=== PATIENT | male | born 1955 | race Caucasian/White ===

== ENCOUNTER 2024-11-07 17:54 | Inpatient (IN) | payer MEDICARE, SELFPAY ==
[2024-11-07] VITALS (45 sets, daily range): BP systolic 62–94; BP diastolic 37–55; PULSE 97–189; RESP 11–35; TEMP 35.9–37.1; O2SAT 28–100; BMI 25.2; BMI 24.0
--- NOTE | 2024-11-07 16:15 | RAD_ITS ---
PROCEDURE: CHEST 1 VIEW (PORTABLE) 11/07/2024 REASON FOR EXAM: ETT AND OG PLACEMENT TECHNIQUE: Frontal view of the chest. COMPARISON: Earlier today FINDINGS: Hardware: Interval placement of endotracheal tube with the tip approximately 5 cm above the manoj. Nasogastric tube which is unchanged. Heart: Cardiac and mediastinal contours are stable. Lungs: The lungs are clear. Bones: The bones are unremarkable. Other: RAD/Chest 1 View (Portable) IMPRESSION: Interval placement of endotracheal tube with the tip above the manoj. Nasogastric tube which is unchanged. No active pulmonary disease. Reading Location: [id number]
[2024-11-07] MEDS: 0.9% Normal Saline (1000mL) 1,000 ML 999 ML IV ×2 (18:04→23:30)
[2024-11-07] MEDS: Rocuronium Bromide 50 MG/5 ML Vial 100 MG IV (18:04)
[2024-11-07] MEDS: Etomidate 20 MG/10 ML Vial IV (18:04)
--- NOTE | 2024-11-07 18:11 | EKG12_ITS ---
Test Reason : UNRESP Blood Pressure : */* mmHG Vent. Rate : 100 BPM Atrial Rate : 100 BPM P-R Int : 186 ms QRS Dur : 114 ms QT Int : 374 ms P-R-T Axes : 45 78 52 degrees QTcB Int : 482 ms Normal sinus rhythm Cannot rule out Brugada pattern, type 1 , possible metabolic changes Prolonged QT Abnormal ECG No old ECG availabe Confirmed by Mo Aviles ([id number]), editor managing newspaper MARITZA BAIRES ([id number]) on 11/08/2024 11:23:39 AM Referred By: Confirmed By: Mo Aviles
--- NOTE | 2024-11-07 18:11 | RAD_ITS ---
PROCEDURE: CHEST 1 VIEW (PORTABLE) 11/07/2024 REASON FOR EXAM: DYSPNEA TECHNIQUE: Frontal view of the chest. FINDINGS: Hardware: Nasogastric tube with the tip below the diaphragm with the side port in the distal esophagus. Heart: Cardiac and mediastinal contours are stable. Lungs: The lungs are clear. Bones: The bones are unremarkable. Other: RAD/Chest 1 View (Portable) IMPRESSION: Nasogastric tube with the tip below the diaphragm with the side port overlying the distal esophagus. No active pulmonary disease. Reading Location: [id number]
[2024-11-07 18:35] LABS: Bedside Glucose > 500 mg/dL (74-106)
[2024-11-07] MEDS: 0.9% Normal Saline (1000mL) 1,000 ML 1000 ML IV (18:44)
[2024-11-07 18:45] LABS: Bacteria 0 SEEN /hpf (None Seen); Mucous, Urine 0 SEEN /hpf (<or=2+); Red Blood Cells-Urine 0 SEEN /hpf (0-5); Squamous Epithelial Cells - UA 0 SEEN /hpf (0-5)
--- NOTE | 2024-11-07 18:45 | CPS ---
Per MD Archibald pushed tube into 26 at the teeth at this time.
[2024-11-07 18:47] LABS: Absolute Lymphocyte Count 1.99 X10^3/uL (0.83-4.51); Absolute Neutrophil Count 20.6 X10^3/uL (2.0-7.7); Basophil# 0.11 X10^3/uL; Basophil% 0.4 % (0-1); Color, Urine Straw (Yellow); Eosinophil# 0.01 X10^3/uL; Glucose, Dipstick 1000 mg/dl (Normal); Hematocrit 37.7 % (40-54); Hemoglobin 10.6 g/dL (13.0-16.5); Leukocyte Esterase-Dipstick Negative /ul (Negative); Lymphocyte # 1.99 X10^3/ul (0.83-4.51); Lymphocyte % 8.1 % (19-41); Mean Corp Hgb Conc 28.1 g/dL (32-36); Mean Corpuscular Hgb 31.1 pg (27.0-32.0); Mean Corpuscular Volume 110.6 fL (80-94); Mean Platelet Vol. 12.8 fl (6.2-12.0); Monocyte# 1.09 X10^3/uL; Monocyte% 4.4 % (0-10); NRBC Flagged by Analyzer 0 % (0-5); Neutrophil # 20.59 X10^3/uL (2.7-7.7); Neutrophil % 83.4 % (47-70); Nitrite-Dipstick Negative (Negative); Occult Blood-Urine Negative /ul (Negative); POSITIVE DIFFERENTIAL YES; Platelet Count 269 K/mm3 (150-450); Protein-Dipstick 15 mg/dl (Negative); RBC Distribution Width CV 13.2 % (11.6-14.6); RBC Distribution Width SD 53.3 fl (35.1-43.9); Red Blood Count 3.41 M/mm3 (4.6-6.2); Specific Gravity, Urine 1.015 (1.002-1.030); Urine Bilirubin Dipstick Negative (Negative); Urine Clarity Clear (Clear); Urine Urobilinogen Normal (Normal); White Blood Count 24.7 K/mm3 (4.4-11.0)
[2024-11-07 18:50] LABS: Base Excess -24 mmol/L (-2 to +2); Bicarbonate 7.6 mmol/L (22-26); Blood Gas Specimen Type ART; Mode Not entered; O2 Delivery Device Bagging; PO2 379 mmHG (75-100); SITE L Radial; SO2 100 % (95-99); Time Given 18:47:46; Total Carbon Dioxide 9 mmol/L; pCO2 33.9 mmHg (35-45); pH 6.96 (7.35-7.45)
[2024-11-07 18:54] LABS: International Normalized Ratio 1.5; Prothrombin Time (Protime)PT. 18.8 SECONDS (11.7-14.9)
[2024-11-07 18:55] LABS: Partial Thromboplast Time 32.9 Seconds (24.1-36.2)
[2024-11-07 19:00] LABS: Differential Indicated SCAN CRITERIA MET
[2024-11-07] MEDS: Insulin Lispro 100 UNIT in 0.9% Normal Saline (100mL Bag) 99 ML 8.4 UNIT CONT INF (19:11)
[2024-11-07] MEDS: Norepinephrine 8 MG in 0.9% Normal Saline (250mL Bag) 242 ML 9.4 MG CONT INF (19:23)
--- NOTE | 2024-11-07 19:50 | RAD_ITS ---
EXAM: Portable chest CLINICAL HISTORY: Central line placement COMPARISON: Earlier today TECHNIQUE: Portable chest FINDINGS: Interval placement of right internal jugular central line with tip of the catheter overlying the distal superior vena cava no pneumothorax. Endotracheal tube and nasogastric tube both of which are unchanged. No bony abnormality. The heart mediastinum are normal. No opacity within the lungs to suggest active pulmonary disease. RAD/CXR for Line Placement IMPRESSION: Interval placement of right internal jugular central line with tip of the autumn ter overlying the superior vena cava no pneumothorax. Endotracheal tube and nasogastric tube both of which are unchanged. No active pulmonary disease. Reading Location: [id number]
[2024-11-07 19:55] LABS: Anion Gap 53 (5-15); BUN 44 mg/dL (4-19); BUN/Creat Ratio 13.4 RATIO (10-20); Calcium,Total 7.4 mg/dL (7.6-11.0); Chloride 76 mmol/L (98-108); Creatinine, Serum 3.25 mg/dL (0.70-1.20); EST Glomerular Filtration Rate 20 (>60); Potassium 5.8 mmol/L (3.3-5.1); Sodium Level 135 mmol/L (133-145)
--- NOTE | 2024-11-07 19:57 | ED.RN ---
PT. ARRIVAL VIA EMS W/ NO FAMILY, FRIENDS, OR FORM OF IDENTIFICATION ON PERSON. UNABLE TO VALIDATE NAME, BIRTHDAY, ALLERGIES
[2024-11-07 20:05] LABS: Troponin T High Sensitivity 38 ng/L (<=22)
--- NOTE | 2024-11-07 20:24 | EDS_ITS ---
HPI History of Present Illness Chief Complaint: Unresponsive Informant: EMS Onset/Context/Timing Onset: Today Context: Gradual Onset Timing: Continuous Quality: Unresponsive Location: Generalized Narrative Narrative: Patient presents after being found with an altered mental status. EMS checked the patient's blood sugar and noted to be high. EMS reports the patient became more unresponsive on the way to the hospital. EMS was able to place intraosseous lines. EMS states patient had no reaction to pain with this. EMS reports the patient has not been taking his insulin. Patient is nonverbal. PFSH PFSH Medical History Diabetes Medical History unable to obtain Allergy/AdvReac Type Severity Reaction Status Date / Time Unable to Assess Allergy Verified 11/07/24 17:57 Family History unable to obtain Surgical History unable to obtain unable to obtain Social History Smoking Status: Unknown if ever smoked ROS ROS ED Review of Systems ROS Unobtainable: due to mental condition and due to mental status EXAM Physical Exam Const Vital Signs: 11/07/24 17:57 11/07/24 18:06 11/07/24 18:08 Temperature 98 F Temperature Source Axillary Pulse Rate 189 H 98 Respiratory Rate 23 H 35 H Respiratory Pattern Apnea Blood Pressure 62/37 L 62/38 L Blood Pressure Mean 45 46 Blood Pressure Source Pulse Ox 100 80 97 Oxygen Delivery Method Ambu-Bag Ambu-Bag Ambu-Bag Fraction of Inspired Oxygen (FIO2) 11/07/24 18:09 11/07/24 18:10 11/07/24 18:17 Temperature Temperature Source Pulse Rate 100 Respiratory Rate 11 L Respiratory Pattern Apnea Blood Pressure 69/40 L 70/42 L Blood Pressure Mean 49 51 Blood Pressure Source Pulse Ox 98 Oxygen Delivery Method Ambu-Bag Fraction of Inspired Oxygen (FIO2) 11/07/24 18:20 11/07/24 18:37 11/07/24 18:42 Temperature Temperature Source Pulse Rate 100 99 Respiratory Rate 18 18 Respiratory Pattern Normal Blood Pressure 72/41 L 70/40 L Blood Pressure Mean 51 50 Blood Pressure Source Pulse Ox 99 97 Oxygen Delivery Method Mechanical Ventilator Mechanical Ventilator Fraction of Inspired Oxygen (FIO2) 100 70 11/07/24 18:45 11/07/24 18:48 04/14/25 18:51 Temperature Temperature Source Pulse Rate 99 99 Respiratory Rate 18 18 Respiratory Pattern Blood Pressure 68/41 L 68/40 L 69/40 L Blood Pressure Mean 50 50 50 Blood Pressure Source Pulse Ox Oxygen Delivery Method Fraction of Inspired Oxygen (FIO2) 11/07/24 18:54 11/07/24 18:57 11/07/24 19:00 Temperature Temperature Source Pulse Rate 98 98 Respiratory Rate 18 19 H Respiratory Pattern Blood Pressure 66/40 L 67/39 L 66/40 L Blood Pressure Mean 50 49 49 Blood Pressure Source Pulse Ox Oxygen Delivery Method Fraction of Inspired Oxygen (FIO2) 11/07/24 19:00 11/07/24 19:03 11/07/24 19:06 Temperature 96.6 F L Temperature Source Core Pulse Rate 97 98 98 Respiratory Rate 25 H 23 H 22 H Respiratory Pattern Blood Pressure 66/40 L 67/39 L 66/39 L Blood Pressure Mean 48 49 49 Blood Pressure Source Pulse Ox 100 Oxygen Delivery Method Mechanical Ventilator Fraction of Inspired Oxygen (FIO2) 40 11/07/24 19:09 11/07/24 19:12 11/07/24 19:15 Temperature Temperature Source Pulse Rate 97 Respiratory Rate 22 H Respiratory Pattern Blood Pressure 65/40 L 66/38 L 65/39 L Blood Pressure Mean 49 48 48 Blood Pressure Source Pulse Ox Oxygen Delivery Method Fraction of Inspired Oxygen (FIO2) 11/07/24 19:18 11/07/24 19:21 11/07/24 19:23 Temperature Temperature Source Pulse Rate 97 97 97 Respiratory Rate 22 H 22 H 21 H Respiratory Pattern Blood Pressure 65/39 L 65/39 L 65/39 L Blood Pressure Mean 47 48 47 Blood Pressure Source Monitor Pulse Ox Oxygen Delivery Method Fraction of Inspired Oxygen (FIO2) 11/07/24 19:24 11/07/24 19:27 11/07/24 19:30 Temperature Temperature Source Pulse Rate 97 97 98 Respiratory Rate 21 H 23 H 21 H Respiratory Pattern Blood Pressure 64/39 L 65/38 L 65/39 L Blood Pressure Mean 47 47 48 Blood Pressure Source Pulse Ox Oxygen Delivery Method Fraction of Inspired Oxygen (FIO2) 11/07/24 19:32 11/07/24 19:33 11/07/24 19:36 Temperature 96.6 F L Temperature Source Core Pulse Rate 98 98 100 Respiratory Rate 22 H 22 H 22 H Respiratory Pattern Blood Pressure 65/39 L 66/38 L 71/41 L Blood Pressure Mean 47 48 51 Blood Pressure Source Monitor Pulse Ox 100 Oxygen Delivery Method Mechanical Ventilator Fraction of Inspired Oxygen (FIO2) 11/07/24 19:57 11/07/24 20:00 11/07/24 20:15 Temperature 96.7 F L 96.9 F L Temperature Source Core Core Pulse Rate 103 H 107 H 107 H Respiratory Rate 23 H 23 H 22 H Respiratory Pattern Blood Pressure 74/41 L 78/43 L 77/45 L Blood Pressure Mean 52 54 55 Blood Pressure Source Monitor Monitor Pulse Ox 98 Oxygen Delivery Method Mechanical Ventilator Mechanical Ventilator Fraction of Inspired Oxygen (FIO2) 40 40 11/07/24 20:30 11/07/24 20:52 11/07/24 21:00 Temperature 97.4 F L 97.6 F L Temperature Source Core Core Pulse Rate 108 H 115 H Respiratory Rate 25 H 23 H Respiratory Pattern Blood Pressure 80/46 L 76/45 L 80/45 L Blood Pressure Mean 57 55 56 Blood Pressure Source Monitor Pulse Ox 98 97 Oxygen Delivery Method Mechanical Ventilator Mechanical Ventilator Fraction of Inspired Oxygen (FIO2) 40 40 11/07/24 21:21 11/07/24 21:23 11/07/24 21:30 Temperature 97.9 F 98.1 F Temperature Source Core Pulse Rate 114 H 114 H 115 H Respiratory Rate 23 H 23 H 23 H Respiratory Pattern Blood Pressure 80/47 L 80/47 L 82/46 L Blood Pressure Mean 58 58 58 Blood Pressure Source Monitor Pulse Ox 97 98 Oxygen Delivery Method Mechanical Ventilator Fraction of Inspired Oxygen (FIO2) 40 Constitutional Narrative: Patient is unresponsive and nonverbal. Patient has dry mucous membranes. HEENT Reports dry mucous membranes Mouth ED: Yes dry mucous membranes Mouth: dry mucous membranes Neck supple Resp clear to auscultation bilaterally Resp Narrative: Patient for respiratory effort. Patient had equal breath sounds after intubation. Cardio regular rate Rate: tachycardic GI non-distended Palpation: soft Neuro Sensorium / Orientation: stuporous Motor Exam: general weakness Psych Psych Narrative: Patient is unresponsive and nonverbal. MDM MDM MDM Narrative Medical decision making narrative: Differential diagnosis includes diabetic ketoacidosis, electrolyte abnormality, dehydration, gastrointestinal bleeding, cardiac dysrhythmia, cardiac ischemia, and metabolic acidosis. EKG will be obtained to assess for cardiac dysrhythmia and cardiac ischemia. Chest x-ray will be obtained to assess for pneumonia and bronchitis. CBC will be obtained to assess for leukocytosis and anemia. Basic metabolic profile will be obtained to assess for electrolyte abnormality and renal function. High-sensitivity troponin will be obtained to assess for cardiac ischemia. PT with INR and PTT will be obtained to assess for coagulopathy. Beta hydroxybutyrate will be obtained to assess for diabetic ketoacidosis. Urinalysis will be obtained to assess for urinary tract infection and hematuria. History & Record Review Additional record(s) reviewed:: No prior records Lab Data Attestation: I reviewed the patient's lab results. Lab results narrative: CBC was reviewed. There is a leukocytosis of 24.7. Hemoglobin was 10.6 and hematocrit was 37.7. PT with INR PTT were reviewed. Pro time was 18.8 and INR is 1.5. PTT was 32.9. Basic metabolic profile was reviewed. Potassium was slightly elevated at 5.8. There was some hemolysis noted. Chloride was 76. CO2 was low at 6.3. Anion gap was elevated at 53. BUN was elevated at 44 and creatinine was elevated at 3.25. Glucose was elevated at 1336. High- sensitivity troponin was reviewed and was elevated at 38. Beta hydroxybutyrate was reviewed and was elevated at greater than 16. There are no prior labs available for comparison. Labs: Laboratory Results - last 24 hr 11/07/24 11/07/24 11/07/24 18:09 18:19 18:30 WBC 24.7 H RBC 3.41 L Hgb 10.6 L Hct 37.7 L MCV 110.6 H MCH 31.1 MCHC 28.1 L RDW Std Deviation 53.3 H RDW Coeff of Eliseo 13.2 Plt Count 269 MPV 12.8 H Immature Gran % (Auto) 3.700 H Neut % (Auto) 83.4 H Lymph % (Auto) 8.1 L Christian % (Auto) 4.4 Eos % (Auto) 0.0 Baso % (Auto) 0.4 Absolute Neuts (auto) 20.6 H Absolute Lymphs (auto) 1.99 Nucleated RBC % 0 Differential Comment SCANNED PT 18.8 H INR 1.5 APTT 32.9 Sodium 135 Potassium 5.8 H Chloride 76 L Carbon Dioxide 6.3 L* Anion Gap 53 H BUN 44 H Creatinine 3.25 H Estim Creat Clear Calc 25.20 L Est GFR (MDRD) Non-Af 20 L BUN/Creatinine Ratio 13.4 Glucose 1336 H* Calcium 7.4 L Troponin T High Sens 38 H Troponin T Hi Sens 2 Hr b-Hydroxybutyric mmol/L > 16.0 Urine Color Straw Urine Clarity Clear Urine pH 6.0 Ur Specific [place] 1.015 Urine Protein 15 H Urine Glucose (UA) 1000 H Urine Ketones 150 A* Urine Occult Blood Negative Urine Nitrite Negative Urine Bilirubin Negative Urine Urobilinogen Normal Ur Leukocyte Esterase Negative Urine RBC 0 SEEN Urine WBC 0-5 SEEN Ur Squamous Epith Cells 0 SEEN Ur Renal Epithelial Cell 0-5 SEEN Urine Bacteria 0 SEEN Urine Mucus 0 SEEN POC Glucose > 500 H* Blood Type O NEGATIVE Antibody Screen NEGATIVE 11/07/24 20:59 WBC RBC Hgb Hct MCV MCH MCHC RDW Std Deviation RDW Coeff of Eliseo Plt Count MPV Immature Gran % (Auto) Neut % (Auto) Lymph % (Auto) Christian % (Auto) Eos % (Auto) Baso % (Auto) Absolute Neuts (auto) Absolute Lymphs (auto) Nucleated RBC % Differential Comment PT INR APTT Sodium Potassium Chloride Carbon Dioxide Anion Gap BUN Creatinine Estim Creat Clear Calc Est GFR (MDRD) Non-Af BUN/Creatinine Ratio Glucose 1130 H* Calcium Troponin T High Sens Troponin T Hi Sens 2 Hr 42 H b-Hydroxybutyric mmol/L Urine Color Urine Clarity Urine pH Ur Specific [place] Urine Protein Urine Glucose (UA) Urine Ketones Urine Occult Blood Urine Nitrite Urine Bilirubin Urine Urobilinogen Ur Leukocyte Esterase Urine RBC Urine WBC Ur Squamous Epith Cells Ur Renal Epithelial Cell Urine Bacteria Urine Mucus POC Glucose Blood Type Antibody Screen ABG Data Attestation: I personally reviewed and interpreted this ABG as follows: Interpretation: Arterial blood gas was reviewed. There is a metabolic acidosis with a pH of 6.96. pCO2 was 33.9. pO2 was 379. Bicarbonate was 7.6. Base excess was -24. Oxygen saturation was 100%. ABG results: ABG 11/07/24 18:45 Specimen Type ART Sample Site L Radial pH 6.96 L* Bicarbonate Actual 7.6 L Total CO2 9 Base Excess -24 L O2 Saturation 100 H O2 % 100.0 ABG pCO2 33.9 L ABG pO2 379 H* Srini Test N/A O2 Delivery Device Bagging Vent Mode Not entered Crit Call To/Read Back Yes Blood Gas Notified Whom Dr Archibald Blood Gas Notified Time 18:47:46 Radiography Chest X-Ray - ED: 1 View, Read by ED Physician, Read by Radiologist and No Acute Disease Diagnostic Testing: Clinical Impression(s) from Imaging Studies Chest X-Ray 11/07/24 16:15 IMPRESSION: Interval placement of endotracheal tube with the tip above the manoj. Nasogastric tube which is unchanged. No active pulmonary disease. Reading Location: [facility] Chest X-Ray 11/07/24 18:11 IMPRESSION: Nasogastric tube with the tip below the diaphragm with the side port overlying the distal esophagus. No active pulmonary disease. Reading Location: [facility] Chest X-Ray 11/07/24 19:50 IMPRESSION: Interval placement of right internal jugular central line with tip of the catheter overlying the superior vena cava no pneumothorax. Endotracheal tube and nasogastric tube both of which are unchanged. No active pulmonary disease. Reading Location: [facility] Initial chest x-ray was obtained. There is 1 view. On my independent interpretation, there is nasogastric tube noted to go below the diaphragm. The endotracheal tube was not visualized. There is no acute cardiopulmonary process. Radiologist also interpreted the x-rays and agrees. Repeat chest x-ray was obtained. There is 1 view. On my independent i nterpretation, the endotracheal tube was noted to be above the manoj. The nasogastric tube was unchanged. There is no acute cardiopulmonary process. Radiologist also interpreted the x-ray and agrees. Repeat chest x-ray performed after placement of right internal jugular central line was obtained. There is 1 view. On my independent interpretation, there is good placement of the right internal jugular central line. There is no pneumothorax. Radiologist also interpreted the x-ray and agrees. EKG Initial EKG: Attestation: I personally reviewed and interpreted this EKG as follows: Interpretation: Sinus Rhythm (100) Comments: EKG was obtained. On my independent interpretation, it showed normal sinus rhythm with a rate of 100. WA interval was normal at 186 ms. QRS interval was normal at 114 ms. QTc interval was 482 ms. [place] was normal. There are nonspecific ST-T wave changes noted. There are no prior EKGs available for comparison. Prior EKG tracings: not available for review Prior: No Prior Management Discussion w/another healthcare provider: Hospitalist Treatment and Re-Evaluation :: Patient was unable to protect his airway. Therefore patient was intubated. Patient was given etomidate and rocuronium. Patient was intubated with a 8.0 ET tube to 20 cm at the lip. After chest x-ray was obtained, this was advanced to 26 cm at the lip. There is good color change noted on capnography. There is condensation in the tube. There are equal breath sounds bilaterally. After intubation, there was coffee-ground emesis coming from the esophagus. Orogastric tube was placed. There is a large amount of coffee-ground emesis suctioned. Patient was started on insulin drip. Patient's blood pressure remained low. Therefore a right internal jugular central venous line will need to be placed. The right internal jugular vein area was cleaned and prepped in a sterile manner. Sterile drapes were placed. Using ultrasound guidance, the right internal jugular vein was cannulated. There is good blood return. It was dark and nonpulsatile. Guidewire was passed through the needle and the needle was withdrawn. The #11 blade scalpel was used to make a small skin incision. Dilator was passed over the guidewire and was removed. The triple-lumen catheter was then advanced over the guidewire. This was sutured in place. There was good blood return in all 3 ports. The lines were all flushed with saline. Patient tolerated procedure well. Repeat chest x-ray was obtained. There is no pneumothorax. Patient was started on Levophed. After review results of the electrolytes and CO2, patient was given 1 amp of sodium bicarbonate. Patient was also started on Protonix. Case was discussed with the hospitalist. He will admit the patient to ICU. He recommended obtaining CTA of the chest, abdomen, and pelvis to look for aspiration pneumonia and source of gastrointestinal bleeding. This was ordered. Patient will be admitted to ICU after this is done. Procedures Intubations Intubation Method: orotracheal Intubation Verification: Positive color change and Bilateral breath sounds confirmed Intubation Complications: no complications Other Procedures Procedure(s): The right internal jugular area was cleaned and prepped and draped in a sterile manner. Using ultrasound guidance, the right internal jugular was cannulated with a needle. There is dark blood return. It was nonpulsatile. The guidewire was passed through the needle. The needle was removed. A small skin incision was made using 11 blade scalpel. The dilator was passed over the guidewire and then was removed. The triple-lumen catheter was then inserted over the guidewire. The guidewire was removed intact. All 3 ports flushed easily. The triple-lumen catheter was sutured in place. Dressing was applied. Patient tolerated procedure well. Postprocedure x-ray was obtained. There is 1 view. On my independent interpretation, the triple-lumen catheter is in place. There is no pneumothorax. Radiologist also interpreted the x-ray and agrees. Critical Care Time Critical Care Time: Yes Critical care time (excluding procedures): 30-74 minutes (47), Including time spent:, Discussing w/Consultants, Arranging Admission or Transfer and Performing Direct Patient Care at Bedside Discharge Plan Dx/Rx/DC Orders Clinical Impression: Diabetic ketoacidosis, Respiratory failure, Hypotension, Gastrointestinal bleeding, upper, Leukocytosis Disposition Disposition: Acute Care Hospital [facility] Discharge Date/Time: 11/07/24 22:30
[2024-11-07 20:29] LABS: BETA-HYDROXYBUTYRATE > 16.0 mmol/L (0.0-0.3)
[2024-11-07 20:30] LABS: Carbon Dioxide 6.3 mmol/L (21.0-32.0); Glucose 1336 mg/dL (70-99)
[2024-11-07 20:52] LABS: Ketone-Dipstick 150 mg/dl (Negative)
[2024-11-07] MEDS: Pantoprazole Sodium 80 MG in 0.9% Normal Saline (100mL Bag) 80 ML 10 MG CONT INF (20:52)
[2024-11-07] MEDS: Sodium Bicarbonate 8.4% 50 ML Syringe 50 MEQ IV (20:52)
[2024-11-07 21:02] LABS: White Blood Cells 0-5 SEEN /hpf (0-5)
[2024-11-07 21:03] LABS: Renal Epithelial Cells 0-5 SEEN /hpf (0-5)
--- NOTE | 2024-11-07 21:10 | PCM.HP.STD ---
HPI - General General Date of Admission: 11/07/24 Date of Service: 11/07/24 Chief Complaint: Elevated Blood Glucose, AMS and Coffee-Ground Emesis. HPI Narrative MASHA PEREZ, is a 66 M with a past medical history of poorly controlled diabetes; of uncertain type who presented to [facility] ER via EMS after he was noted to have elevated blood glucose and altered mental status. Mr. Perez is not a reliable historian at this time as he is intubated and sedated on pressors deformation was taken from chart, medical staff and computer. According to the records the patient noted he was having a high blood glucose with record showing patient becoming unresponsive on way to the hospital. EMS tried to place an IO with patient having no reaction to pain after this procedure. EMS was able to ascertain the patient was not taking his insulin but no other information is available at this time. While he was being intubated in the ER he was noted to have severe coffee-ground emesis consistent with suspected UGIB due to PUD requiring initiation of pantoprazole drip. In the ER he was also noted to have a critically elevated blood glucose of 1,336 mg/dL with a beta-hydroxybutyrate of greater than 16 mmol/L consistent with DKA with a corresponding ABG that revealed pH 6.96/PCO2 33.9 mmHg/pO2 379 mmHg/HCO3 7.6 mmol/L while being bagged with 100% FiO2 complicated by laboratory evidence of GLYNN; with elevated serum creatinine of 3.25 mg/dL, elevated BUN of 44 mg/dL and Hyperkalemia of 5.8 mmol/L present on admission clinical evidence of severe Acute Metabolic Encephalopathy compounded by Leukocytosis of 24.7K with 3.7% Left shift present on admission and severe hypotension of 62/37 mmHg present on admission requiring initiation of norepinephrine drip consistent with suspected Sepsis and Septic Shock; with CXR negative for acute pathologic changes on admission but with CT of the chest abdomen and pelvis requested by myself of the ER physician pending at this time. He was then admitted to the ICU for ongoing care for his status expected to extend beyond 2 midnights. [facility], LAT[facility] Medical History Diabetes Medical History unable to obtain Allergy/AdvReac Type Severity Reaction Status Date / Time Unable to Assess Allergy Verified 11/07/24 17:57 Family History unable to obtain Surgical History unable to obtain Social History Smoking Status: Unknown if ever smoked ROS ROS Narrative For review of systems. Possible due to patient's severe acute illness as he is intubated and sedated with severe DKA. Vital Signs Vital Signs Vital Signs: 11/07/24 17:57 11/07/24 18:06 11/07/24 18:08 Temperature 98 F Temperature Source Axillary Pulse Rate 189 H 98 Respiratory Rate 23 H 35 H Respiratory Pattern Apnea Blood Pressure 62/37 L 62/38 L Blood Pressure Mean 45 46 Blood Pressure Source Pulse Ox 100 80 97 Oxygen Delivery Method Ambu-Bag Ambu-Bag Ambu-Bag Fraction of Inspired Oxygen (FIO2) 11/07/24 18:09 11/07/24 18:10 11/07/24 18:17 Temperature Temperature Source Pulse Rate 100 Respiratory Rate 11 L Respiratory Pattern Apnea Blood Pressure 69/40 L 70/42 L Blood Pressure Mean 49 51 Blood Pressure Source Pulse Ox 98 Oxygen Delivery Method Ambu-Bag Fraction of Inspired Oxygen (FIO2) 11/07/24 18:20 11/07/24 18:37 11/07/24 18:42 Temperature Temperature Source Pulse Rate 100 99 Respiratory Rate 18 18 Respiratory Pattern Normal Blood Pressure 72/41 L 70/40 L Blood Pressure Mean 51 50 Blood Pressure Source Pulse Ox 99 97 Oxygen Delivery Method Mechanical Ventilator Mechanical Ventilator Fraction of Inspired Oxygen (FIO2) 100 70 11/07/24 18:45 11/07/24 18:48 11/07/24 18:51 Temperature Temperature Source Pulse Rate 99 99 Respiratory Rate 18 18 Respiratory Pattern Blood Pressure 68/41 L 68/40 L 69/40 L Blood Pressure Mean 50 50 50 Blood Pressure Source Pulse Ox Oxygen Delivery Method Fraction of Inspired Oxygen (FIO2) 11/07/24 18:54 11/07/24 18:57 11/07/24 19:00 Temperature Temperature Source Pulse Rate 98 98 Respiratory Rate 18 19 H Respiratory Pattern Blood Pressure 66/40 L 67/39 L 66/40 L Blood Pressure Mean 50 49 49 Blood Pressure Source Pulse Ox Oxygen Delivery Method Fraction of Inspired Oxygen (FIO2) 11/07/24 19:00 11/07/24 19:03 11/07/24 19:06 Temperature 96.6 F L Temperature Source Core Pulse Rate 97 98 98 Respiratory Rate 25 H 23 H 22 H Respiratory Pattern Blood Pressure 66/40 L 67/39 L 66/39 L Blood Pressure Mean 48 49 49 Blood Pressure Source Pulse Ox 100 Oxygen Delivery Method Mechanical Ventilator Fraction of Inspired Oxygen (FIO2) 40 11/07/24 19:09 11/07/24 19:12 11/07/24 19:15 Temperature Temperature Source Pulse Rate 97 Respiratory Rate 22 H Respiratory Pattern Blood Pressure 65/40 L 66/38 L 65/39 L Blood Pressure Mean 49 48 48 Blood Pressure Source Pulse Ox Oxygen Delivery Method Fraction of Inspired Oxygen (FIO2) 11/07/24 19:18 11/07/24 19:21 11/07/24 19:23 Temperature Temperature Source Pulse Rate 97 97 97 Respiratory Rate 22 H 22 H 21 H Respiratory Pattern Blood Pressure 65/39 L 65/39 L 65/39 L Blood Pressure Mean 47 48 47 Blood Pressure Source Monitor Pulse Ox Oxygen Delivery Method Fraction of Inspired Oxygen (FIO2) 11/07/24 19:24 11/07/24 19:27 11/07/24 19:30 Temperature Temperature Source Pulse Rate 97 97 98 Respiratory Rate 21 H 23 H 21 H Respiratory Pattern Blood Pressure 64/39 L 65/38 L 65/39 L Blood Pressure Mean 47 47 48 Blood Pressure Source Pulse Ox Oxygen Delivery Method Fraction of Inspired Oxygen (FIO2) 11/07/24 19:32 11/07/24 19:33 11/07/24 19:36 Temperature 96.6 F L Temperature Source Core Pulse Rate 98 98 100 Respiratory Rate 22 H 22 H 22 H Respiratory Pattern Blood Pressure 65/39 L 66/38 L 71/41 L Blood Pressure Mean 47 48 51 Blood Pressure Source Monitor Pulse Ox 100 Oxygen Delivery Method Mechanical Ventilator Fraction of Inspired Oxygen (FIO2) 11/07/24 19:57 11/07/24 20:00 11/07/24 20:15 Temperature 96.7 F L 96.9 F L Temperature Source Core Core Pulse Rate 103 H 107 H 107 H Respiratory Rate 23 H 23 H 22 H Respiratory Pattern Blood Pressure 74/41 L 78/43 L 77/45 L Blood Pressure Mean 52 54 55 Blood Pressure Source Monitor Monitor Pulse Ox 98 Oxygen Delivery Method Mechanical Ventilator Mechanical Ventilator Fraction of Inspired Oxygen (FIO2) 40 40 11/07/24 20:30 11/07/24 20:52 11/07/24 21:00 Temperature 97.4 F L 97.6 F L Temperature Source Core Core Pulse Rate 108 H 115 H Respiratory Rate 25 H 23 H Respiratory Pattern Blood Pressure 80/46 L 76/45 L 80/45 L Blood Pressure Mean 57 55 56 Blood Pressure Source Monitor Pulse Ox 98 97 Oxygen Delivery Method Mechanical Ventilator Mechanical Ventilator Fraction of Inspired Oxygen (FIO2) 40 40 Weight Weight: 185 lb 10.067 oz Body Mass Index (BMI) 25.2 Physical Exam Const Constitutional Narrative: Patient is intubated and sedated on ventilator at this time. HEENT normocephalic and head/scalp atraumatic HEENT Narrative: Mucous membranes dry. Eyes PERRL and EOMs intact bilaterally Neck no lymphadenopathy and supple Resp normal respiratory effort, no retractions, no use of accessory muscles and clear to auscultation bilaterally Cardio regular rate and regular rhythm Cardio Narrative: Tachycardic at ~107 bpm. GI normal to inspection, nondistended, normoactive bowel sounds, soft to palpation, non-tender and non-distended Extremity normal to inspection, full ROM and no clubbing, cyanosis or edema Skin Skin Narrative: Patient has evidence of rash, abscess, wounds or jaundice. Neuro Neuro Narrative: Patient is intubated and sedated on ventilator. Psych Psych Narrative: Patient is intubated and sedated on ventilator. Results Medical Records Data Attestation: I reviewed the patient's medical records Lab / Micro Data Attestation: I reviewed the patient's lab results. 11/08/24 03:55 11/08/24 03:55 Labs: Laboratory Results - last 24 hr 11/07/24 18:09: POC Glucose > 500 H* 11/07/24 18:30: WBC 24.7 H, RBC 3.41 L, Hgb 10.6 L, Hct 37.7 L, MCV 110.6 H, MCH 31.1, MCHC 28.1 L, RDW Std Deviation 53.3 H, RDW Coeff of Eliseo 13.2, Plt Count 269, MPV 12.8 H, Immature Gran % (Auto) 3.700 H, Neut % (Auto) 83.4 H, Lymph % (Auto) 8.1 L, Cameron % (Auto) 4.4, Eos % (Auto) 0.0, Baso % (Auto) 0.4, Absolute Neuts (auto) 20.6 H, Absolute Lymphs (auto) 1.99, Nucleated RBC % 0, PT 18.8 H, INR 1.5, APTT 32.9, Sodium 135, Potassium 5.8 H, Chloride 76 L, Carbon Dioxide 6.3 L*, Anion Gap 53 H, BUN 44 H, Creatinine 3.25 H, Estim Creat Clear Calc 25.20 L, Est GFR (MDRD) Non-Af 20 L, BUN/Creatinine Ratio 13.4, Glucose 1336 H*, Calcium 7.4 L, Troponin T High Sens 38 H, b-Hydroxybutyric mmol/L > 16.0, Urine Color Straw, Urine Clarity Clear, Urine pH 6.0, Ur Specific Gans 1.015, Urine Protein 15 H, Urine Glucose (UA) 1000 H, Urine Ketones 150 A*, Urine Occult Blood Negative, Urine Nitrite Negative, Urine Bilirubin Negative, Urine Urobilinogen Normal, Ur Leukocyte Esterase Negative, Urine RBC 0 SEEN, Urine WBC 0-5 SEEN, Ur Squamous Epith Cells 0 SEEN, Ur Renal Epithelial Cell 0-5 SEEN, Urine Bacteria 0 SEEN, Urine Mucus 0 SEEN ABG Data ABG results: ABG 11/07/24 18:45 Specimen Type ART Sample Site L Radial pH 6.96 L* Bicarbonate Actual 7.6 L Total CO2 9 Base Excess -24 L O2 Saturation 100 H O2 % 100.0 ABG pCO2 33.9 L ABG pO2 379 H* Srini Test N/A O2 Delivery Device Bagging Vent Mode Not entered Crit Call To/Read Back Yes Blood Gas Notified Whom Dr Archibald Blood Gas Notified Time 18:47:46 Imaging Radiology Impression Chest X-Ray 11/07/24 16:15 IMPRESSION: Interval placement of endotracheal tube with the tip above the manoj. Nasogastric tube which is unchanged. No active pulmonary disease. Reading Location: [facility] Chest X-Ray 11/07/24 18:11 IMPRESSION: Nasogastric tube with the tip below the diaphragm with the side port overlying the distal esophagus. No active pulmonary disease. Reading Location: [facility] Chest X-Ray 11/07/24 19:50 IMPRESSION: Interval placement of right internal jugular central line with tip of the catheter overlying the superior vena cava no pneumothorax. Endotracheal tube and nasogastric tube both of which are unchanged. No active pulmonary disease. Reading Location: [id number] Assessment & Plan Assessment/Plan (1) Diabetic ketoacidosis: QUALIFIERS: Diabetes mellitus complication detail: with coma Diabetes mellitus type: type 2 Qualified Code(s): E11.11 - Type 2 diabetes mellitus with ketoacidosis with coma (2) Leukocytosis: QUALIFIERS: Leukocytosis type: unspecified Qualified Code(s): D72.829 - Elevated white blood cell count, unspecified (3) Hypotension: QUALIFIERS: Hypotension type: unspecified hypotension type Qualified Code(s): I95.9 - Hypotension, unspecified (4) Sepsis: QUALIFIERS: Sepsis acute organ dysfunction status: with acute organ dysfunction Sepsis type: sepsis due to unspecified organism Severe sepsis acute organ dysfunction type: encephalopathy Severe sepsis shock status: with septic shock Qualified Code(s): A41.9 - Sepsis, unspecified organism; R65.21 - Severe sepsis with septic shock; G93.41 - Metabolic encephalopathy (5) Gastrointestinal bleeding, upper: (6) GLYNN (acute kidney injury): (7) Hyperkalemia: (8) Acute metabolic encephalopathy: PLAN: Plan 1. Critically elevated blood glucose of 1,336 mg/dL with a beta hydroxybutyrate of greater than 16 mmol/L consistent with DKA; with diabetic coma with a corresponding ABG that revealed pH 6.96/PCO2 33.9 mmHg/pO2 379 mmHg/HCO3 7.6 mmol/L while being bagged with 100% FiO2 - Admit to ICU. Continue insulin drip per DKA protocol. Check BMP every 4 hours per DKA protocol. Check hemoglobin A1c to objectively evaluate quality of diabetic control. Finally, we will consult laboratory chemical assistant sees patient on rounds in a.m. further recommendations with appreciated advance. 2. Leukocytosis of 24.7K with 3.7% Left shift present on admission and severe hypotension of 62/37 mmHg present on admission requiring initiation of norepinephrine drip consistent with suspected Sepsis and Septic Shock complicating #1 - No source of infection was identified at time of admission. CT scans of the chest abdomen pelvis are pending at this time. Patient will be started on empiric IV piperacillin-tazobactam and IV linezolid with culture and sensitivity pending at this time. 3. Severe coffee-ground emesis consistent with suspected UGIB due to PUD requiring initiation of pantoprazole drip compounding #1 & #2 - Keep strict NPO. Continue pantoprazole infusion IV. Type & screen blood and transfuse for hemoglobin less than 7 g/dL. Finally, will consult gastroenterology sees patient on rounds in the a.m. further recommendations regarding EGD distention with help appreciated advance. 4. GLYNN; with elevated serum creatinine of 3.25 mg/dL, elevated BUN of 44 mg/dL and Hyperkalemia of 5.8 mmol/L present on admission adding to the medical complexity of #1 - #3 - Aggressively volume resuscitate and recheck renal indices daily to follow trend. We will avoid potentially nephrotoxic agents. Finally, patient may benefit from nephrology consultation if renal indices do not show improvement after volume resuscitation. 5. Acute Metabolic Encephalopathy due to #1 - #4 - Check TSH, B12, Folate, UDS and SUSAN to evaluate for reversible causes of confusion. Otherwise, continue care plan as outlined above and monitor for improvement. 6. DVT prophylaxis - SCD's only in light of active bleeding outlined in #3. Total time: Approximately (but not less than) 75 minutes. Sepsis Attestation Sepsis Alert: Yes Sepsis Attestation: Agree w/Sepsis Date exam was performed: 11/07/24 Time exam was performed: 21:45 Possible Source of Sepsis: Unknown Sepsis Organ Dysfunction Criteria Present: SBP < 90 mmHg or MAP < 65 mmHg, SBP decrease of more than 40 mmHg, Acute Respiratory Failure (New need for BiPAP/CPAP or MV), Creatinine > 2.0 mg/dL and New/Unexplained change in mental status Supportive Findings: In the ER he was also noted to have a critically elevated blood glucose of 1,300 mg/dL with a beta hydroxybutyrate of greater than 16 mmol/L consistent with DKA with a corresponding ABG that revealed pH 6.96/PCO2 33.9 mmHg/pO2 379 mmHg/HCO3 7.6 mmol/L while being bagged with 100% FiO2 complicated by laboratory evidence of GLYNN; with elevated serum creatinine of 3.25 mg/dL, elevated BUN of 44 mg/dL and Hyperkalemia of 5.8 mmol/L present on admission clinical evidence of severe Acute Metabolic Encephalopathy compounded by Leukocytosis of 24.7K with 3.7% Left shift present on admission and severe hypotension of 62/37 mmHg present on admission requiring initiation of norepinephrine drip consistent with suspected Sepsis and Septic Shock. Fluid Resuscitation Fluid resuscitation indicated?: Yes Fluid Resuscitation ordered: 30 ml/kg fluid bolus ordered Amount of fluid ordered: 2 Sepsis Note Date exam was performed: 11/08/24 Time exam was performed: 02:45 Sepsis Attestation: Sepsis re-evaluation was performed Response to fluids: Non Fluid responsive hypotension and Vasopressors started Charges/Coding Visit Charges Inpatient E&M: 32160 Init Hosp L3
--- NOTE | 2024-11-07 21:13 | CT_ITS ---
PROCEDURE: CTA CHST, ABD, PEL W AND/OR WO 11/07/2024 REASON FOR EXAM: GASTROINTESTINAL BLEEDING TECHNIQUE: Chest abdomen and pelvis CT with intravenous contrast. Coronal and Sagittal reconstruction series were provided. One or more dose reduction techniques were used (e.g., Automated exposure control, adjustment of the mA and/or kV according to patient size, use of iterative reconstruction technique. PATIENT PREPARATION: Per protocol ORAL CONTRAST TYPE: None. AMOUNT: mL CONTRAST: Not provided VOLUME: Not provided mL Not Provided Gauge IV RADIATION DOSE SUMMARY: CTDlvol: 71 mGy DLP: 1308 mGycm COMPARISON: None FINDINGS: CHEST: Lines and tubes: Endotracheal tube terminates above the manoj. Nasogastric tube courses through the esophagus and terminates within the stomach. Mediastinum: No lymphadenopathy is demonstrated. Marked circumferential wall thickening of the esophagus, concerning for esophagitis. Heart: Heart size is normal. No pericardial effusion. Thoracic Aorta: No thoracic aortic aneurysm or dissection. Lungs and Airways: Bibasilar dependent atelectasis. No focal consolidation. Pleura: Small bilateral pleural effusion with atelectasis. No pneumothorax. Bones: Degenerative changes of the thoracic spine. Other: No gross filling defect is demonstrated within the pulmonary trunk. ABDOMEN AND PELVIS: Liver: Diffuse fatty infiltration. Small focal areas of pneumobilia, particularly within the left hepatic lobe. Gallbladder: Mildly distended gallbladder with evidence of intraluminal air. Dilated common bile duct measuring up to 1 cm, no obstructing stone is visualized. Spleen: Atrophic spleen. Pancreas: Diffuse fatty atrophy. Adrenals: Unremarkable Kidneys: Normal renal sizes. No hydronephrosis. Bladder: Decompressed urinary bladder secondary to Shearer catheter. Reproductive Organs: Unremarkable Bowel: Subtle gastric wall thickening, suspicious for gastritis. Most of the bowel loops are decompressed limiting evaluation. Evaluation for GI bleed is limited due to lack of noncontrast study. Vasculature: Atherosclerotic calcification of the abdominal aorta and branches. Peritoneum / Retroperitoneum: No free air or free fluid. Bones: Postop changes of the left inferior pubic ramus. Degenerative changes of the lumbar spine. CT/CTA Chst, Abd, Pel W and/or WO IMPRESSION: Circumferential wall thickening of the esophagus, concerning for esophagitis. Upper endoscopy or esophagram may be helpful for further characterization. Evaluation for GI bleed is limited due to lack of noncontrast study. No gross GI bleed is demonstrated. If there is high clinical suspicion, nuclear bone scan may be obtained for further characterizat ion. Mildly distended gallbladder with evidence of intraluminal air and pneumobilia, please correlate clinically with recent instrumentation. Alternatively this may be secondary to infection. The common bile duct is distended measuring up to 1 cm. MRCP may be helpful for further characterization. Subtle gastric wall thickening, concerning for gastritis. Reading Location: [facility]
[2024-11-07 21:54] LABS: Troponin T High Sens 2 HR 42 ng/L (<=22)
[2024-11-07 22:08] LABS: Glucose 1130 mg/dL (70-99)
--- NOTE | 2024-11-07 22:10 | ED.RN ---
Serum glucose obtained at 2058, results called from lab to ED at 2208. Titrating insulin accordingly based on serum glucose obtained at 2058.
[2024-11-07] MEDS: DOPamine IV 800 MG/250 ML IV.SOLN. 7.9 MG CONT INF (22:13)
[2024-11-07 22:49] LABS: Differential Comment SCANNED
[2024-11-07 23:24] LABS: Troponin T High Sens 4 HR 56 ng/L (<=22)
[2024-11-07] MEDS: Linezolid 600 MG 600 MG/300 ML BAG 200 MG IV (23:32)
[2024-11-07 23:36] LABS: Bedside Glucose > 500 mg/dL (74-106)
[2024-11-07 23:42] LABS: Glucose 1039 mg/dL (70-99)
[2024-11-08] VITALS (57 sets, daily range): BP systolic 81–160; BP diastolic 50–85; PULSE 97–121; RESP 18–34; TEMP 36.7–39.3; O2SAT 93–98; BMI 24.5
[2024-11-08 00:07] LABS: Alcohol, Blood (Medical)-Serum < 10.1 mg/dL (<=10.0)
[2024-11-08 00:12] LABS: Lactic Acid 2.4 mmol/L (0.0-2.0)
[2024-11-08 00:13] LABS: Amphetamine Urine NEGATIVE (<1000 ng/mL); Barbiturate Urine NEGATIVE (< 200 ng/mL); Benzodiazepine Urine NEGATIVE (< 200 ng/mL); Buprenorphine Urine PRESUMPTIVE POSITIVE (< 200 ng/mL); Cocaine Urine NEGATIVE (< 300 ng/mL); Fentanyl, Urine NEGATIVE; Methadone Urine NEGATIVE (< 300 ng/mL); Opiates Urine NEGATIVE (< 300 ng/mL); Oxycodone, Urine NEGATIVE (< 100 ng/mL); PCP Urine NEGATIVE (< 25 ng/mL); THC Urine PRESUMPTIVE POSITIVE (< 50 ng/mL)
[2024-11-08 00:20] LABS: Base Excess -19 mmol/L (-2 to +2); Bicarbonate 9.4 mmol/L (22-26); Blood Gas Specimen Type ART; Mode AC; O2 Delivery Device Adult Vent; PEEP 5; PO2 121 mmHG (75-100); RR 18; SITE L Radial; SO2 98 % (95-99); Total Carbon Dioxide 10 mmol/L; pCO2 24.7 mmHg (35-45); pH 7.19 (7.35-7.45)
[2024-11-08] MEDS: fentaNYL drip 100 ML 5 MCG CONT INF (00:20)
[2024-11-08 00:21] LABS: CPK Total, Creatine Kinase 1589 U/L (24-195); Magnesium 2.8 mg/dL (1.5-2.2); Vitamin B12 1379 pg/mL (180-914)
[2024-11-08] MEDS: 0.9% Saline Lock 10 ML Syringe IV ×3 (00:22→23:44)
[2024-11-08] MEDS: Norepinephrine 8 MG in 0.9% Normal Saline (250mL Bag) 242 ML 56.3 MG CONT INF (00:32)
[2024-11-08] MEDS: 0.9% Normal Saline (1000mL) 1,000 ML 500 ML IV (00:32)
[2024-11-08 00:34] LABS: ALB/GLOB Ratio 1.4 RATIO (0.9-2.4); AST(SGOT) 69 U/L (<=37); Alanine Aminotransfer ALT/SGPT 24 U/L (<=46); Alkaline Phosphatase 129 U/L (40-129); Anion Gap 51 (5-15); BUN 46 mg/dL (4-19); BUN/Creat Ratio 12.8 RATIO (10-20); Calcium,Total 7.1 mg/dL (7.6-11.0); Carbon Dioxide 6.8 mmol/L (21.0-32.0); Chloride 78 mmol/L (98-108); Creatinine, Serum 3.59 mg/dL (0.70-1.20); EST Glomerular Filtration Rate 18 (>60); Estimated Creatinine Clearance 22.82 ml/min (50-250); Globulin 2.1 g/dL (2.2-4.2); Glucose 982 mg/dL (70-99); Protein, Total 5.1 g/dL (5.9-8.4); Sodium Level 136 mmol/L (133-145); Total Bilirubin 0.17 mg/dL (0.00-1.30)
--- NOTE | 2024-11-08 00:42 | NURSING ---
Upon arrival from ED, pt was pulled over onto ICU bed. During movement and care, pt started to become restless and reach towards the ET tube. Bilateral soft wrist restraints applied for pt safety.
[2024-11-08 01:17] LABS: Glucose 936 mg/dL (70-99)
[2024-11-08] MEDS: dexMEDEtomidine 400 MCG in 0.9% Normal Saline (100mL Bag) 96 ML 10 MCG CONT INF (01:51)
[2024-11-08] MEDS: Piperacil/Tazobactam 3.375 GM in 0.9% Normal Saline (50mL MB+) 50 ML IV ×4 (01:52→21:17)
[2024-11-08 02:54] LABS: Anion Gap 44 (5-15); BUN 49 mg/dL (4-19); BUN/Creat Ratio 13.4 RATIO (10-20); Calcium,Total 6.9 mg/dL (7.6-11.0); Carbon Dioxide 10.1 mmol/L (21.0-32.0); Chloride 82 mmol/L (98-108); Creatinine, Serum 3.63 mg/dL (0.70-1.20); EST Glomerular Filtration Rate 18 (>60); Estimated Creatinine Clearance 22.57 ml/min (50-250); Glucose 881 mg/dL (70-99); Potassium 3.7 mmol/L (3.3-5.1); Sodium Level 136 mmol/L (133-145)
[2024-11-08 03:14] LABS: Reflex Lactate? Y
[2024-11-08] MEDS: 0.9% Normal Saline (1000mL) 1,000 ML 150 ML IV ×3 (03:51→17:35)
[2024-11-08 04:55] LABS: Lactic Acid 2.9 mmol/L (0.0-2.0)
[2024-11-08 05:13] LABS: Hematocrit 36.2 % (40-54); Hemoglobin 12.2 g/dL (13.0-16.5); Mean Corp Hgb Conc 33.7 g/dL (32-36); Mean Corpuscular Hgb 30.9 pg (27.0-32.0); Mean Corpuscular Volume 91.6 fL (80-94); Mean Platelet Vol. 11.4 fl (6.2-12.0); POSITIVE DIFFERENTIAL YES; POSITIVE MORPHOLOGY YES; Platelet Count 261 K/mm3 (150-450); RBC Distribution Width CV 12.8 % (11.6-14.6); RBC Distribution Width SD 42.8 fl (35.1-43.9); Red Blood Count 3.95 M/mm3 (4.6-6.2); White Blood Count 17.9 K/mm3 (4.4-11.0)
[2024-11-08] MEDS: Pantoprazole Sodium 80 MG in 0.9% Normal Saline (100mL Bag) 80 ML 10 MG CONT INF ×2 (06:05→16:55)
[2024-11-08 06:08] LABS: Differential Indicated MANUAL DIFF
[2024-11-08 06:10] LABS: Lymphocyte 11 % (19-41); Monocyte 2 % (0-10); Neutrophil-Band 8 % (0-5); Neutrophil-Segmented 79 % (47-70); Total Cells Counted 100 (MANUAL DIFF)
[2024-11-08] MEDS: Norepinephrine 8 MG in 0.9% Normal Saline (250mL Bag) 242 ML 28.1 MG CONT INF (06:10)
[2024-11-08 06:11] LABS: Absolute Lymphocyte Count 1.97 X10^3/uL (0.83-4.51); Absolute Neutrophil Count 15.6 X10^3/uL (2.0-7.7)
[2024-11-08 06:13] LABS: Anion Gap 39 (5-15); BUN 49 mg/dL (4-19); BUN/Creat Ratio 13.4 RATIO (10-20); Carbon Dioxide 12.7 mmol/L (21.0-32.0); Chloride 86 mmol/L (98-108); Creatinine, Serum 3.62 mg/dL (0.70-1.20); EST Glomerular Filtration Rate 18 (>60); Estimated Creatinine Clearance 22.63 ml/min (50-250); Glucose 760 mg/dL (70-99); Platelet Estimate ADEQUATE (ADEQ); Potassium 3.7 mmol/L (3.3-5.1); Red Cell Morphology NORM C+C NORMAL (NORM C&C); Sodium Level 137 mmol/L (133-145)
[2024-11-08 06:21] LABS: Bedside Glucose > 500 mg/dL (74-106)
[2024-11-08 06:21] LABS: BETA-HYDROXYBUTYRATE 13.1 mmol/L (0.0-0.3)
[2024-11-08] MEDS: dexMEDEtomidine 400 MCG in 0.9% Normal Saline (100mL Bag) 96 ML 30.1 MCG CONT INF (06:35)
[2024-11-08] MEDS: TITRATION PARAMETER CHANGE 1 EACH IV (06:36)
[2024-11-08 07:14] LABS: Hemoglobin A1c 11.4 % (<=5.6)
[2024-11-08 07:26] LABS: Bedside Glucose > 500 mg/dL (74-106)
--- NOTE | 2024-11-08 07:29 | CON.PCM.CC_ITS ---
Assessment & Plan Assessment/Plan (1) Acute metabolic encephalopathy: (2) Sepsis: QUALIFIERS: Sepsis acute organ dysfunction status: with acute organ dysfunction Sepsis type: sepsis due to unspecified organism Severe sepsis acute organ dysfunction type: encephalopathy Severe sepsis shock status: with septic shock Qualified Code(s): A41.9 - Sepsis, unspecified organism; R65.21 - Severe sepsis with septic shock; G93.41 - Metabolic encephalopathy (3) Diabetic ketoacidosis: QUALIFIERS: Diabetes mellitus complication detail: with coma D iabetes mellitus type: type 2 Qualified Code(s): E11.11 - Type 2 diabetes mellitus with ketoacidosis with coma PLAN: Plan RECOMMENDATIONS: 1. Continue assist-control mode mechanical ventilation. Wean FiO2 and PEEP as tolerated. 2. Continue supplemental IV fluid hydration and continuous insulin infusion. 3. Continue Levophed to maintain a mean arterial pressure at or above 65 mmHg. 4. Continue Precedex and fentanyl for sedation. 5. Continue PPI therapy, pending evaluation by gastroenterology. IMPRESSIONS: 1. Acute hypoxemic respiratory failure The patient was ultimately intubated in the emergency department over concerns for airway protection. His acid-base status has improved with invasive mechanical ventilatory support and medical therapy for his DKA. The patient will be continued on assist-control mode of mechanical ventilation, with a goal to wean FiO2 and PEEP as tolerated to maintain saturations at or above 90%. If the patient continues to improve clinically, recommend initiating spontaneous awakening and breathing trial tomorrow morning. 2. Multifactorial shock Likely due to a combination of hypovolemia and septic etiologies. Clinical concern for underlying gram-negative pneumonia. In addition, the patient did have evidence of a mildly distended gallbladder with evidence of intraluminal air and pneumobilia, which could suggest infection. Accordingly, gastroenterology has been consulted to evaluate the patient. He will be maintained on's broad-spectrum antimicrobial coverage along with vasopressor support to maintain hemodynamic stability. 3. Toxic/metabolic encephalopathy Most likely secondary to presenting DKA with significant metabolic derangements and multifactorial shock. Continue supportive care as noted above. Obtain follow-up ABG. 4. Diabetic ketoacidosis Continue supplemental IV fluid hydration along with continuous insulin infusion per protocol. The patient will remain n.p.o. for now. 5. Acute versus chronic kidney disease Unclear baseline renal function. Continue supportive care for now. Continue to monitor urine output. No current indication for renal replacement therapy. 6. Anemia Unclear chronicity. The patient's OG output appears coffee-ground in appearance. However, hemoglobin appears relatively stable. Gastroenterology consultation is pending. Continue PPI therapy in the interim. TIME: 40 minutes of critical care time, independent of procedures, was spent addressing the patient's acute hypoxemic respiratory failure, multifactorial shock, toxic/metabolic encephalopathy, diabetic ketoacidosis, acute kidney injury, anemia, review of all data and collaboration with the care team. HPI Consult Data Date of Consult: 11/08/24 HPI Narrative Reason for Consultation: Suspected sepsis HPI Narrative: The patient is a 66-year-old male, with a history as outlined below, who presented to the emergency department on November 07 with hyperglycemia, altered mental status and coffee-ground emesis. According to documentation, the patient has a history of poorly controlled diabetes mellitus. The exact history pertinent to his hospitalization is a bit unclear, as the patient is currently intubated and there is no family available. On presentation to the emergency department, the patient was initially documented to be afebrile but was notably hypotensive and tachypneic. Laboratory evaluation was notable for a white blood cell count of 25,000. Arterial blood gas was notable for a pH of 6.96 with a pCO2 of 34 and pO2 of 379. The patient's glucose was elevated at 760 with a creatinine of 3.62, anion gap of 39 and beta hydroxybutyrate of 13.1. TSH was increased to 10.6. Urine analysis was noncontributory. Toxicology screen demonstrated presumptive positive for buprenorphine along with a presumptive positive for cannabinoids. On arrival to the emergency department, there was concern that the patient was unable to protect his airway. Accordingly, he was emergently intubated. CT imaging of the chest/abdomen/pelvis demonstrated circumferential wall thickening of the esophagus concerning for esophagitis along with a distended gallbladder with evidence of intraluminal air and pneumobilia along with a distended common bile duct. The patient received supplemental IV fluid hydration and was started on an insulin infusion along with empiric antibiotics. The patient was subsequently admitted to the medical intensive care unit for further management. [facility] Medical History Diabetes Medical History unable to obtain Allergy/AdvReac Type Severity Reaction Status Date / Time Unable to Assess Allergy Verified 11/07/24 17:57 Family History unable to obtain Surgical History unable to obtain Social History Smoking Status: Unknown if ever smoked ROS Review of Systems ROS Unobtainable: due to endotracheal tube and due to mental status Physical Exam Const Constitutional Narrative: Intubated, sedated and mechanically ventilated. HEENT normocephalic and head/scalp atraumatic Mouth: endotracheal tube in place and OG tube in place Eyes EOMs intact bilaterally and conjunctivae normal Neck supple General: trachea midline and CVC in place Resp normal respiratory effort Auscultation: diminished lung sounds; Negative for rales, rhonchi or wheezes Cardio regular rate and regular rhythm GI normal to inspection, nondistended, normoactive bowel sounds Extremity no clubbing, cyanosis or edema Skin no rashes or lesions noted Neuro Sensorium / Orientation: sedated on vent Lab / Micro Data 11/08/24 03:55 11/08/24 03:55 Labs: Laboratory Results - last 24 hr 11/07/24 18:09: POC Glucose > 500 H* 11/07/24 18:15: Urine Opiates Screen NEGATIVE, U Buprenorphine Qual PRESUMPTIVE POSITIVE, Ur Oxycodone Screen NEGATIVE, Urine Methadone Screen NEGATIVE, Urine Fentanyl Screen NEGATIVE, Ur Barbiturates Screen NEGATIVE, Ur Phencyclidine Scrn NEGATIVE, Ur Amphetamines Screen NEGATIVE, U Benzodiazepines Scrn NEGATIVE, Urine Cocaine Screen NEGATIVE, U Cannabinoids Screen PRESUMPTIVE POSITIVE 11/07/24 18:19: Blood Type O NEGATIVE, Antibody Screen NEGATIVE 11/07/24 18:30: WBC 24.7 H, RBC 3.41 L, Hgb 10.6 L, Hct 37.7 L, MCV 110.6 H, MCH 31.1, MCHC 28.1 L, RDW Std Deviation 53.3 H, RDW Coeff of [place]iseo 13.2, Plt Count 269, MPV 12.8 H, Immature Gran % (Auto) 3.700 H, Neut % (Auto) 83.4 H, Lymph % (Auto) 8.1 L, [place] % (Auto) 4.4, Eos % (Auto) 0.0, Baso % (Auto) 0.4, Absolute Neuts (auto) 20.6 H, Absolute Lymphs (auto) 1.99, Nucleated RBC % 0, Differential Comment SCANNED, PT 18.8 H, INR 1.5, APTT 32.9, Sodium 135, P otassium 5.8 H, Chloride 76 L, Carbon Dioxide 6.3 L*, Anion Gap 53 H, BUN 44 H, Creatinine 3.25 H, Estim Creat Clear Calc 25.20 L, Est GFR (MDRD) Non-Af 20 L, BUN/Creatinine Ratio 13.4, Glucose 1336 H*, Hemoglobin A1c 11.4 H, Calcium 7.4 L , Troponin T High Sens 38 H, b-Hydroxybutyric mmol/L > 16.0, Urine Color Straw, Urine Clarity Clear, Urine pH 6.0, Ur Specific [place] 1.015, Urine Protein 15 H , Urine Glucose (UA) 1000 H, Urine Ketones 150 A*, Urine Occult Blood Negative, Urine Nitrite Negative, Urine Bilirubin Negative, Urine Urobilinogen Normal, Ur Leukocyte Esterase Negative, Urine RBC 0 SEEN, Urine WBC 0-5 SEEN, Ur Squamous Epith Cells 0 SEEN, Ur Renal Epithelial Cell 0-5 SEEN, Urine Bacteria 0 SEEN, Urine Mucus 0 SEEN 11/07/24 20:59: Glucose 1130 H*, Troponin T Hi Sens 2 Hr 42 H 11/07/24 22:30: Glucose 1039 H*, Troponin T Hi Sens 4Hr 56 H* 11/07/24 23:00: Sodium 136, Potassium 4.0, Chloride 78 L, Carbon Dioxide 6.8 L*, Anion Gap 51 H, BUN 46 H, Creatinine 3.59 H, Estim Creat Clear Calc 22.82 L, Est GFR (MDRD) Non-Af 18 L, BUN/Creatinine Ratio 12.8, Glucose 982 H*, Lactic Acid 2.4 H*, Calcium 7.1 L, Magnesium 2.8 H, Total Bilirubin 0.17, AST 69 H, ALT 24, Alkaline Phosphatase 129, Total Creatine Kinase 1589 H, Total Protein 5.1 L, A lbumin 3.0 L, Globulin 2.1 L, Albumin/Globulin Ratio 1.4, Vitamin B12 1379 H, Serum Folate 15.20, TSH 10.600 H, Ethyl Alcohol < 10.1 11/07/24 23:18: POC Glucose > 500 H* 11/08/24 00:10: Glucose 936 H* 11/08/24 01:40: Sodium 136, Potassium 3.7, Chloride 82 L, Carbon Dioxide 10.1 L, Anion Gap 44 H, BUN 49 H, Creatinine 3.63 H, Estim Creat Clear Calc 22.57 L, Est GFR (MDRD) Non-Af 18 L, BUN/Creatinine Ratio 13.4, Glucose 881 H*, Calcium 6.9 L 11/08/24 03:55: WBC 17.9 H, RBC 3.95 L, Hgb 12.2 L, Hct 36.2 L, MCV 91.6 D, MCH 30.9, MCHC 33.7 D, RDW Std Deviation 42.8, RDW Coeff of Eliseo 12.8, Plt Count 261, MPV 11.4, Neut % (Auto) Not Reportable, Absolute Neuts (auto) 15.6 H, Absolute Lymphs (auto) 1.97, Total Counted 100, Neutrophils % (Manual) 79 H, B and Neutrophils % 8 H, Lymphocytes % (Manual) 11 L, Monocytes % (Manual) 2, Platelet Estimate ADEQUATE, RBC Morphology NORM C+C, Sodium 137, Potassium 3.7, Chloride 86 L, Carbon Dioxide 12.7 L, Anion Gap 39 H, BUN 49 H, Creatinine 3.62 H, Estim Creat Clear Calc 22.63 L, Est GFR (MDRD) Non-Af 18 L, BUN/Creatinine Ratio 13.4, Glucose 760 H*, Lactic Acid 2.9 H*, Calcium 7.0 L, b-Hydroxybutyric mmol/L 13.1 11/08/24 05:58: POC Glucose > 500 H* 11/08/24 07:08: POC Glucose > 500 H* ABG Data ABG results: ABG 11/07/24 11/08/24 18:45 00:08 Specimen Type ART ART Sample Site L Radial L Radial pH 6.96 L* 7.19 L* Bicarbonate Actual 7.6 L 9.4 L Total CO2 9 10 Base Excess -24 L -19 L O2 Saturation 100 H 98 O2 % 100.0 45.0 ABG pCO2 33.9 L 24.7 L ABG pO2 379 H* 121 H Srini Test N/A N/A Respiration Rate 18 O2 Delivery Device Bagging Adult Vent Vent Mode Not entered AC Tidal Volume 500.0 POC PEEP 5 Crit Call To/Read Back Yes Yes Blood Gas Notified Whom Dr Schwiger Dr de Dwight Blood Gas Notified Time 18:47:46 00:10:37 Imaging Radiology Impression Chest X-Ray 11/07/24 16:15 IMPRESSION: Interval placement of endotracheal tube with the tip above the manoj. Nasogastric tube which is unchanged. No active pulmonary disease. Reading Location: [facility] Chest X-Ray 11/07/24 18:11 IMPRESSION: Nasogastric tube with the tip below the diaphragm with the side port overlying the distal esophagus. No active pulmonary disease. Reading Location: [facility] Chest X-Ray 11/07/24 19:50 IMPRESSION: Interval placement of right internal jugular central line with tip of the catheter overlying the superior vena cava no pneumothorax. Endotracheal tube and nasogastric tube both of which are unchanged. No active pulmonary disease. Reading Location: [facility] Chest/Abdomen/Pelvis CTA 11/07/24 21:13 IMPRESSION: Circumferential wall thickening of the esophagus, concerning for esophagitis. Upper endoscopy or esophagram may be helpful for further characterization. Evaluation for GI bleed is limited due to lack of noncontrast study. No gross GI bleed is demonstrated. If there is high clinical suspicion, nuclear bone scan may be obtained for further characterization. Mildly distended gallbladder with evidence of intraluminal air and pneumobilia, please correlate clinically with recent instrumentation. Alternatively this may be secondary to infection. The common bile duct is distended measuring up to 1 cm. MRCP may be helpful for further characterization. Subtle gastric wall thickening, concerning for gastritis. [facility] Charges/Coding Procedures Hospitalists Procedures: [id number] Critical Care 1st Hr
[2024-11-08 08:09] LABS: Lactic Acid 3.4 mmol/L (0.0-2.0)
[2024-11-08 08:32] LABS: Bedside Glucose > 500 mg/dL (74-106)
[2024-11-08] MEDS: fentaNYL drip 100 ML 20 MCG CONT INF ×4 (08:35→23:44)
[2024-11-08 08:46] LABS: Allen Test Positive; Base Excess -3 mmol/L (-2 to +2); Bicarbonate 21.5 mmol/L (22-26); Blood Gas Specimen Type ART; Mode AC; O2 Delivery Device Adult Vent; PEEP 5; PO2 81 mmHG (75-100); RR 18; SITE R Radial; SO2 96 % (95-99); Total Carbon Dioxide 23 mmol/L; pCO2 32.4 mmHg (35-45); pH 7.43 (7.35-7.45)
--- NOTE | 2024-11-08 09:06 | PCM.PN.HOSP ---
Subjective Subjective Intubated and sedated, continuing with antibiotics and weaning pressors as able Objective Data Objective Data Vital Signs: Vital Signs Temp Pulse Resp BP Pulse Ox O2 Del Method O2 Flow Rate 101.3 F H 100 19 H 92/60 97 Mechanical Ventilator 45 11/08/24 08:00 11/08/24 08:53 11/08/24 08:53 11/08/24 08:30 11/08/24 08:53 11/08/24 08:00 11/08/24 00:00 FiO2 35 11/08/24 08:53 Oxygen Flow Rate (L/min) 45 Oxygen Delivery Method Mechanical Ventilator Weight: 180 lb 8.937 oz Body Mass Index (BMI) 24.5 Intake & Output: Intake and Output for Last 24 Hours 11/07/24 11/08/24 11/09/24 03:59 03:59 03:59 Intake Total 4859.95 / 4916.10 560.41 / 560.41 Output Total 1700 / 1700 650 / 650 Balance 3159.95 / 3216.10 -89.59 / -89.59 Lab / Micro Data 11/08/24 03:55 11/08/24 03:55 Labs: Laboratory Results - last 24 hr 11/07/24 18:09: POC Glucose > 500 H* 11/07/24 18:15: Urine Opiates Screen NEGATIVE, U Buprenorphine Qual PRESUMPTIVE POSITIVE, Ur Oxycodone Screen NEGATIVE, Urine Methadone Screen NEGATIVE, Urine Fentanyl Screen NEGATIVE, Ur Barbiturates Screen NEGATIVE, Ur Phencyclidine Scrn NEGATIVE, Ur Amphetamines Screen NEGATIVE, U Benzodiazepines Scrn NEGATIVE, Urine Cocaine Screen NEGATIVE, U Cannabinoids Screen PRESUMPTIVE POSITIVE 11/07/24 18:19: Blood Type O NEGATIVE, Antibody Screen NEGATIVE 11/07/24 18:30: WBC 24.7 H, RBC 3.41 L, Hgb 10.6 L, Hct 37.7 L, MCV 110.6 H, MCH 31.1, MCHC 28.1 L, RDW Std Deviation 53.3 H, RDW Coeff of Eliseo 13.2, Plt Count 269, MPV 12.8 H, Immature Gran % (Auto) 3.700 H, Neut % (Auto) 83.4 H, Lymph % (Auto) 8.1 L, [place] % (Auto) 4.4, Eos % (Auto) 0.0, Baso % (Auto) 0.4, Absolute Neuts (auto) 20.6 H, Absolute Lymphs (auto) 1.99, Nucleated RBC % 0, Differential Comment SCANNED, PT 18.8 H, INR 1.5, APTT 32.9, Sodium 135, Potassium 5.8 H, Chloride 76 L, Carbon Dioxide 6.3 L*, Anion Gap 53 H, BUN 44 H, Creatinine 3.25 H, Estim Creat Clear Calc 25.20 L, Est GFR (MDRD) Non-Af 20 L, BUN/Creatinine Ratio 13.4, Glucose 1336 H*, Hemoglobin A1c 11.4 H, Calcium 7.4 L, Troponin T High Sens 38 H, b-Hydroxybutyric mmol/L > 16.0, Urine Color Straw, Urine Clarity Clear, Urine pH 6.0, Ur Specific [place] 1.015, Urine Protein 15 H, Urine Glucose (UA) 1000 H, Urine Ketones 150 A*, Urine Occult Blood Negative, Urine Nitrite Negative, Urine Bilirubin Negative, Urine Urobilinogen Normal, Ur Leukocyte Esterase Negative, Urine RBC 0 SEEN, Urine WBC 0-5 SEEN, Ur Squamous Epith Cells 0 SEEN, Ur Renal Epithelial Cell 0-5 SEEN, Urine Bacteria 0 SEEN, Urine Mucus 0 SEEN 11/07/24 20:59: Glucose 1130 H*, Troponin T Hi Sens 2 Hr 42 H 11/07/24 22:30: Glucose 1039 H*, Troponin T Hi Sens 4Hr 56 H* 11/07/24 23:00: Sodium 136, Potassium 4.0, Chloride 78 L, Carbon Dioxide 6.8 L*, Anion Gap 51 H, BUN 46 H, Creatinine 3.59 H, Estim Creat Clear Calc 22.82 L, Est GFR (MDRD) Non-Af 18 L, BUN/Creatinine Ratio 12.8, Glucose 982 H*, Lactic Acid 2.4 H*, Calcium 7.1 L, Magnesium 2.8 H, Total Bilirubin 0.17, AST 69 H, ALT 24, Alkaline Phosphatase 129, Total Creatine Kinase 1589 H, Total Protein 5.1 L, Albumin 3.0 L, Globulin 2.1 L, Albumin/Globulin Ratio 1.4, Vitamin B12 1379 H, Serum Folate 15.20, TSH 10.600 H, Ethyl Alcohol < 10.1 11/07/24 23:18: POC Glucose > 500 H* 11/08/24 00:10: Glucose 936 H*, Free T4 0.50 L, Free T3 pg/dL 1.0 L 11/08/24 01:40: Sodium 136, Potassium 3.7, Chloride 82 L, Carbon Dioxide 10.1 L, Anion Gap 44 H, BUN 49 H, Creatinine 3.63 H, Estim Creat Clear Calc 22.57 L, Est GFR (MDRD) Non-Af 18 L, BUN/Creatinine Ratio 13.4, Glucose 881 H*, Calcium 6.9 L 11/08/24 03:55: WBC 17.9 H, RBC 3.95 L, Hgb 12.2 L, Hct 36.2 L, MCV 91.6 D, MCH 30.9, MCHC 33.7 D, RDW Std Deviation 42.8, RDW Coeff of Eliseo 12.8, Plt Count 261, MPV 11.4, Neut % (Auto) Not Reportable, Absolute Neuts (auto) 15.6 H, Absolute Lymphs (auto) 1.97, Total Counted 100, Neutrophils % (Manual) 79 H, Band Neutrophils % 8 H, Lymphocytes % (Manual) 11 L, Monocytes % (Manual) 2, Platelet Estimate ADEQUATE, RBC Morphology NORM C+C, Sodium 137, Potassium 3.7, Chloride 86 L, Carbon Dioxide 12.7 L, Anion Gap 39 H, BUN 49 H, Creatinine 3.62 H, Estim Creat Clear Calc 22.63 L, Est GFR (MDRD) Non-Af 18 L, BUN/Creatinine Ratio 13.4, Glucose 760 H*, Lactic Acid 2.9 H*, Calcium 7.0 L, b-Hydroxybutyric mmol/L 13.1 11/08/24 05:58: POC Glucose > 500 H* 11/08/24 06:40: Lactic Acid 3.4 H* 11/08/24 07:08: POC Glucose > 500 H* 11/08/24 08:01: POC Glucose > 500 H* ABG Data ABG results: ABG 11/07/24 11/08/24 11/08/24 18:45 00:08 08:42 Specimen Type ART ART ART Sample Site L Radial L Radial R Radial pH 6.96 L* 7.19 L* 7.43 Bicarbonate Actual 7.6 L 9.4 L 21.5 L Total CO2 9 10 23 Base Excess -24 L -19 L -3 L O2 Saturation 100 H 98 96 O2 % 100.0 45.0 35.0 ABG pCO2 33.9 L 24.7 L 32.4 L ABG pO2 379 H* 121 H 81 Srini Test N/A N/A Positive Respiration Rate 18 18 O2 Delivery Device Bagging Adult Vent Adult Vent Vent Mode Not entered [facility] Tidal Volume 500.0 500.0 POC PEEP 5 5 Crit Call To/Read Back Yes Yes Blood Gas Notified Whom Dr Cristela Farrar Blood Gas Notified Time 18:47:46 00:10:37 Radiography Diagnostic Testing: Radiology Impression Chest X-Ray 11/07/24 16:15 IMPRESSION: Interval placement of endotracheal tube with the tip above the manoj. Nasogastric tube which is unchanged. No active pulmonary disease. Reading Location: [facility] Chest X-Ray 11/07/24 18:11 IMPRESSION: Nasogastric tube with the tip below the diaphragm with the side port overlying the distal esophagus. No active pulmonary disease. Reading Location: [id number] Chest X-Ray 11/07/24 19:50 IMPRESSION: Interval placement of right internal jugular central line with tip of the catheter overlying the superior vena cava no pneumothorax. Endotracheal tube and nasogastric tube both of which are unchanged. No active pulmonary disease. Reading Location: [facility] Chest/Abdomen/Pelvis CTA 11/07/24 21:13 IMPRESSION: Circumferential wall thickening of the esophagus, concerning for esophagitis. Upper endoscopy or esophagram may be helpful for further characterization. Evaluation for GI bleed is limited due to lack of noncontrast study. No gross GI bleed is demonstrated. If there is high clinical suspicion, nuclear bone scan may be obtained for further characterization. Mildly distended gallbladder with evidence of intraluminal air and pneumobilia, please correlate clinically with recent instrumentation. Alternatively this may be secondary to infection. The common bile duct is distended measuring up to 1 cm. MRCP may be helpful for further characterization. Subtle gastric wall thickening, concerning for gastritis. [facility] Physical Exam Const General Appearance: intubated and patient mechanically ventilated HEENT normocephalic Eyes PERRL and conjunctivae normal Neck supple and no JVD Resp normal respiratory effort, no retractions and no use of accessory muscles Auscultation: Negative for crackles, rales, rhonchi or wheezes Cardio regular rate, regular rhythm, S1 normal heart sound, S2 normal heart sound and no murmurs GI soft to palpation and non-distended; Negative for hepatosplenomegaly Extremity no clubbing, cyanosis or edema Skin no rashes or lesions noted Neuro Sensorium / Orientation: sedated on vent Psych Appearance: intubated Assessment & Plan Assessment/Plan (1) Diabetic ketoacidosis: QUALIFIERS: Diabetes mellitus type: type 2 Diabetes mellitus complication detail: with coma Qualified Code(s): E11.11 - Type 2 diabetes mellitus with ketoacidosis with coma (2) Sepsis: QUALIFIERS: Sepsis type: sepsis due to unspecified organism Sepsis acute organ dysfunction status: with acute organ dysfunction Severe sepsis acute organ dysfunction type: encephalopathy Severe sepsis shock status: with septic shock Qualified Code(s): A41.9 - Sepsis, unspecified organism; R65.21 - Severe sepsis with septic shock; G93.41 - Metabolic encephalopathy (3) Gastrointestinal bleeding, upper: (4) GLYNN (acute kidney injury): (5) Acute metabolic encephalopathy: PLAN: Plan 1. Septic shock secondary to pneumobilia from an unclear source complicated by DKA and an upper GI bleed with acute hypoxic respiratory failure necessitating intubation/GLYNN/acute metabolic encephalopathy ? Appreciate GIs assistance ? Appreciate assistant merchandise manager assistance ? Continued with broad-spectrum antibiotics ? Continue with aggressive IV fluids ? Wean pressors as able ? Remain intubated and sedated today ? Continue with DKA protocol, no longer acidotic. Awaiting new BMP ? Continue with IV Protonix NG tube continues to have coffee-ground drainage ? Hemoglobin is actually up from admission to 12.2 DVT: SCDs Charges/Coding Visit Charges Inpatient E&M: 42322 Subs Hosp L2
[2024-11-08] MEDS: Acetaminophen 650 MG Suppository RC (09:15)
[2024-11-08] MEDS: Linezolid 600 MG 600 MG/300 ML BAG 200 MG IV ×2 (09:15→21:16)
[2024-11-08 09:31] LABS: Bedside Glucose 479 mg/dL (74-106)
--- NOTE | 2024-11-08 10:06 | CASEMGMT ---
There is no EMS run sheet in patient's chart. SW did see an EKG that the squad did in patient's chart and it is from [facility]. SW called [facility] and left a message requesting a return phone call. SW will continue to try and figure out the patient's identity and contacts. Britney Schwartz PLASTIC OUTFITTERSky XIE
[2024-11-08] MEDS: dexMEDEtomidine 400 MCG in 0.9% Normal Saline (100mL Bag) 96 ML 30.7 MCG CONT INF ×2 (10:13→13:33)
[2024-11-08 10:21] LABS: Bedside Glucose 475 mg/dL (74-106)
[2024-11-08 10:59] LABS: Reflex Lactate? Y
--- NOTE | 2024-11-08 11:05 | CASEMGMT ---
SAGRARIO spoke with [facility] federal aid coordinator Claude. SAGRARIO explained situation. He was not able to locate a run sheet. Claude is aware SAGRARIO called and left a message for [facility]. Claude also sent [facility] an email. Britney XIE
[2024-11-08 11:15] LABS: Bedside Glucose > 500 mg/dL (74-106)
[2024-11-08 12:12] LABS: Bedside Glucose 438 mg/dL (74-106)
[2024-11-08 12:21] LABS: Anion Gap 23 (5-15); BUN 52 mg/dL (4-19); BUN/Creat Ratio 13.5 RATIO (10-20); Calcium,Total 6.9 mg/dL (7.6-11.0); Chloride 94 mmol/L (98-108); Creatinine, Serum 3.87 mg/dL (0.70-1.20); EST Glomerular Filtration Rate 17 (>60); Estimated Creatinine Clearance 21.17 ml/min (50-250); Glucose 598 mg/dL (70-99); Potassium 4.2 mmol/L (3.3-5.1); Sodium Level 139 mmol/L (133-145)
[2024-11-08 13:27] LABS: Bedside Glucose 456 mg/dL (74-106)
--- NOTE | 2024-11-08 13:39 | CASEMGMT ---
Pt is currently sedated and on the mechanical ventilator and is unable to participate in the RN CM initial assessment. At this time, Care Management is trying to figure out the pt's identity and contacts. See SAGRARIO notes. CM to follow.
--- NOTE | 2024-11-08 13:48 | CASEMGMT ---
SAGRARIO received a copy of the EMS run sheet and the address where patient was picked up. [address], [place], [place]. SAGRARIO called [facility]'s Dept and was able to obtain the name and phone number of the caller. Brianna Davalos ([phone]). SAGRARIO called Brianna and left a voice mail. SAGRARIO did some more research and did see there was a female Loree that resides at that address. SAGRARIO again tried to call Brianna with no answer. However, a few seconds later Brianna called SAGRARIO back. Brianna said patient is her step dad and she is on her way to get her mom and then come to the hospital. Brianna confirmed her mom's name is Loree Perez. SAGRARIO notified patient's bedside RN, physician, and case resource manager. Contact information will be obtained and put in computer. Britney XIE
[2024-11-08 14:32] LABS: Bedside Glucose 466 mg/dL (74-106)
--- NOTE | 2024-11-08 15:12 | CASEMGMT ---
Patient's Loree arrived at [facility]. SW spoke with Loree. Introduced self and role at [facility]. SW obtained demographic information for patient and contacts. Per Loree patient has [facility] Medicare. She was not sure if he still had Medicaid or not. SAGRARIO asked that the next time she comes in to bring his insurance cards. Loree said she could do that. Britney Schwartz PHOTO OFFSET PRINTER ROJAS
--- NOTE | 2024-11-08 15:17 | CON.PCM.GI_ITS ---
HPI Consult Data Date of Consult: 11/08/24 HPI Narrative Reason for Consultation: Coffee-ground emesis HPI Narrative: MASHA ROE, is a 69M presented to [facility] ER via EMS after he was noted to have elevated blood glucose and altered mental status. He is intubated and sedated on pressors deformation was taken from chart, medical staff and computer. According to the records the patient noted he was having a high blood glucose with record showing patient becoming unresponsive on way to the hospital. EMS tried to place an IO with patient having no reaction to pain after this procedure. EMS was able to ascertain the patient was not taking his insulin but no other information is available at this time. While he was being intubated in the ER he was noted to have severe coffee- ground emesis consistent with suspected UGIB due to PUD requiring initiation of pantoprazole drip. In the ER he was also noted to have a critically elevated blood glucose of 1,336 mg/dL with a beta-hydroxybutyrate of greater than 16 mmol/L consistent with DKA. ABG that revealed pH 6.96/PCO2 33.9 mmHg/pO2 379 mmHg/HCO3 7.6 mmol/L while being bagged with 100% FiO2 complicated by laboratory evidence of GLYNN; with elevated serum creatinine of 3.25 mg/dL, elevated BUN of 44 mg/dL and Hyperkalemia of 5.8 mmol/L present on admission clinical evidence of severe Acute Metabolic Encephalopathy compounded by Leukocytosis of 24.7K with 3.7% Left shift present on admission and severe hypotension of 62/37 mmHg present on admission requiring initiation of norepinephrine drip consistent with suspected Sepsis and Septic Shock; with CXR negative for acute pathologic changes on admission but with CT of the chest abdomen and pelvis [facility] Medical History Diabetes Medical History unable to obtain Allergy/AdvReac Type Severity Reaction Status Date / Time Unable to Assess Allergy Verified 11/07/24 17:57 Family History unable to obtain Surgical History unable to obtain Social History Smoking Status: Unknown if ever smoked ROS Review of Systems ROS Unobtainable: due to endotracheal tube and due to mental status Physical Exam Const General Appearance: intubated and patient mechanically ventilated HEENT normocephalic Eyes PERRL and conjunctivae normal Neck supple and no JVD Resp normal respiratory effort, no retractions and no use of accessory muscles Auscultation: Negative for crackles, rales, rhonchi or wheezes Cardio regular rate, regular rhythm, S1 normal heart sound, S2 normal heart sound and no murmurs GI soft to palpation and non-distended; Negative for hepatosplenomegaly Extremity no clubbing, cyanosis or edema Skin no rashes or lesions noted Neuro Sensorium / Orientation: sedated on vent Psych Appearance: intubated Lab / Micro Data 11/08/24 03:55 11/08/24 10:55 Labs: Laboratory Results - last 24 hr 11/07/24 18:09: POC Glucose > 500 H* 11/07/24 18:15: Urine Opiates Screen NEGATIVE, U Buprenorphine Qual PRESUMPTIVE POSITIVE, Ur Oxycodone Screen NEGATIVE, Urine Methadone Screen NEGATIVE, Urine Fentanyl Screen NEGATIVE, Ur Barbiturates Screen NEGATIVE, Ur Phencyclidine Scrn NEGATIVE, Ur Amphetamines Screen NEGATIVE, U Benzodiazepines Scrn NEGATIVE, Urine Cocaine Screen NEGATIVE, U Cannabinoids Screen PRESUMPTIVE POSITIVE 11/07/24 18:19: Blood Type O NEGATIVE, Antibody Screen NEGATIVE 11/07/24 18:30: WBC 24.7 H, RBC 3.41 L, Hgb 10.6 L, Hct 37.7 L, MCV 110.6 H, MCH 31.1, MCHC 28.1 L, RDW Std Deviation 53.3 H, RDW Coeff of Eliseo 13.2, Plt Count 269, MPV 12.8 H, Immature Gran % (Auto) 3.700 H, Neut % (Auto) 83.4 H, Lymph % (Auto) 8.1 L, Mcmullen % (Auto) 4.4, Eos % (Auto) 0.0, Baso % (Auto) 0.4, Absolute Neuts (auto) 20.6 H, Absolute Lymphs (auto) 1.99, Nucleated RBC % 0, Differential Comment SCANNED, PT 18.8 H, INR 1.5, APTT 32.9, Sodium 135, P otassium 5.8 H, Chloride 76 L, Carbon Dioxide 6.3 L*, Anion Gap 53 H, BUN 44 H, Creatinine 3.25 H, Estim Creat Clear Calc 25.20 L, Est GFR (MDRD) Non-Af 20 L, BUN/Creatinine Ratio 13.4, Glucose 1336 H*, Hemoglobin A1c 11.4 H, Calcium 7.4 L , Troponin T High Sens 38 H, b-Hydroxybutyric mmol/L > 16.0, Urine Color Straw, Urine Clarity Clear, Urine pH 6.0, Ur Specific [place] 1.015, Urine Protein 15 H , Urine Glucose (UA) 1000 H, Urine Ketones 150 A*, Urine Occult Blood Negative, Urine Nitrite Negative, Urine Bilirubin Negative, Urine Urobilinogen Normal, Ur Leukocyte Esterase Negative, Urine RBC 0 SEEN, Urine WBC 0-5 SEEN, Ur Squamous Epith Cells 0 SEEN, Ur Renal Epithelial Cell 0-5 SEEN, Urine Bacteria 0 SEEN, Urine Mucus 0 SEEN 11/07/24 20:11: Sodium Cancelled, Potassium Cancelled, Chloride Cancelled, Carbon Dioxide Cancelled, Anion Gap Cancelled, BUN Cancelled, Creatinine Cancelled, Estim Creat Clear Calc Cancelled, Est GFR (MDRD) Non-Af Cancelled, BUN/Creatinine Ratio Cancelled, Glucose Cancelled, Calcium Cancelled 11/07/24 20:59: Glucose 1130 H*, Troponin T Hi Sens 2 Hr 42 H 11/07/24 22:30: Glucose 1039 H*, Troponin T Hi Sens 4Hr 56 H* 11/07/24 23:00: Sodium 136, Potassium 4.0, Chloride 78 L, Carbon Dioxide 6.8 L*, Anion Gap 51 H, BUN 46 H, Creatinine 3.59 H, Estim Creat Clear Calc 22.82 L, Est GFR (MDRD) Non-Af 18 L, BUN/Creatinine Ratio 12.8, Glucose 982 H*, Lactic Acid 2.4 H*, Calcium 7.1 L, Magnesium 2.8 H, Total Bilirubin 0.17, AST 69 H, ALT 24, Alkaline Phosphatase 129, Total Creatine Kinase 1589 H, Total Protein 5.1 L, A lbumin 3.0 L, Globulin 2.1 L, Albumin/Globulin Ratio 1.4, Vitamin B12 1379 H, Serum Folate 15.20, TSH 10.600 H, Ethyl Alcohol < 10.1 11/07/24 23:18: POC Glucose > 500 H* 11/08/24 00:10: Glucose 936 H*, Free T4 0.50 L, Free T3 pg/dL 1.0 L 11/08/24 01:40: Sodium 136, Potassium 3.7, Chloride 82 L, Carbon Dioxide 10.1 L, Anion Gap 44 H, BUN 49 H, Creatinine 3.63 H, Estim Creat Clear Calc 22.57 L, Est GFR (MDRD) Non-Af 18 L, BUN/Creatinine Ratio 13.4, Glucose 881 H*, Calcium 6.9 L 11/08/24 03:55: WBC 17.9 H, RBC 3.95 L, Hgb 12.2 L, Hct 36.2 L, MCV 91.6 D, MCH 30.9, MCHC 33.7 D, RDW Std Deviation 42.8, RDW Coeff of Eliseo 12.8, Plt Count 261, MPV 11.4, Neut % (Auto) Not Reportable, Absolute Neuts (auto) 15.6 H, Absolute Lymphs (auto) 1.97, Total Counted 100, Neutrophils % (Manual) 79 H, B and Neutrophils % 8 H, Lymphocytes % (Manual) 11 L, Monocytes % (Manual) 2, Platelet Estimate ADEQUATE, RBC Morphology NORM C+C, Sodium 137, Potassium 3.7, Chloride 86 L, Carbon Dioxide 12.7 L, Anion Gap 39 H, BUN 49 H, Creatinine 3.62 H, Estim Creat Clear Calc 22.63 L, Est GFR (MDRD) Non-Af 18 L, BUN/Creatinine Ratio 13.4, Glucose 760 H*, Lactic Acid 2.9 H*, Calcium 7.0 L, b-Hydroxybutyric mmol/L 13.1 11/08/24 05:58: POC Glucose > 500 H* 11/08/24 06:40: Lactic Acid 3.4 H* 11/08/24 07:08: POC Glucose > 500 H* 11/08/24 08:01: POC Glucose > 500 H* 11/08/24 09:08: POC Glucose 479 H* 11/08/24 10:01: POC Glucose 475 H* 11/08/24 10:54: POC Glucose > 500 H* 11/08/24 10:55: Sodium 139, Potassium 4.2, Chloride 94 L, Carbon Dioxide 22.0, A nion Gap 23 H, BUN 52 H, Creatinine 3.87 H, Estim Creat Clear Calc 21.17 L, Est GFR (MDRD) Non-Af 17 L, BUN/Creatinine Ratio 13.5, Glucose 598 H*, Calcium 6.9 L 11/08/24 11:53: POC Glucose 438 H 11/08/24 13:04: POC Glucose 456 H* 11/08/24 14:08: POC Glucose 466 H* Micro: Microbiology 11/07/24 20:08 Sputum, Tracheal Aspirate Gram Stain - Final 11/07/24 20:08 Sputum, Tracheal Aspirate Respiratory Culture - Preliminary GNR lactose three knife trimmer ABG Data ABG results: ABG 11/07/24 11/08/24 11/08/24 18:45 00:08 08:42 Specimen Type ART ART ART Sample Site L Radial L Radial R Radial pH 6.96 L* 7.19 L* 7.43 Bicarbonate Actual 7.6 L 9.4 L 21.5 L Total CO2 9 10 23 Base Excess -24 L -19 L -3 L O2 Saturation 100 H 98 96 O2 % 100.0 45.0 35.0 ABG pCO2 33.9 L 24.7 L 32.4 L ABG pO2 379 H* 121 H 81 Srini Test N/A N/A Positive Respiration Rate 18 18 O2 Delivery Device Bagging Adult Vent Adult Vent Vent Mode Not entered [facility] Tidal Volume 500.0 500.0 POC PEEP 5 5 Crit Call To/Read Back Yes Yes Blood Gas Notified Whom Dr Cristela Farrar Blood Gas Notified Time 18:47:46 00:10:37 Imaging Radiology Impression Chest X-Ray 11/07/24 16:15 IMPRESSION: Interval placement of endotracheal tube with the tip above the manoj. Nasogastric tube which is unchanged. No active pulmonary disease. Reading Location: [facility] Chest X-Ray 11/07/24 18:11 IMPRESSION: Nasogastric tube with the tip below the diaphragm with the side port overlying the distal esophagus. No active pulmonary disease. Reading Location: [facility] Chest X-Ray 11/07/24 19:50 IMPRESSION: Interval placement of right internal jugular central line with tip of the catheter overlying the superior vena cava no pneumothorax. Endotracheal tube and nasogastric tube both of which are unchanged. No active pulmonary disease. Reading Location: [id number] Chest/Abdomen/Pelvis CTA 11/07/24 21:13 IMPRESSION: Circumferential wall thickening of the esophagus, concerning for esophagitis. Upper endoscopy or esophagram may be helpful for further characterization. Evaluation for GI bleed is limited due to lack of noncontrast study. No gross GI bleed is demonstrated. If there is high clinical suspicion, nuclear bone scan may be obtained for further characterization. Mildly distended gallbladder with evidence of intraluminal air and pneumobilia, please correlate clinically with recent instrumentation. Alternatively this may be secondary to infection. The common bile duct is distended measuring up to 1 cm. MRCP may be helpful for further characterization. Subtle gastric wall thickening, concerning for gastritis. [facility] Assessment & Plan Assessment/Plan (1) Diabetic ketoacidosis: QUALIFIERS: Diabetes mellitus type: type 2 Diabetes mellitus complication detail: with coma Qualified Code(s): E11.11 - Type 2 diabetes mellitus with ketoacidosis with coma (2) Leukocytosis: QUALIFIERS: Leukocytosis type: unspecified Qualified Code(s): D 72.829 - Elevated white blood cell count, unspecified (3) Hypotension: QUALIFIERS: Hypotension type: unspecified hypotension type Q ualified Code(s): I95.9 - Hypotension, unspecified (4) Sepsis: QUALIFIERS: Sepsis type: sepsis due to unspecified organism S epsis acute organ dysfunction status: with acute organ dysfunction Severe sepsis acute organ dysfunction type: encephalopathy Severe sepsis shock status: with septic shock Qualified Code(s): A41.9 - Sepsis, unspecified organism; R65.21 - Severe sepsis with septic shock; G93.41 - Metabolic encephalopathy (5) Gastrointestinal bleeding, upper: (6) GLYNN (acute kidney injury): (7) Hyperkalemia: (8) Acute metabolic encephalopathy: PLAN: Plan 69-year-old with altered mental status and was discovered to have diabetic ketoacidosis currently on insulin drip. He also was discovered to have hypotension along with leukocytosis likely secondary to septic shock. He also developed severe coffee-ground emesis consistent with suspected UGIB due to PUD requiring initiation of pantoprazole drip. He will need to undergo emergent endoscopy to evaluate his upper GI tract. His family was explained alternatives, risk and benefits going understanding bleeding, infection, subsequent perforation, need for emergent urgent . He will have an ASA of 3. Charges/Coding Visit Charges Inpatient E&M: 96096 Init Hosp L3
[2024-11-08] MEDS: Midazolam 2 MG/2 ML Syringe IV (15:38)
[2024-11-08 15:45] LABS: Bedside Glucose 433 mg/dL (74-106)
[2024-11-08 16:29] LABS: Bedside Glucose 447 mg/dL (74-106)
[2024-11-08] MEDS: Dexmedetomidine 1,000 mcg in 0.9% NS 240 mL 30.7 MCG CONT INF (16:54)
[2024-11-08] MEDS: Norepinephrine 8 MG in 0.9% Normal Saline (250mL Bag) 242 ML 18.8 MG CONT INF (16:55)
[2024-11-08] MEDS: Insulin Lispro 100 UNIT in 0.9% Normal Saline (100mL Bag) 99 ML 345.2 UNIT CONT INF (17:10)
[2024-11-08 17:21] LABS: Anion Gap 19 (5-15); BUN 54 mg/dL (4-19); BUN/Creat Ratio 12.4 RATIO (10-20); Calcium,Total 6.9 mg/dL (7.6-11.0); Carbon Dioxide 23.9 mmol/L (21.0-32.0); Chloride 98 mmol/L (98-108); Creatinine, Serum 4.36 mg/dL (0.70-1.20); EST Glomerular Filtration Rate 14 (>60); Estimated Creatinine Clearance 18.05 ml/min (50-250); Sodium Level 140 mmol/L (133-145)
[2024-11-08 17:22] LABS: Glucose 491 mg/dL (70-99)
[2024-11-08 17:28] LABS: Bedside Glucose 401 mg/dL (74-106)
[2024-11-08 18:51] LABS: Anion Gap 17 (5-15); BUN 56 mg/dL (4-19); BUN/Creat Ratio 12.3 RATIO (10-20); Carbon Dioxide 24.6 mmol/L (21.0-32.0); Chloride 100 mmol/L (98-108); Creatinine, Serum 4.56 mg/dL (0.70-1.20); EST Glomerular Filtration Rate 13 (>60); Estimated Creatinine Clearance 17.25 ml/min (50-250); Glucose 421 mg/dL (70-99); Sodium Level 142 mmol/L (133-145)
[2024-11-08 18:53] LABS: Bedside Glucose 387 mg/dL (74-106)
[2024-11-08 19:13] LABS: Bedside Glucose 350 mg/dL (74-106)
[2024-11-08] MEDS: Insulin Lispro 100 UNIT in 0.9% Normal Saline (100mL Bag) 99 ML CONT INF (20:00)
[2024-11-08 20:47] LABS: Bedside Glucose 327 mg/dL (74-106)
[2024-11-08 21:38] LABS: Bedside Glucose 304 mg/dL (74-106)
[2024-11-08 22:19] LABS: Bedside Glucose 345 mg/dL (74-106)
[2024-11-08 22:24] LABS: Anion Gap 16 (5-15); BUN 55 mg/dL (4-19); BUN/Creat Ratio 11.6 RATIO (10-20); Carbon Dioxide 24.9 mmol/L (21.0-32.0); Chloride 102 mmol/L (98-108); Creatinine, Serum 4.78 mg/dL (0.70-1.20); EST Glomerular Filtration Rate 13 (>60); Estimated Creatinine Clearance 16.46 ml/min (50-250); Glucose 353 mg/dL (70-99); Potassium 3.7 mmol/L (3.3-5.1); Sodium Level 142 mmol/L (133-145)
[2024-11-08 23:25] LABS: Bedside Glucose 328 mg/dL (74-106)
[2024-11-09] VITALS (53 sets, daily range): BP systolic 84–159; BP diastolic 59–92; PULSE 66–90; RESP 18–26; TEMP 37.6–38.4; O2SAT 92–100; BMI 25.6
[2024-11-09] MEDS: 0.9% Normal Saline (1000mL) 1,000 ML 150 ML IV ×4 (00:20→20:18)
[2024-11-09 00:28] LABS: Bedside Glucose 274 mg/dL (74-106)
[2024-11-09] MEDS: Dexmedetomidine 1,000 mcg in 0.9% NS 240 mL 30.7 MCG CONT INF (01:13)
[2024-11-09 02:29] LABS: Bedside Glucose 231 mg/dL (74-106)
[2024-11-09 02:29] LABS: Bedside Glucose 218 mg/dL (74-106)
[2024-11-09 02:50] LABS: Anion Gap 15 (5-15); BUN 57 mg/dL (4-19); BUN/Creat Ratio 11.6 RATIO (10-20); Calcium,Total 6.9 mg/dL (7.6-11.0); Carbon Dioxide 24.6 mmol/L (21.0-32.0); Chloride 103 mmol/L (98-108); Creatinine, Serum 4.95 mg/dL (0.70-1.20); EST Glomerular Filtration Rate 12 (>60); Estimated Creatinine Clearance 15.89 ml/min (50-250); Glucose 235 mg/dL (70-99); Potassium 3.4 mmol/L (3.3-5.1); Sodium Level 142 mmol/L (133-145)
[2024-11-09] MEDS: Pantoprazole Sodium 80 MG in 0.9% Normal Saline (100mL Bag) 80 ML 10 MG CONT INF ×2 (03:03→12:54)
[2024-11-09 03:26] LABS: Bedside Glucose 225 mg/dL (74-106)
[2024-11-09] MEDS: Potassium Chloride 10mEq/100mL 10 MEQ/100 ML IV.SOLN. 100 MEQ IV BOLUS ×4 (03:43→07:52)
[2024-11-09 04:22] LABS: Bedside Glucose 246 mg/dL (74-106)
[2024-11-09] MEDS: fentaNYL drip 100 ML 17.5 MCG CONT INF (05:00)
[2024-11-09] MEDS: Piperacil/Tazobactam 3.375 GM in 0.9% Normal Saline (50mL MB+) 50 ML IV ×2 (05:21→21:18)
[2024-11-09 05:30] LABS: Bedside Glucose 221 mg/dL (74-106)
[2024-11-09] MEDS: 0.9% Saline Lock 10 ML Syringe IV ×4 (06:10→21:18)
[2024-11-09 06:33] LABS: Absolute Lymphocyte Count 0.96 X10^3/uL (0.83-4.51); Absolute Neutrophil Count 13.3 X10^3/uL (2.0-7.7); Basophil# 0.04 X10^3/uL; Basophil% 0.3 % (0-1); Hematocrit 28.7 % (40-54); Hemoglobin 10.3 g/dL (13.0-16.5); Lymphocyte # 0.96 X10^3/ul (0.83-4.51); Lymphocyte % 6.3 % (19-41); Mean Corp Hgb Conc 35.9 g/dL (32-36); Mean Corpuscular Hgb 31.1 pg (27.0-32.0); Mean Corpuscular Volume 86.7 fL (80-94); Mean Platelet Vol. 11.6 fl (6.2-12.0); Monocyte# 0.76 X10^3/uL; NRBC Flagged by Analyzer 0 % (0-5); Neutrophil # 13.33 X10^3/uL (2.7-7.7); Neutrophil % 86.9 % (47-70); Platelet Count 144 K/mm3 (150-450); RBC Distribution Width CV 13.3 % (11.6-14.6); Red Blood Count 3.31 M/mm3 (4.6-6.2); White Blood Count 15.3 K/mm3 (4.4-11.0)
[2024-11-09 06:35] LABS: Bedside Glucose 208 mg/dL (74-106)
[2024-11-09 06:44] LABS: Anion Gap 15 (5-15); BUN 57 mg/dL (4-19); BUN/Creat Ratio 10.9 RATIO (10-20); Calcium,Total 6.8 mg/dL (7.6-11.0); Carbon Dioxide 22.7 mmol/L (21.0-32.0); Chloride 105 mmol/L (98-108); Creatinine, Serum 5.19 mg/dL (0.70-1.20); EST Glomerular Filtration Rate 11 (>60); Estimated Creatinine Clearance 15.16 ml/min (50-250); Glucose 216 mg/dL (70-99); Potassium 3.5 mmol/L (3.3-5.1); Sodium Level 143 mmol/L (133-145)
[2024-11-09 07:19] LABS: Bedside Glucose 186 mg/dL (74-106)
--- NOTE | 2024-11-09 07:32 | PN.CC_ITS ---
Assessment & Plan Assessment/Plan (1) Acute metabolic encephalopathy: (2) Sepsis: QUALIFIERS: Sepsis type: sepsis due to unspecified organism S epsis acute organ dysfunction status: with acute organ dysfunction Severe sepsis acute organ dysfunction type: encephalopathy Severe sepsis shock status: with septic shock Qualified Code(s): A41.9 - Sepsis, unspecified organism; R65.21 - Severe sepsis with septic shock; G93.41 - Metabolic encephalopathy (3) Diabetic ketoacidosis: QUALIFIERS: Diabetes mellitus type: type 2 Diabetes mellitus complication detail: with coma Qualified Code(s): E11.11 - Type 2 diabetes mellitus with ketoacidosis with coma PLAN: Plan RECOMMENDATIONS: 1. Continue assist-control mode mechanical ventilation. Wean FiO2 and PEEP as tolerated. 2. Continue supplemental IV fluid hydration and continuous insulin infusion for now. 3. Recheck BMP and beta hydroxybutyrate. 4. If DKA is resolved, will initiate basal and sliding scale insulin coverage. 5. Continue Levophed to maintain a mean arterial pressure at or above 65 mmHg. 6. Continue Precedex and fentanyl for sedation. 7. Obtain renal ultrasound and nephrology consultation. IMPRESSIONS: 1. Acute hypoxemic respiratory failure The patient was ultimately intubated in the emergency department over concerns for airway protection. In addition, there is concern for underlying gram- negative pneumonia. His acid-base status has improved with invasive mechanical ventilatory support and medical therapy for his DKA. The patient will be continued on assist-control mode of mechanical ventilation, with a goal to wean FiO2 and PEEP as tolerated to maintain saturations at or above 90%. Antimicrobials will be continued. 2. Multifactorial shock Likely due to a combination of hypovolemia and septic etiologies. Clinical concern for underlying gram-negative pneumonia. In addition, the patient did have evidence of a mildly distended gallbladder with evidence of intraluminal air and pneumobilia, which could suggest infection. Accordingly, gastroenterology is following to assist with medical management. He will be maintained on's broad-spectrum antimicrobial coverage along with vasopressor support to maintain hemodynamic stability. 3. Toxic/metabolic encephalopathy Most likely secondary to presenting DKA with significant metabolic derangements and multifactorial shock. Continue supportive care as noted above. 4. Diabetic ketoacidosis Continue supplemental IV fluid hydration along with continuous insulin infusion per protocol. The patient will remain n.p.o. for now. Plan to obtain follow-up BMP this morning along with beta hydroxybutyrate level. If DKA is resolved, will initiate basal and sliding scale insulin coverage. 5. Acute versus chronic kidney disease Unclear baseline renal function. Continue supportive care for now. Continue to monitor urine output. Given worsening renal function, will obtain renal ultrasound and nephrology consultation. 6. Anemia Unclear chronicity. Blood counts remain stable. Continue PPI therapy. TIME: 34 minutes of critical care time, independent of procedures, was spent addressing the patient's acute hypoxemic respiratory failure, multifactorial shock, toxic/metabolic encephalopathy, diabetic ketoacidosis, acute kidney injury, anemia, review of all data and collaboration with the care team. Subjective Subjective The patient was seen and examined at the bedside this morning. Events from the last 24 hours have been reviewed. The patient currently has a low-grade fever and remains on low-dose Levophed to maintain hemodynamic stability. The patient is currently documented to be overall net +9 L for the hospitalization. White blood cell count is elevated at 15,000. Anion gap appears closed x 2. Unfortunately, the patient's creatinine has increased to 5.19. Objective Data Objective Data The patient's most recent lab work, culture data and imaging studies have all been personally reviewed. Preliminary sputum culture is demonstrating growth of a gram-negative trevor. Blood cultures are pending. Vital Signs: Vital Signs Temp Pulse Resp BP Pulse Ox O2 Del Method O2 Flow Rate 99.7 F H 77 18 108/68 100 Mechanical Ventilator 45 11/09/24 06:00 11/09/24 07:00 11/09/24 07:00 11/09/24 07:00 11/09/24 07:00 11/09/24 07:00 11/08/24 00:00 FiO2 25 11/09/24 07:00 Oxygen Flow Rate (L/min) 45 Oxygen Delivery Method Mechanical Ventilator Weight: 189 lb 2.506 oz Body Mass Index (BMI) 25.6 Intake & Output: Intake and Output for Last 24 Hours 11/07/24 11/08/24 11/09/24 23:59 23:59 23:59 Intake Total 2202.49 / 2262.74 7284.48 / 7328.96 2986.13 / 2986.13 Output Total 3000 / 3000 300 / 300 Balance 2202.49 / 1362.74 4284.48 / 4328.96 2686.13 / 2686.13 Lab / Micro Data Attestation: I reviewed the patient's lab results. 11/09/24 06:10 11/09/24 06:10 Labs: Laboratory Results - last 24 hr 11/07/24 20:11: Sodium Cancelled, Potassium Cancelled, Chloride Cancelled, Carbon Dioxide Cancelled, Anion Gap Cancelled, BUN Cancelled, Creatinine Cancelled, Estim Creat Clear Calc Cancelled, Est GFR (MDRD) Non-Af Cancelled, BUN/Creatinine Ratio Cancelled, Glucose Cancelled, Calcium Cancelled 11/08/24 00:10: Free T4 0.50 L, Free T3 pg/dL 1.0 L 11/08/24 06:40: Lactic Acid 3.4 H* 11/08/24 08:01: POC Glucose > 500 H* 11/08/24 09:08: POC Glucose 479 H* 11/08/24 10:01: POC Glucose 475 H* 11/08/24 10:54: POC Glucose > 500 H* 11/08/24 10:55: Sodium 139, Potassium 4.2, Chloride 94 L, Carbon Dioxide 22.0, A nion Gap 23 H, BUN 52 H, Creatinine 3.87 H, Estim Creat Clear Calc 21.17 L, Est GFR (MDRD) Non-Af 17 L, BUN/Creatinine Ratio 13.5, Glucose 598 H*, Calcium 6.9 L 11/08/24 11:53: POC Glucose 438 H 11/08/24 13:04: POC Glucose 456 H* 11/08/24 14:08: POC Glucose 466 H* 11/08/24 15:18: POC Glucose 433 H 11/08/24 15:55: Sodium 140, Potassium 4.0, Chloride 98, Carbon Dioxide 23.9, A nion Gap 19 H, BUN 54 H, Creatinine 4.36 H, Estim Creat Clear Calc 18.05 L, Est GFR (MDRD) Non-Af 14 L, BUN/Creatinine Ratio 12.4, Glucose 491 H*, Calcium 6.9 L 11/08/24 16:01: POC Glucose 447 H 11/08/24 17:03: POC Glucose 401 H 11/08/24 18:05: Sodium 142, Potassium 4.0, Chloride 100, Carbon Dioxide 24.6, A nion Gap 17 H, BUN 56 H, Creatinine 4.56 H, Estim Creat Clear Calc 17.25 L, Est GFR (MDRD) Non-Af 13 L, BUN/Creatinine Ratio 12.3, Glucose 421 H, Calcium 7.0 L 11/08/24 18:08: POC Glucose 387 H 11/08/24 18:55: POC Glucose 350 H 11/08/24 20:16: POC Glucose 327 H 11/08/24 21:15: POC Glucose 304 H 11/08/24 22:00: POC Glucose 345 H 11/08/24 22:01: Sodium 142, Potassium 3.7, Chloride 102, Carbon Dioxide 24.9, A nion Gap 16 H, BUN 55 H, Creatinine 4.78 H, Estim Creat Clear Calc 16.46 L, Est GFR (MDRD) Non-Af 13 L, BUN/Creatinine Ratio 11.6, Glucose 353 H, Calcium 7.0 L 11/08/24 23:08: POC Glucose 328 H 11/09/24 00:10: POC Glucose 274 H 11/09/24 01:08: POC Glucose 218 H 11/09/24 02:02: Sodium 142, Potassium 3.4, Chloride 103, Carbon Dioxide 24.6, Anion Gap 15, BUN 57 H, Creatinine 4.95 H, Estim Creat Clear Calc 15.89 L, Est GFR (MDRD) Non-Af 12 L, BUN/Creatinine Ratio 11.6, Glucose 235 H, Calcium 6.9 L, POC Glucose 231 H 11/09/24 03:02: POC Glucose 225 H 11/09/24 03:58: POC Glucose 246 H 11/09/24 05:07: POC Glucose 221 H 11/09/24 06:10: WBC 15.3 H, RBC 3.31 L, Hgb 10.3 L, Hct 28.7 L, MCV 86.7 D, MCH 31.1, MCHC 35.9 D, RDW Std Deviation 42.0, RDW Coeff of Eliseo 13.3, Plt Count 144 L, MPV 11.6, Immature Gran % (Auto) 1.500 H, Neut % (Auto) 86.9 H, Lymph % (Auto) 6.3 L, [place] % (Auto) 5.0, Eos % (Auto) 0.0, Baso % (Auto) 0.3, Absolute Neuts (auto) 13.3 H, Absolute Lymphs (auto) 0.96, Nucleated RBC % 0, Sodium 143, Potassium 3.5, Chloride 105, Carbon Dioxide 22.7, Anion Gap 15, BUN 57 H, C reatinine 5.19 H, Estim Creat Clear Calc 15.16 L, Est GFR (MDRD) Non-Af 11 L, BUN/Creatinine Ratio 10.9, Glucose 216 H, Calcium 6.8 L, POC Glucose 208 H 11/09/24 06:59: POC Glucose 186 H Micro: Microbiology 11/07/24 20:08 Sputum, Tracheal Aspirate Gram Stain - Final 11/07/24 20:08 Sputum, Tracheal Aspirate Respiratory Culture - Preliminary GNR lactose credit portfolio manager ABG Data ABG results: ABG 11/08/24 08:42 Specimen Type ART Sample Site R Radial pH 7.43 Bicarbonate Actual 21.5 L Total CO2 23 Base Excess -3 L O2 Saturation 96 O2 % 35.0 ABG pCO2 32.4 L ABG pO2 81 Srini Test Positive Respiration Rate 18 O2 Delivery Device Adult Vent Vent Mode AC Tidal Volume 500.0 POC PEEP 5 Physical Exam Const Constitutional Narrative: Intubated, sedated and mechanically ventilated. HEENT normocephalic and head/scalp atraumatic Mouth: endotracheal tube in place and OG tube in place Eyes EOMs intact bilaterally and conjunctivae normal Neck supple General: trachea midline and CVC in place Resp normal respiratory effort Auscultation: diminished lung sounds; Negative for rales, rhonchi or wheezes Cardio regular rate and regular rhythm GI normal to inspection, nondistended, normoactive bowel sounds Extremity no clubbing, cyanosis or edema Skin no rashes or lesions noted Neuro Sensorium / Orientation: sedated on vent Charges/Coding Procedures Hospitalists Procedures: 25248 Critical Care 1st Hr
--- NOTE | 2024-11-09 07:33 | US_ITS ---
PROCEDURE: KIDNEY AND BLADDER 11/09/2024 REASON FOR EXAM: GLYNN TECHNIQUE: Bilateral renal ultrasound. COMPARISON: Prior CT scan dated November 07, 2024. FINDINGS: Kidneys: Normal renal sizes, parenchymal thicknesses, and echotextures. [place]: No hydronephrosis. Cysts or Masses: No cysts or large solid renal masses. Other: RIGHT Kidney Size: 11.8 cm x 6.3 cm x 7.5 cm Volume: 289.82 mL Cortical Thickness (if discernible): 1.8 cm (>6mm is normal) LEFT Kidney Size: 11.7 cm x 6.2 cm x 7.5 cm Volume: 281.73 mL Cortical Thickness (if discernible): 2.1 cm (>6mm is normal) A Shearer catheter is seen within the empty urinary bladder. US/Kidney and Bladder IMPRESSION: NORMAL RENAL ULTRASOUND. Reading Location: [place] [id number]
[2024-11-09 08:21] LABS: Bedside Glucose 166 mg/dL (74-106)
--- NOTE | 2024-11-09 09:26 | PN.HOSP_ITS ---
Subjective Subjective Intubated and sedated, weaning off the Levophed Objective Data Objective Data Vital Signs: Vital Signs Temp Pulse Resp BP Pulse Ox O2 Del Method O2 Flow Rate 99.7 F H 75 18 108/68 93 Mechanical Ventilator 45 11/09/24 06:00 11/09/24 08:56 11/09/24 08:56 11/09/24 07:00 11/09/24 08:56 11/09/24 07:45 11/08/24 00:00 FiO2 25 11/09/24 08:56 Oxygen Flow Rate (L/min) 45 Oxygen Delivery Method Mechanical Ventilator Weight: 189 lb 2.506 oz Body Mass Index (BMI) 25.6 Intake & Output: Intake and Output for Last 24 Hours 11/08/24 11/09/24 11/10/24 03:59 03:59 03:59 Intake Total 4859.95 / 4916.10 6114.58 / 6265.76 1809.32 / 1809.32 Output Total 1700 / 1700 1300 / 1300 650 / 650 Balance 3159.95 / 3216.10 4814.58 / 4965.76 1159.32 / 1159.32 Lab / Micro Data 11/09/24 06:10 11/09/24 06:10 Labs: Laboratory Results - last 24 hr 11/07/24 20:11: Sodium Cancelled, Potassium Cancelled, Chloride Cancelled, Carbon Dioxide Cancelled, Anion Gap Cancelled, BUN Cancelled, Creatinine Cancelled, Estim Creat Clear Calc Cancelled, Est GFR (MDRD) Non-Af Cancelled, BUN/Creatinine Ratio Cancelled, Glucose Cancelled, Calcium Cancelled 11/08/24 09:08: POC Glucose 479 H* 11/08/24 10:01: POC Glucose 475 H* 11/08/24 10:54: POC Glucose > 500 H* 11/08/24 10:55: Sodium 139, Potassium 4.2, Chloride 94 L, Carbon Dioxide 22.0, A nion Gap 23 H, BUN 52 H, Creatinine 3.87 H, Estim Creat Clear Calc 21.17 L, Est GFR (MDRD) Non-Af 17 L, BUN/Creatinine Ratio 13.5, Glucose 598 H*, Calcium 6.9 L 11/08/24 11:53: POC Glucose 438 H 11/08/24 13:04: POC Glucose 456 H* 11/08/24 14:08: POC Glucose 466 H* 11/08/24 15:18: POC Glucose 433 H 11/08/24 15:55: Sodium 140, Potassium 4.0, Chloride 98, Carbon Dioxide 23.9, A nion Gap 19 H, BUN 54 H, Creatinine 4.36 H, Estim Creat Clear Calc 18.05 L, Est GFR (MDRD) Non-Af 14 L, BUN/Creatinine Ratio 12.4, Glucose 491 H*, Calcium 6.9 L 11/08/24 16:01: POC Glucose 447 H 11/08/24 17:03: POC Glucose 401 H 11/08/24 18:05: Sodium 142, Potassium 4.0, Chloride 100, Carbon Dioxide 24.6, A nion Gap 17 H, BUN 56 H, Creatinine 4.56 H, Estim Creat Clear Calc 17.25 L, Est GFR (MDRD) Non-Af 13 L, BUN/Creatinine Ratio 12.3, Glucose 421 H, Calcium 7.0 L 11/08/24 18:08: POC Glucose 387 H 11/08/24 18:55: POC Glucose 350 H 11/08/24 20:16: POC Glucose 327 H 11/08/24 21:15: POC Glucose 304 H 11/08/24 22:00: POC Glucose 345 H 11/08/24 22:01: Sodium 142, Potassium 3.7, Chloride 102, Carbon Dioxide 24.9, A nion Gap 16 H, BUN 55 H, Creatinine 4.78 H, Estim Creat Clear Calc 16.46 L, Est GFR (MDRD) Non-Af 13 L, BUN/Creatinine Ratio 11.6, Glucose 353 H, Calcium 7.0 L 11/08/24 23:08: POC Glucose 328 H 11/09/24 00:10: POC Glucose 274 H 11/09/24 01:08: POC Glucose 218 H 11/09/24 02:02: Sodium 142, Potassium 3.4, Chloride 103, Carbon Dioxide 24.6, Anion Gap 15, BUN 57 H, Creatinine 4.95 H, Estim Creat Clear Calc 15.89 L, Est GFR (MDRD) Non-Af 12 L, BUN/Creatinine Ratio 11.6, Glucose 235 H, Calcium 6.9 L, POC Glucose 231 H 11/09/24 03:02: POC Glucose 225 H 11/09/24 03:58: POC Glucose 246 H 11/09/24 05:07: POC Glucose 221 H 11/09/24 06:10: WBC 15.3 H, RBC 3.31 L, Hgb 10.3 L, Hct 28.7 L, MCV 86.7 D, MCH 31.1, MCHC 35.9 D, RDW Std Deviation 42.0, RDW Coeff of Eliseo 13.3, Plt Count 144 L, MPV 11.6, Immature Gran % (Auto) 1.500 H, Neut % (Auto) 86.9 H, Lymph % (Auto) 6.3 L, [place] % (Auto) 5.0, Eos % (Auto) 0.0, Baso % (Auto) 0.3, Absolute Neuts (auto) 13.3 H, Absolute Lymphs (auto) 0.96, Nucleated RBC % 0, Sodium 143, Potassium 3.5, Chloride 105, Carbon Dioxide 22.7, Anion Gap 15, BUN 57 H, C reatinine 5.19 H, Estim Creat Clear Calc 15.16 L, Est GFR (MDRD) Non-Af 11 L, BUN/Creatinine Ratio 10.9, Glucose 216 H, Calcium 6.8 L, POC Glucose 208 H 11/09/24 06:59: POC Glucose 186 H 11/09/24 08:03: POC Glucose 166 H Micro: Microbiology 11/07/24 20:08 Sputum, Tracheal Aspirate Gram Stain - Final 11/07/24 20:08 Sputum, Tracheal Aspirate Respiratory Culture - Preliminary Escherichia coli Streptococcus pneumoniae Streptococcus group B Physical Exam Const General Appearance: intubated and patient mechanically ventilated HEENT normocephalic Eyes PERRL and conjunctivae normal Neck supple and no JVD Resp normal respiratory effort, no retractions and no use of accessory muscles Auscultation: Negative for crackles, rales, rhonchi or wheezes Cardio regular rate, regular rhythm, S1 normal heart sound, S2 normal heart sound and no murmurs GI soft to palpation and non-distended; Negative for hepatosplenomegaly Extremity no clubbing, cyanosis or edema Skin no rashes or lesions noted Neuro Sensorium / Orientation: sedated on vent Psych Appearance: intubated Assessment & Plan Assessment/Plan (1) Diabetic ketoacidosis: QUALIFIERS: Diabetes mellitus type: type 2 Diabetes mellitus complication detail: with coma Qualified Code(s): E11.11 - Type 2 diabetes mellitus with ketoacidosis with coma (2) Sepsis: QUALIFIERS: Sepsis type: sepsis due to unspecified organism S epsis acute organ dysfunction status: with acute organ dysfunction Severe sepsis acute organ dysfunction type: encephalopathy Severe sepsis shock status: with septic shock Qualified Code(s): A41.9 - Sepsis, unspecified organism; R65.21 - Severe sepsis with septic shock; G93.41 - Metabolic encephalopathy (3) Gastrointestinal bleeding, upper: (4) GLYNN (acute kidney injury): (5) Acute metabolic encephalopathy: PLAN: Plan 1. Septic shock secondary to pneumobilia from an unclear source complicated by DKA and an upper GI bleed with acute hypoxic respiratory failure necessitating intubation/GLYNN/acute metabolic encephalopathy ? Appreciate GIs assistance, plan for EGD today ? Appreciate button breaker operator assistance ? Continued with broad-spectrum antibiotics ? Continue with aggressive IV fluids ? Wean pressors as able ? Continue with IV Protonix NG tube continues to have coffee-ground drainage ?Hemoglobin is stable, will continue to monitor ? Will consult nephrology given his continued and worsening renal failure 2. Euthyroid sick syndrome ? TSH is severely elevated and T3 and T4 are depressed ? Related to his critically ill status ? Will monitor DVT: SCDs Charges/Coding Visit Charges Inpatient E&M: 00955 Subs Hosp L2
[2024-11-09 10:26] LABS: Bedside Glucose 152 mg/dL (74-106)
[2024-11-09 10:46] LABS: Anion Gap 15 (5-15); BUN 58 mg/dL (4-19); BUN/Creat Ratio 10.9 RATIO (10-20); Calcium,Total 6.7 mg/dL (7.6-11.0); Carbon Dioxide 21.9 mmol/L (21.0-32.0); Chloride 107 mmol/L (98-108); Creatinine, Serum 5.28 mg/dL (0.70-1.20); EST Glomerular Filtration Rate 11 (>60); Glucose 155 mg/dL (70-99); Potassium 3.2 mmol/L (3.3-5.1); Sodium Level 144 mmol/L (133-145)
--- NOTE | 2024-11-09 10:51 | CON.PCM.RE_ITS ---
Assessment & Plan Assessment/Plan (1) GLYNN (acute kidney injury): PLAN: Normal baseline creatinine as of April 2024. Came in with a creatinine of about 3. He did receive a CT with contrast on admission. CT abdomen without any hydronephrosis Being treated for DKA, septic shock Most likely ATN in the setting of ongoing events Urine output about 125 cc since 7 AM which is okay. Initial acidosis was mostly DKA related, pH has improved Potassium levels are okay Hold off renal replacement therapy for now Explained to family about possibility of temporary dialysis if renal function does not improve. They are agreeable. HPI Consult Data Date of Consult: 11/09/24 HPI Narrative Reason for Consultation: Acute renal failure HPI Narrative: MASHA ROE, is a 69 M who presents to the hospital with altered mental status. Nephrology on consultation in view of acute renal failure. Ongoing events include Diabetic ketoacidosis, improved on insulin Sepsis, source ? Septic shock requiring pressors Acute renal failure Discussed with mother and daughter at bedside. Primary care physician is Dr. Morales. Reviewed records from their office. As of April 2024, baseline creatinine was 0.6. Diabetes appears to be poorly controlled, last HbA1c noted to be 10.4. CT abdomen without any hydronephrosis. Family does not think he takes any [id number] supplements. [facility] Medical History Diabetes Medical History unable to obtain Allergy/AdvReac Type Severity Reaction Status Date / Time Unable to Assess Allergy Verified 11/07/24 17:57 Family History unable to obtain Surgical History unable to obtain Social History Smoking Status: Unknown if ever smoked ROS Review of Systems ROS Unobtainable: due to endotracheal tube Physical Exam Narrative no obvious distress no pallor no icterus no JVD s1s2 no murmurs lungs clear abdomen soft no organomegaly no edema chester + Lab / Micro Data 11/09/24 06:10 11/09/24 10:05 Labs: Laboratory Results - last 24 hr 11/08/24 10:54: POC Glucose > 500 H* 11/08/24 10:55: Sodium 139, Potassium 4.2, Chloride 94 L, Carbon Dioxide 22.0, A nion Gap 23 H, BUN 52 H, Creatinine 3.87 H, Estim Creat Clear Calc 21.17 L, Est GFR (MDRD) Non-Af 17 L, BUN/Creatinine Ratio 13.5, Glucose 598 H*, Calcium 6.9 L 11/08/24 11:53: POC Glucose 438 H 11/08/24 13:04: POC Glucose 456 H* 11/08/24 14:08: POC Glucose 466 H* 11/08/24 15:18: POC Glucose 433 H 11/08/24 15:55: Sodium 140, Potassium 4.0, Chloride 98, Carbon Dioxide 23.9, A nion Gap 19 H, BUN 54 H, Creatinine 4.36 H, Estim Creat Clear Calc 18.05 L, Est GFR (MDRD) Non-Af 14 L, BUN/Creatinine Ratio 12.4, Glucose 491 H*, Calcium 6.9 L 11/08/24 16:01: POC Glucose 447 H 11/08/24 17:03: POC Glucose 401 H 11/08/24 18:05: Sodium 142, Potassium 4.0, Chloride 100, Carbon Dioxide 24.6, A nion Gap 17 H, BUN 56 H, Creatinine 4.56 H, Estim Creat Clear Calc 17.25 L, Est GFR (MDRD) Non-Af 13 L, BUN/Creatinine Ratio 12.3, Glucose 421 H, Calcium 7.0 L 11/08/24 18:08: POC Glucose 387 H 11/08/24 18:55: POC Glucose 350 H 11/08/24 20:16: POC Glucose 327 H 11/08/24 21:15: POC Glucose 304 H 11/08/24 22:00: POC Glucose 345 H 11/08/24 22:01: Sodium 142, Potassium 3.7, Chloride 102, Carbon Dioxide 24.9, A nion Gap 16 H, BUN 55 H, Creatinine 4.78 H, Estim Creat Clear Calc 16.46 L, Est GFR (MDRD) Non-Af 13 L, BUN/Creatinine Ratio 11.6, Glucose 353 H, Calcium 7.0 L 11/08/24 23:08: POC Glucose 328 H 11/09/24 00:10: POC Glucose 274 H 11/09/24 01:08: POC Glucose 218 H 11/09/24 02:02: Sodium 142, Potassium 3.4, Chloride 103, Carbon Dioxide 24.6, Anion Gap 15, BUN 57 H, Creatinine 4.95 H, Estim Creat Clear Calc 15.89 L, Est GFR (MDRD) Non-Af 12 L, BUN/Creatinine Ratio 11.6, Glucose 235 H, Calcium 6.9 L, POC Glucose 231 H 11/09/24 03:02: POC Glucose 225 H 11/09/24 03:58: POC Glucose 246 H 11/09/24 05:07: POC Glucose 221 H 11/09/24 06:10: WBC 15.3 H, RBC 3.31 L, Hgb 10.3 L, Hct 28.7 L, MCV 86.7 D, MCH 31.1, MCHC 35.9 D, RDW Std Deviation 42.0, RDW Coeff of Eliseo 13.3, Plt Count 144 L, MPV 11.6, Immature Gran % (Auto) 1.500 H, Neut % (Auto) 86.9 H, Lymph % (Auto) 6.3 L, [place] % (Auto) 5.0, Eos % (Auto) 0.0, Baso % (Auto) 0.3, Absolute Neuts (auto) 13.3 H, Absolute Lymphs (auto) 0.96, Nucleated RBC % 0, Sodium 143, Potassium 3.5, Chloride 105, Carbon Dioxide 22.7, Anion Gap 15, BUN 57 H, C reatinine 5.19 H, Estim Creat Clear Calc 15.16 L, Est GFR (MDRD) Non-Af 11 L, BUN/Creatinine Ratio 10.9, Glucose 216 H, Calcium 6.8 L, POC Glucose 208 H 11/09/24 06:59: POC Glucose 186 H 11/09/24 08:03: POC Glucose 166 H 11/09/24 10:05: Sodium 144, Potassium 3.2 L, Chloride 107, Carbon Dioxide 21.9, Anion Gap 15, BUN 58 H, Creatinine 5.28 H, Estim Creat Clear Calc 14.90 L, Est GFR (MDRD) Non-Af 11 L, BUN/Creatinine Ratio 10.9, Glucose 155 H, Calcium 6.7 L 11/09/24 10:07: POC Glucose 152 H Micro: Microbiology 11/07/24 20:08 Sputum, Tracheal Aspirate Gram Stain - Final 11/07/24 20:08 Sputum, Tracheal Aspirate Respiratory Culture - Preliminary Escherichia coli Streptococcus pneumoniae Streptococcus group B
[2024-11-09 11:01] LABS: BETA-HYDROXYBUTYRATE 0.2 mmol/L (0.0-0.3)
--- NOTE | 2024-11-09 11:05 | CASEMGMT ---
Addendum entered by Александр Oates 11/09/24 16:27: Pt , Loree, @ the bedside now and willing to help answer this RN CM questions. Loree states that the pt goes through [facility] in [place] for his preferred pharmacy. Loree states that the pt sees an [employer] out of [place] but is unsure of the name. Loree states that the pt has a continuous BGM but is currently out of sensors. Loree states that the pt has a backup BGM with sufficient supplies, however. Loree also brought in the pt's insurance cards in which Care Management scanned and sent to registration. Loree denies further questions at this time. CM to follow. Original Note: RN CM Assessment Pt RN states that there is now family in the room. Face to Face with patient for initial transition planning/care coordination assessment. Pt is currently sedated and intubated and is unable to answer this RN CM questions for initial assessment. Pt Mother (Kirsten) and Daughter (Radha) @ bedside. TC to the pt , Loree, at this time - no answer. Pt mother and daughter agreeable to help answer this RN CM questions for assessment. Care providers, pharmacy, and demographics verified. Admitting dx: DKA, Suspected Sepsis, UGIB and GLYNN LACE Strata: 1 PCP: Dr. oFrd Moraels ([facility]) Specialists: Pt mother and daughter decline. Preferred Pharmacy: Pt mother and daughter are unsure of this and report that the pt's would likely know Insurance: Per , pts will be bringing in the pts [facility] MCR card Prescription Benefit: Yes LNOK: Loree Perez (), Brianna Davalos (SDAU), Kirsten Perez (Mother), Radha Peck (Daughter) Living Arrangements: Pt lives with his in a 2 story home with 5 steps to enter ADLs/IADLs: Pt family reports that the pt is independent at baseline Transportation: Pt normally drives. Pt drives. Pt daughter also drives. DME: Pt daughter states that the pt has a CBGM as well as a regular BGM. Pt family is unsure if the pt has enough supplies. Pt family is unsure of any further DME uses. CM to follow for oxygen needs as well. HHC/SNF: Denies history Pt?s goal: TBD Plan: TBD. Pt is currently on the mechanical ventilator. Pt family denies further questions or concerns at this time. Care Management to follow for further needs. Jeffrey Oates RN CM
[2024-11-09] MEDS: Dexmedetomidine 1,000 mcg in 0.9% NS 240 mL 25.7 MCG CONT INF ×2 (11:30→21:11)
[2024-11-09 12:15] LABS: Bedside Glucose 115 mg/dL (74-106)
[2024-11-09] MEDS: Potassium Chloride 20mEq/100mL 20 MEQ/100 ML IV.SOLN. 100 MEQ IV BOLUS ×2 (12:50→13:55)
[2024-11-09] MEDS: Insulin Glargine-YFGN 100 UNIT/ML Pen 30 UNIT SC ×2 (12:52→21:12)
[2024-11-09] MEDS: 0.9% Normal Saline (100mL Bag) 100 ML 15 ML IV (13:08)
[2024-11-09] MEDS: fentaNYL drip 100 ML 12.5 MCG CONT INF ×2 (13:08→21:11)
--- NOTE | 2024-11-09 13:48 | OP.CCLET_ITS ---
11/09/2024 No Primary Care Physician Re : Upper GI endoscopy procedure for Bob Perez Dear Care Physician This procedure was performed on Saturday, November 09, 2024. My impressions and recommendations are as follows: Impressions : - LA Grade D erosive esophagitis with bleeding. Treated with a heater probe. - Non-bleeding gastric ulcers with no stigmata of bleeding. - Acute duodenitis. - No specimens collected. Recommendations : - Return patient to ICU for ongoing care. - Resume previous diet. - Continue present medications. My findings are described in the full procedure note, which is enclosed. If I can be of further assistance, please feel free to contact me at . Sincerely, Easton Lange, 11/09/2024 1:48:06 PM This report has been signed electronically.
--- NOTE | 2024-11-09 13:48 | OP.EGD_ITS ---
Patient Name: Bob Perez Procedure Date: 11/09/2024 1:45 PM Date of : 1955 Age: 69 Procedure: Upper GI endoscopy Indications: Iron deficiency anemia, Coffee-ground emesis Providers: Easton Lange DO Medicines: Propofol total dose 200 mg IV, Midazolam 2 mg IV Patient Profile: This is a 69 year old male. Refer to note in patient chart for documentation of history and physical. Patient has symptoms of acute vomiting. Complications: No immediate complications. Procedure: Pre-Anesthesia Assessment: - Prior to the procedure, a History and Physical was performed, and patient medications and allergies were reviewed. The patient is competent. The risks and benefits of the procedure and the sedation options and risks were discussed with the patient. All questions were answered and informed consent was obtained. Patient identification and proposed procedure were verified by the physician. Mental Status Examination: normal. Prophylactic Antibiotics: The patient does not require prophylactic antibiotics. Prior Anticoagulants: The patient has taken no anticoagulant or antiplatelet agents except for NSAID medication. ASA Grade Assessment: II - A patient with mild systemic disease. After reviewing the risks and benefits, the patient was deemed in satisfactory condition to undergo the procedure. The anesthesia plan was to use monitored anesthesia care (MAC). Immediately prior to administration of medications, the patient was re-assessed for adequacy to receive sedatives. The heart rate, respiratory rate, oxygen saturations, blood pressure, adequacy of pulmonary ventilation, and response to care were monitored throughout the procedure. The physical status of the patient was re-assessed after the procedure. After obtaining informed consent, the endoscope was passed under direct vision. Throughout the procedure, the patient's blood pressure, pulse, and oxygen saturations were monitored continuously. The gastroscope was introduced through the mouth, and advanced to the fourth part of the duodenum. Small bowel enteroscopy was deemed necessary. The upper GI endoscopy was accomplished without difficulty. The patient tolerated the procedure well. The gastroscope was introduced through the mouth, and advanced to the. Moderate Sedation: Moderate (conscious) sedation was personally administered by the endoscopist. The following parameters were monitored: oxygen saturation, heart rate, blood pressure, respiratory rate, EKG, adequacy of pulmonary ventilation, and response to care. Total physician intraservice time was 15 minutes. Findings: LA Grade D (one or more mucosal breaks involving at least 75% of esophageal circumference) esophagitis with bleeding was found 34 to 46 cm from the incisors. Coagulation for hemostasis using heater probe was successful. Estimated blood loss was minimal. Four non-bleeding cratered gastric ulcers with no stigmata of bleeding were found on the lesser curvature of the stomach. The largest lesion was 6 mm in largest dimension. Diffuse moderate inflammation characterized by congestion (edema) and erosions was found in the entire duodenum. Impression: - LA Grade D erosive esophagitis with bleeding. Treated with a heater probe. - Non-bleeding gastric ulcers with no stigmata of bleeding. - Acute duodenitis. - No specimens collected. Recommendation: - Return patient to ICU for ongoing care. - Resume previous diet. - Continue present medications. Procedure Code(s): --- Professional --- 22091, Small intestinal endoscopy, enteroscopy beyond second portion of duodenum, not including ileum; with control of bleeding (eg, injection, bipolar cautery, unipolar cautery, laser, heater probe, stapler, plasma geotechnical department manager) 14421, 59, Moderate sedation services provided by the same physician or other qualified health hearing healthcare practitioner performing the diagnostic or therapeutic service that the sedation supports, requiring the presence of an independent trained observer to assist in the monitoring of the patient's level of consciousness and physiological status; initial 15 minutes of intraservice time, patient age 5 years or older CPT copyright 2022 [employer]. All rights reserved. The codes documented in this report are preliminary and upon support staff review may be revised to meet current compliance requirements. Easton Lange DO 11/09/2024 1:48:06 PM This report has been signed electronically. Number of Addenda: 0 Note Initiated On: 11/09/2024 1:45 PM
--- NOTE | 2024-11-09 13:51 | OP.EGD_ITS ---
Patient Name: Bob Perez Procedure Date: 11/08/2024 3:18 PM Date of : 1955 Age: 69 Procedure: Upper GI endoscopy Indications: Coffee-ground emesis Providers: Easton Lange DO Medicines: Midazolam 2 mg IV, Propofol total dose 200 mg IV Patient Profile: This is a 69 year old male. Refer to note in patient chart for documentation of history and physical. Patient has symptoms of acute vomiting. Complications: No immediate complications. Procedure: Pre-Anesthesia Assessment: - Prior to the procedure, a History and Physical was performed, and patient medications and allergies were reviewed. The patient is competent. The risks and benefits of the procedure and the sedation options and risks were discussed with the patient. All questions were answered and informed consent was obtained. Patient identification and proposed procedure were verified by the physician. Mental Status Examination: sedated. Airway Examination: normal oropharyngeal airway and neck mobility and orotracheal intubation. Respiratory Examination: rhonchi. CV Examination: tachycardia noted. Prophylactic Antibiotics: The patient does not require prophylactic antibiotics. Prior Anticoagulants: The patient has taken no anticoagulant or antiplatelet agents. ASA Grade Assessment: IV - A patient with severe systemic disease that is a constant threat to life. After reviewing the risks and benefits, the patient was deemed in satisfactory condition to undergo the procedure. The anesthesia plan was to use moderate sedation / analgesia (conscious sedation). Immediately prior to administration of medications, the patient was re-assessed for adequacy to receive sedatives. The heart rate, respiratory rate, oxygen saturations, blood pressure, adequacy of pulmonary ventilation, and response to care were monitored throughout the procedure. The physical status of the patient was re-assessed after the procedure. After obtaining informed consent, the endoscope was passed under direct vision. Throughout the procedure, the patient's blood pressure, pulse, and oxygen saturations were monitored continuously. The Endoscope was introduced through the mouth, and advanced to the fourth part of the duodenum. Small bowel enteroscopy was deemed necessary. The upper GI endoscopy was accomplished without difficulty. The patient tolerated the procedure well. Moderate Sedation: Moderate (conscious) sedation was administered by the nurse and supervised by the endoscopist. The following parameters were monitored: oxygen saturation, heart rate, blood pressure, respiratory rate, EKG, adequacy of pulmonary ventilation, and response to care. Total physician intraservice time was 15 minutes. Scope In: 3:41:38 PM Scope Out: 3:55:00 PM Total Procedure Duration Time 0 hours 13 minutes 22 seconds Findings: Diffuse severe inflammation with hemorrhage characterized by friability, granularity and deep ulcerations was found in the entire esophagus. Coagulation for hemostasis using heater probe was successful. Estimated blood loss was minimal. Three non-bleeding cratered gastric ulcers with pigmented material were found on the lesser curvature of the stomach. The largest lesion was 6 mm in largest dimension. Coagulation for hemostasis using heater probe was successful. Diffuse severe inflammation characterized by erythema, friability and target ulcerations was found in the entire duodenum. Impression: - Esophageal mucosal changes were present, including friability, granularity and deep ulcerations with hemorrhage. Findings are suggestive of erosive inflammation. Treated with a heater probe. - Non-bleeding gastric ulcers with pigmented material. Treated with a heater probe. - Acute duodenitis. - No specimens collected. Recommendation: - Return patient to ICU for ongoing care. - Resume previous diet. - Continue present medications. Procedure Code(s): --- Professional --- 68872, Small intestinal endoscopy, enteroscopy beyond second portion of duodenum, not including ileum; with control of bleeding (eg, injection, bipolar cautery, unipolar cautery, laser, heater probe, stapler, plasma bone plant supervisor) 90810, 59, Moderate sedation services provided by the same physician or other qualified health animal care assistant performing the diagnostic or therapeutic service that the sedation supports, requiring the presence of an independent trained observer to assist in the monitoring of the patient's level of consciousness and physiological status; initial 15 minutes of intraservice time, patient age 5 years or older CPT copyright 2021 [employer]. All rights reserved. The codes documented in this report are preliminary and upon disabilities services officer review may be revised to meet current compliance requirements. Easton Lange DO 11/08/2024 6:05:54 PM This report has been signed electronically. Number of Addenda: 0 Note Initiated On: 11/08/2024 3:18 PM
[2024-11-09 15:22] LABS: Bedside Glucose 161 mg/dL (74-106)
[2024-11-09] MEDS: Insulin Lispro 100 UNIT/ML INSULN.PEN SC (17:31)
[2024-11-09 17:42] LABS: Bedside Glucose 256 mg/dL (74-106)
[2024-11-09 18:28] LABS: Anion Gap 17 (5-15); BUN 59 mg/dL (4-19); BUN/Creat Ratio 10.7 RATIO (10-20); Calcium,Total 6.8 mg/dL (7.6-11.0); Carbon Dioxide 17.3 mmol/L (21.0-32.0); Chloride 107 mmol/L (98-108); Creatinine, Serum 5.55 mg/dL (0.70-1.20); EST Glomerular Filtration Rate 11 (>60); Estimated Creatinine Clearance 14.18 ml/min (50-250); Glucose 270 mg/dL (70-99); Potassium 4.6 mmol/L (3.3-5.1); Sodium Level 142 mmol/L (133-145)
[2024-11-09] MEDS: Chlorhexidine 15 ML PO (21:12)
[2024-11-09] MEDS: Pantoprazole Sodium 40 MG in 0.9% Normal Saline (100mL MB+) 100 ML 330 MG IV (21:18)
--- NOTE | 2024-11-09 22:38 | PCM.PN.BLA ---
Progress Note Patient is still Intubated and sedated. Physical Exam Narrative no obvious distress no pallor no icterus no JVD s1s2 no murmurs lungs clear abdomen soft no organomegaly no edema chester + Assessment & Plan Assessment/Plan (1) Diabetic ketoacidosis: QUALIFIERS: Diabetes mellitus type: type 2 Diabetes mellitus complication detail: with coma Qualified Code(s): E11.11 - Type 2 diabetes mellitus with ketoacidosis with coma (2) Leukocytosis: QUALIFIERS: Leukocytosis type: unspecified Qualified Code(s): D72.829 - Elevated white blood cell count, unspecified (3) Hypotension: QUALIFIERS: Hypotension type: unspecified hypotension type Qualified Code(s): I95.9 - Hypotension, unspecified (4) Sepsis: QUALIFIERS: Sepsis type: sepsis due to unspecified organism Sepsis acute organ dysfunction status: with acute organ dysfunction Severe sepsis acute organ dysfunction type: encephalopathy Severe sepsis shock status: with septic shock Qualified Code(s): A41.9 - Sepsis, unspecified organism; R65.21 - Severe sepsis with septic shock; G93.41 - Metabolic encephalopathy (5) Gastrointestinal bleeding, upper: (6) GLYNN (acute kidney injury): (7) Hyperkalemia: (8) Acute metabolic encephalopathy: PLAN: Plan 69-year-old with altered mental status and was discovered to have diabetic ketoacidosis currently on insulin drip. He also was discovered to have hypotension along with leukocytosis likely secondary to septic shock. He also developed severe coffee-ground emesis consistent with suspected UGIB due to PUD requiring initiation of pantoprazole drip. He underwent an upper endoscopy. Findings: Diffuse severe inflammation with hemorrhage characterized by friability, granularity and deep ulcerations was found in the entire esophagus. Coagulation for hemostasis using heater probe was successful. Estimated blood loss was minimal. Three non-bleeding cratered gastric ulcers with pigmented material were found on the lesser curvature of the stomach. The largest lesion was 6 mm in largest dimension. Coagulation for hemostasis using heater probe was successful. Diffuse severe inflammation characterized by erythema, friability and target ulcerations was found in the entire duodenum. Impression: - Esophageal mucosal changes were present, including friability, granularity and deep ulcerations with hemorrhage. Findings are suggestive of erosive inflammation. Treated with a heater probe. - Non-bleeding gastric ulcers with pigmented material. Treated with a heater probe. - Acute duodenitis. - No specimens collected. He can be placed back on IVPPIBID Hemoglobin is down from 12.2 to 11.1. If his patient hemoglobin continues to turn down. He may need repeat up or endoscopy. Visit Charges Inpatient E&M: 32103 Subs Hosp L3
[2024-11-10] VITALS (33 sets, daily range): BP systolic 91–148; BP diastolic 67–91; PULSE 59–68; RESP 18–19; TEMP 37.4–38.2; O2SAT 89–100; BMI 27.3
[2024-11-10] MEDS: Insulin Lispro 100 UNIT/ML INSULN.PEN SC ×4 (00:36→17:39)
[2024-11-10 00:57] LABS: Bedside Glucose 343 mg/dL (74-106)
[2024-11-10] MEDS: 0.9% Normal Saline (1000mL) 1,000 ML 150 ML IV (03:05)
[2024-11-10] MEDS: fentaNYL drip 100 ML 12.5 MCG CONT INF ×3 (05:35→21:52)
[2024-11-10 05:43] LABS: Anion Gap 15 (5-15); BUN 71 mg/dL (4-19); BUN/Creat Ratio 11.4 RATIO (10-20); Carbon Dioxide 18.3 mmol/L (21.0-32.0); Chloride 109 mmol/L (98-108); Creatinine, Serum 6.21 mg/dL (0.70-1.20); EST Glomerular Filtration Rate 9 (>60); Estimated Creatinine Clearance 12.67 ml/min (50-250); Glucose 333 mg/dL (70-99); Magnesium 1.8 mg/dL (1.5-2.2); Potassium 4.7 mmol/L (3.3-5.1); Sodium Level 142 mmol/L (133-145)
[2024-11-10 05:55] LABS: Bedside Glucose 293 mg/dL (74-106)
[2024-11-10 06:12] LABS: Phosphorus 3.8 mg/dL (2.7-4.5)
[2024-11-10 06:22] LABS: Absolute Neutrophil Count 18.1 X10^3/uL (2.0-7.7); Basophil# 0.05 X10^3/uL; Basophil% 0.2 % (0-1); Hematocrit 29.7 % (40-54); Hemoglobin 10.1 g/dL (13.0-16.5); Lymphocyte % 6.8 % (19-41); Mean Corpuscular Hgb 30.7 pg (27.0-32.0); Mean Corpuscular Volume 90.3 fL (80-94); Mean Platelet Vol. 12.2 fl (6.2-12.0); Monocyte# 0.97 X10^3/uL; Monocyte% 4.7 % (0-10); NRBC Flagged by Analyzer 0 % (0-5); Neutrophil # 18.06 X10^3/uL (2.7-7.7); Neutrophil % 87.5 % (47-70); POSITIVE MORPHOLOGY YES; Platelet Count 124 K/mm3 (150-450); RBC Distribution Width CV 14.5 % (11.6-14.6); Red Blood Count 3.29 M/mm3 (4.6-6.2); White Blood Count 20.7 K/mm3 (4.4-11.0)
[2024-11-10 06:41] LABS: Differential Indicated SCAN CRITERIA MET
[2024-11-10 07:00] LABS: Allen Test Positive; Base Excess -7 mmol/L (-2 to +2); Bicarbonate 17.2 mmol/L (22-26); Blood Gas Specimen Type ART; Mode AC; O2 Delivery Device Adult Vent; PEEP 5; PO2 69 mmHG (75-100); RR 18; SITE R Radial; SO2 94 % (95-99); Total Carbon Dioxide 18 mmol/L; pCO2 26.3 mmHg (35-45); pH 7.42 (7.35-7.45)
[2024-11-10] MEDS: Dexmedetomidine 1,000 mcg in 0.9% NS 240 mL 25.7 MCG CONT INF ×2 (07:00→17:08)
--- NOTE | 2024-11-10 07:29 | PCM.PN.INT ---
Assessment & Plan Assessment/Plan (1) Acute metabolic encephalopathy: (2) Sepsis: QUALIFIERS: Sepsis acute organ dysfunction status: with acute organ dysfunction Sepsis type: sepsis due to unspecified organism Severe sepsis acute organ dysfunction type: encephalopathy Severe sepsis shock status: with septic shock Qualified Code(s): A41.9 - Sepsis, unspecified organism; R65.21 - Severe sepsis with septic shock; G93.41 - Metabolic encephalopathy (3) Diabetic ketoacidosis: QUALIFIERS: Diabetes mellitus complication detail: with coma Diabetes mellitus type: type 2 Qualified Code(s): E11.11 - Type 2 diabetes mellitus with ketoacidosis with coma PLAN: Plan RECOMMENDATIONS: 1. Continue assist-control mode mechanical ventilation. Wean FiO2 and PEEP as tolerated. 2. Increase basal and sliding scale insulin coverage. 3. Stop continuous IV fluids. 4. Continue Precedex and fentanyl for sedation. 5. Okay to initiate tube feeding for nutritional support. 6. Start bowel regimen as ordered. IMPRESSIONS: 1. Acute hypoxemic respiratory failure The patient was ultimately intubated in the emergency department over concerns for airway protection. In addition, there is concern for underlying gram-negative pneumonia. His acid-base status has improved with invasive mechanical ventilatory support and medical therapy for his DKA. The patient will be continued on assist-control mode of mechanical ventilation, with a goal to wean FiO2 and PEEP as tolerated to maintain saturations at or above 90%. Antimicrobials will be continued. 2. Multifactorial shock Likely due to a combination of hypovolemia and septic etiologies. Clinical concern for underlying gram-negative pneumonia. In addition, the patient did have evidence of a mildly distended gallbladder with evidence of intraluminal air and pneumobilia, which could suggest infection. Accordingly, gastroenterology is following to assist with medical management. He will be maintained on's broad-spectrum antimicrobial coverage along with vasopressor support to maintain hemodynamic stability. 3. Toxic/metabolic encephalopathy Most likely secondary to presenting DKA with significant metabolic derangements and multifactorial shock. Continue supportive care as noted above. 4. Diabetic ketoacidosis Resolved. Continue basal and sliding scale insulin coverage, with additional titration based upon blood sugars. 5. Acute versus chronic kidney disease Unclear baseline renal function. Clinical concern for evolution to ischemic ATN in the setting of #2. Continue supportive care for now. Continue to monitor urine output. Renal ultrasound was unremarkable. Nephrology is following to assist with medical management. 6. Anemia Unclear chronicity. Blood counts remain stable. Continue PPI therapy. TIME: 36 minutes of critical care time, independent of procedures, was spent addressing the patient's acute hypoxemic respiratory failure, multifactorial shock, toxic/metabolic encephalopathy, diabetic ketoacidosis, acute kidney injury, anemia, review of all data and collaboration with the care team. Subjective Subjective The patient was seen and examined at the bedside this morning. Events from the last 24 hours have been reviewed. The patient currently has a low-grade fever, but remains otherwise hemodynamically stable. The patient was weaned off of Levophed completely yesterday afternoon. He is currently documented to be overall net +13.4 L for the hospitalization. White blood cell count is elevated at 20,000 with a hemoglobin of 10.1 g/dL and platelet count of 124,000. Arterial blood gas this morning was notable for a pH of 7.42 with a pCO2 of 26 and pO2 of 69. Chemistry profile was notable for a BUN of 71 and creatinine of 6.2. Glucose is elevated at 333. Objective Data Objective Data The patient's most recent lab work, culture data and imaging studies have all been personally reviewed. Sputum culture is demonstrating growth of E. coli and Streptococcus pneumonia. Vital Signs: Vital Signs Temp Pulse Resp BP Pulse Ox O2 Del Method O2 Flow Rate 99.5 F H 63 18 116/83 H 95 Mechanical Ventilator 45 11/10/24 07:00 11/10/24 07:03 11/10/24 07:03 11/10/24 07:00 11/10/24 07:03 11/10/24 07:00 11/08/24 00:00 FiO2 25 11/10/24 07:03 Oxygen Flow Rate (L/min) 45 Oxygen Delivery Method Mechanical Ventilator Weight: 201 lb 4.513 oz Body Mass Index (BMI) 27.3 Intake & Output: Intake and Output for Last 24 Hours 11/08/24 11/09/24 11/10/24 23:59 23:59 23:59 Intake Total 7284.48 / 7328.96 6474.97 / 6513.17 1348.31 / 1348.31 Output Total 3000 / 3000 835 / 865 40 / 40 Balance 4284.48 / 4328.96 5639.97 / 5648.17 1308.31 / 1308.31 Lab / Micro Data Attestation: I reviewed the patient's lab results. 11/10/24 05:09 11/10/24 05:09 Labs: Laboratory Results - last 24 hr 11/09/24 08:03: POC Glucose 166 H 11/09/24 10:05: Sodium 144, Potassium 3.2 L, Chloride 107, Carbon Dioxide 21.9, Anion Gap 15, BUN 58 H, Creatinine 5.28 H, Estim Creat Clear Calc 14.90 L, Est GFR (MDRD) Non-Af 11 L, BUN/Creatinine Ratio 10.9, Glucose 155 H, Calcium 6.7 L, b-Hydroxybutyric mmol/L 0.2 11/09/24 10:07: POC Glucose 152 H 11/09/24 11:57: POC Glucose 115 H 11/09/24 15:05: POC Glucose 161 H 11/09/24 17:24: POC Glucose 256 H 11/09/24 17:25: Sodium 142, Potassium 4.6, Chloride 107, Carbon Dioxide 17.3 L, Anion Gap 17 H, BUN 59 H, Creatinine 5.55 H, Estim Creat Clear Calc 14.18 L, Est GFR (MDRD) Non-Af 11 L, BUN/Creatinine Ratio 10.7, Glucose 270 H, Calcium 6.8 L 11/10/24 00:36: POC Glucose 343 H 11/10/24 05:09: WBC 20.7 H, RBC 3.29 L, Hgb 10.1 L, Hct 29.7 L, MCV 90.3, MCH 30.7, MCHC 34.0 D, RDW Std Deviation 48.0 H, RDW Coeff of Eliseo 14.5, Plt Count 124 L, MPV 12.2 H, Immature Gran % (Auto) 0.800, Neut % (Auto) 87.5 H, Lymph % (Auto) 6.8 L, [place] % (Auto) 4.7, Eos % (Auto) 0.0, Baso % (Auto) 0.2, Absolute Neuts (auto) 18.1 H, Absolute Lymphs (auto) 1.40, Nucleated RBC % 0, Sodium 142, Potassium 4.7, Chloride 109 H, Carbon Dioxide 18.3 L, Anion Gap 15, BUN 71 H, Creatinine 6.21 H, Estim Creat Clear Calc 12.67 L, Est GFR (MDRD) Non-Af 9 L, BUN/Creatinine Ratio 11.4, Glucose 333 H, Calcium 7.0 L, Phosphorus 3.8, Magnesium 1.8 11/10/24 05:35: POC Glucose 293 H Micro: Microbiology 11/07/24 20:08 Sputum, Tracheal Aspirate Gram Stain - Final 11/07/24 20:08 Sputum, Tracheal Aspirate Respiratory Culture - Preliminary Escherichia coli Streptococcus pneumoniae Streptococcus group B ABG Data ABG results: ABG 11/10/24 06:56 Specimen Type ART Sample Site R Radial pH 7.42 Bicarbonate Actual 17.2 L Total CO2 18 Base Excess -7 L O2 Saturation 94 L O2 % 25.0 ABG pCO2 26.3 L ABG pO2 69 L Srini Test Positive Respiration Rate 18 O2 Delivery Device Adult Vent Vent Mode AC Tidal Volume 500.0 POC PEEP 5 Radiography Diagnostic Testing: Radiology Impression Renal Ultrasound 11/09/24 07:33 IMPRESSION: NORMAL RENAL ULTRASOUND. Reading Location: [place] [id number] Physical Exam Const Constitutional Narrative: Intubated, sedated and mechanically ventilated. HEENT normocephalic and head/scalp atraumatic Mouth: endotracheal tube in place and OG tube in place Eyes EOMs intact bilaterally and conjunctivae normal Neck supple General: trachea midline and CVC in place Resp normal respiratory effort Auscultation: diminished lung sounds; Negative for rales, rhonchi or wheezes Cardio regular rate and regular rhythm GI normal to inspection, nondistended, normoactive bowel sounds Extremity General Extremity: edema; Negative for clubbing Skin no rashes or lesions noted Neuro Sensorium / Orientation: sedated on vent Charges/Coding Procedures Hospitalists Procedures: [id number] Critical Care 1st Hr
--- NOTE | 2024-11-10 08:09 | PCM.PN.HOSP ---
Subjective Subjective Intubated and sedated Objective Data Objective Data Vital Signs: Vital Signs Temp Pulse Resp BP Pulse Ox O2 Del Method O2 Flow Rate 99.5 F H 63 18 116/83 H 95 Mechanical Ventilator 45 11/10/24 07:00 11/10/24 07:03 11/10/24 07:03 11/10/24 07:00 11/10/24 07:03 11/10/24 07:00 11/08/24 00:00 FiO2 25 11/10/24 07:03 Oxygen Flow Rate (L/min) 45 Oxygen Delivery Method Mechanical Ventilator Weight: 201 lb 4.513 oz Body Mass Index (BMI) 27.3 Intake & Output: Intake and Output for Last 24 Hours 11/09/24 11/10/24 11/11/24 03:59 03:59 03:59 Intake Total 6114.58 / 6265.76 6190.21 / 6228.41 145.51 / 145.51 Output Total 1300 / 1300 865 / 865 10 / 10 Balance 4814.58 / 4965.76 5325.21 / 5363.41 135.51 / 135.51 Lab / Micro Data 11/10/24 05:09 11/10/24 05:09 Labs: Laboratory Results - last 24 hr 11/09/24 08:03: POC Glucose 166 H 11/09/24 10:05: Sodium 144, Potassium 3.2 L, Chloride 107, Carbon Dioxide 21.9, Anion Gap 15, BUN 58 H, Creatinine 5.28 H, Estim Creat Clear Calc 14.90 L, Est GFR (MDRD) Non-Af 11 L, BUN/Creatinine Ratio 10.9, Glucose 155 H, Calcium 6.7 L, b-Hydroxybutyric mmol/L 0.2 11/09/24 10:07: POC Glucose 152 H 11/09/24 11:57: POC Glucose 115 H 11/09/24 15:05: POC Glucose 161 H 11/09/24 17:24: POC Glucose 256 H 11/09/24 17:25: Sodium 142, Potassium 4.6, Chloride 107, Carbon Dioxide 17.3 L, Anion Gap 17 H, BUN 59 H, Creatinine 5.55 H, Estim Creat Clear Calc 14.18 L, Est GFR (MDRD) Non-Af 11 L, BUN/Creatinine Ratio 10.7, Glucose 270 H, Calcium 6.8 L 11/10/24 00:36: POC Glucose 343 H 11/10/24 05:09: WBC 20.7 H, RBC 3.29 L, Hgb 10.1 L, Hct 29.7 L, MCV 90.3, MCH 30.7, MCHC 34.0 D, RDW Std Deviation 48.0 H, RDW Coeff of Eliseo 14.5, Plt Count 124 L, MPV 12.2 H, Immature Gran % (Auto) 0.800, Neut % (Auto) 87.5 H, Lymph % (Auto) 6.8 L, [place] % (Auto) 4.7, Eos % (Auto) 0.0, Baso % (Auto) 0.2, Absolute Neuts (auto) 18.1 H, Absolute Lymphs (auto) 1.40, Nucleated RBC % 0, Differential Comment , Sodium 142, Potassium 4.7, Chloride 109 H, Carbon Dioxide 18.3 L, Anion Gap 15, BUN 71 H, Creatinine 6.21 H, Estim Creat Clear Calc 12.67 L, Est GFR (MDRD) Non-Af 9 L, BUN/Creatinine Ratio 11.4, Glucose 333 H, Calcium 7.0 L, Phosphorus 3.8, Magnesium 1.8 11/10/24 05:35: POC Glucose 293 H Micro: Microbiology 11/07/24 20:08 Sputum, Tracheal Aspirate Gram Stain - Final 11/07/24 20:08 Sputum, Tracheal Aspirate Respiratory Culture - Preliminary Escherichia coli Streptococcus pneumoniae Streptococcus group B ABG Data ABG results: ABG 11/10/24 06:56 Specimen Type ART Sample Site R Radial pH 7.42 Bicarbonate Actual 17.2 L Total CO2 18 Base Excess -7 L O2 Saturation 94 L O2 % 25.0 ABG pCO2 26.3 L ABG pO2 69 L Srini Test Positive Respiration Rate 18 O2 Delivery Device Adult Vent Vent Mode AC Tidal Volume 500.0 POC PEEP 5 Radiography Diagnostic Testing: Radiology Impression Renal Ultrasound 11/09/24 07:33 IMPRESSION: NORMAL RENAL ULTRASOUND. Reading Location: [place] [address] Physical Exam Const General Appearance: intubated and patient mechanically ventilated HEENT normocephalic Eyes PERRL and conjunctivae normal Neck supple and no JVD Resp normal respiratory effort, no retractions and no use of accessory muscles Auscultation: Negative for crackles, rales, rhonchi or wheezes Cardio regular rate, regular rhythm, S1 normal heart sound, S2 normal heart sound and no murmurs GI soft to palpation and non-distended; Negative for hepatosplenomegaly Extremity no clubbing, cyanosis or edema Skin no rashes or lesions noted Neuro Sensorium / Orientation: sedated on vent Psych Appearance: intubated Assessment & Plan Assessment/Plan (1) Diabetic ketoacidosis: QUALIFIERS: Diabetes mellitus type: type 2 Diabetes mellitus complication detail: with coma Qualified Code(s): E11.11 - Type 2 diabetes mellitus with ketoacidosis with coma (2) Sepsis: QUALIFIERS: Sepsis type: sepsis due to unspecified organism Sepsis acute organ dysfunction status: with acute organ dysfunction Severe sepsis acute organ dysfunction type: encephalopathy Severe sepsis shock status: with septic shock Qualified Code(s): A41.9 - Sepsis, unspecified organism; R65.21 - Severe sepsis with septic shock; G93.41 - Metabolic encephalopathy (3) Gastrointestinal bleeding, upper: (4) GLYNN (acute kidney injury): (5) Acute metabolic encephalopathy: PLAN: Plan 1. Septic shock secondary to pneumobilia from an unclear source complicated by DKA and an upper GI bleed with acute hypoxic respiratory failure necessitating intubation/GLYNN/acute metabolic encephalopathy ? Appreciate GIs assistance, EGD demonstrated erosive esophagitis with nonbleeding gastric ulcers ? 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 Continued with broad-spectrum antibiotics ? Continue with aggressive IV fluids ? Wean pressors as able ? Continue with IV Protonix NG tube continues to have coffee-ground drainage ?Hemoglobin is stable, will continue to monitor ?Will likely need to be started on dialysis given continued worsening of his renal function as well as elevation in his BUN. 2. Euthyroid sick syndrome ? TSH is severely elevated and T3 and T4 are depressed ? Related to his critically ill status ? Will monitor DVT: SCDs Charges/Coding Visit Charges Inpatient E&M: 45027 Subs Hosp L2
[2024-11-10] MEDS: Chlorhexidine 15 ML PO ×2 (08:21→22:00)
[2024-11-10] MEDS: 0.9% Saline Lock 10 ML Syringe IV ×3 (08:21→13:42)
[2024-11-10] MEDS: CHLORHEXIDINE GLUC 2% CLOTH 1 EACH TOWELETTE TOPICAL (08:21)
[2024-11-10] MEDS: Insulin Glargine-YFGN 100 UNIT/ML Pen 40 UNIT SC ×2 (08:23→22:01)
[2024-11-10] MEDS: Furosemide 100 MG/10 ML Vial 80 MG IV (08:42)
[2024-11-10] MEDS: Pantoprazole Sodium 40 MG in 0.9% Normal Saline (100mL MB+) 100 ML 330 MG IV ×2 (08:46→21:55)
[2024-11-10] MEDS: Piperacil/Tazobactam 3.375 GM in 0.9% Normal Saline (50mL MB+) 50 ML IV (09:19)
--- NOTE | 2024-11-10 10:31 | PN.RENAL_ITS ---
Subjective Subjective Patient intubated. at bedside. No overnight events. Has been off Levophed since yesterday. Objective Data Objective Data Vital Signs: Vital Signs Temp Pulse Resp BP Pulse Ox O2 Del Method O2 Flow Rate 99.9 F H 63 18 128/85 H 100 Mechanical Ventilator 45 11/10/24 10:00 11/10/24 10:19 11/10/24 10:19 11/10/24 10:00 11/10/24 10:19 11/10/24 10:00 11/08/24 00:00 FiO2 25 11/10/24 10:19 Oxygen Flow Rate (L/min) 45 Oxygen Delivery Method Mechanical Ventilator Weight: 91.3 kg Body Mass Index (BMI) 27.3 Intake & Output: Intake and Output for Last 24 Hours 11/08/24 11/09/24 11/10/24 23:59 23:59 23:59 Intake Total 7284.48 / 7328.96 6474.97 / 6513.17 2376.71 / 2376.71 Output Total 3000 / 3000 835 / 865 80 / 80 Balance 4284.48 / 4328.96 5639.97 / 5648.17 2296.71 / 2296.71 Lab / Micro Data 11/10/24 05:09 11/10/24 05:09 Labs: Laboratory Results - last 24 hr 11/09/24 10:05: Sodium 144, Potassium 3.2 L, Chloride 107, Carbon Dioxide 21.9, Anion Gap 15, BUN 58 H, Creatinine 5.28 H, Estim Creat Clear Calc 14.90 L, Est GFR (MDRD) Non-Af 11 L, BUN/Creatinine Ratio 10.9, Glucose 155 H, Calcium 6.7 L, b-Hydroxybutyric mmol/L 0.2 11/09/24 11:57: POC Glucose 115 H 11/09/24 15:05: POC Glucose 161 H 11/09/24 17:24: POC Glucose 256 H 11/09/24 17:25: Sodium 142, Potassium 4.6, Chloride 107, Carbon Dioxide 17.3 L, Anion Gap 17 H, BUN 59 H, Creatinine 5.55 H, Estim Creat Clear Calc 14.18 L, Est GFR (MDRD) Non-Af 11 L, BUN/Creatinine Ratio 10.7, Glucose 270 H, Calcium 6.8 L 11/10/24 00:36: POC Glucose 343 H 11/10/24 05:09: WBC 20.7 H, RBC 3.29 L, Hgb 10.1 L, Hct 29.7 L, MCV 90.3, MCH 30.7, MCHC 34.0 D, RDW Std Deviation 48.0 H, RDW Coeff of Eliseo 14.5, Plt Count 124 L, MPV 12.2 H, Immature Gran % (Auto) 0.800, Neut % (Auto) 87.5 H, Lymph % (Auto) 6.8 L, [place] % (Auto) 4.7, Eos % (Auto) 0.0, Baso % (Auto) 0.2, Absolute Neuts (auto) 18.1 H, Absolute Lymphs (auto) 1.40, Nucleated RBC % 0, Differential Comment , Sodium 142, Potassium 4.7, Chloride 109 H, Carbon Dioxide 18.3 L, Anion Gap 15, BUN 71 H, Creatinine 6.21 H, Estim Creat Clear Calc 12.67 L, Est GFR (MDRD) Non-Af 9 L, BUN/Creatinine Ratio 11.4, Glucose 333 H, Calcium 7.0 L, Phosphorus 3.8, Magnesium 1.8 11/10/24 05:35: POC Glucose 293 H Micro: Microbiology 11/07/24 20:08 Sputum, Tracheal Aspirate Gram Stain - Final 11/07/24 20:08 Sputum, Tracheal Aspirate Respiratory Culture - Preliminary Escherichia coli Streptococcus pneumoniae Streptococcus group B ABG Data ABG results: ABG 11/10/24 06:56 Specimen Type ART Sample Site R Radial pH 7.42 Bicarbonate Actual 17.2 L Total CO2 18 Base Excess -7 L O2 Saturation 94 L O2 % 25.0 ABG pCO2 26.3 L ABG pO2 69 L Srini Test Positive Respiration Rate 18 O2 Delivery Device Adult Vent Vent Mode AC Tidal Volume 500.0 POC PEEP 5 Radiography Diagnostic Testing: Radiology Impression Renal Ultrasound 11/09/24 07:33 IMPRESSION: NORMAL RENAL ULTRASOUND. Reading Location: [facility] Physical Exam Narrative Intubated no obvious distress s1s2 no murmurs lungs clear anteriorly. No rales or rhonchi. abdomen soft no edema chester + with scant amount yellow urine in tubing Assessment & Plan Assessment/Plan (1) GLYNN (acute kidney injury): PLAN: - GLYNN with normal baseline creatinine as of April 2024. GLYNN likely secondary to ATN in setting of sepsis, pneumonia, DKA, hypotension. On admission creatinine 3.25 and has been steadily worsening. Today creatinine up to 6.21. UA no blood, 15 protein. He did receive a CT with contrast on admission. CT abdomen without any hydronephrosis. Patient treated for DKA, septic shock. Blood pressures improved, patient is off IV pressors as of yesterday. Per cumulative I&O patient is net +14 L. Potassium and bicarb acceptable, initial acidosis most likely DKA related. Urine output overnight around 40 mL. Patient received dose of Lasix 80 mg IV earlier this morning with not much urine output. Will give another dose of Lasix later today and monitor response. If not much response with lasix, Cr continues to worsen then patient is heading towards needing renal replacement therapy. This was explained to patient's at bedside this morning. Questions were answered. in agreement for renal placement therapy if needed. Assessment and plan reviewed with Dr. Grimes.
[2024-11-10] MEDS: Senna/Docusate Sodium 1 Tablet 2 TABLET GT ×2 (10:37→21:57)
[2024-11-10] MEDS: Vital AF 1.2 Cal Liquid 1,000 ML 20 ML GT (10:37)
[2024-11-10] MEDS: Ceftriaxone 2 GM in 0.9% Normal Saline (50mL MB+) 50 ML IV (10:43)
[2024-11-10 11:39] LABS: Bedside Glucose 277 mg/dL (74-106)
[2024-11-10] MEDS: Furosemide 100 MG/10 ML Vial IV (13:44)
[2024-11-10 15:27] LABS: International Normalized Ratio 1.3; Partial Thromboplast Time 31.1 Seconds (24.1-36.2); Prothrombin Time (Protime)PT. 16.3 SECONDS (11.7-14.9)
[2024-11-10 18:00] LABS: Bedside Glucose 279 mg/dL (74-106)
[2024-11-10] MEDS: Glycerin/Hypromellose/PEG400 15 ml Bottle 2 DRP EACH EYE (21:55)
[2024-11-10] MEDS: Acetaminophen 650 MG Suppository RC (21:56)
[2024-11-11] VITALS (50 sets, daily range): BP systolic 74–169; BP diastolic 44–100; PULSE 43–95; RESP 16–23; TEMP 36.5–37.8; O2SAT 89–100; BMI 28.8; BMI 28.6
[2024-11-11] MEDS: Insulin Lispro 100 UNIT/ML INSULN.PEN SC ×2 (00:49→06:02)
[2024-11-11] MEDS: Glycerin/Hypromellose/PEG400 15 ml Bottle 2 DRP EACH EYE (00:51)
[2024-11-11] MEDS: Dexmedetomidine 1,000 mcg in 0.9% NS 240 mL 25.7 MCG CONT INF ×3 (02:23→18:40)
[2024-11-11 03:58] LABS: Absolute Lymphocyte Count 1.37 X10^3/uL (0.83-4.51); Absolute Neutrophil Count 18.3 X10^3/uL (2.0-7.7); Basophil# 0.05 X10^3/uL; Basophil% 0.2 % (0-1); Eosinophil# 0.06 X10^3/uL; Eosinophils% 0.3 % (0-5); Hematocrit 28.6 % (40-54); Hemoglobin 9.8 g/dL (13.0-16.5); Lymphocyte # 1.37 X10^3/ul (0.83-4.51); Lymphocyte % 6.7 % (19-41); Mean Corp Hgb Conc 34.3 g/dL (32-36); Mean Corpuscular Volume 90.5 fL (80-94); Monocyte# 0.54 X10^3/uL; Monocyte% 2.6 % (0-10); NRBC Flagged by Analyzer 0 % (0-5); Neutrophil # 18.29 X10^3/uL (2.7-7.7); Neutrophil % 89.7 % (47-70); Platelet Count 127 K/mm3 (150-450); RBC Distribution Width CV 14.6 % (11.6-14.6); RBC Distribution Width SD 49.1 fl (35.1-43.9); Red Blood Count 3.16 M/mm3 (4.6-6.2); White Blood Count 20.4 K/mm3 (4.4-11.0)
[2024-11-11 04:41] LABS: ALB/GLOB Ratio 0.9 RATIO (0.9-2.4); AST(SGOT) 230 U/L (<=37); Alanine Aminotransfer ALT/SGPT 80 U/L (<=46); Albumin, Serum 2.5 g/dL (3.4-4.8); Alkaline Phosphatase 112 U/L (40-129); Anion Gap 15 (5-15); BUN 77 mg/dL (4-19); BUN/Creat Ratio 10.7 RATIO (10-20); Calcium,Total 7.2 mg/dL (7.6-11.0); Carbon Dioxide 18.6 mmol/L (21.0-32.0); Chloride 111 mmol/L (98-108); Creatinine, Serum 7.25 mg/dL (0.70-1.20); EST Glomerular Filtration Rate 8 (>60); Estimated Creatinine Clearance 10.85 ml/min (50-250); Globulin 2.7 g/dL (2.2-4.2); Glucose 233 mg/dL (70-99); Potassium 4.1 mmol/L (3.3-5.1); Protein, Total 5.1 g/dL (5.9-8.4); Sodium Level 144 mmol/L (133-145); Total Bilirubin 0.17 mg/dL (0.00-1.30)
[2024-11-11] MEDS: 0.9% Saline Lock 10 ML Syringe IV ×3 (06:09→23:40)
[2024-11-11] MEDS: fentaNYL drip 100 ML 12.5 MCG CONT INF ×3 (07:00→18:39)
--- NOTE | 2024-11-11 07:28 | PN.CC_ITS ---
Assessment & Plan Assessment/Plan (1) Acute metabolic encephalopathy: (2) Sepsis: QUALIFIERS: Sepsis type: sepsis due to unspecified organism S epsis acute organ dysfunction status: with acute organ dysfunction Severe sepsis acute organ dysfunction type: encephalopathy Severe sepsis shock status: with septic shock Qualified Code(s): A41.9 - Sepsis, unspecified organism; R65.21 - Severe sepsis with septic shock; G93.41 - Metabolic encephalopathy (3) Diabetic ketoacidosis: QUALIFIERS: Diabetes mellitus type: type 2 Diabetes mellitus complication detail: with coma Qualified Code(s): E11.11 - Type 2 diabetes mellitus with ketoacidosis with coma PLAN: Plan RECOMMENDATIONS: 1. Continue assist-control mode mechanical ventilation. Wean FiO2 and PEEP as tolerated. 2. Continue basal and sliding scale insulin coverage. 3. Initiate dialysis support per nephrology recommendations. 4. Continue Precedex and fentanyl for sedation. 5. Continue tube feeding for nutritional support. 6. Continue bowel regimen as ordered. 7. Tentative plans for ERCP by gastroenterology. IMPRESSIONS: 1. Acute hypoxemic respiratory failure The patient was ultimately intubated in the emergency department over concerns for airway protection. In addition, there is concern for underlying gram- negative pneumonia. His acid-base status has improved with invasive mechanical ventilatory support and medical therapy for his DKA. The patient will be continued on assist-control mode of mechanical ventilation, with a goal to wean FiO2 and PEEP as tolerated to maintain saturations at or above 90%. Antimicrobials will be continued. 2. Multifactorial shock Likely due to a combination of hypovolemia and septic etiologies. Clinical concern for underlying gram-negative pneumonia. In addition, the patient did have evidence of a mildly distended gallbladder with evidence of intraluminal air and pneumobilia, which could suggest infection. Accordingly, there are tentative plans for ERCP. Gastroenterology is following to assist with medical management. He will be maintained on's broad-spectrum antimicrobial coverage. The patient has been successfully weaned from vasopressor support. 3. Toxic/metabolic encephalopathy Most likely secondary to presenting DKA with significant metabolic derangements and multifactorial shock. Continue supportive care as noted above. 4. Diabetic ketoacidosis Resolved. Continue basal and sliding scale insulin coverage, with additional titration based upon blood sugars. 5. Acute versus chronic kidney disease Unclear baseline renal function. Clinical concern for evolution to ischemic ATN in the setting of #2. Continue supportive care for now. Continue to monitor urine output. Plan to proceed with dialysis today per nephrology recommendations. 6. Anemia Unclear chronicity. Blood counts remain stable. Continue PPI therapy. TIME: 34 minutes of critical care time, independent of procedures, was spent addressing the patient's acute hypoxemic respiratory failure, multifactorial shock, toxic/metabolic encephalopathy, diabetic ketoacidosis, acute kidney injury, anemia, review of all data and collaboration with the care team. Subjective Subjective The patient was seen and examined at the bedside this morning. Events from the last 24 hours have been reviewed. The patient currently has a low-grade fever but remains otherwise hemodynamically stable on assist-control mode of mechanical ventilation. The patient is documented to be overall net +15.3 L for the hospitalization. White blood cell count is elevated at 20,000. Creatinine is increased to 7.25. Objective Data Objective Data The patient's most recent lab work, culture data and imaging studies have all been personally reviewed. Sputum culture is demonstrating growth of E. coli and Streptococcus pneumonia. Vital Signs: Vital Signs Temp Pulse Resp BP Pulse Ox O2 Del Method O2 Flow Rate 99.9 F H 56 L 19 H 95/70 91 Mechanical Ventilator 45 11/11/24 07:00 11/11/24 07:00 11/11/24 07:00 11/11/24 07:00 11/11/24 07:00 11/11/24 07:00 11/08/24 00:00 FiO2 25 11/11/24 07:00 Oxygen Flow Rate (L/min) 45 Oxygen Delivery Method Mechanical Ventilator Weight: 212 lb 8.41 oz Body Mass Index (BMI) 28.8 Intake & Output: Intake and Output for Last 24 Hours 11/09/24 11/10/24 11/11/24 23:59 23:59 23:59 Intake Total 6474.97 / 6513.17 3348.29 / 3441.49 531.06 / 531.06 Output Total 835 / 865 510 / 550 115 / 115 Balance 5639.97 / 5648.17 2838.29 / 2891.49 416.06 / 416.06 Lab / Micro Data Attestation: I reviewed the patient's lab results. 11/11/24 03:45 11/11/24 03:45 Labs: Laboratory Results - last 24 hr 11/10/24 05:09: Differential Comment 11/10/24 11:11: POC Glucose 277 H 11/10/24 15:09: PT 16.3 H, INR 1.3, APTT 31.1 11/10/24 17:38: POC Glucose 279 H 11/11/24 03:45: WBC 20.4 H, RBC 3.16 L, Hgb 9.8 L, Hct 28.6 L, MCV 90.5, MCH 31.0, MCHC 34.3, RDW Std Deviation 49.1 H, RDW Coeff of Eliseo 14.6, Plt Count 127 L, MPV 12.0, Immature Gran % (Auto) 0.500, Neut % (Auto) 89.7 H, Lymph % (Auto) 6.7 L, [place] % (Auto) 2.6, Eos % (Auto) 0.3, Baso % (Auto) 0.2, Absolute Neuts (auto) 18.3 H, Absolute Lymphs (auto) 1.37, Nucleated RBC % 0, Sodium 144, Potassium 4.1, Chloride 111 H, Carbon Dioxide 18.6 L, Anion Gap 15, BUN 77 H, C reatinine 7.25 H, Estim Creat Clear Calc 10.85 L, Est GFR (MDRD) Non-Af 8 L, BUN/Creatinine Ratio 10.7, Glucose 233 H, Calcium 7.2 L, Total Bilirubin 0.17, A ST 230 H, ALT 80 H, Alkaline Phosphatase 112, Total Protein 5.1 L, Albumin 2.5 L , Globulin 2.7, Albumin/Globulin Ratio 0.9 Micro: Microbiology 11/07/24 20:08 Sputum, Tracheal Aspirate Gram Stain - Final 11/07/24 20:08 Sputum, Tracheal Aspirate Respiratory Culture - Final Escherichia coli Streptococcus pneumoniae Streptococcus agalactiae (B) 11/07/24 23:00 Blood Culture (Wb) - Other Blood Culture - Preliminary No growth in 48 hours. 11/07/24 23:25 Blood Culture (Wb) - Anticubital Left Blood Culture - Preliminary No growth in 48 hours. ABG Data ABG results: ABG 11/10/24 06:56 Specimen Type ART Sample Site R Radial pH 7.42 Bicarbonate Actual 17.2 L Total CO2 18 Base Excess -7 L O2 Saturation 94 L O2 % 25.0 ABG pCO2 26.3 L ABG pO2 69 L Srini Test Positive Respiration Rate 18 O2 Delivery Device Adult Vent Vent Mode AC Tidal Volume 500.0 POC PEEP 5 Radiography Diagnostic Testing: Radiology Impression Renal Ultrasound 11/09/24 07:33 IMPRESSION: NORMAL RENAL ULTRASOUND. Reading Location: [facility] Physical Exam Const Constitutional Narrative: Intubated, sedated and mechanically ventilated. HEENT normocephalic and head/scalp atraumatic Mouth: endotracheal tube in place and OG tube in place Eyes EOMs intact bilaterally and conjunctivae normal Neck supple General: trachea midline and CVC in place Resp normal respiratory effort Auscultation: diminished lung sounds; Negative for rales, rhonchi or wheezes Cardio regular rate and regular rhythm GI normal to inspection, nondistended, normoactive bowel sounds Extremity General Extremity: edema; Negative for clubbing Skin no rashes or lesions noted Neuro Sensorium / Orientation: sedated on vent Charges/Coding Procedures Hospitalists Procedures: [id number] Critical Care 1st Hr
--- NOTE | 2024-11-11 08:05 | PCM.PN.REN ---
Subjective Subjective Following for GLYNN. Patient is intubated and sedated. Cannot do ROS. Objective Data Objective Data Vital Signs: Vital Signs Temp Pulse Resp BP Pulse Ox O2 Del Method O2 Flow Rate 99.9 F H 56 L 19 H 95/70 91 Mechanical Ventilator 45 11/11/24 07:00 11/11/24 07:00 11/11/24 07:00 11/11/24 07:00 11/11/24 07:00 11/11/24 07:00 11/08/24 00:00 FiO2 25 11/11/24 07:00 Oxygen Flow Rate (L/min) 45 Oxygen Delivery Method Mechanical Ventilator Weight: 96.4 kg Body Mass Index (BMI) 28.8 Intake & Output: Intake and Output for Last 24 Hours 11/09/24 11/10/24 11/11/24 23:59 23:59 23:59 Intake Total 6474.97 / 6513.17 3348.29 / 3441.49 556.76 / 556.76 Output Total 835 / 865 510 / 550 115 / 115 Balance 5639.97 / 5648.17 2838.29 / 2891.49 441.76 / 441.76 Lab / Micro Data 11/11/24 03:45 11/11/24 03:45 Labs: Laboratory Results - last 24 hr 11/10/24 11:11: POC Glucose 277 H 11/10/24 15:09: PT 16.3 H, INR 1.3, APTT 31.1 11/10/24 17:38: POC Glucose 279 H 11/11/24 03:45: WBC 20.4 H, RBC 3.16 L, Hgb 9.8 L, Hct 28.6 L, MCV 90.5, MCH 31.0, MCHC 34.3, RDW Std Deviation 49.1 H, RDW Coeff of Eliseo 14.6, Plt Count 127 L, MPV 12.0, Immature Gran % (Auto) 0.500, Neut % (Auto) 89.7 H, Lymph % (Auto) 6.7 L, [place] % (Auto) 2.6, Eos % (Auto) 0.3, Baso % (Auto) 0.2, Absolute Neuts (auto) 18.3 H, Absolute Lymphs (auto) 1.37, Nucleated RBC % 0, Sodium 144, Potassium 4.1, Chloride 111 H, Carbon Dioxide 18.6 L, Anion Gap 15, BUN 77 H, Creatinine 7.25 H, Estim Creat Clear Calc 10.85 L, Est GFR (MDRD) Non-Af 8 L, BUN/Creatinine Ratio 10.7, Glucose 233 H, Calcium 7.2 L, Total Bilirubin 0.17, AST 230 H, ALT 80 H, Alkaline Phosphatase 112, Total Protein 5.1 L, Albumin 2.5 L, Globulin 2.7, Albumin/Globulin Ratio 0.9 Micro: Microbiology 11/07/24 20:08 Sputum, Tracheal Aspirate Gram Stain - Final 11/07/24 20:08 Sputum, Tracheal Aspirate Respiratory Culture - Final Escherichia coli Streptococcus pneumoniae Streptococcus agalactiae (B) 11/07/24 23:00 Blood Culture (Wb) - Other Blood Culture - Preliminary No growth in 48 hours. 11/07/24 23:25 Blood Culture (Wb) - Anticubital Left Blood Culture - Preliminary No growth in 48 hours. Physical Exam Narrative Intubated no obvious distress s1s2 no murmurs lungs clear anteriorly. No rales or rhonchi. abdomen soft no edema chester + with scant amount yellow urine in tubing Assessment & Plan Assessment/Plan (1) GLYNN (acute kidney injury): PLAN: Assessment/Plan: The patient is a 69-year-old male with past history of type 2 diabetes mellitus. Patient presented to the hospital on 11/07/2024 with altered mental status and coffee-ground emesis. Patient was diagnosed with DKA and acute hypoxic respiratory failure requiring mechanical ventilation. Hospital course has been complicated by circulatory shock which is attributed to gram-negative pneumonia and possible cholangitis. Patient has also developed GLYNN during this admission. Nephrology is following for acute kidney injury. Acute kidney injury. The patient had normal baseline creatinine as recently as April 2024. GLYNN likely secondary to ATN in setting of circulatory shock. Serum creatinine was 3.25 mg/dL on presentation on 11/07/2024 and has been steadily worsening. Serum creatinine has increased to 7.25 mg/dL today on 11/11/2024. Given trajectory of renal function despite improvement in hemodynamics, we will proceed with hemodialysis today. I appreciate Dr. Sanders's help in establishing vascular access for dialysis. We will plan on dialyzing patient again tomorrow on 11/12/2024 as well. Acute metabolic acidosis. Serum bicarbonate level remains low at 19 mmol/L today. Metabolic acidosis is at least partly due to acute kidney injury. Serum bicarbonate level should improve with hemodialysis today.
[2024-11-11] MEDS: Etomidate 20 MG/10 ML Vial IV (08:26)
--- NOTE | 2024-11-11 08:54 | PRO.PCM_ITS ---
Procedures Hospitalists Procedures: [id number] Insert Non-tunnel CV Cath Non-invasive Procedural Procedure Information Date of Procedure: 11/11/24 Description of procedure: Temporary Hemodialysis Catheter Indication: Dialysis Consent was obtained from: A time-out was completed verifying correct patient, procedure, site, positioning, and special equipment if applicable. The patient was placed in a dependent position appropriate for hemodialysis line placement based on the vein to be cannulated. The patient's right groin was prepped and draped in the sterile fashion. 1% Lidocaine was used and emphasized the surrounding skin area. A 20 cm catheter was introduced into the right femoral vein, following sequential dilations, using the Seldinger technique and under ultrasound guidance. The catheter was threaded smoothly over the guidewire and appropriate blood return was obtained. Each lumen of the catheter was evacuated of air and flushed with sterile saline. The catheter was then sutured in place to the skin and a sterile dressing applied. ULTRASOUND GUIDANCE STATEMENT (Vascular Access): I performed an ultrasound image acquisition and interpretation for needle placement during the procedure. The v essel was identified and was found to be free of thrombosis by compression technique. A safe point of entry was marked at the skin in an angle for axis was determined. The needle was guided by obtaining free-flowing fluid and by real-time visualization.
--- NOTE | 2024-11-11 09:51 | PN.HOSP_ITS ---
Subjective Subjective Remains intubated and sedated Objective Data Objective Data Vital Signs: Vital Signs Temp Pulse Resp BP Pulse Ox O2 Del Method O2 Flow Rate 99.9 F H 56 L 19 H 95/70 91 Mechanical Ventilator 45 11/11/24 07:00 11/11/24 07:00 11/11/24 07:00 11/11/24 07:00 11/11/24 07:00 11/11/24 07:00 11/08/24 00:00 FiO2 25 11/11/24 07:00 Oxygen Flow Rate (L/min) 45 Oxygen Delivery Method Mechanical Ventilator Weight: 212 lb 8.41 oz Body Mass Index (BMI) 28.8 Intake & Output: Intake and Output for Last 24 Hours 11/10/24 11/11/24 11/12/24 03:59 03:59 03:59 Intake Total 6190.21 / 6228.41 2508.62 / 2601.82 193.63 / 193.63 Output Total 865 / 865 530 / 567 65 / 65 Balance 5325.21 / 5363.41 1978.62 / 2034.82 128.63 / 128.63 Lab / Micro Data 11/11/24 03:45 11/11/24 03:45 Labs: Laboratory Results - last 24 hr 11/10/24 11:11: POC Glucose 277 H 11/10/24 15:09: PT 16.3 H, INR 1.3, APTT 31.1 11/10/24 17:38: POC Glucose 279 H 11/11/24 03:45: WBC 20.4 H, RBC 3.16 L, Hgb 9.8 L, Hct 28.6 L, MCV 90.5, MCH 31.0, MCHC 34.3, RDW Std Deviation 49.1 H, RDW Coeff of Eliseo 14.6, Plt Count 127 L, MPV 12.0, Immature Gran % (Auto) 0.500, Neut % (Auto) 89.7 H, Lymph % (Auto) 6.7 L, [place] % (Auto) 2.6, Eos % (Auto) 0.3, Baso % (Auto) 0.2, Absolute Neuts (auto) 18.3 H, Absolute Lymphs (auto) 1.37, Nucleated RBC % 0, Sodium 144, Potassium 4.1, Chloride 111 H, Carbon Dioxide 18.6 L, Anion Gap 15, BUN 77 H, C reatinine 7.25 H, Estim Creat Clear Calc 10.85 L, Est GFR (MDRD) Non-Af 8 L, BUN/Creatinine Ratio 10.7, Glucose 233 H, Calcium 7.2 L, Total Bilirubin 0.17, A ST 230 H, ALT 80 H, Alkaline Phosphatase 112, Total Protein 5.1 L, Albumin 2.5 L , Globulin 2.7, Albumin/Globulin Ratio 0.9 Micro: Microbiology 11/07/24 20:08 Sputum, Tracheal Aspirate Gram Stain - Final 11/07/24 20:08 Sputum, Tracheal Aspirate Respiratory Culture - Final Escherichia coli Streptococcus pneumoniae Streptococcus agalactiae (B) 11/07/24 23:00 Blood Culture (Wb) - Other Blood Culture - Preliminary No growth in 48 hours. 11/07/24 23:25 Blood Culture (Wb) - Anticubital Left Blood Culture - Preliminary No growth in 48 hours. Physical Exam Const General Appearance: intubated and patient mechanically ventilated HEENT normocephalic Eyes PERRL and conjunctivae normal Neck supple and no JVD Resp normal respiratory effort, no retractions and no use of accessory muscles Auscultation: Negative for crackles, rales, rhonchi or wheezes Cardio regular rate, regular rhythm, S1 normal heart sound, S2 normal heart sound and no murmurs GI soft to palpation and non-distended; Negative for hepatosplenomegaly Extremity no clubbing, cyanosis or edema Skin no rashes or lesions noted Neuro Sensorium / Orientation: sedated on vent Psych Appearance: intubated Assessment & Plan Assessment/Plan (1) Diabetic ketoacidosis: QUALIFIERS: Diabetes mellitus type: type 2 Diabetes mellitus complication detail: with coma Qualified Code(s): E11.11 - Type 2 diabetes mellitus with ketoacidosis with coma (2) Sepsis: QUALIFIERS: Sepsis type: sepsis due to unspecified organism S epsis acute organ dysfunction status: with acute organ dysfunction Severe sepsis acute organ dysfunction type: encephalopathy Severe sepsis shock status: with septic shock Qualified Code(s): A41.9 - Sepsis, unspecified organism; R65.21 - Severe sepsis with septic shock; G93.41 - Metabolic encephalopathy (3) Gastrointestinal bleeding, upper: (4) GLYNN (acute kidney injury): (5) Acute metabolic encephalopathy: PLAN: Plan 1. Septic shock secondary to pneumobilia and pneumonia complicated by DKA and an upper GI bleed with acute hypoxic respiratory failure necessitating intubation/GLYNN/acute metabolic encephalopathy ? Appreciate GIs assistance, EGD demonstrated erosive esophagitis with nonbleeding gastric ulcers ? Plan for ERCP today ? Appreciate production hardener assistance ? Continued with broad-spectrum antibiotics ? Sputum cultures demonstrating E. coli as well as 2 strep organisms ? Continue with aggressive IV fluids ? Wean pressors as able ? Continue with IV Protonix NG tube continues to have coffee-ground drainage ?Hemoglobin is stable, will continue to monitor ?Plan for dialysis today 2. Euthyroid sick syndrome ? TSH is severely elevated and T3 and T4 are depressed ? Related to his critically ill status ? Will monitor DVT: SCDs Charges/Coding Visit Charges Inpatient E&M: 24674 Subs Hosp L2
[2024-11-11] MEDS: 0.9% Normal Saline 1,000 ML IV.SOLN. 1000 ML OPERA.SITE (13:20)
[2024-11-11] MEDS: Heparin 10,000 UNITS/10 ML Vial IV (13:21)
[2024-11-11] MEDS: PureFlow B 3K Dialysis Soln 1 BAG 6 BAG PF (13:21)
[2024-11-11] MEDS: Norepinephrine 8 MG in 0.9% Normal Saline (250mL Bag) 242 ML 9.4 MG CONT INF (13:39)
--- NOTE | 2024-11-11 14:48 | PCM.PRE.AN2 ---
ASA Classification* ASA Classification ASA Classification: 4 and E Assessment & Plan Anesthesia* Anesthesia Assessment Anesthesia Assessment: Discussed sedation and/or anesthesia options, risks, benefits, and alternatives with patient/parents/legal guardian/POA. Questions invited. The patient/parents/legal guardian/POA seems to understand and agrees to proceed with anesthesia plan. Reviewed the physical assessment, medical history, allergy history and patient home medications list prior to surgery/procedure/anesthetic and documented any changes. Performed airway and anesthesia risk assessments. Anesthesia Type Anesthesia Type: General ( Patient already intubated from the intensive care unit. Will remain supine during the ERCP.) Anesthesia Focused Assessment* Temperature: 98.3 F Pulse Rate: 50 Blood Pressure: 161/83 Respiratory Rate: 18 Pulse Ox: 90 Oxygen Flow Rate (L/min): 45 Fraction of Inspired Oxygen (FIO2): 25 Airway Assessment Mouth opens: >3 cm Mallampati Score: II Focused Labs Anesthesia Preop lab: CBC WBC 20.4 K/mm3 (4.4-11.0) H 11/11/24 03:45 11/11/24 RBC 3.16 M/mm3 (4.6-6.2) L 11/11/24 03:45 11/11/24 Hgb 9.8 g/dL (13.0-16.5) L 11/11/24 03:45 11/11/24 Hct 28.6 % (40-54) L 11/11/24 03:45 11/11/24 Plt Count 127 K/mm3 (150-450) L 11/11/24 03:45 11/11/24 CHEMISTRY Potassium 4.1 mmol/L (3.3-5.1) 11/11/24 03:45 11/11/24 Sodium 144 mmol/L (133-145) 11/11/24 03:45 11/11/24 Magnesium 1.8 mg/dL (1.5-2.2) 11/10/24 05:09 11/10/24 Phosphorus 3.8 mg/dL (2.7-4.5) 11/10/24 05:09 11/10/24 BUN 77 mg/dL (4-19) H 11/11/24 03:45 11/11/24 Creatinine 7.25 mg/dL (0.70-1.20) H 11/11/24 03:45 11/11/24 Glucose 233 mg/dL (70-99) H 11/11/24 03:45 11/11/24 POC Glucose 279 mg/dL (74-106) H 11/10/24 17:38 11/10/24 TSH 10.600 uIU/mL (0.300-4.200) H 11/07/24 23:00 11/07/24 COAG PT 16.3 SECONDS (11.7-14.9) H 11/10/24 15:09 11/10/24 Pre-Assessment Diagnosis/Proposed Procedure Planned Operative Procedure(s): ERCP Anesthesia History 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 When Was Last Pacemaker Check QUESTION #4 FULL TEXT: You/Your Family Experience fever (hyperthermia) with Anesthesia Last Oral Intake Last Oral intake: Last Oral Intake NPO since Meds taken in AM with sips of water? 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 Female HX of Motion Sickness HX of N/V After Surgery Non-Smoker Duration of Surgery greater than 60 minutes Number of Risk Factors PONV Score Height & Weight Height & Weight: Anesthesia: Height & Weight Height 6 ft 11/11/24 09:58 Weight: 96.4 kg 11/11/24 12:45 Body Mass Index (BMI) 28.8 11/11/24 12:45 Respiratory Assessment Respiratory Assessment - coating technician: Respiratory Tract Infection Hx - coating technician Hx Respiratory Tract Infection STOP Sleep Apnea STOP Sleep Apnea - coating technician: STOP Sleep Apnea - coating technician Hx Hypertension No 11/11/24 14:09 Hx Sleep Apnea No 11/07/24 23:41 CPAP BIPAP Do you snore loudly (louder No 11/07/24 23:41 than talking or can be heard Do you often feel tired/ No 11/07/24 23:41 fatigued/ sleepy during daytime? Has anyone observed you stop No 11/07/24 23:41 breathing during sleep? STOP Results Negative 11/07/24 23:41 QUESTION #5 FULL TEXT : Do you snore loudly (louder than talking or can be heard through closed doors)? 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 Specify any problems Hx of Preganancy in last 3 Months Nurse Filling Out Transfusion & Questions: Date: Time: Patient unable to answer at Yes 11/07/24 23:41 this time (ie. confused, unrespo /Reproduction History /Reproductive History - coating technician: /Reproductive Hx- coating technician Hx Now Gestational Age (in weeks): EDC: Hx Hx Para Hx Section SAB Active Medications Active Medications: Current Medications Generic Name Dose Route Start Last Admin Trade Name Freq PRN Reason Stop Dose Admin Acetaminophen 650 mg 11/07/24 22:52 11/10/24 21:56 Acetaminophen 650 Mg Suppository RC 650 mg Q6H PRN PRN Administration Pain 1-10 or Fever Chlorhexidine Gluconate 15 ml 11/09/24 22:00 11/10/24 22:00 Chlorhexidine 15 Ml PO 15 ml BID JENNIFER Administration Chlorhexidine Gluconate 1 each 11/10/24 10:00 11/10/24 08:21 Chlorhexidine Gluc 2% Cloth 1 Each Towelette TOPICAL 1 each DAILY JENNIFER Administration Glycerin/Hypromellose/Polyethylene 2 drp 11/10/24 21:03 11/11/24 00:51 Glycerin/Hypromellose/[id number] 15 Ml Bottle EACH EYE 2 drp Q1H PRN Administration DRY EYES Hemodialysis Solution 6 bag 11/11/24 09:45 11/11/24 13:21 Pureflow B 3k Dialysis Soln 1 Bag PF 11/11/24 21:47 6 bag UD JENNIFER Administration Protocol Heparin Sodium (Porcine) 1,000 - 3,000 units 11/11/24 09:45 11/11/24 13:21 Heparin 10,000 Units/10 Ml Vial IV 11/11/24 21:45 1,400 units X1 PRN Administration HD catheter closing Dextrose 250 mls @ 999 mls/hr 11/07/24 22:52 Dextrose 10%-Water IV .Q16M PRN Hypoglycemic Protocol Protocol Sodium Chloride 100 mls @ 15 mls/hr 11/07/24 22:54 11/10/24 13:26 IV Infused .Q6H40M PRN Infusion Saline Flush Sodium Chloride 100 mls @ 15 mls/hr 11/07/24 22:54 IV .Q6H40M PRN Additional IVPB Infusion Fentanyl 100 mls @ 5 mls/hr 11/08/24 00:05 11/11/24 13:09 CONT INF 125 mcg/hr UD JENNIFER 12.5 mls/hr Administration Protocol 50 MCG/HR Dexmedetomidine HCl 1,000 mcg/ 250 mls @ 32.175 mls/hr 11/08/24 15:30 11/11/24 07:00 Sodium Chloride CONT INF 1.2 mcg/kg/hr .Q7H47M JENNIFER 25.7 mls/hr Titration Protocol 1.5 MCG/KG/HR Pantoprazole Sodium 40 mg/ 110 mls @ 330 mls/hr 11/09/24 22:00 11/10/24 22:15 Sodium Chloride IV Infused Q12 JENNIFER Infusion Ceftriaxone Sodium 2 gm/ 50 mls @ 100 mls/hr 11/10/24 10:00 11/10/24 11:14 Sodium Chloride IV Infused Q24 JENNIFER Infusion Enteral Nutritional Formula 1,000 mls @ 65 mls/hr 11/10/24 10:05 11/11/24 03:07 Vital Af 1.2 Zaid Liquid GT Not Given .[id number] JENNIFER Norepinephrine Bitartrate 8 mg 250 mls @ 9.375 mls/hr 11/11/24 13:20 11/11/24 13:39 / Sodium Chloride CONT INF 5 mcg/min .[id number] JENNIFER 9.4 mls/hr Administration Protocol 5 MCG/MIN Insulin Glargine 40 unit 11/10/24 10:00 11/10/24 22:01 Insulin Glargine-Yfgn 100 Unit/Ml Pen SC 40 unit BID JENNIFER Administration Insulin Human Lispro 0 unit 11/09/24 12:00 04/18/25 06:02 Insulin Lispro 100 Unit/Ml Insuln.Pen SC 3 u Q6 JENNIFER Administration Protocol Ondansetron HCl 4 mg 11/07/24 22:52 Ondansetron 4 Mg/2 Ml Vial IV Q6H PRN PRN NAUSEA/VOMITING Promethazine HCl 12.5 mg 11/07/24 22:52 Promethazine 25 Mg/Ml Syringe IM Q4H PRN PRN Breakthrough nausea/Vomiting Senna/Docusate Sodium 2 tablet 11/10/24 10:00 11/10/24 21:57 Senna/Docusate Sodium 1 Tablet GT 2 tablet BID JENNIFER Administration Sodium Chloride 10 - 40 ml 11/07/24 22:54 11/11/24 13:21 0.9% Saline Lock 10 Ml Syringe IV 40 ml UD PRN Administration SALINE FLUSH Sodium Chloride 1,000 ml 11/11/24 09:45 11/11/24 13:20 0.9% Normal Saline 1,000 Ml Iv.Soln. OPERA.SITE 11/11/24 21:45 1,000 ml X1 JENNIFER Administration Sodium Chloride 200 ml 11/11/24 09:45 0.9% Normal Saline 1,000 Ml Iv.Soln. IV 11/11/24 21:45 X1 PRN to maintain SBP >90mmHg during Dialysis [facility] Medical History Diabetes Medical History unable to obtain Home Medications ?Medication ?Instructions ?Recorded ?Last Taken ?Type buprenorphine 8 mg-naloxone 2 mg 1.5 film sublingual DAILY opoid 11/09/24 Unknown History sublingual film dependence insulin glargine 100 unit/mL (3 18 unit subcut QHS diabetes 11/09/24 Unknown History mL) subcutaneous pen (Lantus Solostar U-100 Insulin) insulin lispro 100 unit/mL 14 unit subcut TIDCM diabetes 11/09/24 Unknown History subcutaneous pen levothyroxine 125 mcg tablet 125 mcg PO DAILY thyroid 11/09/24 Unknown History lisinopril 5 mg tablet 2.5 mg PO DAILY blood pressure 11/09/24 Unknown History rosuvastatin 40 mg tablet 40 mg PO DAILY cholesterol 11/09/24 Unknown History Allergy/AdvReac Type Severity Reaction Status Date / Time No Known Allergies Allergy Verified 11/09/24 16:47 Family History unable to obtain Surgical History unable to obtain Social History Smoking Status: Unknown if ever smoked Review of Systems (Anesthesia) ROS Narrative System reviewed and no additional complaints, except as documented.
[2024-11-11] MEDS: Ceftriaxone 2 GM in 0.9% Normal Saline (50mL MB+) 50 ML IV (15:05)
--- NOTE | 2024-11-11 15:15 | RAD_ITS ---
EXAM: ERCP biliary/pancreas CLINICAL HISTORY: ERCP TECHNIQUE: Fluoroscopy and spot images ERCP, 5 spot images FINDINGS: Fluoroscopy time 12.8 seconds Total dose 5.25 mGy Cannulation of the common bile duct with contrast seen in intra and extrahepatic bile ducts and the gallbladder. Common bile duct appears smoothly dilated without dilated intrahepatic ducts noted. Placement of a biliary stent. RAD/ERCP Biliary/Pancreas IMPRESSION: Fluoroscopy for ERCP as above. Reading Location: [id number]
--- NOTE | 2024-11-11 15:46 | PCM.PN.BLA ---
Progress Note Patient completed hemodialysis. Had a long talk with the hospitalist and we reviewed his images. There is a significant amount of pneumobilia and air in the gallbladder. Physical Exam Const General Appearance: intubated and patient mechanically ventilated HEENT normocephalic Eyes PERRL and conjunctivae normal Neck supple and no JVD Resp normal respiratory effort, no retractions and no use of accessory muscles Auscultation: Negative for crackles, rales, rhonchi or wheezes Cardio regular rate, regular rhythm, S1 normal heart sound, S2 normal heart sound and no murmurs GI soft to palpation and non-distended; Negative for hepatosplenomegaly Extremity no clubbing, cyanosis or edema Skin no rashes or lesions noted Neuro Sensorium / Orientation: sedated on vent Psych Appearance: intubated Assessment & Plan Assessment/Plan (1) Diabetic ketoacidosis: QUALIFIERS: Diabetes mellitus type: type 2 Diabetes mellitus complication detail: with coma Qualified Code(s): E11.11 - Type 2 diabetes mellitus with ketoacidosis with coma (2) Leukocytosis: QUALIFIERS: Leukocytosis type: unspecified Qualified Code(s): D72.829 - Elevated white blood cell count, unspecified (3) Hypotension: QUALIFIERS: Hypotension type: unspecified hypotension type Qualified Code(s): I95.9 - Hypotension, unspecified (4) Sepsis: QUALIFIERS: Sepsis type: sepsis due to unspecified organism Sepsis acute organ dysfunction status: with acute organ dysfunction Severe sepsis acute organ dysfunction type: encephalopathy Severe sepsis shock status: with septic shock Qualified Code(s): A41.9 - Sepsis, unspecified organism; R65.21 - Severe sepsis with septic shock; G93.41 - Metabolic encephalopathy (5) Gastrointestinal bleeding, upper: (6) GLYNN (acute kidney injury): (7) Hyperkalemia: (8) Acute metabolic encephalopathy: PLAN: Plan 69-year-old with altered mental status and was discovered to have diabetic ketoacidosis currently on insulin drip. He also was discovered to have hypotension along with leukocytosis likely secondary to septic shock. He also developed severe coffee-ground emesis consistent with suspected UGIB due to PUD requiring initiation of pantoprazole drip. He underwent an upper endoscopy. Findings: Diffuse severe inflammation with hemorrhage characterized by friability, granularity and deep ulcerations was found in the entire esophagus. Coagulation for hemostasis using heater probe was successful. Estimated blood loss was minimal. Three non-bleeding cratered gastric ulcers with pigmented material were found on the lesser curvature of the stomach. The largest lesion was 6 mm in largest dimension. Coagulation for hemostasis using heater probe was successful. Diffuse severe inflammation characterized by erythema, friability and target ulcerations was found in the entire duodenum. Impression: - Esophageal mucosal changes were present, including friability, granularity and deep ulcerations with hemorrhage. Findings are suggestive of erosive inflammation. Treated with a heater probe. - Non-bleeding gastric ulcers with pigmented material. Treated with a heater probe. - Acute duodenitis. - No specimens collected. He can be placed back on IVPPIBID Hemoglobin is down from 12.2 to 11.1. If his patient hemoglobin continues to turn down. He may need repeat up or endoscopy. 11/11/2024-since patient's white blood cell count is elevated along with pneumobilia. He will undergo ERCP to identify source of patient's sepsis. Visit Charges Inpatient E&M: 92133 Subs Hosp L3
--- NOTE | 2024-11-11 16:33 | OP.ERCP_ITS ---
Patient Name: Bob Perez Procedure Date: 11/11/2024 2:43 PM Date of : 1955 Age: 69 Procedure: ERCP Indications: Bile duct stone(s), Suspected ascending cholangitis, Elevated liver enzymes Providers: Easton Lange DO Medicines: See the Anesthesia note for documentation of the administered medications Patient Profile: This is a 69 year old male. Refer to note in patient chart for documentation of history and physical. Patient has symptoms. This patient has no history of previous ERCP. Complications: No immediate complications. Procedure: Pre-Anesthesia Assessment: - Prior to the procedure, a History and Physical was performed, and patient medications and allergies were reviewed. The patient is competent. The risks and benefits of the procedure and the sedation options and risks were discussed with the patient. All questions were answered and informed consent was obtained. Patient identification and proposed procedure were verified by the physician in the pre-procedure area. Mental Status Examination: alert and oriented. Airway Examination: normal oropharyngeal airway and neck mobility. Respiratory Examination: rhonchi. CV Examination: normal. Prophylactic Antibiotics: The patient requires prophylactic antibiotics due to a prior history of acute GI bleeding and for the planned ERCP due to active bacterial cholangitis. The patient received antibiotic therapy before the procedure. Prior Anticoagulants: The patient has taken no anticoagulant or antiplatelet agents. ASA Grade Assessment: IV - A patient with severe systemic disease that is a constant threat to life. After reviewing the risks and benefits, the patient was deemed in satisfactory condition to undergo the procedure. The anesthesia plan was to use general anesthesia. Immediately prior to administration of medications, the patient was re-assessed for adequacy to receive sedatives. The heart rate, respiratory rate, oxygen saturations, blood pressure, adequacy of pulmonary ventilation, and response to care were monitored throughout the procedure. The physical status of the patient was re-assessed after the procedure. After obtaining informed consent, the scope was passed under direct vision. Throughout the procedure, the patient's blood pressure, pulse, and oxygen saturations were monitored continuously. The Duodenoscope was introduced through the mouth, and advanced to the duodenum and used to inject contrast into the bile duct. The ERCP was accomplished without difficulty. The patient tolerated the procedure well. Scope In: 3:49:59 PM Scope Out: 4:06:43 PM Total Procedure Duration Time 0 hours 16 minutes 44 seconds Findings: A field supervisor film of the abdomen was obtained. Air was seen. The esophagus was successfully intubated under direct vision. The scope was advanced to a normal major papilla in the descending duodenum without detailed examination of the pharynx, larynx and associated structures, and upper GI tract. The upper GI tract was grossly normal. The bile duct was deeply cannulated with the short-nosed traction sphincterotome. Contrast was injected. I personally interpreted the bile duct images. Ductal flow of contrast was adequate. Image quality was adequate. Contrast extended to the main bile duct. Contrast extended to the gallbladder. Contrast extended to the bifurcation. Contrast extended to the hepatic ducts. Contrast extended to the entire biliary tree. Opacification of the entire biliary tree was successful. The maximum diameter of the ducts was 14 mm. The main bile duct and hepatic duct bifurcation contained multiple stones, the largest of which was 6 mm in diameter. The entire opacified area and main bile duct were diffusely dilated, with a stone causing an obstruction. The largest diameter was 14 mm. A long 0.021 inch Jagwire was passed into the biliary tree. A 5 mm biliary sphincterotomy was made with a braided traction (standard) sphincterotome using ERBE electrocautery. There was no post-sphincterotomy bleeding. The biliary tree was swept with a 12 mm balloon starting at the cystic duct, gallbladder, bifurcation and right main hepatic duct. Sludge was swept from the duct. All stones were removed. One 10 Fr by 9 cm temporary stent was placed 5 cm into the common bile duct. Bile flowed through the stent. The stent was in good position. Impression: - The entire main bile duct was dilated, with a stone causing an obstruction. - Choledocholithiasis was found. Complete removal was accomplished by biliary sphincterotomy and balloon extraction. - A biliary sphincterotomy was performed. - The biliary tree was swept. - One temporary stent was placed into the common bile duct. Recommendation: - Avoid aspirin and nonsteroidal anti-inflammatory medicines daily. Procedure Code(s): --- Professional --- 75252, Endoscopic retrograde cholangiopancreatography (ERCP); with placement of endoscopic stent into biliary or pancreatic duct, including pre- and post-dilation and guide wire passage, when performed, including sphincterotomy, when performed, each stent [id number], Endoscopic retrograde cholangiopancreatography (ERCP); with removal of calculi/debris from biliary/pancreatic duct(s) 61693, 26, Endoscopic catheterization of the biliary ductal system, radiological supervision and interpretation CPT copyright 2021 [employer]. All rights reserved. The codes documented in this report are preliminary and upon photocopying machine operator review may be revised to meet current compliance requirements. Easton Lange DO 11/11/2024 4:32:26 PM This report has been signed electronically. Number of Addenda: 0 Note Initiated On: 11/11/2024 2:43 PM
--- NOTE | 2024-11-11 16:33 | OP.CCLET_ITS ---
11/11/2024 Pasha Morales Re : ERCP procedure for Bob Munsonr Andrew This procedure was performed on Monday, November 11, 2024. My impressions and recommendations are as follows: Impressions : - The entire main bile duct was dilated, with a stone causing an obstruction. - Choledocholithiasis was found. Complete removal was accomplished by biliary sphincterotomy and balloon extraction. - A biliary sphincterotomy was performed. - The biliary tree was swept. - One temporary stent was placed into the common bile duct. Recommendations : - Avoid aspirin and nonsteroidal anti-inflammatory medicines daily. My findings are described in the full procedure note, which is enclosed. If I can be of further assistance, please feel free to contact me at . Sincerely, Easton Lange, 11/11/2024 4:32:26 PM This report has been signed electronically.
--- NOTE | 2024-11-11 16:41 | PCM.POST.ANE ---
Anesthesia: Postop Eval I Current Vital Signs Temperature: 98.4 F Pulse Rate: 61 Blood Pressure: 93/61 Respiratory Rate: 21 Pulse Ox: 96 Oxygen Delivery Method: Mechanical Ventilator Oxygen Flow Rate (L/min): 4 Fraction of Inspired Oxygen (FIO2): 0.4 EtCo2 (Normal 35-45 , high quality CPR 10-20 & ROSC>/=40mmHg): 33 Assessment Airway patent: Yes Spontaneous unlabored respirations: Yes Mental status: Asleep nausea: No Vomiting: No Anesthesia Complication: No Fluid Hydration Crystalloid volume administer (ml): 10 Total IV fluid infused: 10 Progress Note Post-operative progress note: pt returned to ICU with ETT, AV w/AMBU bag, VSS Anesthesia document: Postop Eval 1 completed: Yes
[2024-11-11 18:38] LABS: Bedside Glucose 80 mg/dL (74-106)
[2024-11-11] MEDS: Chlorhexidine 15 ML PO (20:52)
[2024-11-11] MEDS: Senna/Docusate Sodium 1 Tablet 2 TABLET GT (20:52)
[2024-11-11] MEDS: Pantoprazole Sodium 40 MG in 0.9% Normal Saline (100mL MB+) 100 ML 330 MG IV (20:52)
[2024-11-11 23:58] LABS: Bedside Glucose 70 mg/dL (74-106)
[2024-11-12] VITALS (46 sets, daily range): BP systolic 66–191; BP diastolic 54–73; PULSE 53–63; RESP 18–22; TEMP 36.6–37.8; O2SAT 91–98; BMI 28.1; BMI 27.8
[2024-11-12 01:03] LABS: Bedside Glucose 83 mg/dL (74-106)
[2024-11-12 02:16] LABS: Bedside Glucose 221 mg/dL (74-106)
[2024-11-12] MEDS: 0.9% Saline Lock 10 ML Syringe IV ×2 (02:54→15:10)
[2024-11-12] MEDS: CHLORHEXIDINE GLUC 2% CLOTH 1 EACH TOWELETTE TOPICAL (02:54)
[2024-11-12] MEDS: fentaNYL drip 100 ML 12.5 MCG CONT INF ×3 (02:57→17:58)
[2024-11-12 03:04] LABS: Absolute Lymphocyte Count 1.17 X10^3/uL (0.83-4.51); Absolute Neutrophil Count 17.4 X10^3/uL (2.0-7.7); Basophil# 0.05 X10^3/uL; Basophil% 0.3 % (0-1); Eosinophil# 0.21 X10^3/uL; Eosinophils% 1.1 % (0-5); Hematocrit 27.2 % (40-54); Hemoglobin 9.3 g/dL (13.0-16.5); Lymphocyte # 1.17 X10^3/ul (0.83-4.51); Lymphocyte % 5.9 % (19-41); Mean Corp Hgb Conc 34.2 g/dL (32-36); Mean Corpuscular Hgb 30.8 pg (27.0-32.0); Mean Corpuscular Volume 90.1 fL (80-94); Mean Platelet Vol. 12.4 fl (6.2-12.0); Monocyte# 0.93 X10^3/uL; Monocyte% 4.7 % (0-10); NRBC Flagged by Analyzer 0 % (0-5); Neutrophil # 17.41 X10^3/uL (2.7-7.7); Neutrophil % 87.3 % (47-70); Platelet Count 120 K/mm3 (150-450); RBC Distribution Width CV 14.6 % (11.6-14.6); RBC Distribution Width SD 48.3 fl (35.1-43.9); Red Blood Count 3.02 M/mm3 (4.6-6.2); White Blood Count 19.9 K/mm3 (4.4-11.0)
[2024-11-12 03:21] LABS: ALB/GLOB Ratio 0.8 RATIO (0.9-2.4); AST(SGOT) 236 U/L (<=37); Alanine Aminotransfer ALT/SGPT 76 U/L (<=46); Albumin, Serum 2.4 g/dL (3.4-4.8); Alkaline Phosphatase 128 U/L (40-129); Anion Gap 14 (5-15); BUN 63 mg/dL (4-19); BUN/Creat Ratio 9.6 RATIO (10-20); Calcium,Total 6.9 mg/dL (7.6-11.0); Carbon Dioxide 18.7 mmol/L (21.0-32.0); Chloride 110 mmol/L (98-108); Creatinine, Serum 6.56 mg/dL (0.70-1.20); EST Glomerular Filtration Rate 9 (>60); Estimated Creatinine Clearance 13.03 ml/min (50-250); Glucose 118 mg/dL (70-99); Potassium 3.4 mmol/L (3.3-5.1); Protein, Total 5.4 g/dL (5.9-8.4); Sodium Level 142 mmol/L (133-145); Total Bilirubin 0.17 mg/dL (0.00-1.30)
[2024-11-12] MEDS: Dexmedetomidine 1,000 mcg in 0.9% NS 240 mL 28.3 MCG CONT INF ×3 (04:33→22:26)
[2024-11-12] MEDS: TITRATION PARAMETER CHANGE 1 EACH IV (04:33)
[2024-11-12 05:03] LABS: Base Excess -4 mmol/L (-2 to +2); Bicarbonate 19.8 mmol/L (22-26); Blood Gas Specimen Type ART; Mode AC; O2 Delivery Device Adult Vent; PEEP 5; PO2 60 mmHG (75-100); RR 18; SITE R Radial; SO2 92 % (95-99); Total Carbon Dioxide 21 mmol/L; pCO2 28.3 mmHg (35-45); pH 7.45 (7.35-7.45)
--- NOTE | 2024-11-12 05:10 | RAD_ITS ---
PROCEDURE: CHEST 1 VIEW (PORTABLE) 11/12/2024 REASON FOR EXAM: RESPIRATORY FAILURE TECHNIQUE: Frontal view of the chest. COMPARISON: Chest radiograph 11/07/2024. FINDINGS: Hardware: Stable right IJ central venous catheter, endotracheal and gastric tubes. Heart: The heart size is normal. Lungs: Low lung volumes. Small left pleural effusion. No large focal consolidation or pneumothorax. Bones: Degenerative changes are identified within the thoracic spine. RAD/Chest 1 View (Portable) IMPRESSION: Low lung volumes with probable small left pleural effusion. Reading Location: [id number]
[2024-11-12 05:37] LABS: Bedside Glucose 109 mg/dL (74-106)
--- NOTE | 2024-11-12 08:25 | ECHOD_ITS ---
Reason For Study Reason For Study: GENERALIZED EDEMA Procedure This was a 2D Doppler, Color Flow transthoracic echocardiogram. Exam performed portable in ICU/CCU. Left Ventricle Normal LV size. Left ventricular systolic function is normal. The left ventricular ejection fraction is 65 %. No regional wall motion abnormalities noted. Right Ventricle Mildly dilated right ventricle. Mild global right ventricular systolic dysfunction. Atria Normal left atrium. Normal right atrium. Mitral Valve Normal mitral valve. Trivial eccentric mitral valve insufficiency. Tricuspid Valve Normal tricuspid valve. Aortic Valve Normal aortic valve. Pulmonic Valve Normal pulmonic valve. Great Vessels Normal aortic root. The pulmonary artery is normal size. Normal inferior vena cava. Pericardium/Pleural No pericardial effusion. MMode/2D Measurements & Calculations LVIDd: 4.6 cm IVSd: 1.00 cm Ao root diam: 3.2 cm LVIDs: 2.8 cm LVPWd: 1.0 cm RVDd: 3.9 cm FS: 39.5 % LAV(MOD-bp): 50.0 ml LVAd ap4: 24.6 cm2 LVAd ap2: 26.6 cm2 LAV(MOD-bp) Indexed: 23.1 ml/m2 LVLd ap4: 8.1 cm LVLd ap2: 8.5 cm LAV(MOD-sp2): 54.3 ml EDV(MOD-sp4): 63.1 ml EDV(MOD-sp2): 70.0 ml LAV(MOD-sp4): 40.9 ml EDV(sp4-el): 63.2 ml EDV(sp2-el): 70.3 ml LVAs ap4: 12.9 cm2 LVAs ap2: 13.8 cm2 LVLs ap4: 6.3 cm LVLs ap2: 6.6 cm ESV(MOD-sp4): 22.3 ml ESV(MOD-sp2): 25.7 ml ESV(sp4-el): 22.6 ml ESV(sp2-el): 24.8 ml EF(MOD-sp4): 64.6 % EF(MOD-sp2): 63.3 % EF(sp4-el): 64.3 % SV(MOD-sp4): 40.8 ml SV(MOD-sp2): 44.3 ml SV(sp4-el): 40.7 ml SI(MOD-sp4): 18.8 ml/m2 SI(MOD-sp2): 20.4 ml/m2 LA A4 area: 15.2 cm2 LA dimension(2D): 3.9 cm RA A4 area: 16.9 cm2 TAPSE: 1.8 cm Time Measurements MV dec time: 0.19 sec Doppler Measurements & Calculations MV E max cristian: 81.5 cm/sec Lat Peak E' Cristian: 12.6 cm/sec Med Peak E' Cristian: 10.5 cm/sec MV A max cristian: 61.0 cm/sec E/E' lat: 6.5 E/E' med: 7.8 MV E/A: 1.3 MV V2 max: 80.7 cm/sec MV P1/2t max cristian: 77.6 cm/sec Ao V2 max: 123.7 cm/sec MV max P.6 mmHg MV P1/2t: 55.0 msec Ao max P.1 mmHg MV V2 mean: 38.5 cm/sec Ao V2 mean: 90.6 cm/sec MV mean P.75 mmHg MV dec slope: 413.6 cm/sec2 Ao mean P.7 mmHg MV V2 VTI: 25.4 cm MVA(P1/2t): 4.0 cm2 Ao V2 VTI: 27.2 cm AV (velocity ratio): 0.72 LV V1 max: 95.2 cm/sec PA V2 max: 79.9 cm/sec TR max cristian: 228.0 cm/sec LV V1 max P.6 mmHg TR max P.8 mmHg LV V1 mean P.1 mmHg LV V1 mean: 67.9 cm/sec LV V1 VTI: 19.6 cm ECHO/Echo Complete Interpretation Summary Normal LV size. Left ventricular systolic function is normal. The left ventricular ejection fraction is 65 %. Mild global right ventricular systolic dysfunction. Mildly dilated right ventricle. Ordering Physician: Sergey Ruby Referring Physician: Pasha Morales Performed By: Geri Horner RDCS, RVAdama
--- NOTE | 2024-11-12 08:35 | PN.CC_ITS ---
Objective Data Objective Data Vital Signs: Vital Signs Last response 3 Temperature 37.6 C H 11/12/24 06:00 Temperature Source Core 11/12/24 06:00 Pulse Rate 56 L 11/12/24 07:37 Pulse Strength Weak (1+) 11/11/24 20:11 Respiratory Rate 22 H 11/12/24 07:37 Respiratory Effort Normal, Non-Labored, Mechanically Ventilated 11/12/24 03:38 Respiratory Depth Normal 11/12/24 03:38 Respiratory Pattern Normal 11/12/24 07:37 Blood Pressure 97/62 11/12/24 07:00 Blood Pressure Mean 73 11/12/24 07:00 Blood Pressure Source Monitor 11/12/24 07:00 Blood Pressure Position Semi-Fowlers 11/12/24 07:00 Blood Pressure Location Right Arm 11/12/24 07:00 Pulse Ox 91 11/12/24 07:37 Oxygen Delivery Method Mechanical Ventilator 11/12/24 07:00 Oxygen Flow Rate (L/min) 4 11/11/24 16:44 Fraction of Inspired Oxygen (FIO2) 35 11/12/24 07:37 EtCo2 (Normal 35-45 , high quality CPR 10-20 & ROSC>/=40mmHg 33 11/11/24 16:44 I&O: I&O Last 24 Hours 3 11/11/24 11/11/24 11/12/24 11:59 23:59 11:59 Intake Total 714.56 / 1839.56 1084.90 / 1839.56 366.82 / 366.82 Output Total 653 / 828 175 / 828 150 / 150 Balance 61.56 / 1011.56 909.90 / 1011.56 216.82 / 216.82 I&O: Total Stay 3 11/07/24 17:54 thru 11/12/24 07:00 Intake Total 79477.51 Output Total 5323 Balance 67589.51 Current Meds Ordered / Administered: Current meds ordered / Administered 3 Generic Name Dose Route Start Last Admin Trade Name Freq PRN Reason Stop Dose Admin Acetaminophen 650 mg 11/07/24 22:52 11/10/24 21:56 Acetaminophen 650 Mg Suppository RC 650 mg Q6H PRN PRN Administration Pain 1-10 or Fever Chlorhexidine Gluconate 15 ml 11/09/24 22:00 11/11/24 20:52 Chlorhexidine 15 Ml PO 15 ml BID JENNIFER Administration Chlorhexidine Gluconate 1 each 11/10/24 10:00 11/12/24 02:54 Chlorhexidine Gluc 2% Cloth 1 Each Towelette TOPICAL 1 each DAILY JENNIFER Administration Glycerin/Hypromellose/Polyethylene 2 drp 11/10/24 21:03 11/11/24 00:51 Glycerin/Hypromellose/[id number] 15 Ml Bottle EACH EYE 2 drp Q1H PRN Administration DRY EYES Dextrose 250 mls @ 999 mls/hr 11/07/24 22:52 Dextrose 10%-Water IV .Q16M PRN Hypoglycemic Protocol Protocol Sodium Chloride 100 mls @ 15 mls/hr 11/07/24 22:54 11/10/24 13:26 IV Infused .Q6H40M PRN Infusion Saline Flush Sodium Chloride 100 mls @ 15 mls/hr 11/07/24 22:54 IV .Q6H40M PRN Additional IVPB Infusion Fentanyl 100 mls @ 5 mls/hr 11/08/24 00:05 11/12/24 07:00 CONT INF 125 mcg/hr UD JENNIFER 12.5 mls/hr Titration Protocol 50 MCG/HR Dexmedetomidine HCl 1,000 mcg/ 250 mls @ 35.4 mls/hr 11/08/24 15:30 11/12/24 07:00 Sodium Chloride CONT INF 1.2 mcg/kg/hr .Q7H4M JENNIFER 28.3 mls/hr Titration Protocol 1.5 MCG/KG/HR Pantoprazole Sodium 40 mg/ 110 mls @ 330 mls/hr 11/09/24 22:00 11/11/24 21:24 Sodium Chloride IV Infused Q12 JENNIFER Infusion Ceftriaxone Sodium 2 gm/ 50 mls @ 100 mls/hr 11/10/24 10:00 11/11/24 15:37 Sodium Chloride IV Infused Q24 JENNIFER Infusion Enteral Nutritional Formula 1,000 mls @ 65 mls/hr 11/10/24 10:05 11/11/24 23:40 Vital Af 1.2 Zaid Liquid GT 35 mls/hr .[id number] JENNIFER Infusion Norepinephrine Bitartrate 8 mg 250 mls @ 9.375 mls/hr 11/11/24 13:20 11/12/24 07:00 / Sodium Chloride CONT INF 0 mcg/min .[id number] JENNIFER 0 mls/hr Titration Protocol 5 MCG/MIN Insulin Glargine 40 unit 11/10/24 10:00 11/11/24 23:40 Insulin Glargine-Yfgn 100 Unit/Ml Pen SC Not Given BID [facility] Insulin Human Lispro 0 unit 11/09/24 12:00 11/12/24 05:21 Insulin Lispro 100 Unit/Ml Insuln.Pen SC Not Given Q6 [facility] Protocol Ondansetron HCl 4 mg 11/07/24 22:52 Ondansetron 4 Mg/2 Ml Vial IV Q6H PRN PRN NAUSEA/VOMITING Promethazine HCl 12.5 mg 11/07/24 22:52 Promethazine 25 Mg/Ml Syringe IM Q4H PRN PRN Breakthrough nausea/Vomiting Senna/Docusate Sodium 2 tablet 11/10/24 10:00 11/11/24 20:52 Senna/Docusate Sodium 1 Tablet GT 2 tablet BID JENNIFER Administration Sodium Chloride 10 - 40 ml 11/07/24 22:54 11/12/24 02:54 0.9% Saline Lock 10 Ml Syringe IV 10 ml UD PRN Administration SALINE FLUSH Lab / Micro Data 11/12/24 02:55 11/12/24 02:55 Labs: Laboratory Results - last 24 hr 11/11/24 00:48: POC Glucose 221 H 11/11/24 18:04: POC Glucose 80 11/11/24 23:39: POC Glucose 70 L 11/12/24 00:45: POC Glucose 83 11/12/24 02:55: WBC 19.9 H, RBC 3.02 L, Hgb 9.3 L, Hct 27.2 L, MCV 90.1, MCH 30.8, MCHC 34.2, RDW Std Deviation 48.3 H, RDW Coeff of Eliseo 14.6, Plt Count 120 L, MPV 12.4 H, Immature Gran % (Auto) 0.700, Neut % (Auto) 87.3 H, Lymph % (Auto) 5.9 L, [place] % (Auto) 4.7, Eos % (Auto) 1.1, Baso % (Auto) 0.3, Absolute Neuts (auto) 17.4 H, Absolute Lymphs (auto) 1.17, Nucleated RBC % 0, Sodium 142, Potassium 3.4, Chloride 110 H, Carbon Dioxide 18.7 L, Anion Gap 14, BUN 63 H, C reatinine 6.56 H, Estim Creat Clear Calc 13.03 L, Est GFR (MDRD) Non-Af 9 L, B UN/Creatinine Ratio 9.6 L, Glucose 118 H, Calcium 6.9 L, Total Bilirubin 0.17, A ST 236 H, ALT 76 H, Alkaline Phosphatase 128, Total Protein 5.4 L, Albumin 2.4 L , Globulin 3.0, Albumin/Globulin Ratio 0.8 L 11/12/24 05:16: POC Glucose 109 H ABG Data ABG results: ABG 11/12/24 04:58 Specimen Type ART Sample Site R Radial pH 7.45 Bicarbonate Actual 19.8 L Total CO2 21 Base Excess -4 L O2 Saturation 92 L O2 % 35.0 ABG pCO2 28.3 L ABG pO2 60 L Srini Test N/A Respiration Rate 18 O2 Delivery Device Adult Vent Vent Mode AC Tidal Volume 500.0 POC PEEP 5 Imaging Radiology Impression Endo Retro Cholangiopancreatogram 11/11/24 15:15 IMPRESSION: Fluoroscopy for ERCP as above. Reading Location: [id number] CXR 11/12 reviewed personally, low lung volumes, edema vs atelectasis Assessment and Plan . Assessment and plan: ICU PRoblem List: Mechanical ventilation Atelectasis Acute hypoxemic respiratory failure Pulmonary edema sepsis and hypotension bradycardia 2/2 precedex Plan: Defer SAT and SBT until after HD and LVFR increase PEEP to 8 cwp for alveolar recruitment ECHO may need to extubate to biPAP if EF<45% or if persistent atelectasis maintain fentanyl sedation on board 2/2 bradycardia from high dose precedex Sergey Ruby MD [facility] Critical Care Time: 60 minutes The entirety of this encounter was done via Telemedicine Physical Exam Const alert and no apparent distress General Appearance: cooperative HEENT normocephalic and moist oral mucous membranes Mouth: endotracheal tube in place Eyes PERRL, EOMs intact bilaterally, conjunctivae normal and no scleral icterus Neck full ROM and no JVD Lymph Lymphatic: no lymphadenopathy noted Resp normal respiratory effort and no use of accessory muscles Auscultation: diminished lung sounds Cardio regular rhythm Rate: bradycardia GI normal to inspection, nondistended, normoactive bowel sounds no CVA tenderness Extremity no clubbing, cyanosis or edema Skin no rashes or lesions noted Neuro moves all extremities Psych cooperative Subjective Subjective CC: Could not obtain 2/2 intubation, sedation, mechanical ventilation HPI: Patient originally admitted with picture of sepsis and shock and DKA requiring insulin drip and ICU. Now with anasarca/hypervolemia and hypoxemic respiratory failure on mechanical ventilation, awaiting large volume fluid removal today by HD. On high sedation with 125 fentanyl and precedex at 1.2 and HR high 50s. FiO2 35% and SpO2 still borderline 92-93%. No ECHO on file. 11/12 - anticipating HD second shift. Has been on and off pressors. Still partial SIRS present, but patient alert, RASS 0 on the above sedation regimen ROS could not be obtained 2/2 intbation, sedation and mechanical ventilation
--- NOTE | 2024-11-12 08:46 | PN.HOSP_ITS ---
Subjective Subjective Stent placed in his common bile duct yesterday with purulent drainage and stones Objective Data Objective Data Vital Signs: Vital Signs Temp Pulse Resp BP Pulse Ox O2 Del Method O2 Flow Rate 99.6 F H 56 L 22 H 97/62 91 Mechanical Ventilator 4 11/12/24 06:00 11/12/24 07:37 11/12/24 07:37 11/12/24 07:00 11/12/24 07:37 11/12/24 07:00 11/11/24 16:44 FiO2 35 11/12/24 07:37 Oxygen Flow Rate (L/min) 4 Oxygen Delivery Method Mechanical Ventilator Weight: 208 lb 1.862 oz Body Mass Index (BMI) 28.1 Intake & Output: Intake and Output for Last 24 Hours 11/11/24 11/12/24 11/13/24 03:59 03:59 03:59 Intake Total 2508.62 / 2601.82 1647.98 / 1686.18 155.17 / 155.17 Output Total 530 / 567 778 / 778 150 / 150 Balance 1978.62 / 2034.82 869.98 / 908.18 5.17 / 5.17 Lab / Micro Data 11/12/24 02:55 11/12/24 02:55 Labs: Laboratory Results - last 24 hr 11/11/24 00:48: POC Glucose 221 H 11/11/24 18:04: POC Glucose 80 11/11/24 23:39: POC Glucose 70 L 11/12/24 00:45: POC Glucose 83 11/12/24 02:55: WBC 19.9 H, RBC 3.02 L, Hgb 9.3 L, Hct 27.2 L, MCV 90.1, MCH 30.8, MCHC 34.2, RDW Std Deviation 48.3 H, RDW Coeff of Eliseo 14.6, Plt Count 120 L, MPV 12.4 H, Immature Gran % (Auto) 0.700, Neut % (Auto) 87.3 H, Lymph % (Auto) 5.9 L, [place] % (Auto) 4.7, Eos % (Auto) 1.1, Baso % (Auto) 0.3, Absolute Neuts (auto) 17.4 H, Absolute Lymphs (auto) 1.17, Nucleated RBC % 0, Sodium 142, Potassium 3.4, Chloride 110 H, Carbon Dioxide 18.7 L, Anion Gap 14, BUN 63 H, C reatinine 6.56 H, Estim Creat Clear Calc 13.03 L, Est GFR (MDRD) Non-Af 9 L, B UN/Creatinine Ratio 9.6 L, Glucose 118 H, Calcium 6.9 L, Total Bilirubin 0.17, A ST 236 H, ALT 76 H, Alkaline Phosphatase 128, Total Protein 5.4 L, Albumin 2.4 L , Globulin 3.0, Albumin/Globulin Ratio 0.8 L 11/12/24 05:16: POC Glucose 109 H Micro: Microbiology 11/07/24 20:08 Sputum, Tracheal Aspirate Gram Stain - Final 11/07/24 20:08 Sputum, Tracheal Aspirate Respiratory Culture - Final Escherichia coli Streptococcus pneumoniae Streptococcus agalactiae (B) 11/07/24 23:00 Blood Culture (Wb) - Other Blood Culture - Preliminary No growth in 48 hours. 11/07/24 23:25 Blood Culture (Wb) - Anticubital Left Blood Culture - Preliminary No growth in 48 hours. ABG Data ABG results: ABG 11/12/24 04:58 Specimen Type ART Sample Site R Radial pH 7.45 Bicarbonate Actual 19.8 L Total CO2 21 Base Excess -4 L O2 Saturation 92 L O2 % 35.0 ABG pCO2 28.3 L ABG pO2 60 L Srini Test N/A Respiration Rate 18 O2 Delivery Device Adult Vent Vent Mode AC Tidal Volume 500.0 POC PEEP 5 Radiography Diagnostic Testing: Radiology Impression Endo Retro Cholangiopancreatogram 11/11/24 15:15 IMPRESSION: Fluoroscopy for ERCP as above. Reading Location: [facility] Physical Exam Const General Appearance: intubated and patient mechanically ventilated HEENT normocephalic Eyes PERRL and conjunctivae normal Neck supple and no JVD Resp normal respiratory effort, no retractions and no use of accessory muscles Auscultation: Negative for crackles, rales, rhonchi or wheezes Cardio regular rate, regular rhythm, S1 normal heart sound, S2 normal heart sound and no murmurs GI soft to palpation and non-distended; Negative for hepatosplenomegaly Extremity no clubbing, cyanosis or edema Skin no rashes or lesions noted Neuro Sensorium / Orientation: sedated on vent Psych Appearance: intubated Assessment & Plan Assessment/Plan (1) Diabetic ketoacidosis: QUALIFIERS: Diabetes mellitus type: type 2 Diabetes mellitus complication detail: with coma Qualified Code(s): E11.11 - Type 2 diabetes mellitus with ketoacidosis with coma (2) Sepsis: QUALIFIERS: Sepsis type: sepsis due to unspecified organism S epsis acute organ dysfunction status: with acute organ dysfunction Severe sepsis acute organ dysfunction type: encephalopathy Severe sepsis shock status: with septic shock Qualified Code(s): A41.9 - Sepsis, unspecified organism; R65.21 - Severe sepsis with septic shock; G93.41 - Metabolic encephalopathy (3) Gastrointestinal bleeding, upper: (4) GLYNN (acute kidney injury): (5) Acute metabolic encephalopathy: PLAN: Plan 1. Septic shock secondary to ascending cholangitis status post ERCP with stent and pneumonia complicated by DKA and an upper GI bleed with acute hypoxic respiratory failure necessitating intubation/GLYNN/acute metabolic encephalopathy ? Appreciate GIs assistance, EGD demonstrated erosive esophagitis with nonbleeding gastric ulcers ?ERCP on 11/11/2024 with purulent drainage and stones ? Appreciate welfare service aide assistance ? Continued with Zosyn to cover both the sputum cultures and his ascending cholangitis ? Sputum cultures demonstrating E. coli as well as 2 strep organisms ? Continue with aggressive IV fluids ? Wean pressors as able ? Continue with IV Protonix NG tube continues to have coffee-ground drainage ?Hemoglobin is stable, will continue to monitor ?Plan for dialysis today 2. Euthyroid sick syndrome ? TSH is severely elevated and T3 and T4 are depressed ? Related to his critically ill status ? Will monitor DVT: SCDs Charges/Coding Visit Charges Inpatient E&M: 06182 Subs Hosp L2
[2024-11-12] MEDS: Chlorhexidine 15 ML PO ×2 (09:27→20:57)
[2024-11-12] MEDS: Piperacil/Tazobactam 3.375 GM in 0.9% Normal Saline (50mL MB+) 50 ML IV ×2 (09:27→21:04)
[2024-11-12] MEDS: Pantoprazole Sodium 40 MG in 0.9% Normal Saline (100mL MB+) 100 ML 330 MG IV ×2 (09:28→20:57)
[2024-11-12] MEDS: Insulin Glargine-YFGN 100 UNIT/ML Pen 40 UNIT SC ×2 (10:21→22:26)
[2024-11-12] MEDS: Senna/Docusate Sodium 1 Tablet 2 TABLET GT ×2 (10:21→20:57)
[2024-11-12 13:40] LABS: Bedside Glucose 101 mg/dL (74-106)
[2024-11-12] MEDS: 0.9% Normal Saline 1,000 ML IV.SOLN. 1000 ML OPERA.SITE (15:09)
[2024-11-12] MEDS: Heparin 10,000 UNITS/10 ML Vial IV (15:10)
[2024-11-12] MEDS: PureFlow B 3K Dialysis Soln 1 BAG 6 BAG PF (15:10)
[2024-11-12] MEDS: Vital AF 1.2 Cal Liquid 1,000 ML 35 ML GT (17:14)
[2024-11-12 17:36] LABS: Bedside Glucose 109 mg/dL (74-106)
[2024-11-12] MEDS: Insulin Lispro 100 UNIT/ML INSULN.PEN SC (22:26)
[2024-11-12 22:46] LABS: Bedside Glucose 156 mg/dL (74-106)
[2024-11-13] VITALS (33 sets, daily range): BP systolic 89–107; BP diastolic 53–89; PULSE 54–69; RESP 18–20; TEMP 36.8–38.1; O2SAT 91–95; BMI 28.7
[2024-11-13] MEDS: fentaNYL drip 100 ML 12.5 MCG CONT INF (02:00)
[2024-11-13 03:38] LABS: Absolute Lymphocyte Count 0.86 X10^3/uL (0.83-4.51); Absolute Neutrophil Count 10.3 X10^3/uL (2.0-7.7); Basophil# 0.03 X10^3/uL; Basophil% 0.2 % (0-1); Eosinophil# 0.27 X10^3/uL; Eosinophils% 2.1 % (0-5); Hematocrit 24.6 % (40-54); Hemoglobin 8.3 g/dL (13.0-16.5); Lymphocyte # 0.86 X10^3/ul (0.83-4.51); Lymphocyte % 6.6 % (19-41); Mean Corp Hgb Conc 33.7 g/dL (32-36); Mean Corpuscular Hgb 30.5 pg (27.0-32.0); Mean Corpuscular Volume 90.4 fL (80-94); Mean Platelet Vol. 12.3 fl (6.2-12.0); Monocyte# 1.34 X10^3/uL; Monocyte% 10.3 % (0-10); NRBC Flagged by Analyzer 0 % (0-5); Neutrophil # 10.31 X10^3/uL (2.7-7.7); Neutrophil % 78.9 % (47-70); Platelet Count 109 K/mm3 (150-450); RBC Distribution Width CV 14.6 % (11.6-14.6); RBC Distribution Width SD 48.6 fl (35.1-43.9); Red Blood Count 2.72 M/mm3 (4.6-6.2); White Blood Count 13.1 K/mm3 (4.4-11.0)
[2024-11-13 03:57] LABS: Anion Gap 12 (5-15); BUN 56 mg/dL (4-19); Calcium,Total 6.9 mg/dL (7.6-11.0); Carbon Dioxide 20.7 mmol/L (21.0-32.0); Chloride 108 mmol/L (98-108); EST Glomerular Filtration Rate 9 (>60); Estimated Creatinine Clearance 13.91 ml/min (50-250); Glucose 173 mg/dL (70-99); Potassium 3.5 mmol/L (3.3-5.1); Sodium Level 141 mmol/L (133-145)
[2024-11-13] MEDS: CHLORHEXIDINE GLUC 2% CLOTH 1 EACH TOWELETTE TOPICAL (05:20)
[2024-11-13] MEDS: 0.9% Saline Lock 10 ML Syringe IV ×2 (05:20→20:43)
[2024-11-13] MEDS: Insulin Lispro 100 UNIT/ML INSULN.PEN SC ×4 (05:20→22:51)
[2024-11-13] MEDS: TITRATION PARAMETER CHANGE 1 EACH IV (05:25)
[2024-11-13 05:42] LABS: Bedside Glucose 178 mg/dL (74-106)
[2024-11-13] MEDS: Dexmedetomidine 1,000 mcg in 0.9% NS 240 mL 28.9 MCG CONT INF (08:08)
--- NOTE | 2024-11-13 08:39 | PN.HOSP_ITS ---
Subjective Subjective Remains intubated on sedation unfortunately no spontaneous breathing trial was started this morning as had been requested Objective Data Objective Data Vital Signs: Vital Signs Temp Pulse Resp BP Pulse Ox O2 Del Method O2 Flow Rate 98.2 F 58 L 19 H 99/63 93 Mechanical Ventilator 4 11/13/24 08:00 11/13/24 08:00 11/13/24 08:00 11/13/24 08:00 11/13/24 08:00 11/13/24 08:00 11/11/24 16:44 FiO2 35 11/13/24 08:00 Oxygen Flow Rate (L/min) 4 Oxygen Delivery Method Mechanical Ventilator Weight: 212 lb 4.882 oz Body Mass Index (BMI) 28.7 Intake & Output: Intake and Output for Last 24 Hours 11/12/24 11/13/24 11/14/24 03:59 03:59 03:59 Intake Total 1647.98 / 1686.18 2263.82 / 2809.62 689.93 / 689.93 Output Total 778 / 778 1525 / 1525 45 / 45 Balance 869.98 / 908.18 738.82 / 1284.62 644.93 / 644.93 Lab / Micro Data 11/13/24 03:29 11/13/24 03:29 Labs: Laboratory Results - last 24 hr 11/12/24 13:21: POC Glucose 101 11/12/24 17:18: POC Glucose 109 H 11/12/24 22:25: POC Glucose 156 H 11/13/24 03:29: WBC 13.1 H, RBC 2.72 L, Hgb 8.3 L, Hct 24.6 L, MCV 90.4, MCH 30.5, MCHC 33.7, RDW Std Deviation 48.6 H, RDW Coeff of Eliseo 14.6, Plt Count 109 L, MPV 12.3 H, Immature Gran % (Auto) 1.900 H, Neut % (Auto) 78.9 H, Lymph % (Auto) 6.6 L, [place] % (Auto) 10.3 H, Eos % (Auto) 2.1, Baso % (Auto) 0.2, A bsolute Neuts (auto) 10.3 H, Absolute Lymphs (auto) 0.86, Nucleated RBC % 0, Sodium 141, Potassium 3.5, Chloride 108, Carbon Dioxide 20.7 L, Anion Gap 12, B UN 56 H, Creatinine 6.20 H, Estim Creat Clear Calc 13.91 L, Est GFR (MDRD) Non- Af 9 L, BUN/Creatinine Ratio 9.0 L, Glucose 173 H, Calcium 6.9 L 11/13/24 05:18: POC Glucose 178 H Micro: Microbiology 11/07/24 23:25 Blood Culture (Wb) - Anticubital Left Blood Culture - Final No growth in 5 days. 11/07/24 23:00 Blood Culture (Wb) - Other Blood Culture - Final No growth in 5 days. 11/07/24 20:08 Sputum, Tracheal Aspirate Gram Stain - Final 11/07/24 20:08 Sputum, Tracheal Aspirate Respiratory Culture - Final Escherichia coli Streptococcus pneumoniae Streptococcus agalactiae (B) Radiography Diagnostic Testing: Radiology Impression Chest X-Ray 11/12/24 05:10 IMPRESSION: Low lung volumes with probable small left pleural effusion. Reading Location: [facility] Echocardiogram 11/12/24 08:25 Interpretation Summary Normal LV size. Left ventricular systolic function is normal. The left ventricular ejection fraction is 65 %. Mild global right ventricular systolic dysfunction. Mildly dilated right ventricle. Ordering Physician: Sergey Ruby Referring Physician: Pasha Morales Performed By: Geri Horner, VLADISLAV, RVT Physical Exam Const General Appearance: intubated and patient mechanically ventilated HEENT normocephalic Eyes PERRL and conjunctivae normal Neck supple and no JVD Resp normal respiratory effort, no retractions and no use of accessory muscles Auscultation: Negative for crackles, rales, rhonchi or wheezes Cardio regular rate, regular rhythm, S1 normal heart sound, S2 normal heart sound and no murmurs GI soft to palpation and non-distended; Negative for hepatosplenomegaly Extremity no clubbing, cyanosis or edema Skin no rashes or lesions noted Neuro Sensorium / Orientation: sedated on vent Psych Appearance: intubated Assessment & Plan Assessment/Plan (1) Diabetic ketoacidosis: QUALIFIERS: Diabetes mellitus complication detail: with coma D iabetes mellitus type: type 2 Qualified Code(s): E11.11 - Type 2 diabetes mellitus with ketoacidosis with coma (2) Sepsis: QUALIFIERS: Sepsis acute organ dysfunction status: with acute organ dysfunction Sepsis type: sepsis due to unspecified organism Severe sepsis acute organ dysfunction type: encephalopathy Severe sepsis shock status: with septic shock Qualified Code(s): A41.9 - Sepsis, unspecified organism; R65.21 - Severe sepsis with septic shock; G93.41 - Metabolic encephalopathy (3) Gastrointestinal bleeding, upper: (4) GLYNN (acute kidney injury): (5) Acute metabolic encephalopathy: PLAN: Plan 1. Septic shock secondary to ascending cholangitis status post ERCP with stent and pneumonia complicated by DKA and an upper GI bleed with acute hypoxic respiratory failure necessitating intubation/GLYNN/acute metabolic encephalopathy ? Appreciate GIs assistance, EGD demonstrated erosive esophagitis with nonbleeding gastric ulcers ?ERCP on 11/11/2024 with purulent drainage and stones ? Appreciate boat cleaning supervisor assistance ? Continued with Zosyn to cover both the sputum cultures and his ascending cholangitis ? Sputum cultures demonstrating E. coli as well as 2 strep organisms ? Continue with tube feeds ?He has been off pressors ? Continue with IV Protonix NG tube continues to have coffee-ground drainage ?Hemoglobin is stable, will continue to monitor ?Plan for dialysis today 2. Euthyroid sick syndrome ? TSH is severely elevated and T3 and T4 are depressed ? Related to his critically ill status ? Will monitor DVT: SCDs Charges/Coding Visit Charges Inpatient E&M: 40062 Subs Hosp L2
[2024-11-13] MEDS: fentaNYL drip 100 ML 20 MCG CONT INF ×3 (10:30→20:46)
[2024-11-13] MEDS: Insulin Glargine-YFGN 100 UNIT/ML Pen 40 UNIT SC ×2 (10:32→22:51)
[2024-11-13] MEDS: Chlorhexidine 15 ML PO ×2 (10:32→20:43)
[2024-11-13] MEDS: Senna/Docusate Sodium 1 Tablet 2 TABLET GT ×2 (10:33→20:46)
[2024-11-13] MEDS: Pantoprazole Sodium 40 MG in 0.9% Normal Saline (100mL MB+) 100 ML 330 MG IV ×2 (10:35→20:44)
[2024-11-13] MEDS: Piperacil/Tazobactam 3.375 GM in 0.9% Normal Saline (50mL MB+) 50 ML IV ×2 (10:35→21:34)
--- NOTE | 2024-11-13 10:40 | PN.CC_ITS ---
Objective Data Objective Data Vital Signs: Vital Signs Last response 3 Temperature 36.8 C 11/13/24 08:00 Temperature Source Temporal 11/13/24 08:00 Pulse Rate 59 L 11/13/24 09:54 Pulse Strength Weak (1+) 11/12/24 19:36 Respiratory Rate 19 H 11/13/24 09:54 Respiratory Effort Mechanically Ventilated 11/13/24 08:00 Respiratory Depth Normal 11/13/24 08:00 Respiratory Pattern Normal 11/13/24 09:54 Blood Pressure 99/63 11/13/24 08:00 Blood Pressure Mean 75 11/13/24 08:00 Blood Pressure Source Monitor 11/13/24 08:00 Blood Pressure Position Semi-Fowlers 11/13/24 08:00 Blood Pressure Location Right Arm 11/13/24 08:00 Pulse Ox 95 11/13/24 09:54 Oxygen Delivery Method Mechanical Ventilator 11/13/24 08:00 Oxygen Flow Rate (L/min) 4 11/11/24 16:44 Fraction of Inspired Oxygen (FIO2) 35 11/13/24 09:54 EtCo2 (Normal 35-45 , high quality CPR 10-20 & ROSC>/=40mmHg 33 11/11/24 16:44 I&O: I&O Last 24 Hours 3 11/12/24 11/12/24 11/13/24 11:59 23:59 11:59 Intake Total 666.72 / 2303.49 1595.97 / 2303.49 990.83 / 990.83 Output Total 150 / 1525 1375 / 1525 45 / 45 Balance 516.72 / 778.49 220.97 / 778.49 945.83 / 945.83 I&O: Total Stay 3 11/07/24 17:54 thru 11/13/24 10:15 Intake Total 46977.21 Output Total 6743 Balance 45504.21 Current Meds Ordered / Administered: Current meds ordered / Administered 3 Generic Name Dose Route Start Last Admin Trade Name Freq PRN Reason Stop Dose Admin Acetaminophen 650 mg 11/07/24 22:52 11/10/24 21:56 Acetaminophen 650 Mg Suppository RC 650 mg Q6H PRN PRN Administration Pain 1-10 or Fever Chlorhexidine Gluconate 15 ml 11/09/24 22:00 11/13/24 10:32 Chlorhexidine 15 Ml PO 15 ml BID JENNIFER Administration Chlorhexidine Gluconate 1 each 11/10/24 10:00 11/13/24 05:20 Chlorhexidine Gluc 2% Cloth 1 Each Towelette TOPICAL 1 each DAILY JENNIFER Administration Glycerin/Hypromellose/Polyethylene 2 drp 11/10/24 21:03 11/11/24 00:51 Glycerin/Hypromellose/[id number] 15 Ml Bottle EACH EYE 2 drp Q1H PRN Administration DRY EYES Dextrose 250 mls @ 999 mls/hr 11/07/24 22:52 Dextrose 10%-Water IV .Q16M PRN Hypoglycemic Protocol Protocol Sodium Chloride 100 mls @ 15 mls/hr 11/07/24 22:54 11/10/24 13:26 IV Infused .Q6H40M PRN Infusion Saline Flush Sodium Chloride 100 mls @ 15 mls/hr 11/07/24 22:54 IV .Q6H40M PRN Additional IVPB Infusion Fentanyl 100 mls @ 5 mls/hr 11/08/24 00:05 11/13/24 10:30 CONT INF 200 mcg/hr UD JENNIFER 20 mls/hr Administration Protocol 50 MCG/HR Dexmedetomidine HCl 1,000 mcg/ 250 mls @ 36.113 mls/hr 11/08/24 15:30 11/13/24 10:15 Sodium Chloride CONT INF 1.5 mcg/kg/hr .Q6H56M JENNIFER 36.1 mls/hr Titration Protocol 1.5 MCG/KG/HR Pantoprazole Sodium 40 mg/ 110 mls @ 330 mls/hr 11/09/24 22:00 11/13/24 10:35 Sodium Chloride IV 330 mls/hr Q12 JENNIFER Administration Enteral Nutritional Formula 1,000 mls @ 65 mls/hr 11/10/24 10:05 11/13/24 04:00 Vital Af 1.2 Zaid Liquid GT 65 mls/hr .[id number] JENNIFER Infusion Norepinephrine Bitartrate 8 mg 250 mls @ 9.375 mls/hr 11/11/24 13:20 11/12/24 18:00 / Sodium Chloride CONT INF 0 mcg/min .[id number] JENNIFER 0 mls/hr Titration Protocol 5 MCG/MIN Piperacillin Sod/Tazobactam 50 mls @ 12.5 mls/hr 11/12/24 08:55 11/13/24 10:35 Sod 3.375 gm/ Sodium Chloride IV 12.5 mls/hr Q12 JENNIFER Administration Insulin Glargine 40 unit 11/10/24 10:00 11/13/24 10:32 Insulin Glargine-Yfgn 100 Unit/Ml Pen SC 40 unit BID JENNIFER Administration Insulin Human Lispro 0 unit 11/09/24 12:00 11/13/24 05:20 Insulin Lispro 100 Unit/Ml Insuln.Pen SC 1 u Q6 JENNIFER Administration Protocol Ondansetron HCl 4 mg 11/07/24 22:52 Ondansetron 4 Mg/2 Ml Vial IV Q6H PRN PRN NAUSEA/VOMITING Promethazine HCl 12.5 mg 11/07/24 22:52 Promethazine 25 Mg/Ml Syringe IM Q4H PRN PRN Breakthrough nausea/Vomiting Senna/Docusate Sodium 2 tablet 11/10/24 10:00 11/13/24 10:33 Senna/Docusate Sodium 1 Tablet GT 2 tablet BID JENNIFER Administration Sodium Chloride 10 - 40 ml 11/07/24 22:54 11/13/24 05:20 0.9% Saline Lock 10 Ml Syringe IV 20 ml UD PRN Administration SALINE FLUSH Lab / Micro Data Attestation: I reviewed the patient's lab results. 11/13/24 03:29 11/13/24 03:29 Labs: Laboratory Results - last 24 hr 11/12/24 13:21: POC Glucose 101 11/12/24 17:18: POC Glucose 109 H 11/12/24 22:25: POC Glucose 156 H 11/13/24 03:29: WBC 13.1 H, RBC 2.72 L, Hgb 8.3 L, Hct 24.6 L, MCV 90.4, MCH 30.5, MCHC 33.7, RDW Std Deviation 48.6 H, RDW Coeff of Eliseo 14.6, Plt Count 109 L, MPV 12.3 H, Immature Gran % (Auto) 1.900 H, Neut % (Auto) 78.9 H, Lymph % (Auto) 6.6 L, [place] % (Auto) 10.3 H, Eos % (Auto) 2.1, Baso % (Auto) 0.2, A bsolute Neuts (auto) 10.3 H, Absolute Lymphs (auto) 0.86, Nucleated RBC % 0, Sodium 141, Potassium 3.5, Chloride 108, Carbon Dioxide 20.7 L, Anion Gap 12, B UN 56 H, Creatinine 6.20 H, Estim Creat Clear Calc 13.91 L, Est GFR (MDRD) Non- Af 9 L, BUN/Creatinine Ratio 9.0 L, Glucose 173 H, Calcium 6.9 L 11/13/24 05:18: POC Glucose 178 H Micro: Microbiology 11/07/24 23:25 Blood Culture (Wb) - Anticubital Left Blood Culture - Final No growth in 5 days. 11/07/24 23:00 Blood Culture (Wb) - Other Blood Culture - Final No growth in 5 days. Imaging Radiology Impression Chest X-Ray 11/12/24 05:10 IMPRESSION: Low lung volumes with probable small left pleural effusion. Reading Location: [facility] Echocardiogram 11/12/24 08:25 Interpretation Summary Normal LV size. Left ventricular systolic function is normal. The left ventricular ejection fraction is 65 %. Mild global right ventricular systolic dysfunction. Mildly dilated right ventricle. Ordering Physician: Sergey Ruby Referring Physician: Pasha Morales Performed By: Geri Horner, VLADISLAV, RVT Assessment and Plan . Assessment and plan: ICU Problem List: Mechanical ventilation Atelectasis Acute hypoxemic respiratory failure Pulmonary edema sepsis and hypotension bradycardia 2/2 precedex Plan: SBT and SAT deferred to after HD catheter placement, as he would need to lie flat and his body habitus and fluid status increases risk of resp failure increase PEEP to 8 cwp for alveolar recruitment ECHO may need to extubate to biPAP if EF<45% or if persistent atelectasis maintain fentanyl sedation on board 2/2 bradycardia from high dose precedex Sergey Ruby MD [facility] Access TeleCare Critical Care Time: 55 minutes The entirety of this encounter was done via Telemedicine Physical Exam Const General Appearance: intubated and patient mechanically ventilated HEENT normocephalic Eyes PERRL and conjunctivae normal Neck supple and no JVD Resp normal respiratory effort, no retractions and no use of accessory muscles Auscultation: Negative for crackles, rales, rhonchi or wheezes Cardio regular rate, regular rhythm, S1 normal heart sound, S2 normal heart sound and no murmurs GI soft to palpation and non-distended; Negative for hepatosplenomegaly Extremity no clubbing, cyanosis or edema Skin no rashes or lesions noted Neuro Sensorium / Orientation: sedated on vent Psych Appearance: intubated Subjective Subjective CC: coul dnot be obtained due to intubation 11/12 - HD planned, extubation deferred 11/13 - patient comfortable on 125fent and 1.2 precedex; however Spo2 borderline at 93% on low FiO2 and PEEP 8cwp; planned for HD catheter placement tomorrow
[2024-11-13] MEDS: Vital AF 1.2 Cal Liquid 1,000 ML 65 ML GT (12:27)
[2024-11-13 12:40] LABS: Bedside Glucose 216 mg/dL (74-106)
[2024-11-13] MEDS: Dexmedetomidine 1,000 mcg in 0.9% NS 240 mL 36.1 MCG CONT INF ×2 (15:30→22:50)
--- NOTE | 2024-11-13 17:33 | NURSING ---
education re chronic illness deferred till acute illness resolving and pt is extubated
[2024-11-13 17:55] LABS: Bedside Glucose 155 mg/dL (74-106)
[2024-11-13 23:11] LABS: Bedside Glucose 172 mg/dL (74-106)
[2024-11-14] VITALS (32 sets, daily range): BP systolic 96–134; BP diastolic 51–69; PULSE 51–66; RESP 18–21; TEMP 37.2–38; O2SAT 88–96; BMI 29.1
[2024-11-14] MEDS: fentaNYL drip 100 ML 20 MCG CONT INF ×5 (01:55→22:58)
[2024-11-14 03:51] LABS: Absolute Lymphocyte Count 1.01 X10^3/uL (0.83-4.51); Absolute Neutrophil Count 8.6 X10^3/uL (2.0-7.7); Basophil# 0.04 X10^3/uL; Basophil% 0.3 % (0-1); Eosinophil# 0.34 X10^3/uL; Eosinophils% 2.8 % (0-5); Hematocrit 23.5 % (40-54); Lymphocyte # 1.01 X10^3/ul (0.83-4.51); Lymphocyte % 8.3 % (19-41); Mean Corpuscular Volume 91.1 fL (80-94); Mean Platelet Vol. 11.9 fl (6.2-12.0); Monocyte# 1.75 X10^3/uL; Monocyte% 14.4 % (0-10); NRBC Flagged by Analyzer 0 % (0-5); Neutrophil # 8.62 X10^3/uL (2.7-7.7); Neutrophil % 70.9 % (47-70); POSITIVE DIFFERENTIAL YES; Platelet Count 178 K/mm3 (150-450); RBC Distribution Width CV 14.7 % (11.6-14.6); RBC Distribution Width SD 49.1 fl (35.1-43.9); Red Blood Count 2.58 M/mm3 (4.6-6.2); White Blood Count 12.2 K/mm3 (4.4-11.0)
[2024-11-14 03:52] LABS: Differential Indicated SCAN CRITERIA MET
[2024-11-14 04:07] LABS: Anion Gap 14 (5-15); BUN 62 mg/dL (4-19); BUN/Creat Ratio 8.6 RATIO (10-20); Calcium,Total 6.8 mg/dL (7.6-11.0); Carbon Dioxide 18.8 mmol/L (21.0-32.0); Chloride 109 mmol/L (98-108); EST Glomerular Filtration Rate 8 (>60); Estimated Creatinine Clearance 11.98 ml/min (50-250); Glucose 130 mg/dL (70-99); Potassium 3.5 mmol/L (3.3-5.1); Sodium Level 141 mmol/L (133-145)
[2024-11-14 04:28] LABS: Differential Comment SCANNED
[2024-11-14] MEDS: CHLORHEXIDINE GLUC 2% CLOTH 1 EACH TOWELETTE TOPICAL (05:00)
[2024-11-14] MEDS: 0.9% Saline Lock 10 ML Syringe IV (05:00)
--- NOTE | 2024-11-14 05:00 | RAD_ITS ---
PROCEDURE: CHEST 1 VIEW (PORTABLE) 11/14/2024 REASON FOR EXAM: INTUBATED TECHNIQUE: Frontal view of the chest. COMPARISON: 11/12/2024. FINDINGS: Endotracheal tube is in good position. Enteric feeding tube is in good position with its tip extending below the level of the left hemidiaphragm. Unchanged bilateral basilar atelectatic pulmonary changes. Right internal jugular central catheter remains in good position. There is no demonstrated pleural abnormality. Normal heart and pericardium. Normal mediastinum and azra. Normal visualized pulmonary arteries. Normal visualized aortic arch and descending thoracic aorta. Normal visualized thoracic spine. Normal visualized ribs, clavicles, and shoulders. There is no demonstrated abnormality of the visualized soft tissue structures of the upper abdomen. RAD/Chest 1 View (Portable) IMPRESSION: 1. Endotracheal tube is in good position. 2. Enteric feeding tube is in good position with its tip extending below the [place] of the left hemidiaphragm. 3. Unchanged bilateral basilar atelectatic pulmonary changes. 4. Right internal jugular central catheter remains in good position. Reading Location: [id number]
[2024-11-14] MEDS: Vital AF 1.2 Cal Liquid 1,000 ML 65 ML GT (05:01)
[2024-11-14 05:41] LABS: Bedside Glucose 149 mg/dL (74-106)
[2024-11-14] MEDS: Dexmedetomidine 1,000 mcg in 0.9% NS 240 mL 36.1 MCG CONT INF (06:00)
[2024-11-14] MEDS: TITRATION PARAMETER CHANGE 1 EACH IV (06:09)
--- NOTE | 2024-11-14 07:21 | PN.CC_ITS ---
Assessment & Plan Assessment/Plan (1) Acute metabolic encephalopathy: (2) Sepsis: QUALIFIERS: Sepsis type: sepsis due to unspecified organism S epsis acute organ dysfunction status: with acute organ dysfunction Severe sepsis acute organ dysfunction type: encephalopathy Severe sepsis shock status: with septic shock Qualified Code(s): A41.9 - Sepsis, unspecified organism; R65.21 - Severe sepsis with septic shock; G93.41 - Metabolic encephalopathy (3) Diabetic ketoacidosis: QUALIFIERS: Diabetes mellitus type: type 2 Diabetes mellitus complication detail: with coma Qualified Code(s): E11.11 - Type 2 diabetes mellitus with ketoacidosis with coma PLAN: Plan RECOMMENDATIONS: 1. Continue assist-control mode mechanical ventilation. Wean FiO2 and PEEP as tolerated. 2. Continue basal and sliding scale insulin coverage. 3. Antimicrobials to be completed today. 4. Given the patient's overall net positive volume status, recommend transitioning to CRRT. 5. Continue Precedex and fentanyl for sedation. 6. Continue tube feeding for nutritional support. IMPRESSIONS: 1. Acute hypoxemic respiratory failure The patient was ultimately intubated in the emergency department over concerns for airway protection. In addition, there is concern for underlying gram- negative pneumonia. His acid-base status has improved with invasive mechanical ventilatory support and medical therapy for his DKA. The patient will be continued on assist-control mode of mechanical ventilation, with a goal to wean FiO2 and PEEP as tolerated to maintain saturations at or above 90%. Antimicrobials will be completed today. Given his overall net positive volume status, recommend transitioning to CRRT for volume removal. 2. Multifactorial shock Likely due to a combination of hypovolemia and septic etiologies. Clinical concern for underlying gram-negative pneumonia. In addition, the patient did have evidence of a mildly distended gallbladder with evidence of intraluminal air and pneumobilia, for which the patient is status post ERCP with sphincterectomy and balloon extraction along with stent placement in the common bile duct, due to choledocholithiasis. The patient will complete his antibiotic treatment course today. He remains hemodynamically stable at the present time, without the ongoing need for vasopressor support. 3. Toxic/metabolic encephalopathy Most likely secondary to presenting DKA with significant metabolic derangements and multifactorial shock. Continue supportive care as noted above. 4. Diabetic ketoacidosis Resolved. Continue basal and sliding scale insulin coverage, with additional titration based upon blood sugars. 5. Acute versus chronic kidney disease Unclear baseline renal function. Clinical concern for evolution to ischemic ATN in the setting of #2. Following discussion with nephrology, plan to transition the patient from conventional HD to CRRT to facilitate additional volume removal and clearance. 6. Anemia Unclear chronicity. Blood counts remain stable. Continue PPI therapy. TIME: 34 minutes of critical care time, independent of procedures, was spent addressing the patient's acute hypoxemic respiratory failure, multifactorial shock, toxic/metabolic encephalopathy, diabetic ketoacidosis, acute kidney injury, anemia, review of all data and collaboration with the care team. Subjective Subjective The patient was seen and examined at the bedside this morning. Events from the last 24 hours have been reviewed. The patient currently has a low-grade fever but remains otherwise hemodynamically stable on assist-control mode mechanical ventilation with an FiO2 requirement of 35% and PEEP of 5. The patient is significantly overall net positive from a volume perspective for the hospitalization. White blood cell count was noted to be 12,000 with a hemoglobin of 8.0 g/dL. The patient remains sedated on a combination of Precedex and fentanyl. He has been tolerant of tube feeding. Objective Data Objective Data The patient's most recent lab work, culture data and imaging studies have all been personally reviewed. Sputum culture is demonstrating growth of E. coli and Streptococcus pneumonia. Vital Signs: Vital Signs Temp Pulse Resp BP Pulse Ox O2 Del Method O2 Flow Rate 100.0 F H 55 L 18 108/60 94 Mechanical Ventilator 4 11/14/24 07:00 11/14/24 07:00 11/14/24 07:00 11/14/24 07:00 11/14/24 07:00 11/14/24 07:00 11/11/24 16:44 FiO2 35 11/14/24 07:00 Oxygen Flow Rate (L/min) 4 Oxygen Delivery Method Mechanical Ventilator Weight: 215 lb 6.266 oz Body Mass Index (BMI) 29.1 Intake & Output: Intake and Output for Last 24 Hours 11/12/24 11/13/24 11/14/24 23:59 23:59 23:59 Intake Total 2262.69 / 2303.49 2709.90 / 2766.00 1540.74 / 1540.74 Output Total 1525 / 1525 170 / 170 100 / 100 Balance 737.69 / 778.49 2539.90 / 2596.00 1440.74 / 1440.74 Lab / Micro Data Attestation: I reviewed the patient's lab results. 11/14/24 03:36 11/14/24 03:36 Labs: Laboratory Results - last 24 hr 11/13/24 12:18: POC Glucose 216 H 11/13/24 17:34: POC Glucose 155 H 11/13/24 22:49: POC Glucose 172 H 11/14/24 03:36: WBC 12.2 H, RBC 2.58 L, Hgb 8.0 L, Hct 23.5 L, MCV 91.1, MCH 31.0, MCHC 34.0, RDW Std Deviation 49.1 H, RDW Coeff of Eliseo 14.7 H, Plt Count 178, MPV 11.9, Immature Gran % (Auto) 3.300 H, Neut % (Auto) 70.9 H, Lymph % (Auto) 8.3 L, [place] % (Auto) 14.4 H, Eos % (Auto) 2.8, Baso % (Auto) 0.3, A bsolute Neuts (auto) 8.6 H, Absolute Lymphs (auto) 1.01, Nucleated RBC % 0, Differential Comment SCANNED, Sodium 141, Potassium 3.5, Chloride 109 H, Carbon Dioxide 18.8 L, Anion Gap 14, BUN 62 H, Creatinine 7.20 H, Estim Creat Clear Calc 11.98 L, Est GFR (MDRD) Non-Af 8 L, BUN/Creatinine Ratio 8.6 L, Glucose 130 H, Calcium 6.8 L 11/14/24 05:05: POC Glucose 149 H Micro: Microbiology 11/07/24 23:25 Blood Culture (Wb) - Anticubital Left Blood Culture - Final No growth in 5 days. 11/07/24 23:00 Blood Culture (Wb) - Other Blood Culture - Final No growth in 5 days. 11/07/24 20:08 Sputum, Tracheal Aspirate Gram Stain - Final 11/07/24 20:08 Sputum, Tracheal Aspirate Respiratory Culture - Final Escherichia coli Streptococcus pneumoniae Streptococcus agalactiae (B) ABG Data ABG results: ABG 11/10/24 06:56 Specimen Type ART Sample Site R Radial pH 7.42 Bicarbonate Actual 17.2 L Total CO2 18 Base Excess -7 L O2 Saturation 94 L O2 % 25.0 ABG pCO2 26.3 L ABG pO2 69 L Srini Test Positive Respiration Rate 18 O2 Delivery Device Adult Vent Vent Mode AC Tidal Volume 500.0 POC PEEP 5 Radiography Diagnostic Testing: Radiology Impression Chest X-Ray 11/14/24 05:00 IMPRESSION: 1. Endotracheal tube is in good position. 2. Enteric feeding tube is in good position with its tip extending below the level of the left hemidiaphragm. 3. Unchanged bilateral basilar atelectatic pulmonary changes. 4. Right internal jugular central catheter remains in good position. Reading Location: [place] [address] Physical Exam Const Constitutional Narrative: Intubated, sedated and mechanically ventilated. HEENT normocephalic and head/scalp atraumatic Mouth: endotracheal tube in place and OG tube in place Eyes EOMs intact bilaterally and conjunctivae normal Neck supple General: trachea midline and CVC in place Resp normal respiratory effort Auscultation: diminished lung sounds; Negative for rales, rhonchi or wheezes Cardio regular rate and regular rhythm GI normal to inspection, nondistended, normoactive bowel sounds Extremity General Extremity: edema; Negative for clubbing Skin no rashes or lesions noted Neuro Sensorium / Orientation: sedated on vent Charges/Coding Procedures Hospitalists Procedures: [id number] Critical Care 1st Hr
--- NOTE | 2024-11-14 09:24 | PN.HOSP_ITS ---
Reason for Visit Reason for Visit: Diagnoses Sepsis, unspecified organism (11/07/24) Elevated white blood cell count, unspecified (11/07/24) Type 2 diabetes mellitus with ketoacidosis with coma (11/07/24) Hyperkalemia (11/07/24) Metabolic encephalopathy (11/07/24) Hypotension, unspecified (11/07/24) Gastrointestinal hemorrhage, unspecified (11/07/24) Acute kidney failure, unspecified (11/07/24) Severe sepsis with septic shock (11/07/24) Subjective Subjective Patient was seen and examined today, he remains sedated on the ventilator at this time, I talked with pulmonary medicine about his care as well as nephrology. Patient is going on continuous dialysis today to try to relieve some fluid overload. Objective Data Objective Data Vital Signs: Vital Signs Temp Pulse Resp BP Pulse Ox O2 Del Method O2 Flow Rate 100.0 F H 55 L 18 106/61 95 Mechanical Ventilator 4 11/14/24 08:00 11/14/24 09:07 11/14/24 09:07 11/14/24 08:00 11/14/24 09:07 11/14/24 08:00 11/11/24 16:44 FiO2 35 11/14/24 09:07 Oxygen Flow Rate (L/min) 4 Oxygen Delivery Method Mechanical Ventilator Weight: 97.7 kg Body Mass Index (BMI) 29.1 Intake & Output: Intake and Output for Last 24 Hours 11/12/24 11/13/24 11/14/24 23:59 23:59 23:59 Intake Total 2262.69 / 2303.49 2709.90 / 2766.00 1595.74 / 1595.74 Output Total 1525 / 1525 170 / 170 100 / 100 Balance 737.69 / 778.49 2539.90 / 2596.00 1495.74 / 1495.74 Lab / Micro Data 11/14/24 03:36 11/14/24 03:36 Labs: Laboratory Results - last 24 hr 11/13/24 12:18: POC Glucose 216 H 11/13/24 17:34: POC Glucose 155 H 11/13/24 22:49: POC Glucose 172 H 11/14/24 03:36: WBC 12.2 H, RBC 2.58 L, Hgb 8.0 L, Hct 23.5 L, MCV 91.1, MCH 31.0, MCHC 34.0, RDW Std Deviation 49.1 H, RDW Coeff of Eliseo 14.7 H, Plt Count 178, MPV 11.9, Immature Gran % (Auto) 3.300 H, Neut % (Auto) 70.9 H, Lymph % (Auto) 8.3 L, [place] % (Auto) 14.4 H, Eos % (Auto) 2.8, Baso % (Auto) 0.3, A bsolute Neuts (auto) 8.6 H, Absolute Lymphs (auto) 1.01, Nucleated RBC % 0, Differential Comment SCANNED, Sodium 141, Potassium 3.5, Chloride 109 H, Carbon Dioxide 18.8 L, Anion Gap 14, BUN 62 H, Creatinine 7.20 H, Estim Creat Clear Calc 11.98 L, Est GFR (MDRD) Non-Af 8 L, BUN/Creatinine Ratio 8.6 L, Glucose 130 H, Calcium 6.8 L 11/14/24 05:05: POC Glucose 149 H Micro: Microbiology 11/07/24 23:25 Blood Culture (Wb) - Anticubital Left Blood Culture - Final No growth in 5 days. 11/07/24 23:00 Blood Culture (Wb) - Other Blood Culture - Final No growth in 5 days. 11/07/24 20:08 Sputum, Tracheal Aspirate Gram Stain - Final 11/07/24 20:08 Sputum, Tracheal Aspirate Respiratory Culture - Final Escherichia coli Streptococcus pneumoniae Streptococcus agalactiae (B) Radiography Diagnostic Testing: Radiology Impression Chest X-Ray 11/14/24 05:00 IMPRESSION: 1. Endotracheal tube is in good position. 2. Enteric feeding tube is in good position with its tip extending below the level of the left hemidiaphragm. 3. Unchanged bilateral basilar atelectatic pulmonary changes. 4. Right internal jugular central catheter remains in good position. Reading Location: [place] [address] Physical Exam Const Constitutional Narrative: Patient is sedated and on the ventilator General Appearance: well kempt and well developed HEENT normocephalic, head/scalp atraumatic and moist oral mucous membranes Eyes PERRL, EOMs intact bilaterally and conjunctivae normal Neck supple, no JVD, thyroid normal and no carotid bruits General: trachea midline Resp clear to auscultation bilaterally Resp Narrative: Patient is sedated and on the ventilator Auscultation: Negative for rales, rhonchi or wheezes Cardio regular rate, regular rhythm, S1 normal heart sound, S2 normal heart sound, no murmurs, no rub and no gallops GI normal to inspection, nondistended, normoactive bowel sounds, soft to palpation, non-tender and non-distended Extremity Extremity Narrative: Patient has generalized edema of the arms and legs noted Skin no rashes or lesions noted General Skin Exam: no breakdown Neuro CN's II-XII intact bilaterally Neuro Narrative: Patient is sedated and on the ventilator Speech: speech normal Psych Psych Narrative: Patient is sedated and on the ventilator Assessment & Plan Assessment/Plan (1) Acute metabolic encephalopathy: PLAN: Plan 1. Septic shock secondary to ascending cholangitis-continue present treatment, patient is currently off pressor agents, patient is having continuous dialysis performed today, current antibiotics will continue #2 acute hypoxic respiratory failure-patient remains on ventilator at this time #3 metabolic encephalopathy-complicates care, management, recovery, and prognosis #4 diabetic ketoacidosis-resolved at this time #5 acute kidney injury-nephrology is participating in his care, he will be receiving continuous dialysis today #6 acute anemia-etiology unclear at this point, labs will be monitored, patient does not require a transfusion at this time Total clinical time spent by myself addressing the patient's medical issues, reviewing all of his data, and collaborating with patient's care team: 50 minutes Charges/Coding Visit Charges Inpatient E&M: [id number] [place] [address]
[2024-11-14] MEDS: Piperacil/Tazobactam 3.375 GM in 0.9% Normal Saline (50mL MB+) 50 ML IV ×3 (09:29→20:50)
[2024-11-14] MEDS: 0.9% Normal Saline 1,000 ML IV.SOLN. 1000 ML OPERA.SITE (09:32)
[2024-11-14 09:35] LABS: Hematocrit 24.1 % (40-54); Hemoglobin 8.2 g/dL (13.0-16.5); Mean Corpuscular Hgb 31.1 pg (27.0-32.0); Mean Corpuscular Volume 91.3 fL (80-94); Mean Platelet Vol. 11.8 fl (6.2-12.0); Platelet Count 207 K/mm3 (150-450); RBC Distribution Width CV 14.7 % (11.6-14.6); RBC Distribution Width SD 49.5 fl (35.1-43.9); Red Blood Count 2.64 M/mm3 (4.6-6.2); White Blood Count 12.4 K/mm3 (4.4-11.0)
[2024-11-14 09:45] LABS: Partial Thromboplast Time 36.5 Seconds (24.1-36.2)
[2024-11-14] MEDS: Chlorhexidine 15 ML PO ×2 (10:21→20:24)
[2024-11-14 11:07] LABS: Albumin, Serum 2.4 g/dL (3.4-4.8); Anion Gap 14 (5-15); BUN 62 mg/dL (4-19); BUN/Creat Ratio 8.6 RATIO (10-20); Calcium,Total 6.8 mg/dL (7.6-11.0); Carbon Dioxide 18.3 mmol/L (21.0-32.0); Chloride 115 mmol/L (98-108); Creatinine, Serum 7.19 mg/dL (0.70-1.20); EST Glomerular Filtration Rate 8 (>60); Estimated Creatinine Clearance 12.08 ml/min (50-250); Glucose 122 mg/dL (70-99); Magnesium 1.9 mg/dL (1.5-2.2); Phosphorus 3.7 mg/dL (2.7-4.5); Potassium 3.6 mmol/L (3.3-5.1); Sodium Level 147 mmol/L (133-145)
[2024-11-14] MEDS: Alteplase 2 MG/2 ML Vial IV ×2 (12:45)
[2024-11-14] MEDS: Dexmedetomidine 1,000 mcg in 0.9% NS 240 mL 36.6 MCG CONT INF ×2 (13:00→19:50)
[2024-11-14] MEDS: Pantoprazole Sodium 40 MG in 0.9% Normal Saline (100mL MB+) 100 ML 330 MG IV ×2 (13:36→20:25)
--- NOTE | 2024-11-14 14:24 | PCM.PN.REN ---
Subjective Subjective Patient remains sedated on ventilator. No overnight events. Objective Data Objective Data Vital Signs: Vital Signs Temp Pulse Resp BP Pulse Ox O2 Del Method O2 Flow Rate 100.2 F H 64 20 H 115/60 90 Mechanical Ventilator 4 11/14/24 13:00 11/14/24 13:00 11/14/24 13:00 11/14/24 13:00 11/14/24 13:00 11/14/24 13:00 11/11/24 16:44 FiO2 35 11/14/24 13:00 Oxygen Flow Rate (L/min) 4 Oxygen Delivery Method Mechanical Ventilator Weight: 97.7 kg Body Mass Index (BMI) 29.1 Intake & Output: Intake and Output for Last 24 Hours 11/12/24 11/13/24 11/14/24 23:59 23:59 23:59 Intake Total 2262.69 / 2303.49 2709.90 / 2766.00 2135.98 / 2135.98 Output Total 1525 / 1525 170 / 170 100 / 100 Balance 737.69 / 778.49 2539.90 / 2596.00 2035.98 / 2035.98 Lab / Micro Data 11/14/24 09:10 11/14/24 09:10 Labs: Laboratory Results - last 24 hr 11/13/24 17:34: POC Glucose 155 H 11/13/24 22:49: POC Glucose 172 H 11/14/24 03:36: WBC 12.2 H, RBC 2.58 L, Hgb 8.0 L, Hct 23.5 L, MCV 91.1, MCH 31.0, MCHC 34.0, RDW Std Deviation 49.1 H, RDW Coeff of Eliseo 14.7 H, Plt Count 178, MPV 11.9, Immature Gran % (Auto) 3.300 H, Neut % (Auto) 70.9 H, Lymph % (Auto) 8.3 L, [place] % (Auto) 14.4 H, Eos % (Auto) 2.8, Baso % (Auto) 0.3, Absolute Neuts (auto) 8.6 H, Absolute Lymphs (auto) 1.01, Nucleated RBC % 0, Differential Comment SCANNED, Sodium 141, Potassium 3.5, Chloride 109 H, Carbon Dioxide 18.8 L, Anion Gap 14, BUN 62 H, Creatinine 7.20 H, Estim Creat Clear Calc 11.98 L, Est GFR (MDRD) Non-Af 8 L, BUN/Creatinine Ratio 8.6 L, Glucose 130 H, Calcium 6.8 L 11/14/24 05:05: POC Glucose 149 H 11/14/24 09:10: WBC 12.4 H, RBC 2.64 L, Hgb 8.2 L, Hct 24.1 L, MCV 91.3, MCH 31.1, MCHC 34.0, RDW Std Deviation 49.5 H, RDW Coeff of Eliseo 14.7 H, Plt Count 207, MPV 11.8, APTT 36.5 H, Sodium 147 H, Potassium 3.6, Chloride 115 H, Carbon Dioxide 18.3 L, Anion Gap 14, BUN 62 H, Creatinine 7.19 H, Estim Creat Clear Calc 12.08 L, Est GFR (MDRD) Non-Af 8 L, BUN/Creatinine Ratio 8.6 L, Glucose 122 H, Calcium 6.8 L, Phosphorus 3.7, Magnesium 1.9, Albumin 2.4 L Micro: Microbiology 11/07/24 23:25 Blood Culture (Wb) - Anticubital Left Blood Culture - Final No growth in 5 days. 11/07/24 23:00 Blood Culture (Wb) - Other Blood Culture - Final No growth in 5 days. 11/07/24 20:08 Sputum, Tracheal Aspirate Gram Stain - Final 11/07/24 20:08 Sputum, Tracheal Aspirate Respiratory Culture - Final Escherichia coli Streptococcus pneumoniae Streptococcus agalactiae (B) Radiography Diagnostic Testing: Radiology Impression Chest X-Ray 11/14/24 05:00 IMPRESSION: 1. Endotracheal tube is in good position. 2. Enteric feeding tube is in good position with its tip extending below the level of the left hemidiaphragm. 3. Unchanged bilateral basilar atelectatic pulmonary changes. 4. Right internal jugular central catheter remains in good position. Reading Location: [place] [address] Physical Exam Narrative Intubated no obvious distress s1s2 no murmurs Diminished breath sounds abdomen soft Pitting edema bilateral lower leg chester + with scant amount yellow urine in tubing Assessment & Plan Assessment/Plan (1) GLYNN (acute kidney injury): PLAN: Assessment/Plan: The patient is a 69-year-old male with past history of type 2 diabetes mellitus. Patient presented to the hospital on 11/07/2024 with altered mental status and coffee-ground emesis. Patient was diagnosed with DKA and acute hypoxic respiratory failure requiring mechanical ventilation. Hospital course has been complicated by circulatory shock which is attributed to gram-negative pneumonia and possible cholangitis. Patient has also developed GLYNN during this admission. Nephrology is following for acute kidney injury. - Acute kidney injury with normal baseline creatinine April 2024. GLYNN likely secondary to ATN in setting of circulatory shock. Serum creatinine was 3.25 mg/dL on presentation on 11/07/2024 and has been steadily worsening. Serum creatinine has increased to 7.25 mg/dL on 11/11/2024. Patient began renal placement therapy on 11/11 and again on 11/12 with 1.2L UF. Urine output only 170 mL yesterday. Per cumulative I&O patient is net +20 L. Attempting CRRT today for more volume removal. About 2.5 hours into CRRT temporary dialysis lines clotted. Dwelling cath flow now and hopefully will be able to begin CRRT back up. Will continue to monitor for renal recovery. - Acute metabolic acidosis. Serum bicarbonate level should improve with CRRT Assessment and plan reviewed with Dr. Naranjo.
[2024-11-14] MEDS: Furosemide 100 MG/10 ML Vial IV (17:34)
[2024-11-14] MEDS: PureFlow B 4K Dialysis Soln 1 BAG 6 BAG PF (17:35)
[2024-11-14 18:09] LABS: Bedside Glucose 83 mg/dL (74-106)
[2024-11-14 18:09] LABS: Bedside Glucose 112 mg/dL (74-106)
[2024-11-14] MEDS: Insulin Glargine-YFGN 100 UNIT/ML Pen 40 UNIT SC (23:01)
[2024-11-14 23:27] LABS: Bedside Glucose 147 mg/dL (74-106)
[2024-11-15] VITALS (70 sets, daily range): BP systolic 88–149; BP diastolic 52–82; PULSE 46–70; RESP 17–23; TEMP 36.6–37.6; O2SAT 89–96; BMI 29.4
[2024-11-15] MEDS: Vital AF 1.2 Cal Liquid 1,000 ML 65 ML GT ×2 (01:30→16:59)
[2024-11-15] MEDS: CHLORHEXIDINE GLUC 2% CLOTH 1 EACH TOWELETTE TOPICAL (01:31)
[2024-11-15] MEDS: Dexmedetomidine 1,000 mcg in 0.9% NS 240 mL 36.6 MCG CONT INF ×4 (02:52→23:50)
[2024-11-15] MEDS: fentaNYL drip 100 ML 20 MCG CONT INF ×4 (03:57→19:50)
[2024-11-15] MEDS: 0.9% Saline Lock 10 ML Syringe IV ×2 (05:18→12:59)
[2024-11-15] MEDS: Insulin Lispro 100 UNIT/ML INSULN.PEN SC ×4 (05:23→22:58)
[2024-11-15 05:33] LABS: Hematocrit 22.5 % (40-54); Hemoglobin 7.6 g/dL (13.0-16.5); Mean Corp Hgb Conc 33.8 g/dL (32-36); Mean Corpuscular Hgb 31.5 pg (27.0-32.0); Mean Corpuscular Volume 93.4 fL (80-94); Mean Platelet Vol. 11.6 fl (6.2-12.0); Platelet Count 237 K/mm3 (150-450); RBC Distribution Width CV 14.8 % (11.6-14.6); RBC Distribution Width SD 50.2 fl (35.1-43.9); Red Blood Count 2.41 M/mm3 (4.6-6.2); White Blood Count 12.5 K/mm3 (4.4-11.0)
[2024-11-15 05:45] LABS: Bedside Glucose 186 mg/dL (74-106)
[2024-11-15 05:53] LABS: Albumin, Serum 2.2 g/dL (3.4-4.8); Anion Gap 15 (5-15); BUN 62 mg/dL (4-19); Calcium,Total 6.9 mg/dL (7.6-11.0); Chloride 109 mmol/L (98-108); EST Glomerular Filtration Rate 7 (>60); Estimated Creatinine Clearance 11.44 ml/min (50-250); Glucose 194 mg/dL (70-99); Magnesium 1.9 mg/dL (1.5-2.2); Phosphorus 4.3 mg/dL (2.7-4.5); Potassium 3.5 mmol/L (3.3-5.1); Sodium Level 141 mmol/L (133-145)
[2024-11-15 06:07] LABS: BUN/Creat Ratio 8.2 RATIO (10-20); Creatinine, Serum 7.62 mg/dL (0.70-1.20)
--- NOTE | 2024-11-15 07:19 | PN.CC_ITS ---
Assessment & Plan Assessment/Plan (1) Acute metabolic encephalopathy: (2) Sepsis: QUALIFIERS: Sepsis type: sepsis due to unspecified organism S epsis acute organ dysfunction status: with acute organ dysfunction Severe sepsis acute organ dysfunction type: encephalopathy Severe sepsis shock status: with septic shock Qualified Code(s): A41.9 - Sepsis, unspecified organism; R65.21 - Severe sepsis with septic shock; G93.41 - Metabolic encephalopathy (3) Diabetic ketoacidosis: QUALIFIERS: Diabetes mellitus type: type 2 Diabetes mellitus complication detail: with coma Qualified Code(s): E11.11 - Type 2 diabetes mellitus with ketoacidosis with coma PLAN: Plan RECOMMENDATIONS: 1. Continue assist-control mode mechanical ventilation. Wean FiO2 and PEEP as tolerated. 2. Resume CRRT today. 3. Place PICC line given lack of IV access (okay from nephrology perspective) 4. Continue basal and sliding scale insulin coverage. 5. Continue current sedation regimen. 6. Continue tube feeding for nutritional support. 7. Plan to initiate spontaneous awakening and breathing trials beginning tomorrow. IMPRESSIONS: 1. Acute hypoxemic respiratory failure The patient was ultimately intubated in the emergency department over concerns for airway protection. In addition, the patient was subsequently treated for polymicrobial pneumonia. His acid-base status has improved with invasive mechanical ventilatory support and medical therapy for his DKA. The patient will be continued on assist-control mode of mechanical ventilation, with a goal to wean FiO2 and PEEP as tolerated to maintain saturations at or above 90%. Recommend optimizing his volume status prior to proceeding with a trial of extubation. CRRT is to be resumed today. 2. Multifactorial shock Initially due to a combination of hypovolemia and septic etiologies. Clinical concern for underlying gram-negative pneumonia. In addition, the patient did have evidence of a mildly distended gallbladder with evidence of intraluminal air and pneumobilia, for which the patient is status post ERCP with sphincterectomy and balloon extraction along with stent placement in the common bile duct, due to choledocholithiasis. The patient has since completed a full antibiotic treatment course. He remains hemodynamically stable at the present time, without the ongoing need for vasopressor support. 3. Toxic/metabolic encephalopathy Resolved. Most likely secondary to presenting DKA with significant metabolic derangements and multifactorial shock. Continue supportive care as noted above. 4. Diabetic ketoacidosis Resolved. Continue basal and sliding scale insulin coverage, with additional titration based upon blood sugars. 5. Acute versus chronic kidney disease Unclear baseline renal function. Clinical concern for evolution to ischemic ATN in the setting of #2. Plan for initiation of CRRT today. Nephrology is following to assist with medical management. 6. Anemia Unclear chronicity. Blood counts remain stable. Continue PPI therapy. Plan to transfuse if hemoglobin drops below 7 g/dL. TIME: 33 minutes of critical care time, independent of procedures, was spent addressing the patient's acute hypoxemic respiratory failure, multifactorial shock, toxic/metabolic encephalopathy, diabetic ketoacidosis, acute kidney injury, anemia, review of all data and collaboration with the care team. Subjective Subjective The patient was seen and examined at the bedside this morning. Events from the last 24 hours have been reviewed. The patient currently has a low-grade fever but remains otherwise hemodynamically stable on assist-control mode mechanical ventilation with an FiO2 requirement of 35% and PEEP of 5. The patient remains overall net positive from a volume perspective for the hospitalization. Unfortunately, the patient's hemodialysis catheter became nonfunctional yesterday afternoon and CRRT was subsequently terminated. This morning, the patient's right IJ triple-lumen catheter was removed and a new temporary HD catheter was inserted in its place. White blood cell count was noted to be 12,000. Hemoglobin is down to 7.6 g/dL. Objective Data Objective Data The patient's most recent lab work, culture data and imaging studies have all been personally reviewed. Sputum culture is demonstrating growth of E. coli and Streptococcus pneumonia. Vital Signs: Vital Signs Temp Pulse Resp BP Pulse Ox O2 Del Method O2 Flow Rate 99.5 F H 62 18 114/59 L 90 Mechanical Ventilator 4 11/15/24 06:00 11/15/24 07:00 11/15/24 07:00 11/15/24 07:00 11/15/24 07:00 11/15/24 07:00 11/11/24 16:44 FiO2 35 11/15/24 07:00 Oxygen Flow Rate (L/min) 4 Oxygen Delivery Method Mechanical Ventilator Weight: 217 lb 2.485 oz Body Mass Index (BMI) 29.4 Intake & Output: Intake and Output for Last 24 Hours 11/13/24 11/14/24 11/15/24 23:59 23:59 23:59 Intake Total 2709.90 / 2766.00 2850.88 / 2907.48 1495.38 / 1495.38 Output Total 170 / 170 415 / 415 150 / 150 Balance 2539.90 / 2596.00 2435.88 / 2492.48 1345.38 / 1345.38 Lab / Micro Data Attestation: I reviewed the patient's lab results. 11/15/24 05:20 11/15/24 05:20 Labs: Laboratory Results - last 24 hr 11/14/24 09:10: WBC 12.4 H, RBC 2.64 L, Hgb 8.2 L, Hct 24.1 L, MCV 91.3, MCH 31.1, MCHC 34.0, RDW Std Deviation 49.5 H, RDW Coeff of Eliseo 14.7 H, Plt Count 207, MPV 11.8, APTT 36.5 H, Sodium 147 H, Potassium 3.6, Chloride 115 H, Carbon Dioxide 18.3 L, Anion Gap 14, BUN 62 H, Creatinine 7.19 H, Estim Creat Clear Calc 12.08 L, Est GFR (MDRD) Non-Af 8 L, BUN/Creatinine Ratio 8.6 L, Glucose 122 H, Calcium 6.8 L, Phosphorus 3.7, Magnesium 1.9, Albumin 2.4 L 11/14/24 12:31: POC Glucose 83 11/14/24 17:46: POC Glucose 112 H 11/14/24 23:00: POC Glucose 147 H 11/15/24 05:20: WBC 12.5 H, RBC 2.41 L, Hgb 7.6 L, Hct 22.5 L, MCV 93.4, MCH 31.5, MCHC 33.8, RDW Std Deviation 50.2 H, RDW Coeff of Eliseo 14.8 H, Plt Count 237, MPV 11.6, Sodium 141, Potassium 3.5, Chloride 109 H, Carbon Dioxide 18.0 L, Anion Gap 15, BUN 62 H, Creatinine 7.62 H*, Estim Creat Clear Calc 11.44 L, Est GFR (MDRD) Non-Af 7 L, BUN/Creatinine Ratio 8.2 L, Glucose 194 H, Calcium 6.9 L, Phosphorus 4.3, Magnesium 1.9, Albumin 2.2 L 11/15/24 05:22: POC Glucose 186 H Micro: Microbiology 11/07/24 23:25 Blood Culture (Wb) - Anticubital Left Blood Culture - Final No growth in 5 days. 11/07/24 23:00 Blood Culture (Wb) - Other Blood Culture - Final No growth in 5 days. 11/07/24 20:08 Sputum, Tracheal Aspirate Gram Stain - Final 11/07/24 20:08 Sputum, Tracheal Aspirate Respiratory Culture - Final Escherichia coli Streptococcus pneumoniae Streptococcus agalactiae (B) ABG Data ABG results: ABG 11/10/24 06:56 Specimen Type ART Sample Site R Radial pH 7.42 Bicarbonate Actual 17.2 L Total CO2 18 Base Excess -7 L O2 Saturation 94 L O2 % 25.0 ABG pCO2 26.3 L ABG pO2 69 L Srini Test Positive Respiration Rate 18 O2 Delivery Device Adult Vent Vent Mode AC Tidal Volume 500.0 POC PEEP 5 Radiography Diagnostic Testing: Radiology Impression Chest X-Ray 11/14/24 05:00 IMPRESSION: 1. Endotracheal tube is in good position. 2. Enteric feeding tube is in good position with its tip extending below the level of the left hemidiaphragm. 3. Unchanged bilateral basilar atelectatic pulmonary changes. 4. Right internal jugular central catheter remains in good position. Reading Location: [place] [address] Physical Exam Const Constitutional Narrative: Intubated, sedated and mechanically ventilated. No ventilator dyssynchrony. General Appearance: patient mechanically ventilated HEENT normocephalic and head/scalp atraumatic Mouth: endotracheal tube in place and OG tube in place Eyes EOMs intact bilaterally and conjunctivae normal Neck supple General: trachea midline and CVC in place Resp normal respiratory effort Auscultation: diminished lung sounds; Negative for rales, rhonchi or wheezes Cardio regular rate and regular rhythm GI normal to inspection, nondistended, normoactive bowel sounds Extremity General Extremity: edema; Negative for clubbing Skin no rashes or lesions noted Neuro Neuro Narrative: Alert and able to follow simple commands. Sensorium / Orientation: sedated on vent Charges/Coding Procedures Hospitalists Procedures: [id number] Critical Care 1st Hr
[2024-11-15] MEDS: Heparin 10,000 UNITS/10 ML Vial IV (08:26)
--- NOTE | 2024-11-15 08:26 | PCM.OP.PRO2 ---
Procedures Hospitalists Procedures: [id number] Insert Non-tunnel CV Cath Non-invasive Procedural Procedure Information Date of Procedure: 11/15/24 Description of procedure: Temporary Hemodialysis Catheter Indication: Dialysis with malfunctioning temporary HD catheter Consent was obtained from: Family A time-out was completed verifying correct patient, procedure, site, positioning, and special equipment if applicable. The patient was placed in a dependent position appropriate for hemodialysis line placement based on the vein to be cannulated. The patient's right neck was prepped and draped in the sterile fashion. 1% Lidocaine was used and emphasized the surrounding skin area. A guidewire was subsequently placed through the patient's pre-existing triple-lumen catheter. Following this, a 16 cm catheter was introduced into the right internal jugular vein, following sequential dilations, using the Seldinger technique and under ultrasound guidance. The catheter was threaded smoothly over the guidewire and appropriate blood return was obtained. Each lumen of the catheter was evacuated of air and flushed with sterile saline. The catheter was then sutured in place to the skin and a sterile dressing applied. Chest x-ray to confirm appropriate positioning is pending.
--- NOTE | 2024-11-15 08:35 | RAD_ITS ---
EXAM: Chest radiograph. CLINICAL HISTORY: Line placement. COMPARISON: 11/14/2024. TECHNIQUE: Single-view. FINDINGS: Right internal jugular central catheter is in good position. Endotracheal tube is in good position. Enteric feeding tube is in good position with its tip extending below the level of the left hemidiaphragm. Increased bilateral basilar atelectatic pulmonary changes. Unchanged retrocardiac hiatal hernia. Unchanged cardiomegaly. RAD/CXR for Line Placement IMPRESSION: 1. Right internal jugular central catheter is in good position. 2. Endotracheal tube is in good position. 3. Enteric feeding tube is in good position with its tip extending below the [place] of the left hemidiaphragm. 4. Increased bilateral basilar atelectatic pulmonary changes. [facility]
[2024-11-15] MEDS: PUREFLOW B SOLUTION 4K 5,000 ML BAG 9 BAG PF ×2 (09:50→17:13)
--- NOTE | 2024-11-15 09:55 | PN.HOSP_ITS ---
Reason for Visit Reason for Visit: Diagnoses Sepsis, unspecified organism (11/07/24) Elevated white blood cell count, unspecified (11/07/24) Type 2 diabetes mellitus with ketoacidosis with coma (11/07/24) Hyperkalemia (11/07/24) Metabolic encephalopathy (11/07/24) Hypotension, unspecified (11/07/24) Gastrointestinal hemorrhage, unspecified (11/07/24) Acute kidney failure, unspecified (11/07/24) Severe sepsis with septic shock (11/07/24) Subjective Subjective Patient was seen and examined today, he responds appropriately to simple questions, he remains on the ventilator at this time and is going to have continuous dialysis restarted today. Hemoglobin today was 7.6, creatinine was 7.62 today. Objective Data Objective Data Vital Signs: Vital Signs Temp Pulse Resp BP Pulse Ox O2 Del Method O2 Flow Rate 99.6 F H 70 18 103/54 L 93 Mechanical Ventilator 4 11/15/24 07:00 11/15/24 08:00 11/15/24 08:00 11/15/24 08:00 11/15/24 08:00 11/15/24 08:00 11/11/24 16:44 FiO2 35 11/15/24 07:00 Oxygen Flow Rate (L/min) 4 Oxygen Delivery Method Mechanical Ventilator Weight: 98.5 kg Body Mass Index (BMI) 29.4 Intake & Output: Intake and Output for Last 24 Hours 11/13/24 11/14/24 11/15/24 23:59 23:59 23:59 Intake Total 2709.90 / 2766.00 2850.88 / 2907.48 1662.58 / 1662.58 Output Total 170 / 170 415 / 415 190 / 190 Balance 2539.90 / 2596.00 2435.88 / 2492.48 1472.58 / 1472.58 Lab / Micro Data 11/15/24 05:20 11/15/24 05:20 Labs: Laboratory Results - last 24 hr 11/14/24 09:10: Sodium 147 H, Potassium 3.6, Chloride 115 H, Carbon Dioxide 18.3 L, Anion Gap 14, BUN 62 H, Creatinine 7.19 H, Estim Creat Clear Calc 12.08 L, E st GFR (MDRD) Non-Af 8 L, BUN/Creatinine Ratio 8.6 L, Glucose 122 H, Calcium 6.8 L, Phosphorus 3.7, Magnesium 1.9, Albumin 2.4 L 11/14/24 12:31: POC Glucose 83 11/14/24 17:46: POC Glucose 112 H 11/14/24 23:00: POC Glucose 147 H 11/15/24 05:20: WBC 12.5 H, RBC 2.41 L, Hgb 7.6 L, Hct 22.5 L, MCV 93.4, MCH 31.5, MCHC 33.8, RDW Std Deviation 50.2 H, RDW Coeff of Eliseo 14.8 H, Plt Count 237, MPV 11.6, Sodium 141, Potassium 3.5, Chloride 109 H, Carbon Dioxide 18.0 L, Anion Gap 15, BUN 62 H, Creatinine 7.62 H*, Estim Creat Clear Calc 11.44 L, Est GFR (MDRD) Non-Af 7 L, BUN/Creatinine Ratio 8.2 L, Glucose 194 H, Calcium 6.9 L, Phosphorus 4.3, Magnesium 1.9, Albumin 2.2 L 11/15/24 05:22: POC Glucose 186 H Micro: Microbiology 11/07/24 23:25 Blood Culture (Wb) - Anticubital Left Blood Culture - Final No growth in 5 days. 11/07/24 23:00 Blood Culture (Wb) - Other Blood Culture - Final No growth in 5 days. 11/07/24 20:08 Sputum, Tracheal Aspirate Gram Stain - Final 11/07/24 20:08 Sputum, Tracheal Aspirate Respiratory Culture - Final Escherichia coli Streptococcus pneumoniae Streptococcus agalactiae (B) Radiography Diagnostic Testing: Radiology Impression Chest X-Ray 11/15/24 08:35 IMPRESSION: 1. Right internal jugular central catheter is in good position. 2. Endotracheal tube is in good position. 3. Enteric feeding tube is in good position with its tip extending below the level of the left hemidiaphragm. 4. Increased bilateral basilar atelectatic pulmonary changes. Reading Location: [place] [address] Physical Exam Const alert and no apparent distress Constitutional Narrative: Patient is currently on the ventilator General Appearance: cooperative, well kempt and well developed Orientation / Consciousness: awake HEENT normocephalic, head/scalp atraumatic and moist oral mucous membranes Eyes PERRL, EOMs intact bilaterally and conjunctivae normal Neck supple, no JVD, thyroid normal and no carotid bruits General: trachea midline Resp normal respiratory effort, no retractions and clear to auscultation bilaterally Auscultation: Negative for rales, rhonchi or wheezes Cardio regular rate, regular rhythm, S1 normal heart sound, S2 normal heart sound, no murmurs, no rub and no gallops GI normal to inspection, nondistended, normoactive bowel sounds, soft to palpation, non-tender and non-distended Extremity Extremity Narrative: There is generalized edema noted in the lower extremities and in the arms Skin no rashes or lesions noted General Skin Exam: no breakdown Neuro CN's II-XII intact bilaterally and moves all extremities Neuro Narrative: Patient is currently on the ventilator Sensorium / Orientation: awake and alert Speech: speech normal Psych Psych Narrative: Patient is currently on the ventilator, he nods his head appropriately to questions and follows commands Assessment & Plan Assessment/Plan (1) GLYNN (acute kidney injury): (2) Acute metabolic encephalopathy: PLAN: Plan 1. Septic shock secondary to ascending cholangitis-continue present treatment, patient is currently off pressor agents, patient is having continuous dialysis performed today, current antibiotics will continue #2 acute hypoxic respiratory failure-patient remains on ventilator at this time #3 metabolic encephalopathy-patient is alert, he responds appropriately to questions and commands #4 diabetic ketoacidosis-resolved at this time #5 acute kidney injury-nephrology is participating in his care, he will be receiving continuous dialysis today #6 acute anemia-etiology unclear at this point, labs will be monitored, patient does not require a transfusion at this time Total clinical time spent by myself addressing the patient's medical issues, reviewing all of his data, and collaborating with patient's care team: 35 minutes Charges/Coding Visit Charges Inpatient E&M: 47540 Subs Hosp L2
[2024-11-15] MEDS: Chlorhexidine 15 ML PO ×2 (09:57→21:19)
[2024-11-15] MEDS: Acetaminophen 650 MG/20 ML UDC GT (10:03)
--- NOTE | 2024-11-15 11:38 | PCM.PN.REN ---
Subjective Subjective intubated, opens eyes. Objective Data Objective Data Vital Signs: Vital Signs Temp Pulse Resp BP Pulse Ox O2 Del Method O2 Flow Rate 99.0 F 58 L 22 H 149/72 H 90 Mechanical Ventilator 4 11/15/24 11:00 11/15/24 11:19 11/15/24 11:00 11/15/24 11:00 11/15/24 11:00 11/15/24 11:00 11/11/24 16:44 FiO2 40 11/15/24 11:00 Oxygen Flow Rate (L/min) 4 Oxygen Delivery Method Mechanical Ventilator Weight: 98.5 kg Body Mass Index (BMI) 29.4 Intake & Output: Intake and Output for Last 24 Hours 11/13/24 11/14/24 11/15/24 23:59 23:59 23:59 Intake Total 2709.90 / 2766.00 2850.88 / 2907.48 2389.95 / 2389.95 Output Total 170 / 170 415 / 415 230 / 230 Balance 2539.90 / 2596.00 2435.88 / 2492.48 2159.95 / 2159.95 Lab / Micro Data 11/15/24 05:20 11/15/24 05:20 Labs: Laboratory Results - last 24 hr 11/14/24 12:31: POC Glucose 83 11/14/24 17:46: POC Glucose 112 H 11/14/24 23:00: POC Glucose 147 H 11/15/24 05:20: WBC 12.5 H, RBC 2.41 L, Hgb 7.6 L, Hct 22.5 L, MCV 93.4, MCH 31.5, MCHC 33.8, RDW Std Deviation 50.2 H, RDW Coeff of Eliseo 14.8 H, Plt Count 237, MPV 11.6, Sodium 141, Potassium 3.5, Chloride 109 H, Carbon Dioxide 18.0 L, Anion Gap 15, BUN 62 H, Creatinine 7.62 H*, Estim Creat Clear Calc 11.44 L, Est GFR (MDRD) Non-Af 7 L, BUN/Creatinine Ratio 8.2 L, Glucose 194 H, Calcium 6.9 L, Phosphorus 4.3, Magnesium 1.9, Albumin 2.2 L 11/15/24 05:22: POC Glucose 186 H Micro: Microbiology 11/07/24 23:25 Blood Culture (Wb) - Anticubital Left Blood Culture - Final No growth in 5 days. 11/07/24 23:00 Blood Culture (Wb) - Other Blood Culture - Final No growth in 5 days. 11/07/24 20:08 Sputum, Tracheal Aspirate Gram Stain - Final 11/07/24 20:08 Sputum, Tracheal Aspirate Respiratory Culture - Final Escherichia coli Streptococcus pneumoniae Streptococcus agalactiae (B) Radiography Diagnostic Testing: Radiology Impression Chest X-Ray 11/15/24 08:35 IMPRESSION: 1. Right internal jugular central catheter is in good position. 2. Endotracheal tube is in good position. 3. Enteric feeding tube is in good position with its tip extending below the level of the left hemidiaphragm. 4. Increased bilateral basilar atelectatic pulmonary changes. Reading Location: [place] [address] Physical Exam Narrative Intubated no obvious distress s1s2 no murmurs Diminished breath sounds abdomen soft Pitting edema bilateral lower leg chester + with scant amount yellow urine in tubing Assessment & Plan Assessment/Plan (1) GLYNN (acute kidney injury): PLAN: Assessment/Plan: The patient is a 69-year-old male with past history of type 2 diabetes mellitus. Patient presented to the hospital on 11/07/2024 with altered mental status and coffee-ground emesis. Patient was diagnosed with DKA and acute hypoxic respiratory failure requiring mechanical ventilation. Hospital course has been complicated by circulatory shock which is attributed to gram-negative pneumonia and possible cholangitis. Patient has also developed GLYNN during this admission. Nephrology is following for acute kidney injury. - Acute kidney injury with normal baseline creatinine April 2024. GLYNN likely secondary to ATN in setting of circulatory shock. Serum creatinine was 3.25 mg/dL on presentation on 11/07/2024. Serum creatinine has increased to 7.25 mg/dL on 11/11/2024. Patient began renal placement therapy on 11/11 and again on 11/12 with 1.2L UF. massive volume overload will need fluid removal CRRT initiated today. start with -100ml/hr removal. will go up to 150 cc.hr if Bp remains stable check a renal panel this evening dw ICU staff
[2024-11-15] MEDS: Insulin Glargine-YFGN 100 UNIT/ML Pen 40 UNIT SC ×2 (12:14→22:58)
[2024-11-15 12:36] LABS: Bedside Glucose 176 mg/dL (74-106)
[2024-11-15] MEDS: LEVOTHYROXINE SODIUM 100 MCG VIAL 200 MCG IV (12:52)
[2024-11-15] MEDS: 0.9% Normal Saline (100mL Bag) 100 ML 15 ML IV (12:52)
[2024-11-15] MEDS: Pantoprazole Sodium 40 MG in 0.9% Normal Saline (100mL MB+) 100 ML 330 MG IV ×2 (13:00→21:17)
[2024-11-15 17:41] LABS: Bedside Glucose 178 mg/dL (74-106)
[2024-11-15 18:12] LABS: Albumin, Serum 2.3 g/dL (3.4-4.8); Anion Gap 12 (5-15); BUN 45 mg/dL (4-19); BUN/Creat Ratio 8.3 RATIO (10-20); Calcium,Total 7.5 mg/dL (7.6-11.0); Carbon Dioxide 19.9 mmol/L (21.0-32.0); Chloride 109 mmol/L (98-108); Creatinine, Serum 5.46 mg/dL (0.70-1.20); EST Glomerular Filtration Rate 11 (>60); Estimated Creatinine Clearance 15.96 ml/min (50-250); Glucose 190 mg/dL (70-99); Phosphorus 3.2 mg/dL (2.7-4.5); Potassium 3.8 mmol/L (3.3-5.1); Sodium Level 141 mmol/L (133-145)
[2024-11-16] VITALS (75 sets, daily range): BP systolic 81–149; BP diastolic 54–92; PULSE 49–67; RESP 10–22; TEMP 36.2–37.8; O2SAT 91–97; BMI 29.5
[2024-11-16 00:25] LABS: Bedside Glucose 184 mg/dL (74-106)
[2024-11-16] MEDS: fentaNYL drip 100 ML 20 MCG CONT INF ×2 (00:51→05:51)
[2024-11-16] MEDS: 0.9% Saline Lock 10 ML Syringe 20 ML IV ×2 (02:35→02:36)
[2024-11-16] MEDS: Heparin 10,000 UNITS/10 ML Vial IV ×2 (02:37→18:10)
[2024-11-16] MEDS: CHLORHEXIDINE GLUC 2% CLOTH 1 EACH TOWELETTE TOPICAL (05:17)
[2024-11-16] MEDS: 0.9% Saline Lock 10 ML Syringe IV ×3 (05:18→20:36)
[2024-11-16] MEDS: Insulin Lispro 100 UNIT/ML INSULN.PEN SC ×4 (05:23→23:40)
[2024-11-16 05:43] LABS: Bedside Glucose 188 mg/dL (74-106)
[2024-11-16] MEDS: Dexmedetomidine 1,000 mcg in 0.9% NS 240 mL 36.6 MCG CONT INF ×3 (06:40→20:33)
[2024-11-16] MEDS: PUREFLOW B SOLUTION 4K 5,000 ML BAG 9 BAG PF ×4 (06:41→18:32)
[2024-11-16 07:20] LABS: Absolute Lymphocyte Count 1.24 X10^3/uL (0.83-4.51); Absolute Neutrophil Count 11.1 X10^3/uL (2.0-7.7); Basophil# 0.06 X10^3/uL; Basophil% 0.4 % (0-1); Eosinophil# 0.23 X10^3/uL; Eosinophils% 1.6 % (0-5); Hematocrit 24.8 % (40-54); Hemoglobin 8.2 g/dL (13.0-16.5); Lymphocyte # 1.24 X10^3/ul (0.83-4.51); Lymphocyte % 8.9 % (19-41); Mean Corp Hgb Conc 33.1 g/dL (32-36); Mean Corpuscular Hgb 30.8 pg (27.0-32.0); Mean Corpuscular Volume 93.2 fL (80-94); Mean Platelet Vol. 11.2 fl (6.2-12.0); Monocyte# 1.25 X10^3/uL; Monocyte% 8.9 % (0-10); NRBC Flagged by Analyzer 0 % (0-5); Neutrophil # 11.08 X10^3/uL (2.7-7.7); Neutrophil % 79.2 % (47-70); Platelet Count 309 K/mm3 (150-450); RBC Distribution Width CV 14.6 % (11.6-14.6); RBC Distribution Width SD 49.6 fl (35.1-43.9); Red Blood Count 2.66 M/mm3 (4.6-6.2)
--- NOTE | 2024-11-16 07:26 | PN.CC_ITS ---
Assessment & Plan Assessment/Plan (1) Acute metabolic encephalopathy: (2) Sepsis: QUALIFIERS: Sepsis type: sepsis due to unspecified organism S epsis acute organ dysfunction status: with acute organ dysfunction Severe sepsis acute organ dysfunction type: encephalopathy Severe sepsis shock status: with septic shock Qualified Code(s): A41.9 - Sepsis, unspecified organism; R65.21 - Severe sepsis with septic shock; G93.41 - Metabolic encephalopathy (3) Diabetic ketoacidosis: QUALIFIERS: Diabetes mellitus type: type 2 Diabetes mellitus complication detail: with coma Qualified Code(s): E11.11 - Type 2 diabetes mellitus with ketoacidosis with coma PLAN: Plan RECOMMENDATIONS: 1. Continue patient on pressure support throughout the day with transition back to assist-control for overnight support. 2. Recommend one additional day of CRRT with volume removal prior to consideration for extubation tomorrow. 3. Continue CRRT as tolerated. 4. Continue basal and sliding scale insulin coverage. 5. Continue current sedation regimen. 6. Continue tube feeding for nutritional support. 7. Tentative plans for potential extubation tomorrow. IMPRESSIONS: 1. Acute hypoxemic respiratory failure The patient was ultimately intubated in the emergency department over concerns for airway protection. In addition, the patient was subsequently treated for polymicrobial pneumonia. His acid-base status has improved with invasive mechanical ventilatory support and medical therapy for his DKA. The patient will be continued on assist-control mode of mechanical ventilation, with a goal to wean FiO2 and PEEP as tolerated to maintain saturations at or above 90%. Recommend optimizing his volume status prior to proceeding with a trial of extubation. CRRT is to be continued today. 2. Multifactorial shock Initially due to a combination of hypovolemia and septic etiologies. Clinical concern for underlying gram-negative pneumonia. In addition, the patient did have evidence of a mildly distended gallbladder with evidence of intraluminal air and pneumobilia, for which the patient is status post ERCP with sphincterectomy and balloon extraction along with stent placement in the common bile duct, due to choledocholithiasis. The patient has since completed a full antibiotic treatment course. He remains hemodynamically stable at the present time, without the ongoing need for vasopressor support. 3. Toxic/metabolic encephalopathy Resolved. Most likely secondary to presenting DKA with significant metabolic derangements and multifactorial shock. Continue supportive care as noted above. 4. Diabetic ketoacidosis Resolved. Continue basal and sliding scale insulin coverage, with additional titration based upon blood sugars. 5. Acute versus chronic kidney disease Unclear baseline renal function. Clinical concern for evolution to ischemic ATN in the setting of #2. Plan for continuation of CRRT today. Nephrology is following to assist with medical management. 6. Anemia Unclear chronicity. Blood counts remain stable. Continue PPI therapy. Plan to transfuse if hemoglobin drops below 7 g/dL. TIME: 32 minutes of critical care time, independent of procedures, was spent addressing the patient's acute hypoxemic respiratory failure, multifactorial shock, toxic/metabolic encephalopathy, diabetic ketoacidosis, acute kidney injury, anemia, review of all data and collaboration with the care team. Subjective Subjective The patient was seen and examined at the bedside this morning. Events from the last 24 hours have been reviewed. The patient is currently afebrile, hemodynamically stable and maintaining appropriate oxygen saturations on assist- control mode mechanical ventilation with an FiO2 requirement of 30% and PEEP of 5. The patient has been tolerant of CRRT with volume removal. He is still documented to be overall net +20 L for the hospitalization. White blood cell count was noted to be 14,000 with a hemoglobin of 8.2 g/dL. The patient has been tolerant of tube feeding. Objective Data Objective Data The patient's most recent lab work, culture data and imaging studies have all been personally reviewed. Sputum culture is demonstrating growth of E. coli and Streptococcus pneumonia. Vital Signs: Vital Signs Temp Pulse Resp BP Pulse Ox O2 Del Method O2 Flow Rate 97.8 F 53 L 18 107/63 94 Mechanical Ventilator 40 11/16/24 07:00 11/16/24 06:56 11/16/24 07:00 11/16/24 07:00 11/16/24 07:00 11/16/24 07:00 11/15/24 15:00 FiO2 30 11/16/24 07:00 Oxygen Flow Rate (L/min) 40 Oxygen Delivery Method Mechanical Ventilator Weight: 217 lb 13.067 oz Body Mass Index (BMI) 29.5 Intake & Output: Intake and Output for Last 24 Hours 11/14/24 11/15/24 11/16/24 23:59 23:59 23:59 Intake Total 2850.88 / 2907.48 3790.43 / 3816.53 1356.79 / 1356.79 Output Total 415 / 415 3704 / 3867 1695 / 1695 Balance 2435.88 / 2492.48 86.43 / -50.47 -338.21 / -338.21 Lab / Micro Data Attestation: I reviewed the patient's lab results. 11/16/24 07:10 11/16/24 07:10 Labs: Laboratory Results - last 24 hr 11/15/24 12:13: POC Glucose 176 H 11/15/24 17:20: Sodium 141, Potassium 3.8, Chloride 109 H, Carbon Dioxide 19.9 L , Anion Gap 12, BUN 45 H, Creatinine 5.46 H, Estim Creat Clear Calc 15.96 L, Est GFR (MDRD) Non-Af 11 L, BUN/Creatinine Ratio 8.3 L, Glucose 190 H, Calcium 7.5 L , Phosphorus 3.2, Albumin 2.3 L 11/15/24 17:23: POC Glucose 178 H 11/15/24 22:57: POC Glucose 184 H 11/16/24 05:22: POC Glucose 188 H 11/16/24 07:10: WBC 14.0 H, RBC 2.66 L, Hgb 8.2 L, Hct 24.8 L, MCV 93.2, MCH 30.8, MCHC 33.1, RDW Std Deviation 49.6 H, RDW Coeff of Eliseo 14.6, Plt Count 309, MPV 11.2, Immature Gran % (Auto) 1.000 H, Neut % (Auto) 79.2 H, Lymph % (Auto) 8.9 L, [place] % (Auto) 8.9, Eos % (Auto) 1.6, Baso % (Auto) 0.4, Absolute Neuts (auto) 11.1 H, Absolute Lymphs (auto) 1.24, Nucleated RBC % 0 Micro: Microbiology 11/07/24 23:25 Blood Culture (Wb) - Anticubital Left Blood Culture - Final No growth in 5 days. 11/07/24 23:00 Blood Culture (Wb) - Other Blood Culture - Final No growth in 5 days. 11/07/24 20:08 Sputum, Tracheal Aspirate Gram Stain - Final 11/07/24 20:08 Sputum, Tracheal Aspirate Respiratory Culture - Final Escherichia coli Streptococcus pneumoniae Streptococcus agalactiae (B) ABG Data ABG results: ABG 11/10/24 06:56 Specimen Type ART Sample Site R Radial pH 7.42 Bicarbonate Actual 17.2 L Total CO2 18 Base Excess -7 L O2 Saturation 94 L O2 % 25.0 ABG pCO2 26.3 L ABG pO2 69 L Srini Test Positive Respiration Rate 18 O2 Delivery Device Adult Vent Vent Mode AC Tidal Volume 500.0 POC PEEP 5 Radiography Diagnostic Testing: Radiology Impression Chest X-Ray 11/15/24 08:35 IMPRESSION: 1. Right internal jugular central catheter is in good position. 2. Endotracheal tube is in good position. 3. Enteric feeding tube is in good position with its tip extending below the level of the left hemidiaphragm. 4. Increased bilateral basilar atelectatic pulmonary changes. Reading Location: [place] [id number] Physical Exam Const Constitutional Narrative: Intubated, sedated and mechanically ventilated. No ventilator dyssynchrony. General Appearance: patient mechanically ventilated HEENT normocephalic and head/scalp atraumatic Mouth: endotracheal tube in place and OG tube in place Eyes EOMs intact bilaterally and conjunctivae normal Neck supple General: trachea midline and CVC in place Resp normal respiratory effort Auscultation: diminished lung sounds; Negative for rales, rhonchi or wheezes Cardio regular rate and regular rhythm GI normal to inspection, nondistended, normoactive bowel sounds Extremity General Extremity: edema; Negative for clubbing Skin no rashes or lesions noted Neuro Neuro Narrative: Alert and able to follow simple commands. Sensorium / Orientation: sedated on vent Charges/Coding Procedures Hospitalists Procedures: [id number] Critical Care 1st Hr
[2024-11-16 07:46] LABS: Albumin, Serum 2.3 g/dL (3.4-4.8); Anion Gap 11 (5-15); BUN 31 mg/dL (4-19); BUN/Creat Ratio 8.5 RATIO (10-20); Calcium,Total 7.9 mg/dL (7.6-11.0); Carbon Dioxide 21.6 mmol/L (21.0-32.0); Chloride 106 mmol/L (98-108); Creatinine, Serum 3.66 mg/dL (0.70-1.20); EST Glomerular Filtration Rate 17 (>60); Estimated Creatinine Clearance 23.85 ml/min (50-250); Glucose 204 mg/dL (70-99); Magnesium 1.8 mg/dL (1.5-2.2); Phosphorus 2.5 mg/dL (2.7-4.5); Potassium 3.9 mmol/L (3.3-5.1); Sodium Level 139 mmol/L (133-145)
[2024-11-16] MEDS: Pantoprazole Sodium 40 MG in 0.9% Normal Saline (100mL MB+) 100 ML 330 MG IV ×2 (09:35→20:33)
[2024-11-16] MEDS: Chlorhexidine 15 ML PO ×2 (09:36→20:41)
[2024-11-16] MEDS: Insulin Glargine-YFGN 100 UNIT/ML Pen 40 UNIT SC ×2 (10:17→23:40)
[2024-11-16] MEDS: Vital AF 1.2 Cal Liquid 1,000 ML 65 ML GT (10:17)
--- NOTE | 2024-11-16 11:25 | PN.RENAL_ITS ---
Subjective Subjective Awake, remains on ventilator support. Objective Data Objective Data Vital Signs: Vital Signs Temp Pulse Resp BP Pulse Ox O2 Del Method O2 Flow Rate 98.2 F 56 L 10 L 125/69 H 94 Mechanical Ventilator 40 11/16/24 11:00 11/16/24 11:00 11/16/24 11:00 11/16/24 11:00 11/16/24 11:00 11/16/24 11:00 11/15/24 15:00 FiO2 30 11/16/24 11:00 Oxygen Flow Rate (L/min) 40 Oxygen Delivery Method Mechanical Ventilator Weight: 98.8 kg Body Mass Index (BMI) 29.5 Intake & Output: Intake and Output for Last 24 Hours 11/14/24 11/15/24 11/16/24 23:59 23:59 23:59 Intake Total 2850.88 / 2907.48 3790.43 / 3816.53 1723.67 / 1723.67 Output Total 415 / 415 3704 / 3867 3291 / 3291 Balance 2435.88 / 2492.48 86.43 / -50.47 -1567.33 / -1567.33 Lab / Micro Data 11/16/24 07:10 11/16/24 07:10 Labs: Laboratory Results - last 24 hr 11/15/24 12:13: POC Glucose 176 H 11/15/24 17:20: Sodium 141, Potassium 3.8, Chloride 109 H, Carbon Dioxide 19.9 L , Anion Gap 12, BUN 45 H, Creatinine 5.46 H, Estim Creat Clear Calc 15.96 L, Est GFR (MDRD) Non-Af 11 L, BUN/Creatinine Ratio 8.3 L, Glucose 190 H, Calcium 7.5 L , Phosphorus 3.2, Albumin 2.3 L 11/15/24 17:23: POC Glucose 178 H 11/15/24 22:57: POC Glucose 184 H 11/16/24 05:22: POC Glucose 188 H 11/16/24 07:10: WBC 14.0 H, RBC 2.66 L, Hgb 8.2 L, Hct 24.8 L, MCV 93.2, MCH 30.8, MCHC 33.1, RDW Std Deviation 49.6 H, RDW Coeff of Eliseo 14.6, Plt Count 309, MPV 11.2, Immature Gran % (Auto) 1.000 H, Neut % (Auto) 79.2 H, Lymph % (Auto) 8.9 L, [place] % (Auto) 8.9, Eos % (Auto) 1.6, Baso % (Auto) 0.4, Absolute Neuts (auto) 11.1 H, Absolute Lymphs (auto) 1.24, Nucleated RBC % 0, Sodium 139, Potassium 3.9, Chloride 106, Carbon Dioxide 21.6, Anion Gap 11, BUN 31 H, C reatinine 3.66 H, Estim Creat Clear Calc 23.85 L, Est GFR (MDRD) Non-Af 17 L, B UN/Creatinine Ratio 8.5 L, Glucose 204 H, Calcium 7.9, Phosphorus 2.5 L, Magnesium 1.8, Albumin 2.3 L Micro: Microbiology 11/07/24 23:25 Blood Culture (Wb) - Anticubital Left Blood Culture - Final No growth in 5 days. 11/07/24 23:00 Blood Culture (Wb) - Other Blood Culture - Final No growth in 5 days. 11/07/24 20:08 Sputum, Tracheal Aspirate Gram Stain - Final 11/07/24 20:08 Sputum, Tracheal Aspirate Respiratory Culture - Final Escherichia coli Streptococcus pneumoniae Streptococcus agalactiae (B) Physical Exam Narrative awake, Intubated no obvious distress s1s2 no murmurs Diminished breath sounds abdomen soft Pitting edema bilateral lower legs chester + with scant amount yellow urine in tubing Assessment & Plan Assessment/Plan (1) GLYNN (acute kidney injury): PLAN: Assessment/Plan: The patient is a 69-year-old male with past history of type 2 diabetes mellitus. Patient presented to the hospital on 11/07/2024 with altered mental status and coffee-ground emesis. Patient was diagnosed with DKA and acute hypoxic respiratory failure requiring mechanical ventilation. Hospital course has been complicated by circulatory shock which is attributed to gram-negative pneumonia and possible cholangitis. Patient has also developed GLYNN during this admission. Nephrology is following for acute kidney injury. - Acute kidney injury with normal baseline creatinine April 2024. GLYNN likely secondary to ATN in setting of circulatory shock. Serum creatinine was 3.25 mg/dL on presentation on 11/07/2024. Serum creatinine increased to 7.25 mg/dL on 11/11/2024. Patient began iHD on 11/11 and again on 11/12 with 1.2L UF. massive volume overload CRRT initiated 11/14. Bps improved, currently not on any IV pressors and therefore able to remove more fluid with CRRT. He is net negative ~3L since start of CRRT. Since this morning patient is tolerating hourly net negative around 150ml to 300ml with CRRT, will continue as bp allows. Hourly urine output ~10-15ml. Labs ordered for later today, phos on low side and if remains low will need repleted. Assessment and plan reviewed with Dr. Grimes.
--- NOTE | 2024-11-16 12:15 | CPS ---
switched patient back to AC/VC mode on original settings per patients request so patient can nap.
[2024-11-16 12:16] LABS: Bedside Glucose 180 mg/dL (74-106)
[2024-11-16 14:38] LABS: Albumin, Serum 2.5 g/dL (3.4-4.8); Anion Gap 11 (5-15); BUN 26 mg/dL (4-19); BUN/Creat Ratio 8.5 RATIO (10-20); Calcium,Total 8.3 mg/dL (7.6-11.0); Carbon Dioxide 22.3 mmol/L (21.0-32.0); Chloride 103 mmol/L (98-108); Creatinine, Serum 3.08 mg/dL (0.70-1.20); EST Glomerular Filtration Rate 21 (>60); Estimated Creatinine Clearance 28.34 ml/min (50-250); Glucose 202 mg/dL (70-99); Magnesium 1.8 mg/dL (1.5-2.2); Phosphorus 2.3 mg/dL (2.7-4.5); Potassium 3.8 mmol/L (3.3-5.1); Sodium Level 136 mmol/L (133-145)
[2024-11-16] MEDS: Sodium Phosphate/Na Biphos 30 MMOL in 0.9% Normal Saline (250mL Bag) 250 ML 62.5 MMOL IV (15:31)
--- NOTE | 2024-11-16 17:05 | PN.HOSP_ITS ---
Reason for Visit Reason for Visit: Diagnoses Sepsis, unspecified organism (11/07/24) Elevated white blood cell count, unspecified (11/07/24) Type 2 diabetes mellitus with ketoacidosis with coma (11/07/24) Hyperkalemia (11/07/24) Metabolic encephalopathy (11/07/24) Hypotension, unspecified (11/07/24) Gastrointestinal hemorrhage, unspecified (11/07/24) Acute kidney failure, unspecified (11/07/24) Severe sepsis with septic shock (11/07/24) Subjective Subjective Patient was seen and examined today, he continues on continuous dialysis, he is alert and responds appropriately to simple questions Objective Data Objective Data Vital Signs: Vital Signs Temp Pulse Resp BP Pulse Ox O2 Del Method O2 Flow Rate 99.2 F H 62 11 L 123/85 H 97 Mechanical Ventilator 40 11/16/24 16:00 11/16/24 16:43 11/16/24 16:43 11/16/24 16:00 11/16/24 16:43 11/16/24 16:00 11/15/24 15:00 FiO2 30 11/16/24 12:12 Oxygen Flow Rate (L/min) 40 Oxygen Delivery Method Mechanical Ventilator Weight: 98.8 kg Body Mass Index (BMI) 29.5 Intake & Output: Intake and Output for Last 24 Hours 11/14/24 11/15/24 11/16/24 23:59 23:59 23:59 Intake Total 2850.88 / 2907.48 3790.43 / 3816.53 2346.39 / 2346.39 Output Total 415 / 415 3704 / 3867 5238 / 5238 Balance 2435.88 / 2492.48 86.43 / -50.47 -2891.61 / -2891.61 Lab / Micro Data 11/16/24 07:10 11/16/24 14:00 Labs: Laboratory Results - last 24 hr 11/15/24 17:20: Sodium 141, Potassium 3.8, Chloride 109 H, Carbon Dioxide 19.9 L , Anion Gap 12, BUN 45 H, Creatinine 5.46 H, Estim Creat Clear Calc 15.96 L, Est GFR (MDRD) Non-Af 11 L, BUN/Creatinine Ratio 8.3 L, Glucose 190 H, Calcium 7.5 L , Phosphorus 3.2, Albumin 2.3 L 11/15/24 17:23: POC Glucose 178 H 11/15/24 22:57: POC Glucose 184 H 11/16/24 05:22: POC Glucose 188 H 11/16/24 07:10: WBC 14.0 H, RBC 2.66 L, Hgb 8.2 L, Hct 24.8 L, MCV 93.2, MCH 30.8, MCHC 33.1, RDW Std Deviation 49.6 H, RDW Coeff of Eliseo 14.6, Plt Count 309, MPV 11.2, Immature Gran % (Auto) 1.000 H, Neut % (Auto) 79.2 H, Lymph % (Auto) 8.9 L, [place] % (Auto) 8.9, Eos % (Auto) 1.6, Baso % (Auto) 0.4, Absolute Neuts (auto) 11.1 H, Absolute Lymphs (auto) 1.24, Nucleated RBC % 0, Sodium 139, Potassium 3.9, Chloride 106, Carbon Dioxide 21.6, Anion Gap 11, BUN 31 H, C reatinine 3.66 H, Estim Creat Clear Calc 23.85 L, Est GFR (MDRD) Non-Af 17 L, B UN/Creatinine Ratio 8.5 L, Glucose 204 H, Calcium 7.9, Phosphorus 2.5 L, Magnesium 1.8, Albumin 2.3 L 11/16/24 11:54: POC Glucose 180 H 11/16/24 14:00: Sodium 136, Potassium 3.8, Chloride 103, Carbon Dioxide 22.3, Anion Gap 11, BUN 26 H, Creatinine 3.08 H, Estim Creat Clear Calc 28.34 L, Est GFR (MDRD) Non-Af 21 L, BUN/Creatinine Ratio 8.5 L, Glucose 202 H, Calcium 8.3, Phosphorus 2.3 L, Magnesium 1.8, Albumin 2.5 L Micro: Microbiology 11/07/24 23:25 Blood Culture (Wb) - Anticubital Left Blood Culture - Final No growth in 5 days. 11/07/24 23:00 Blood Culture (Wb) - Other Blood Culture - Final No growth in 5 days. 11/07/24 20:08 Sputum, Tracheal Aspirate Gram Stain - Final 11/07/24 20:08 Sputum, Tracheal Aspirate Respiratory Culture - Final Escherichia coli Streptococcus pneumoniae Streptococcus agalactiae (B) Physical Exam Narrative alert and no apparent distress Constitutional Narrative: Patient is currently on the ventilator General Appearance: cooperative, well kempt and well developed Orientation / Consciousness: awake HEENT normocephalic, head/scalp atraumatic and moist oral mucous membranes Eyes PERRL, EOMs intact bilaterally and conjunctivae normal Neck supple, no JVD, thyroid normal and no carotid bruits General: trachea midline Resp normal respiratory effort, no retractions and clear to auscultation bilaterally Auscultation: Negative for rales, rhonchi or wheezes Cardio regular rate, regular rhythm, S1 normal heart sound, S2 normal heart sound, no murmurs, no rub and no gallops GI normal to inspection, nondistended, normoactive bowel sounds, soft to palpation, non-tender and non-distended Extremity Extremity Narrative: There is generalized edema noted in the lower extremities and in the arms Skin no rashes or lesions noted General Skin Exam: no breakdown Neuro CN's II-XII intact bilaterally and moves all extremities Neuro Narrative: Patient is currently on the ventilator Sensorium / Orientation: awake and alert Speech: speech normal Psych Psych Narrative: Patient is currently on the ventilator, he nods his head appropriately to questions and follows commands Assessment & Plan Assessment/Plan (1) GLYNN (acute kidney injury): (2) Acute metabolic encephalopathy: PLAN: Plan 1. Septic shock secondary to ascending cholangitis-continue present treatment, patient is currently off pressor agents, patient is having continuous dialysis performed today, it appears patient has completed his course of antibiotics #2 acute hypoxic respiratory failure-patient remains on ventilator at this time #3 metabolic encephalopathy-patient is alert, he responds appropriately to questions and commands #4 diabetic ketoacidosis-resolved at this time #5 acute kidney injury-nephrology is participating in his care, he will be receiving continuous dialysis today #6 acute anemia-etiology unclear at this point, labs will be monitored, patient does not require a transfusion at this time Total clinical time spent by myself addressing the patient's medical issues, reviewing all of his data, and collaborating with patient's care team: 35 minutes Charges/Coding Visit Charges Inpatient E&M: 90710 Subs Hosp L2
[2024-11-16 17:14] LABS: Bedside Glucose 179 mg/dL (74-106)
[2024-11-16] MEDS: fentaNYL drip 100 ML 15 MCG CONT INF (19:00)
[2024-11-17] VITALS (32 sets, daily range): BP systolic 85–171; BP diastolic 57–97; PULSE 15–129; RESP 11–19; TEMP 37.1–37.7; O2SAT 90–98; BMI 27.8
[2024-11-17 00:09] LABS: Bedside Glucose 162 mg/dL (74-106)
[2024-11-17] MEDS: PUREFLOW B SOLUTION 4K 5,000 ML BAG 9 BAG PF ×3 (00:54→09:20)
[2024-11-17 00:55] LABS: Albumin, Serum 3.1 g/dL (3.4-4.8); Anion Gap 12 (5-15); BUN 23 mg/dL (4-19); Calcium,Total 7.9 mg/dL (7.6-11.0); Carbon Dioxide 22.3 mmol/L (21.0-32.0); Chloride 105 mmol/L (98-108); EST Glomerular Filtration Rate 24 (>60); Estimated Creatinine Clearance 31.17 ml/min (50-250); Glucose 225 mg/dL (70-99); Magnesium 1.8 mg/dL (1.5-2.2); Phosphorus 3.6 mg/dL (2.7-4.5); Sodium Level 139 mmol/L (133-145)
[2024-11-17] MEDS: 0.9% Saline Lock 10 ML Syringe IV ×5 (00:59→23:25)
[2024-11-17 01:09] LABS: BUN/Creat Ratio 8.3 RATIO (10-20)
[2024-11-17] MEDS: Vital AF 1.2 Cal Liquid 1,000 ML 65 ML GT (01:54)
[2024-11-17] MEDS: fentaNYL drip 100 ML 10 MCG CONT INF (04:00)
[2024-11-17] MEDS: Dexmedetomidine 1,000 mcg in 0.9% NS 240 mL 28 MCG CONT INF (04:24)
[2024-11-17] MEDS: TITRATION PARAMETER CHANGE 1 EACH IV (04:25)
[2024-11-17] MEDS: CHLORHEXIDINE GLUC 2% CLOTH 1 EACH TOWELETTE TOPICAL (04:25)
[2024-11-17 04:51] LABS: Albumin, Serum 2.4 g/dL (3.4-4.8); Anion Gap 11 (5-15); BUN 22 mg/dL (4-19); BUN/Creat Ratio 8.9 RATIO (10-20); Calcium,Total 8.1 mg/dL (7.6-11.0); Carbon Dioxide 23.3 mmol/L (21.0-32.0); Chloride 103 mmol/L (98-108); Creatinine, Serum 2.43 mg/dL (0.70-1.20); EST Glomerular Filtration Rate 28 (>60); Glucose 190 mg/dL (70-99); Magnesium 1.8 mg/dL (1.5-2.2); Phosphorus 2.9 mg/dL (2.7-4.5); Potassium 4.2 mmol/L (3.3-5.1); Sodium Level 137 mmol/L (133-145)
[2024-11-17] MEDS: Insulin Lispro 100 UNIT/ML INSULN.PEN SC (04:51)
[2024-11-17 05:12] LABS: Bedside Glucose 163 mg/dL (74-106)
[2024-11-17] MEDS: Heparin 10,000 UNITS/10 ML Vial IV ×2 (05:31→23:25)
[2024-11-17] MEDS: 0.9% Saline Lock 10 ML Syringe 20 ML IV (05:43)
--- NOTE | 2024-11-17 07:24 | PN.CC_ITS ---
Assessment & Plan Assessment/Plan (1) Acute metabolic encephalopathy: (2) Sepsis: QUALIFIERS: Sepsis type: sepsis due to unspecified organism S epsis acute organ dysfunction status: with acute organ dysfunction Severe sepsis acute organ dysfunction type: encephalopathy Severe sepsis shock status: with septic shock Qualified Code(s): A41.9 - Sepsis, unspecified organism; R65.21 - Severe sepsis with septic shock; G93.41 - Metabolic encephalopathy (3) Diabetic ketoacidosis: QUALIFIERS: Diabetes mellitus type: type 2 Diabetes mellitus complication detail: with coma Qualified Code(s): E11.11 - Type 2 diabetes mellitus with ketoacidosis with coma PLAN: Plan RECOMMENDATIONS: 1. Proceed with a trial of extubation. 2. Once extubated, wean supplemental oxygen to maintain saturations at or above 90%. 3. Perform bedside swallow evaluation with dietary advancement as tolerated. 4. Ongoing dialysis support per nephrology recommendations. 5. Continue basal and sliding scale insulin coverage. 6. Encourage incentive spirometer use and mobilize patient as tolerated. IMPRESSIONS: 1. Acute hypoxemic respiratory failure The patient was ultimately intubated in the emergency department over concerns for airway protection. In addition, the patient was subsequently treated for polymicrobial pneumonia. His acid-base status has improved with invasive mechanical ventilatory support and medical therapy for his DKA. He subsequently passed his spontaneous breathing trial and was extubated on November 17. Will plan to continue to wean supplemental oxygen to maintain saturations at or above 90%. Continue ongoing attempts at volume optimization via dialysis per nephrology recommendations. Encourage incentive spirometer use and mobilize patient as tolerated. 2. Multifactorial shock Resolved. Initially due to a combination of hypovolemia and septic etiologies. Clinical concern for underlying gram-negative pneumonia. In addition, the patient did have evidence of a mildly distended gallbladder with evidence of intraluminal air and pneumobilia, for which the patient is status post ERCP with sphincterectomy and balloon extraction along with stent placement in the common bile duct, due to choledocholithiasis. The patient has since completed a full antibiotic treatment course. He remains hemodynamically stable at the present time, without the ongoing need for vasopressor support. 3. Toxic/metabolic encephalopathy Resolved. Most likely secondary to presenting DKA with significant metabolic derangements and multifactorial shock. Continue supportive care as noted above. 4. Diabetic ketoacidosis Resolved. Continue basal and sliding scale insulin coverage, with additional titration based upon blood sugars. 5. Acute versus chronic kidney disease Improving. Unclear baseline renal function. Clinical concern for evolution to ischemic ATN in the setting of #2. Recommend ongoing dialysis support per nephrology recommendations. 6. Anemia Unclear chronicity. Blood counts remain stable. Continue PPI therapy. Plan to transfuse if hemoglobin drops below 7 g/dL. TIME: 33 minutes of critical care time, independent of procedures, was spent addressing the patient's acute hypoxemic respiratory failure, multifactorial shock, toxic/metabolic encephalopathy, diabetic ketoacidosis, acute kidney injury, anemia, review of all data and collaboration with the care team. Subjective Subjective The patient was seen and examined at the bedside this morning. Events from the last 24 hours have been reviewed. The patient currently has a low-grade fever but remains otherwise hemodynamically stable on assist-control mode mechanical ventilation with an FiO2 requirement of 30% and PEEP of 5. The patient has been tolerant of CRRT with volume removal. He remains overall net +17 L for the hospitalization. He is alert and appropriately interactive. The patient passed his spontaneous awakening and breathing trial this morning. Objective Data Objective Data The patient's most recent lab work, culture data and imaging studies have all been personally reviewed. Sputum culture is demonstrating growth of E. coli and Streptococcus pneumonia. Vital Signs: Vital Signs Temp Pulse Resp BP Pulse Ox O2 Del Method O2 Flow Rate 99.4 F H 60 19 H 97/62 96 Mechanical Ventilator 40 11/17/24 07:00 11/17/24 07:02 11/17/24 07:02 11/17/24 07:00 11/17/24 07:02 11/17/24 07:00 11/15/24 15:00 FiO2 30 11/17/24 07:02 Oxygen Flow Rate (L/min) 40 Oxygen Delivery Method Mechanical Ventilator Weight: 205 lb 11.06 oz Body Mass Index (BMI) 27.8 Intake & Output: Intake and Output for Last 24 Hours 11/15/24 11/16/24 11/17/24 23:59 23:59 23:59 Intake Total 3790.43 / 3816.53 3316.94 / 3389.27 940.12 / 940.12 Output Total 3704 / 3867 6958 / 7162 1663 / 1663 Balance 86.43 / -50.47 -3641.06 / -3772.73 -722.88 / -722.88 Lab / Micro Data Attestation: I reviewed the patient's lab results. 11/16/24 07:10 11/17/24 04:05 Labs: Laboratory Results - last 24 hr 11/16/24 07:10: Sodium 139, Potassium 3.9, Chloride 106, Carbon Dioxide 21.6, Anion Gap 11, BUN 31 H, Creatinine 3.66 H, Estim Creat Clear Calc 23.85 L, Est GFR (MDRD) Non-Af 17 L, BUN/Creatinine Ratio 8.5 L, Glucose 204 H, Calcium 7.9, Phosphorus 2.5 L, Magnesium 1.8, Albumin 2.3 L 11/16/24 11:54: POC Glucose 180 H 11/16/24 14:00: Sodium 136, Potassium 3.8, Chloride 103, Carbon Dioxide 22.3, Anion Gap 11, BUN 26 H, Creatinine 3.08 H, Estim Creat Clear Calc 28.34 L, Est GFR (MDRD) Non-Af 21 L, BUN/Creatinine Ratio 8.5 L, Glucose 202 H, Calcium 8.3, Phosphorus 2.3 L, Magnesium 1.8, Albumin 2.5 L 11/16/24 16:53: POC Glucose 179 H 11/16/24 22:00: Sodium 139, Potassium 4.0, Chloride 105, Carbon Dioxide 22.3, Anion Gap 12, BUN 23 H, Creatinine 2.80 H, Estim Creat Clear Calc 31.17 L, Est GFR (MDRD) Non-Af 24 L, BUN/Creatinine Ratio 8.3 L, Glucose 225 H, Calcium 7.9, Phosphorus 3.6, Magnesium 1.8, Albumin 3.1 L 11/16/24 23:45: POC Glucose 162 H 11/17/24 04:05: Sodium 137, Potassium 4.2, Chloride 103, Carbon Dioxide 23.3, Anion Gap 11, BUN 22 H, Creatinine 2.43 H, Estim Creat Clear Calc 35.00 L, Est GFR (MDRD) Non-Af 28 L, BUN/Creatinine Ratio 8.9 L, Glucose 190 H, Calcium 8.1, Phosphorus 2.9, Magnesium 1.8, Albumin 2.4 L 11/17/24 04:50: POC Glucose 163 H Micro: Microbiology 11/07/24 23:25 Blood Culture (Wb) - Anticubital Left Blood Culture - Final No growth in 5 days. 11/07/24 23:00 Blood Culture (Wb) - Other Blood Culture - Final No growth in 5 days. 11/07/24 20:08 Sputum, Tracheal Aspirate Gram Stain - Final 11/07/24 20:08 Sputum, Tracheal Aspirate Respiratory Culture - Final Escherichia coli Streptococcus pneumoniae Streptococcus agalactiae (B) ABG Data ABG results: ABG 11/10/24 06:56 Specimen Type ART Sample Site R Radial pH 7.42 Bicarbonate Actual 17.2 L Total CO2 18 Base Excess -7 L O2 Saturation 94 L O2 % 25.0 ABG pCO2 26.3 L ABG pO2 69 L Srini Test Positive Respiration Rate 18 O2 Delivery Device Adult Vent Vent Mode AC Tidal Volume 500.0 POC PEEP 5 Radiography Diagnostic Testing: Radiology Impression Chest X-Ray 11/15/24 08:35 IMPRESSION: 1. Right internal jugular central catheter is in good position. 2. Endotracheal tube is in good position. 3. Enteric feeding tube is in good position with its tip extending below the level of the left hemidiaphragm. 4. Increased bilateral basilar atelectatic pulmonary changes. Reading Location: [place] [address] Physical Exam Const Constitutional Narrative: Intubated, sedated and mechanically ventilated. No ventilator dyssynchrony. General Appearance: patient mechanically ventilated HEENT normocephalic and head/scalp atraumatic Mouth: endotracheal tube in place and OG tube in place Eyes EOMs intact bilaterally and conjunctivae normal Neck supple General: trachea midline and CVC in place Resp normal respiratory effort Auscultation: diminished lung sounds; Negative for rales, rhonchi or wheezes Cardio regular rate and regular rhythm GI normal to inspection, nondistended, normoactive bowel sounds Extremity General Extremity: edema; Negative for clubbing Skin no rashes or lesions noted Neuro Neuro Narrative: Alert and able to follow simple commands. Sensorium / Orientation: sedated on vent Charges/Coding Procedures Hospitalists Procedures: 28230 Critical Care 1st Hr
[2024-11-17] MEDS: Acetaminophen 650 MG/20 ML UDC GT (10:13)
[2024-11-17] MEDS: Pantoprazole Sodium 40 MG in 0.9% Normal Saline (100mL MB+) 100 ML 330 MG IV ×2 (10:39→20:53)
[2024-11-17] MEDS: Insulin Glargine-YFGN 100 UNIT/ML Pen 40 UNIT SC (10:41)
[2024-11-17 11:00] LABS: Bedside Glucose 145 mg/dL (74-106)
--- NOTE | 2024-11-17 12:55 | PCM.PN.REN ---
Subjective Subjective Patient extubated. Sitting up in bed. Alert and oriented. Questions answered for patient about dialysis. Objective Data Objective Data Vital Signs: Vital Signs Temp Pulse Resp BP Pulse Ox O2 Del Method O2 Flow Rate 99.2 F H 70 15 140/76 H 93 Room Air 2 11/17/24 12:00 11/17/24 12:00 11/17/24 12:00 11/17/24 12:00 11/17/24 12:00 11/17/24 12:00 11/17/24 09:00 FiO2 30 11/17/24 08:00 Oxygen Flow Rate (L/min) 2 Oxygen Delivery Method Room Air Weight: 93.3 kg Body Mass Index (BMI) 27.8 Intake & Output: Intake and Output for Last 24 Hours 11/15/24 11/16/24 11/17/24 23:59 23:59 23:59 Intake Total 3790.43 / 3816.53 3316.94 / 3389.27 1939.87 / 1939.87 Output Total 3704 / 3867 6958 / 7162 3117 / 3117 Balance 86.43 / -50.47 -3641.06 / -3772.73 -1177.13 / -1177.13 Lab / Micro Data 11/16/24 07:10 11/17/24 04:05 Labs: Laboratory Results - last 24 hr 11/16/24 14:00: Sodium 136, Potassium 3.8, Chloride 103, Carbon Dioxide 22.3, Anion Gap 11, BUN 26 H, Creatinine 3.08 H, Estim Creat Clear Calc 28.34 L, Est GFR (MDRD) Non-Af 21 L, BUN/Creatinine Ratio 8.5 L, Glucose 202 H, Calcium 8.3, Phosphorus 2.3 L, Magnesium 1.8, Albumin 2.5 L 11/16/24 16:53: POC Glucose 179 H 11/16/24 22:00: Sodium 139, Potassium 4.0, Chloride 105, Carbon Dioxide 22.3, Anion Gap 12, BUN 23 H, Creatinine 2.80 H, Estim Creat Clear Calc 31.17 L, Est GFR (MDRD) Non-Af 24 L, BUN/Creatinine Ratio 8.3 L, Glucose 225 H, Calcium 7.9, Phosphorus 3.6, Magnesium 1.8, Albumin 3.1 L 11/16/24 23:45: POC Glucose 162 H 11/17/24 04:05: Sodium 137, Potassium 4.2, Chloride 103, Carbon Dioxide 23.3, Anion Gap 11, BUN 22 H, Creatinine 2.43 H, Estim Creat Clear Calc 35.00 L, Est GFR (MDRD) Non-Af 28 L, BUN/Creatinine Ratio 8.9 L, Glucose 190 H, Calcium 8.1, Phosphorus 2.9, Magnesium 1.8, Albumin 2.4 L 11/17/24 04:50: POC Glucose 163 H 11/17/24 10:38: POC Glucose 145 H Micro: Microbiology 11/07/24 23:25 Blood Culture (Wb) - Anticubital Left Blood Culture - Final No growth in 5 days. 11/07/24 23:00 Blood Culture (Wb) - Other Blood Culture - Final No growth in 5 days. 11/07/24 20:08 Sputum, Tracheal Aspirate Gram Stain - Final 11/07/24 20:08 Sputum, Tracheal Aspirate Respiratory Culture - Final Escherichia coli Streptococcus pneumoniae Streptococcus agalactiae (B) Physical Exam Narrative Alert and oriented no obvious distress s1s2 no murmurs Diminished breath sounds abdomen soft Pitting edema bilateral lower legs and arms chester + with scant amount yellow urine in tubing Assessment & Plan Assessment/Plan (1) GLYNN (acute kidney injury): PLAN: Assessment/Plan: The patient is a 69-year-old male with past history of type 2 diabetes mellitus. Patient presented to the hospital on 11/07/2024 with altered mental status and coffee-ground emesis. Patient was diagnosed with DKA and acute hypoxic respiratory failure requiring mechanical ventilation. Hospital course has been complicated by circulatory shock which is attributed to gram-negative pneumonia and possible cholangitis. Patient has also developed GLYNN during this admission. Nephrology is following for acute kidney injury. - Acute kidney injury with normal baseline creatinine April 2024. GLYNN likely secondary to ATN in setting of circulatory shock. Serum creatinine was 3.25 mg/dL on presentation on 11/07/2024. Serum creatinine increased to 7.25 mg/dL on 11/11/2024. Patient began iHD on 11/11 and again on 11/12 with 1.2L UF. - massive volume overload; CRRT initiated 11/14. Bps improved, currently not on any IV pressors and therefore we have been able to remove more fluid with CRRT. Patient remains massively fluid overloaded, per cumulative I&O around 17 L net positive. Hourly urine output ~10ml. We will switch to slow continuous ultrafiltration for the next 24 hours or so hopefully to be able to remove more fluid. Blood pressures have been up and down, when bps dropping fluid removal is only around 100ml at best each hour, able to get more fluid removed with higher bps. He is not on any antihypertensives and not on any pressors, will start midodrine with holding parameters. labs ordered for am. Assessment and plan reviewed with Dr. Grimes.
[2024-11-17] MEDS: Ondansetron 4 MG/2 ML Vial IV ×2 (14:02→18:47)
--- NOTE | 2024-11-17 15:42 | PN.HOSP_ITS ---
Reason for Visit Reason for Visit: Diagnoses Sepsis, unspecified organism (11/07/24) Elevated white blood cell count, unspecified (11/07/24) Type 2 diabetes mellitus with ketoacidosis with coma (11/07/24) Hyperkalemia (11/07/24) Metabolic encephalopathy (11/07/24) Hypotension, unspecified (11/07/24) Gastrointestinal hemorrhage, unspecified (11/07/24) Acute kidney failure, unspecified (11/07/24) Severe sepsis with septic shock (11/07/24) Subjective Subjective Patient was seen and examined today, he was extubated and appears comfortable. He is alert and oriented as to person and place and answers questions appropriately. Objective Data Objective Data Vital Signs: Vital Signs Temp Pulse Resp BP Pulse Ox O2 Del Method O2 Flow Rate 99.8 F H 103 H 13 171/81 H 92 Room Air 2 11/17/24 15:00 11/17/24 15:00 11/17/24 15:00 11/17/24 15:00 11/17/24 15:00 11/17/24 15:00 11/17/24 09:00 FiO2 30 11/17/24 08:00 Oxygen Flow Rate (L/min) 2 Oxygen Delivery Method Room Air Weight: 93.3 kg Body Mass Index (BMI) 27.8 Intake & Output: Intake and Output for Last 24 Hours 11/15/24 11/16/24 11/17/24 23:59 23:59 23:59 Intake Total 3790.43 / 3816.53 3316.94 / 3389.27 1986.87 / 1985.87 Output Total 3704 / 3867 6958 / 7162 3638 / 3638 Balance 86.43 / -50.47 -3641.06 / -3772.73 -1651.13 / -1651.13 Lab / Micro Data 11/16/24 07:10 11/17/24 04:05 Labs: Laboratory Results - last 24 hr 11/16/24 16:53: POC Glucose 179 H 11/16/24 22:00: Sodium 139, Potassium 4.0, Chloride 105, Carbon Dioxide 22.3, Anion Gap 12, BUN 23 H, Creatinine 2.80 H, Estim Creat Clear Calc 31.17 L, Est GFR (MDRD) Non-Af 24 L, BUN/Creatinine Ratio 8.3 L, Glucose 225 H, Calcium 7.9, Phosphorus 3.6, Magnesium 1.8, Albumin 3.1 L 11/16/24 23:45: POC Glucose 162 H 11/17/24 04:05: Sodium 137, Potassium 4.2, Chloride 103, Carbon Dioxide 23.3, Anion Gap 11, BUN 22 H, Creatinine 2.43 H, Estim Creat Clear Calc 35.00 L, Est GFR (MDRD) Non-Af 28 L, BUN/Creatinine Ratio 8.9 L, Glucose 190 H, Calcium 8.1, Phosphorus 2.9, Magnesium 1.8, Albumin 2.4 L 11/17/24 04:50: POC Glucose 163 H 11/17/24 10:38: POC Glucose 145 H Micro: Microbiology 11/07/24 23:25 Blood Culture (Wb) - Anticubital Left Blood Culture - Final No growth in 5 days. 11/07/24 23:00 Blood Culture (Wb) - Other Blood Culture - Final No growth in 5 days. 11/07/24 20:08 Sputum, Tracheal Aspirate Gram Stain - Final 11/07/24 20:08 Sputum, Tracheal Aspirate Respiratory Culture - Final Escherichia coli Streptococcus pneumoniae Streptococcus agalactiae (B) Physical Exam Narrative alert and no apparent distress Constitutional Narrative: Patient is alert and appropriate, he is oriented as to person and place General Appearance: cooperative, well kempt and well developed Orientation / Consciousness: awake HEENT normocephalic, head/scalp atraumatic and moist oral mucous membranes Eyes PERRL, EOMs intact bilaterally and conjunctivae normal Neck supple, no JVD, thyroid normal and no carotid bruits General: trachea midline Resp normal respiratory effort, no retractions and clear to auscultation bilaterally Auscultation: Negative for rales, rhonchi or wheezes Cardio regular rate, regular rhythm, S1 normal heart sound, S2 normal heart sound, no murmurs, no rub and no gallops GI normal to inspection, nondistended, normoactive bowel sounds, soft to palpation, non-tender and non-distended Extremity Extremity Narrative: There is generalized edema noted in the lower extremities and in the arms Skin no rashes or lesions noted General Skin Exam: no breakdown Neuro CN's II-XII intact bilaterally and moves all extremities Neuro Narrative: Patient is oriented as to person and place Sensorium / Orientation: awake and alert Speech: speech normal Psych Psych Narrative: Patient does not appear to be anxious or depressed Assessment & Plan Assessment/Plan (1) Sepsis: QUALIFIERS: Sepsis type: sepsis due to unspecified organism S epsis acute organ dysfunction status: with acute organ dysfunction Severe sepsis acute organ dysfunction type: encephalopathy Severe sepsis shock status: with septic shock Qualified Code(s): A41.9 - Sepsis, unspecified organism; R65.21 - Severe sepsis with septic shock; G93.41 - Metabolic encephalopathy (2) GLYNN (acute kidney injury): (3) Acute metabolic encephalopathy: PLAN: Plan 1. Septic shock secondary to ascending cholangitis-continue present treatment, patient is currently off pressor agents, patient is having continuous dialysis performed today, it appears patient has completed his course of antibiotics #2 acute hypoxic respiratory failure-patient was extubated today, he is on room air #3 metabolic [id number] is alert, he responds appropriately to questions and commands #4 diabetic ketoacidosis-resolved at this time #5 acute kidney injury-nephrology is participating in his care, he will be receiving continuous dialysis today #6 acute anemia-etiology unclear at this point, labs will be monitored, patient does not require a transfusion at this time, hemoglobin appears to be stable Total clinical time spent by myself addressing the patient's medical issues, reviewing all of his data, and collaborating with patient's care team: 35 minutes Charges/Coding Visit Charges Inpatient E&M: 70540 Subs Hosp L2
[2024-11-17] MEDS: Morphine 4 MG/ML Syringe IV ×2 (16:49→20:54)
[2024-11-17 18:29] LABS: Bedside Glucose 76 mg/dL (74-106)
[2024-11-17] MEDS: proCHLORPERazine 10 MG/2 ML Vial IV (21:35)
[2024-11-18] VITALS (27 sets, daily range): BP systolic 101–190; BP diastolic 70–112; PULSE 80–99; RESP 12–20; TEMP 36.6–37.6; O2SAT 90–100; BMI 26.8; BMI 25.9
[2024-11-18] MEDS: Acetaminophen 650 MG/20 ML UDC PO (00:01)
[2024-11-18] MEDS: CHLORHEXIDINE GLUC 2% CLOTH 1 EACH TOWELETTE TOPICAL (00:56)
[2024-11-18] MEDS: 0.9% Saline Lock 10 ML Syringe IV ×5 (00:57→22:08)
[2024-11-18] MEDS: Morphine 4 MG/ML Syringe IV ×6 (00:57→22:05)
[2024-11-18] MEDS: Ondansetron 4 MG/2 ML Vial IV ×6 (00:57→22:05)
[2024-11-18 01:01] LABS: Bedside Glucose 100 mg/dL (74-106)
[2024-11-18 01:01] LABS: Bedside Glucose 60 mg/dL (74-106)
[2024-11-18 03:25] LABS: Absolute Lymphocyte Count 1.48 X10^3/uL (0.83-4.51); Absolute Neutrophil Count 18.7 X10^3/uL (2.0-7.7); Basophil# 0.05 X10^3/uL; Basophil% 0.2 % (0-1); Eosinophil# 0.03 X10^3/uL; Eosinophils% 0.1 % (0-5); Hematocrit 20.9 % (40-54); Hemoglobin 6.9 g/dL (13.0-16.5); Lymphocyte # 1.48 X10^3/ul (0.83-4.51); Lymphocyte % 6.7 % (19-41); Mean Corpuscular Hgb 31.1 pg (27.0-32.0); Mean Corpuscular Volume 94.1 fL (80-94); Mean Platelet Vol. 10.7 fl (6.2-12.0); Monocyte# 1.53 X10^3/uL; Monocyte% 6.9 % (0-10); NRBC Flagged by Analyzer 0 % (0-5); Neutrophil # 18.69 X10^3/uL (2.7-7.7); Neutrophil % 84.9 % (47-70); POSITIVE DIFFERENTIAL YES; Platelet Count 247 K/mm3 (150-450); RBC Distribution Width CV 14.3 % (11.6-14.6); Red Blood Count 2.22 M/mm3 (4.6-6.2); White Blood Count 22.1 K/mm3 (4.4-11.0)
[2024-11-18 03:49] LABS: Albumin, Serum 2.8 g/dL (3.4-4.8); Anion Gap 12 (5-15); BUN 22 mg/dL (4-19); BUN/Creat Ratio 6.3 RATIO (10-20); Carbon Dioxide 23.8 mmol/L (21.0-32.0); Chloride 106 mmol/L (98-108); Creatinine, Serum 3.44 mg/dL (0.70-1.20); EST Glomerular Filtration Rate 19 (>60); Estimated Creatinine Clearance 22.87 ml/min (50-250); Glucose 103 mg/dL (70-99); Potassium 4.1 mmol/L (3.3-5.1); Sodium Level 142 mmol/L (133-145)
[2024-11-18 04:08] LABS: Differential Indicated SCAN CRITERIA MET
[2024-11-18 04:58] LABS: Differential Comment SCANNED
[2024-11-18 05:16] LABS: Bedside Glucose 76 mg/dL (74-106)
--- NOTE | 2024-11-18 07:41 | PN.CC_ITS ---
Assessment & Plan Assessment/Plan (1) Acute metabolic encephalopathy: (2) Sepsis: QUALIFIERS: Sepsis type: sepsis due to unspecified organism S epsis acute organ dysfunction status: with acute organ dysfunction Severe sepsis acute organ dysfunction type: encephalopathy Severe sepsis shock status: with septic shock Qualified Code(s): A41.9 - Sepsis, unspecified organism; R65.21 - Severe sepsis with septic shock; G93.41 - Metabolic encephalopathy (3) Diabetic ketoacidosis: QUALIFIERS: Diabetes mellitus type: type 2 Diabetes mellitus complication detail: with coma Qualified Code(s): E11.11 - Type 2 diabetes mellitus with ketoacidosis with coma PLAN: Plan RECOMMENDATIONS: 1. Wean supplemental oxygen to maintain saturations at or above 90%. 2. Transition from CRRT to conventional HD (discussed with nephrology) 3. Continue ongoing dialysis support per nephrology recommendations. 4. Continue basal and sliding scale insulin coverage. 5. Encourage incentive spirometer use and mobilize patient as tolerated. 6. Transfuse 1 unit of packed red blood cells. Check H&H posttransfusion. 7. The patient is otherwise medically stable for transfer out of the intensive care unit. 8. Will sign off from a critical care perspective. Please call with any additional questions. IMPRESSIONS: 1. Acute hypoxemic respiratory failure The patient was ultimately intubated in the emergency department over concerns for airway protection. In addition, the patient was subsequently treated for polymicrobial pneumonia. His acid-base status has improved with invasive mechanical ventilatory support and medical therapy for his DKA. He subsequently passed his spontaneous breathing trial and was extubated on November 17. Will plan to continue to wean supplemental oxygen to maintain saturations at or above 90%. Continue ongoing attempts at volume optimization via dialysis per nephrology recommendations. Encourage incentive spirometer use and mobilize patient as tolerated. 2. Multifactorial shock Resolved. Initially due to a combination of hypovolemia and septic etiologies. Clinical concern for underlying gram-negative pneumonia. In addition, the patient did have evidence of a mildly distended gallbladder with evidence of intraluminal air and pneumobilia, for which the patient is status post ERCP with sphincterectomy and balloon extraction along with stent placement in the common bile duct, due to choledocholithiasis. The patient has since completed a full antibiotic treatment course. He remains hemodynamically stable at the present time, without the ongoing need for vasopressor support. 3. Toxic/metabolic encephalopathy Resolved. Most likely secondary to presenting DKA with significant metabolic derangements and multifactorial shock. Continue supportive care as noted above. 4. Diabetic ketoacidosis Resolved. Continue basal and sliding scale insulin coverage, with additional titration based upon blood sugars. 5. Acute versus chronic kidney disease Improving. Unclear baseline renal function. Clinical concern for evolution to ischemic ATN in the setting of #2. Recommend ongoing dialysis support per nephrology recommendations. 6. Anemia Unclear chronicity. Continue PPI therapy. Plan to transfuse if hemoglobin drops below 7 g/dL. This note was generated with [employer] dictation software. It may contain incorrect words, spelling, and punctuation that were not noted in checking the note before signing. Subjective Subjective The patient was seen and examined at the bedside this morning. Events from the last 24 hours have been reviewed. The patient is currently afebrile, hemodynamically stable and maintaining appropriate oxygen saturations on 2 L/min via nasal cannula. The patient has done quite well from a respiratory perspective following extubation. He has been tolerant of volume removal and is currently documented to be overall net +12.8 L for the hospitalization. White blood cell count is elevated at 22,000 with a hemoglobin of 6.9 g/dL. Objective Data Objective Data The patient's most recent lab work, culture data and imaging studies have all been personally reviewed. Sputum culture is demonstrating growth of E. coli and Streptococcus pneumonia. Vital Signs: Vital Signs Temp Pulse Resp BP Pulse Ox O2 Del Method O2 Flow Rate 98.1 F 80 13 152/74 H 96 Nasal Cannula 2 11/18/24 07:00 11/18/24 07:00 11/18/24 07:00 11/18/24 07:00 11/18/24 07:00 11/18/24 07:00 11/18/24 07:00 FiO2 30 11/17/24 08:00 Oxygen Flow Rate (L/min) 2 Oxygen Delivery Method Nasal Cannula Weight: 198 lb 3.129 oz Body Mass Index (BMI) 26.8 Intake & Output: Intake and Output for Last 24 Hours 11/16/24 11/17/24 11/18/24 23:59 23:59 23:59 Intake Total 3316.94 / 3389.27 2627.87 / 2627.87 850 / 850 Output Total 6958 / 7162 6085 / 6085 2307 / 2307 Balance -3641.06 / -3772.73 -3457.13 / -3457.13 -1457 / -1457 Lab / Micro Data Attestation: I reviewed the patient's lab results. 11/18/24 03:15 11/18/24 03:15 Labs: Laboratory Results - last 24 hr 11/17/24 10:38: POC Glucose 145 H 11/17/24 18:11: POC Glucose 76 11/18/24 00:03: POC Glucose 60 L 11/18/24 00:43: POC Glucose 100 11/18/24 03:15: WBC 22.1 H, RBC 2.22 L, Hgb 6.9 L, Hct 20.9 L, MCV 94.1 H, MCH 31.1, MCHC 33.0, RDW Std Deviation 48.0 H, RDW Coeff of Eliseo 14.3, Plt Count 247, MPV 10.7, Immature Gran % (Auto) 1.200 H, Neut % (Auto) 84.9 H, Lymph % (Auto) 6.7 L, [place] % (Auto) 6.9, Eos % (Auto) 0.1, Baso % (Auto) 0.2, Absolute Neuts (auto) 18.7 H, Absolute Lymphs (auto) 1.48, Nucleated RBC % 0, Differential Comment SCANNED, Sodium 142, Potassium 4.1, Chloride 106, Carbon Dioxide 23.8, Anion Gap 12, BUN 22 H, Creatinine 3.44 H, Estim Creat Clear Calc 22.87 L, Est GFR (MDRD) Non-Af 19 L, BUN/Creatinine Ratio 6.3 L, Glucose 103 H, Calcium 8.0, Phosphorus 4.0, Albumin 2.8 L 11/18/24 04:58: POC Glucose 76 Micro: Microbiology 11/07/24 23:25 Blood Culture (Wb) - Anticubital Left Blood Culture - Final No growth in 5 days. 11/07/24 23:00 Blood Culture (Wb) - Other Blood Culture - Final No growth in 5 days. 11/07/24 20:08 Sputum, Tracheal Aspirate Gram Stain - Final 11/07/24 20:08 Sputum, Tracheal Aspirate Respiratory Culture - Final Escherichia coli Streptococcus pneumoniae Streptococcus agalactiae (B) ABG Data ABG results: ABG 11/10/24 06:56 Specimen Type ART Sample Site R Radial pH 7.42 Bicarbonate Actual 17.2 L Total CO2 18 Base Excess -7 L O2 Saturation 94 L O2 % 25.0 ABG pCO2 26.3 L ABG pO2 69 L Srini Test Positive Respiration Rate 18 O2 Delivery Device Adult Vent Vent Mode AC Tidal Volume 500.0 POC PEEP 5 Radiography Diagnostic Testing: Radiology Impression Chest X-Ray 11/15/24 08:35 IMPRESSION: 1. Right internal jugular central catheter is in good position. 2. Endotracheal tube is in good position. 3. Enteric feeding tube is in good position with its tip extending below the level of the left hemidiaphragm. 4. Increased bilateral basilar atelectatic pulmonary changes. Reading Location: [place] [id number] Physical Exam Const alert, oriented x3 and no apparent distress Constitutional Narrative: Sitting in bedside recliner. General Appearance: cooperative HEENT normocephalic, head/scalp atraumatic and moist oral mucous membranes Eyes EOMs intact bilaterally, conjunctivae normal and no scleral icterus Neck supple General: trachea midline and CVC in place Resp normal respiratory effort Auscultation: diminished lung sounds; Negative for rales, rhonchi or wheezes Cardio regular rate and regular rhythm GI normal to inspection, nondistended, normoactive bowel sounds Extremity General Extremity: edema; Negative for clubbing Skin no rashes or lesions noted Neuro oriented x3, CN's II-XII intact bilaterally, moves all extremities and no focal motor deficits Psych cooperative and affect normal Charges/Coding Visit Charges Inpatient E&M: 62306 Subs Hosp L3
[2024-11-18] MEDS: Heparin 10,000 UNITS/10 ML Vial IV ×2 (09:16→15:54)
--- NOTE | 2024-11-18 10:09 | PCM.PN.REN ---
Subjective Subjective no new events Objective Data Objective Data Vital Signs: Vital Signs Temp Pulse Resp BP Pulse Ox O2 Del Method O2 Flow Rate 98.7 F 87 17 151/86 H 94 Nasal Cannula 2 11/18/24 09:00 11/18/24 09:00 11/18/24 09:00 11/18/24 09:00 11/18/24 09:00 11/18/24 09:00 11/18/24 09:00 FiO2 30 11/17/24 08:00 Oxygen Flow Rate (L/min) 2 Oxygen Delivery Method Nasal Cannula Weight: 89.9 kg Body Mass Index (BMI) 26.8 Intake & Output: Intake and Output for Last 24 Hours 11/16/24 11/17/24 11/18/24 23:59 23:59 23:59 Intake Total 3316.94 / 3389.27 2627.87 / 2627.87 895 / 895 Output Total 6958 / 7162 6085 / 6085 2668 / 2668 Balance -3641.06 / -3772.73 -3457.13 / -3457.13 -1773 / -1773 Lab / Micro Data 11/18/24 03:15 11/18/24 03:15 Labs: Laboratory Results - last 24 hr 11/17/24 10:38: POC Glucose 145 H 11/17/24 18:11: POC Glucose 76 11/18/24 00:03: POC Glucose 60 L 11/18/24 00:43: POC Glucose 100 11/18/24 03:15: WBC 22.1 H, RBC 2.22 L, Hgb 6.9 L, Hct 20.9 L, MCV 94.1 H, MCH 31.1, MCHC 33.0, RDW Std Deviation 48.0 H, RDW Coeff of Eliseo 14.3, Plt Count 247, MPV 10.7, Immature Gran % (Auto) 1.200 H, Neut % (Auto) 84.9 H, Lymph % (Auto) 6.7 L, [place] % (Auto) 6.9, Eos % (Auto) 0.1, Baso % (Auto) 0.2, Absolute Neuts (auto) 18.7 H, Absolute Lymphs (auto) 1.48, Nucleated RBC % 0, Differential Comment SCANNED, Sodium 142, Potassium 4.1, Chloride 106, Carbon Dioxide 23.8, Anion Gap 12, BUN 22 H, Creatinine 3.44 H, Estim Creat Clear Calc 22.87 L, Est GFR (MDRD) Non-Af 19 L, BUN/Creatinine Ratio 6.3 L, Glucose 103 H, Calcium 8.0, Phosphorus 4.0, Albumin 2.8 L 11/18/24 04:58: POC Glucose 76 11/18/24 08:15: Blood Type O NEGATIVE, Antibody Screen NEGATIVE, Crossmatch See Detail Micro: Microbiology 11/07/24 23:25 Blood Culture (Wb) - Anticubital Left Blood Culture - Final No growth in 5 days. 11/07/24 23:00 Blood Culture (Wb) - Other Blood Culture - Final No growth in 5 days. 11/07/24 20:08 Sputum, Tracheal Aspirate Gram Stain - Final 11/07/24 20:08 Sputum, Tracheal Aspirate Respiratory Culture - Final Escherichia coli Streptococcus pneumoniae Streptococcus agalactiae (B) Physical Exam Narrative Alert and oriented no obvious distress s1s2 no murmurs Diminished breath sounds abdomen soft Pitting edema bilateral lower legs and arms chester + with scant amount yellow urine in tubing Assessment & Plan Assessment/Plan (1) GLYNN (acute kidney injury): PLAN: Assessment/Plan: The patient is a 69-year-old male with past history of type 2 diabetes mellitus. Patient presented to the hospital on 11/07/2024 with altered mental status and coffee-ground emesis. Patient was diagnosed with DKA and acute hypoxic respiratory failure requiring mechanical ventilation. Hospital course has been complicated by circulatory shock which is attributed to gram-negative pneumonia and possible cholangitis. Patient has also developed GLYNN during this admission. Nephrology is following for acute kidney injury. - Acute kidney injury with normal baseline creatinine April 2024. GLYNN likely secondary to ATN in setting of circulatory shock. Serum creatinine was 3.25 mg/dL on presentation on 11/07/2024. Serum creatinine increased to 7.25 mg/dL on 11/11/2024. Patient began iHD on 11/11 Was on CRRT, last 24 hours of an isolated UF. Extubated, volume status is significantly better Discussed with ICU attending. Will stop CRRT/SCUF. Switch to hemodialysis. Short dialysis treatment today. After this we will plan to continue dialysis Thursday, Thursday, Thursday schedule.
[2024-11-18] MEDS: Insulin Glargine-YFGN 100 UNIT/ML Pen 40 UNIT SC (10:42)
[2024-11-18] MEDS: Levothyroxine 125 MCG Tablet PO (10:42)
[2024-11-18] MEDS: Pantoprazole Sodium 40 MG in 0.9% Normal Saline (100mL MB+) 100 ML 330 MG IV ×2 (10:42→22:08)
[2024-11-18 11:06] LABS: Bedside Glucose 149 mg/dL (74-106)
[2024-11-18 13:50] LABS: Hematocrit 21.3 % (40-54)
[2024-11-18] MEDS: PureFlow B 3K Dialysis Soln 1 BAG 6 BAG PF (15:54)
[2024-11-18] MEDS: 0.9% Normal Saline 1,000 ML IV.SOLN. 1000 ML OPERA.SITE (15:55)
--- NOTE | 2024-11-18 16:53 | PN.HOSP_ITS ---
Reason for Visit Reason for Visit: Diagnoses Sepsis, unspecified organism (11/07/24) Elevated white blood cell count, unspecified (11/07/24) Type 2 diabetes mellitus with ketoacidosis with coma (11/07/24) Hyperkalemia (11/07/24) Metabolic encephalopathy (11/07/24) Hypotension, unspecified (11/07/24) Gastrointestinal hemorrhage, unspecified (11/07/24) Acute kidney failure, unspecified (11/07/24) Severe sepsis with septic shock (11/07/24) Subjective Subjective Patient was seen and examined today, she does not appear in distress. Creatinine was 3.44 today. Objective Data Objective Data Vital Signs: Vital Signs Temp Pulse Resp BP Pulse Ox O2 Del Method O2 Flow Rate 98.8 F 88 15 155/93 H 98 Room Air 2 11/18/24 16:00 11/18/24 16:00 11/18/24 16:00 11/18/24 16:00 11/18/24 16:00 11/18/24 16:00 11/18/24 16:00 FiO2 30 11/17/24 08:00 Oxygen Flow Rate (L/min) 2 Oxygen Delivery Method Room Air Weight: 87 kg Body Mass Index (BMI) 25.9 Intake & Output: Intake and Output for Last 24 Hours 11/16/24 11/17/24 11/18/24 23:59 23:59 23:59 Intake Total 3316.94 / 3389.27 2627.87 / 2627.87 1405 / 1405 Output Total 6958 / 7162 6085 / 6085 4603 / 4603 Balance -3641.06 / -3772.73 -3457.13 / -3457.13 -3198 / -3198 Lab / Micro Data 11/18/24 13:40 11/18/24 03:15 Labs: Laboratory Results - last 24 hr 11/17/24 18:11: POC Glucose 76 11/18/24 00:03: POC Glucose 60 L 11/18/24 00:43: POC Glucose 100 11/18/24 03:15: WBC 22.1 H, RBC 2.22 L, Hgb 6.9 L, Hct 20.9 L, MCV 94.1 H, MCH 31.1, MCHC 33.0, RDW Std Deviation 48.0 H, RDW Coeff of Eliseo 14.3, Plt Count 247, MPV 10.7, Immature Gran % (Auto) 1.200 H, Neut % (Auto) 84.9 H, Lymph % (Auto) 6.7 L, [place] % (Auto) 6.9, Eos % (Auto) 0.1, Baso % (Auto) 0.2, Absolute Neuts (auto) 18.7 H, Absolute Lymphs (auto) 1.48, Nucleated RBC % 0, Differential Comment SCANNED, Sodium 142, Potassium 4.1, Chloride 106, Carbon Dioxide 23.8, Anion Gap 12, BUN 22 H, Creatinine 3.44 H, Estim Creat Clear Calc 22.87 L, Est GFR (MDRD) Non-Af 19 L, BUN/Creatinine Ratio 6.3 L, Glucose 103 H, Calcium 8.0, Phosphorus 4.0, Albumin 2.8 L 11/18/24 04:58: POC Glucose 76 11/18/24 08:15: Blood Type O NEGATIVE, Antibody Screen NEGATIVE, Crossmatch See Detail 11/18/24 10:37: POC Glucose 149 H 11/18/24 13:40: Hgb 7.0 L, Hct 21.3 L Micro: Microbiology 11/07/24 23:25 Blood Culture (Wb) - Anticubital Left Blood Culture - Final No growth in 5 days. 11/07/24 23:00 Blood Culture (Wb) - Other Blood Culture - Final No growth in 5 days. 11/07/24 20:08 Sputum, Tracheal Aspirate Gram Stain - Final 11/07/24 20:08 Sputum, Tracheal Aspirate Respiratory Culture - Final Escherichia coli Streptococcus pneumoniae Streptococcus agalactiae (B) Physical Exam Narrative alert and no apparent distress Constitutional Narrative: Patient is alert and appropriate, he is oriented as to person and place General Appearance: cooperative, well kempt and well developed Orientation / Consciousness: awake HEENT normocephalic, head/scalp atraumatic and moist oral mucous membranes Eyes PERRL, EOMs intact bilaterally and conjunctivae normal Neck supple, no JVD, thyroid normal and no carotid bruits General: trachea midline Resp normal respiratory effort, no retractions and clear to auscultation bilaterally Auscultation: Negative for rales, rhonchi or wheezes Cardio regular rate, regular rhythm, S1 normal heart sound, S2 normal heart sound, no murmurs, no rub and no gallops GI normal to inspection, nondistended, normoactive bowel sounds, soft to palpation, non-tender and non-distended Extremity Extremity Narrative: There is generalized edema noted in the lower extremities and in the arms Skin no rashes or lesions noted General Skin Exam: no breakdown Neuro CN's II-XII intact bilaterally and moves all extremities Neuro Narrative: Patient is oriented as to person and place Sensorium / Orientation: awake and alert Speech: speech normal Psych Psych Narrative: Patient does not appear to be anxious or depressed Assessment & Plan Assessment/Plan (1) Sepsis: QUALIFIERS: Sepsis type: sepsis due to unspecified organism S epsis acute organ dysfunction status: with acute organ dysfunction Severe sepsis acute organ dysfunction type: encephalopathy Severe sepsis shock status: with septic shock Qualified Code(s): A41.9 - Sepsis, unspecified organism; R65.21 - Severe sepsis with septic shock; G93.41 - Metabolic encephalopathy (2) GLYNN (acute kidney injury): (3) Acute metabolic encephalopathy: PLAN: Plan 1. Septic shock secondary to ascending cholangitis-continue present treatment, patient is currently off pressor agents, patient is currently off continuous dialysis, labs will be rechecked tomorrow #2 acute hypoxic respiratory failure-patient was extubated today, he is on room air #3 metabolic grdexztesacuul-soodbqhe-ihilqwy is alert, he responds appropriately to questions and commands #4 diabetic ketoacidosis-resolved at this time #5 acute kidney injury-nephrology is participating in his care, dialysis is planned on Thursday and Thursday #6 acute anemia-etiology unclear at this point, labs will be monitored, patient received 1 unit of packed red blood cells, H&H was obtained during dialysis and it showed hemoglobin of 7, I will recheck a CBC in the morning. Patient appears stable for transfer to PCU for further care. Total clinical time spent by myself addressing the patient's medical issues, reviewing all of his data, and collaborating with patient's care team: 35 minutes Charges/Coding Visit Charges Inpatient E&M: 74331 Subs Hosp L2
[2024-11-18 17:13] LABS: Bedside Glucose 87 mg/dL (74-106)
[2024-11-18 23:56] LABS: Bedside Glucose 87 mg/dL (74-106)
[2024-11-18 23:56] LABS: Bedside Glucose 69 mg/dL (74-106)
[2024-11-18 23:56] LABS: Bedside Glucose 65 mg/dL (74-106)
[2024-11-19] MEDS: Ondansetron 4 MG/2 ML Vial IV ×5 (02:13→23:51)
[2024-11-19] MEDS: Morphine 4 MG/ML Syringe IV ×5 (02:13→23:51)
[2024-11-19 03:01] VITALS: BMI 26.0
[2024-11-19 04:30] VITALS: BP 129/66; PULSE 73; RESP 15; TEMP 36.7; O2SAT 94
[2024-11-19] MEDS: Levothyroxine 125 MCG Tablet PO (06:22)
[2024-11-19 07:43] LABS: Bedside Glucose 122 mg/dL (74-106)
[2024-11-19 09:45] VITALS: BP 129/68; PULSE 89; RESP 18; TEMP 36.7; O2SAT 100
[2024-11-19] MEDS: Pantoprazole Sodium 40 MG in 0.9% Normal Saline (100mL MB+) 100 ML 330 MG IV ×2 (09:50→23:51)
[2024-11-19] MEDS: 0.9% Saline Lock 10 ML Syringe IV ×5 (09:50→23:51)
[2024-11-19] MEDS: Insulin Glargine-YFGN 100 UNIT/ML Pen 40 UNIT SC (10:34)
--- NOTE | 2024-11-19 11:00 | PN.HOSP_ITS ---
Reason for Visit Reason for Visit: Diagnoses Sepsis, unspecified organism (11/07/24) Elevated white blood cell count, unspecified (11/07/24) Type 2 diabetes mellitus with ketoacidosis with coma (11/07/24) Hyperkalemia (11/07/24) Metabolic encephalopathy (11/07/24) Hypotension, unspecified (11/07/24) Gastrointestinal hemorrhage, unspecified (11/07/24) Acute kidney failure, unspecified (11/07/24) Severe sepsis with septic shock (11/07/24) Subjective Subjective Patient was seen and examined today, he voices no complaints. I ordered an H&H on the patient today. Objective Data Objective Data Vital Signs: Vital Signs Temp Pulse Resp BP Pulse Ox O2 Del Method O2 Flow Rate 98.1 F 89 18 129/68 H 100 Room Air 2 11/19/24 09:45 11/19/24 09:45 11/19/24 09:45 11/19/24 09:45 11/19/24 09:45 11/19/24 10:10 11/18/24 16:00 FiO2 30 11/17/24 08:00 Oxygen Flow Rate (L/min) 2 Oxygen Delivery Method Room Air Weight: 87.2 kg Body Mass Index (BMI) 26.0 Intake & Output: Intake and Output for Last 24 Hours 11/17/24 11/18/24 11/19/24 23:59 23:59 23:59 Intake Total 2627.87 / 2627.87 1515 / 1515 114 / 114 Output Total 6085 / 6085 4603 / 4603 300 / 300 Balance -3457.13 / -3457.13 -3088 / -3088 -186 / -186 Lab / Micro Data 11/18/24 13:40 11/18/24 03:15 Labs: Laboratory Results - last 24 hr 11/18/24 08:15: Blood Type O NEGATIVE, Antibody Screen NEGATIVE, Crossmatch See Detail 11/18/24 10:37: POC Glucose 149 H 11/18/24 13:40: Hgb 7.0 L, Hct 21.3 L 11/18/24 16:47: POC Glucose 87 11/18/24 21:55: POC Glucose 65 L 11/18/24 22:50: POC Glucose 69 L 11/18/24 23:36: POC Glucose 87 11/19/24 06:21: POC Glucose 122 H 11/19/24 07:58: Hgb Cancelled, Hct Cancelled, Diff Path Review Cancelled Micro: Microbiology 11/07/24 23:25 Blood Culture (Wb) - Anticubital Left Blood Culture - Final No growth in 5 days. 11/07/24 23:00 Blood Culture (Wb) - Other Blood Culture - Final No growth in 5 days. 11/07/24 20:08 Sputum, Tracheal Aspirate Gram Stain - Final 11/07/24 20:08 Sputum, Tracheal Aspirate Respiratory Culture - Final Escherichia coli Streptococcus pneumoniae Streptococcus agalactiae (B) Physical Exam Narrative alert and no apparent distress Constitutional Narrative: Patient is alert and appropriate, he is oriented as to person and place General Appearance: cooperative, well kempt and well developed Orientation / Consciousness: awake HEENT normocephalic, head/scalp atraumatic and moist oral mucous membranes Eyes PERRL, EOMs intact bilaterally and conjunctivae normal Neck supple, no JVD, thyroid normal and no carotid bruits General: trachea midline Resp normal respiratory effort, no retractions and clear to auscultation bilaterally Auscultation: Negative for rales, rhonchi or wheezes Cardio regular rate, regular rhythm, S1 normal heart sound, S2 normal heart sound, no murmurs, no rub and no gallops GI normal to inspection, nondistended, normoactive bowel sounds, soft to palpation, non-tender and non-distended Extremity Extremity Narrative: There is generalized edema noted in the lower extremities and in the arms Skin no rashes or lesions noted General Skin Exam: no breakdown Neuro CN's II-XII intact bilaterally and moves all extremities Neuro Narrative: Patient is oriented as to person and place Sensorium / Orientation: awake and alert Speech: speech normal Psych Psych Narrative: Patient does not appear to be anxious or depressed Assessment & Plan Assessment/Plan (1) Sepsis: QUALIFIERS: Sepsis type: sepsis due to unspecified organism S epsis acute organ dysfunction status: with acute organ dysfunction Severe sepsis acute organ dysfunction type: encephalopathy Severe sepsis shock status: with septic shock Qualified Code(s): A41.9 - Sepsis, unspecified organism; R65.21 - Severe sepsis with septic shock; G93.41 - Metabolic encephalopathy (2) GLYNN (acute kidney injury): (3) Acute metabolic encephalopathy: PLAN: Plan 1. Septic shock secondary to ascending cholangitis-continue present treatment, patient is currently off pressor agents, patient is currently off continuous dialysis, labs will be rechecked tomorrow, awaiting H&H today #2 acute hypoxic respiratory failure-patient was extubated today, he is on room air #3 metabolic tafgofulltkwhq-ysvcoqys-oqkufru is alert, he responds appropriately to questions and commands #4 diabetic ketoacidosis-resolved at this time #5 acute kidney injury-nephrology is participating in his care, dialysis is planned on Thursday and Thursday #6 acute anemia-etiology unclear at this point, labs will be monitored, patient received 1 unit of packed red blood cells, patient will have an H&H drawn today Total clinical time spent by myself addressing the patient's medical issues, reviewing all of his data, and collaborating with patient's care team: 35 minutes Charges/Coding Visit Charges Inpatient E&M: [id number] Subs Hosp L2
[2024-11-19 11:30] LABS: Hematocrit 26.4 % (40-54); Hemoglobin 8.8 g/dL (13.0-16.5)
[2024-11-19 12:01] LABS: Bedside Glucose 169 mg/dL (74-106)
[2024-11-19 15:34] VITALS: BP 147/90; PULSE 85; RESP 17; TEMP 36.8; O2SAT 95
[2024-11-19] MEDS: Heparin 10,000 UNITS/10 ML Vial IV (15:49)
[2024-11-19 16:43] LABS: Bedside Glucose 132 mg/dL (74-106)
--- NOTE | 2024-11-19 18:02 | NURSING ---
Patient's chester catheter was discontinued this morning by nightshift RN. Patient has not voided yet. Patient has been getting hemodialysis; last dialysis completed yesterday 11/18, where 1900ml was removed. This RN offered to bladder scan the patient to see what was in the bladder; patient declined and stated that he feels like he can void here soon. Will continue to monitor and bladder scan if unable to urinate.
[2024-11-19 21:00] VITALS: BP 138/68; PULSE 80; RESP 18; TEMP 36.3; O2SAT 98
[2024-11-19 22:16] LABS: Bedside Glucose 88 mg/dL (74-106)
[2024-11-20 02:14] VITALS: BMI 27.4
[2024-11-20 03:15] VITALS: BP 123/60; PULSE 69; RESP 18; TEMP 35.9; O2SAT 94
[2024-11-20] MEDS: Morphine 4 MG/ML Syringe IV ×2 (03:58→09:39)
[2024-11-20] MEDS: 0.9% Saline Lock 10 ML Syringe IV ×4 (03:59→20:27)
[2024-11-20] MEDS: Levothyroxine 125 MCG Tablet PO (05:23)
[2024-11-20 05:55] LABS: Bedside Glucose 146 mg/dL (74-106)
[2024-11-20 09:27] VITALS: BP 160/82; PULSE 74; RESP 17; TEMP 36.7; O2SAT 97
[2024-11-20] MEDS: Pantoprazole Sodium 40 MG in 0.9% Normal Saline (100mL MB+) 100 ML 330 MG IV ×2 (09:29→20:27)
[2024-11-20] MEDS: Insulin Glargine-YFGN 100 UNIT/ML Pen 40 UNIT SC (09:30)
[2024-11-20] MEDS: Insulin Lispro 100 UNIT/ML INSULN.PEN SC (11:39)
[2024-11-20 12:03] LABS: Bedside Glucose 241 mg/dL (74-106)
[2024-11-20 15:49] VITALS: BP 153/90; PULSE 80; RESP 17; TEMP 36.7; O2SAT 100
[2024-11-20] MEDS: Ondansetron 4 MG/2 ML Vial IV (16:27)
[2024-11-20 16:50] LABS: Bedside Glucose 119 mg/dL (74-106)
--- NOTE | 2024-11-20 17:17 | PN.HOSP_ITS ---
Reason for Visit Reason for Visit: Diagnoses Sepsis, unspecified organism (11/07/24) Elevated white blood cell count, unspecified (11/07/24) Type 2 diabetes mellitus with ketoacidosis with coma (11/07/24) Hyperkalemia (11/07/24) Metabolic encephalopathy (11/07/24) Hypotension, unspecified (11/07/24) Gastrointestinal hemorrhage, unspecified (11/07/24) Acute kidney failure, unspecified (11/07/24) Severe sepsis with septic shock (11/07/24) Subjective Subjective Patient was seen and examined today, he voices no complaints. He will be seen again tomorrow by nephrology, I will repeat his BMP in the morning Objective Data Objective Data Vital Signs: Vital Signs Temp Pulse Resp BP Pulse Ox O2 Del Method O2 Flow Rate 98.1 F 80 17 153/90 H 100 Room Air 2 11/20/24 15:49 11/20/24 15:49 11/20/24 15:49 11/20/24 15:49 11/20/24 15:49 11/20/24 15:49 11/18/24 16:00 FiO2 30 11/17/24 08:00 Oxygen Flow Rate (L/min) 2 Oxygen Delivery Method Room Air Weight: 92 kg Body Mass Index (BMI) 27.4 Intake & Output: Intake and Output for Last 24 Hours 11/18/24 11/19/24 11/20/24 23:59 23:59 23:59 Intake Total 1515 / 1515 114 / 114 674.75 / 674.75 Output Total 4603 / 4603 700 / 700 Balance -3088 / -3088 -586 / -586 674.75 / 674.75 Lab / Micro Data 11/19/24 11:14 11/18/24 03:15 Labs: Laboratory Results - last 24 hr 11/19/24 20:55: POC Glucose 88 11/20/24 05:16: POC Glucose 146 H 11/20/24 11:36: POC Glucose 241 H 11/20/24 16:25: POC Glucose 119 H Micro: Microbiology 11/07/24 23:25 Blood Culture (Wb) - Anticubital Left Blood Culture - Final No growth in 5 days. 11/07/24 23:00 Blood Culture (Wb) - Other Blood Culture - Final No growth in 5 days. 11/07/24 20:08 Sputum, Tracheal Aspirate Gram Stain - Final 11/07/24 20:08 Sputum, Tracheal Aspirate Respiratory Culture - Final Escherichia coli Streptococcus pneumoniae Streptococcus agalactiae (B) Physical Exam Narrative alert and no apparent distress Constitutional Narrative: Patient is alert and appropriate, he is oriented as to person and place General Appearance: cooperative, well kempt and well developed Orientation / Consciousness: awake HEENT normocephalic, head/scalp atraumatic and moist oral mucous membranes Eyes PERRL, EOMs intact bilaterally and conjunctivae normal Neck supple, no JVD, thyroid normal and no carotid bruits General: trachea midline Resp normal respiratory effort, no retractions and clear to auscultation bilaterally Auscultation: Negative for rales, rhonchi or wheezes Cardio regular rate, regular rhythm, S1 normal heart sound, S2 normal heart sound, no murmurs, no rub and no gallops GI normal to inspection, nondistended, normoactive bowel sounds, soft to palpation, non-tender and non-distended Extremity Extremity Narrative: There is generalized edema noted in the lower extremities and in the arms Skin no rashes or lesions noted General Skin Exam: no breakdown Neuro CN's II-XII intact bilaterally and moves all extremities Neuro Narrative: Patient is oriented as to person and place Sensorium / Orientation: awake and alert Speech: speech normal Psych Psych Narrative: Patient does not appear to be anxious or depressed Assessment & Plan Assessment/Plan (1) Sepsis: QUALIFIERS: Sepsis type: sepsis due to unspecified organism S epsis acute organ dysfunction status: with acute organ dysfunction Severe sepsis acute organ dysfunction type: encephalopathy Severe sepsis shock status: with septic shock Qualified Code(s): A41.9 - Sepsis, unspecified organism; R65.21 - Severe sepsis with septic shock; G93.41 - Metabolic encephalopathy (2) GLYNN (acute kidney injury): (3) Acute metabolic encephalopathy: PLAN: Plan 1. Septic shock secondary to ascending cholangitis-continue present treatment, patient is currently off pressor agents, patient is currently off continuous dialysis, labs will be rechecked tomorrow, awaiting H&H today #2 acute hypoxic respiratory failure-patient was extubated today, he is on room air #3 metabolic judchtrtsvlcho-vdytljad-mrrsyly is alert, he responds appropriately to questions and commands #4 diabetic ketoacidosis-resolved at this time, blood glucose seems under control at this time #5 acute kidney injury-nephrology is participating in his care, dialysis is planned on Thursday and Thursday, patient will have a BMP ordered tomorrow #6 acute anemia-etiology unclear at this point, labs will be monitored, patient received 1 unit of packed red blood cells, patient will have a CBC drawn tomorrow Total clinical time spent by myself addressing the patient's medical issues, reviewing all of his data, and collaborating with patient's care team: 35 minutes Charges/Coding Visit Charges Inpatient E&M: 45599 Subs Hosp L2
[2024-11-20 21:19] LABS: Bedside Glucose 134 mg/dL (74-106)
[2024-11-20 21:30] VITALS: BP 147/98; PULSE 85; RESP 18; TEMP 36.6; O2SAT 96
[2024-11-21] VITALS (23 sets, daily range): BP systolic 98–167; BP diastolic 70–98; PULSE 70–95; RESP 16–18; TEMP 36.3–36.9; O2SAT 93–100; BMI 26.6; BMI 25.5
[2024-11-21] MEDS: Levothyroxine 125 MCG Tablet PO (05:52)
[2024-11-21] MEDS: Ondansetron 4 MG/2 ML Vial IV ×2 (05:55→22:42)
[2024-11-21] MEDS: 0.9% Saline Lock 10 ML Syringe IV ×3 (05:55→22:41)
[2024-11-21 06:09] LABS: Bedside Glucose 153 mg/dL (74-106)
--- NOTE | 2024-11-21 07:27 | PN.HOSP_ITS ---
Reason for Visit Reason for Visit: Diagnoses Sepsis, unspecified organism (11/07/24) Elevated white blood cell count, unspecified (11/07/24) Type 2 diabetes mellitus with ketoacidosis with coma (11/07/24) Hyperkalemia (11/07/24) Metabolic encephalopathy (11/07/24) Hypotension, unspecified (11/07/24) Gastrointestinal hemorrhage, unspecified (11/07/24) Acute kidney failure, unspecified (11/07/24) Severe sepsis with septic shock (11/07/24) Subjective Subjective Patient is a 69-year-old gentleman who was admitted with coffee-ground emesis as well as altered mental status. Patient was intubated in the ED to protect his airway. He was also found to be in DKA admitted to the intensive care unit. Patient has since been weaned off hospital stay however complicated by septic shock secondary to ascending colitis. Objective Data Objective Data Vital Signs: Vital Signs Temp Pulse Resp BP Pulse Ox O2 Del Method O2 Flow Rate 97.4 F L 84 18 149/80 H 95 Room Air 2 11/21/24 03:09 11/21/24 03:09 11/21/24 03:09 11/21/24 03:09 11/21/24 03:09 11/21/24 03:09 11/18/24 16:00 FiO2 30 11/17/24 08:00 Oxygen Flow Rate (L/min) 2 Oxygen Delivery Method Room Air Weight: 89.4 kg Body Mass Index (BMI) 26.6 Intake & Output: Intake and Output for Last 24 Hours 11/19/24 11/20/24 11/21/24 23:59 23:59 23:59 Intake Total 114 / 114 1634.75 / 1634.75 Output Total 700 / 700 Balance -586 / -586 1634.75 / 1634.75 Lab / Micro Data 11/21/24 09:15 11/21/24 06:07 Labs: Laboratory Results - last 24 hr 11/20/24 11:36: POC Glucose 241 H 11/20/24 16:25: POC Glucose 119 H 11/20/24 20:24: POC Glucose 134 H 11/21/24 05:51: POC Glucose 153 H 11/21/24 06:07: WBC Cancelled, Corrected WBC Cancelled, RBC Cancelled, Hgb Cancelled, Hct Cancelled, MCV Cancelled, MCH Cancelled, MCHC Cancelled, RDW Std Deviation Cancelled, RDW Coeff of Eliseo Cancelled, Plt Count Cancelled, MPV Cancelled, Immature Gran % (Auto) Cancelled, Neut % (Auto) Cancelled, Lymph % (Auto) Cancelled, [place] % (Auto) Cancelled, Eos % (Auto) Cancelled, Baso % (Auto) Cancelled, Absolute Neuts (auto) Cancelled, Absolute Lymphs (auto) Cancelled, Total Counted Cancelled, Neutrophils % (Manual) Cancelled, Band Neutrophils % Cancelled, Lymphocytes % (Manual) Cancelled, Monocytes % (Manual) Cancelled, Eosinophils % (Manual) Cancelled, Basophils % (Manual) Cancelled, Metamyelocytes % Cancelled, Myelocytes % Cancelled, Promyelocytes % Cancelled, Blast Cells % Cancelled, Plasma Cell % (Manual) Cancelled, Other Cells % Cancelled, Nucleated RBC % Cancelled, Nucleated RBCs/100 WBC Cancelled, Differential Comment Cancelled, Diff Path Review Cancelled, Hypersegmented Neuts Cancelled, Atypical Lymphocytes Cancelled, Reactive Lymphocytes Cancelled, Smudge Cells Cancelled, Toxic Granulation Cancelled, Toxic Vacuolation Cancelled, Dohle Bodies Cancelled, Nakul Rods Cancelled, Platelet Estimate Cancelled, Plt Morphology Comment Cancelled, RBC Morphology Cancelled 11/21/24 06:07: RBC Morphology Cancelled, Polychromasia Cancelled, Hypochromasia Cancelled, Basophilic Stippling Cancelled, Anisocytosis Cancelled, Microcytosis Cancelled, Macrocytosis Cancelled, Spherocytes Cancelled, Sickle Cells Cancelled, Target Cells Cancelled, Tear Drop Cells Cancelled, Ovalocytes Cancelled, Stomatocytes Cancelled, [place] Bodies Cancelled, [place] Cells Cancelled, Bite Cells Cancelled, Crenated Cell Cancelled, Acanthocytes (Spur) Cancelled, Rouleaux Cancelled, Schistocytes Cancelled Micro: Microbiology 11/07/24 23:25 Blood Culture (Wb) - Anticubital Left Blood Culture - Final No growth in 5 days. 11/07/24 23:00 Blood Culture (Wb) - Other Blood Culture - Final No growth in 5 days. 11/07/24 20:08 Sputum, Tracheal Aspirate Gram Stain - Final 11/07/24 20:08 Sputum, Tracheal Aspirate Respiratory Culture - Final Escherichia coli Streptococcus pneumoniae Streptococcus agalactiae (B) Physical Exam Narrative GENERAL: cooperative HEENT: Atraumatic; normocephalic EYES; Anicteric, Normal Conjunctiva NECK; supple, normal thyroid, RESPIRATORY: Diminished to auscultation CARDIOVASCULAR: Regular S1 S2, GI: soft, normoactive bowel sounds, : No Renal angle tenderness; EXTREMITIES: No edema, no clubbing, MUSCULOSKELETAL: no muscle wasting NEURO: Awake; no lateralizing signs. SKIN: No Rash PSYCH; Flat affect Assessment & Plan Assessment/Plan (1) Sepsis: QUALIFIERS: Sepsis acute organ dysfunction status: with acute organ dysfunction Sepsis type: sepsis due to unspecified organism Severe sepsis acute organ dysfunction type: encephalopathy Severe sepsis shock status: with septic shock Qualified Code(s): A41.9 - Sepsis, unspecified organism; R65.21 - Severe sepsis with septic shock; G93.41 - Metabolic encephalopathy (2) GLYNN (acute kidney injury): (3) Acute metabolic encephalopathy: PLAN: Plan Patient is a 69-year-old gentleman who was admitted with coffee-ground emesis as well as altered mental status. Patient was intubated in the ED to protect his airway. He was also found to be in DKA admitted to the intensive care unit. Patient has since been weaned off hospital stay however complicated by septic shock secondary to ascending colitis. 1. Acute hypoxic respiratory failure ? Present on admission patient was intubated manage in the ICU has subsequently been weaned off 2. Septic shock ? Secondary to ascending colitis patient did require pressors which has since been weaned off manage with broad-spectrum antibiotic therapy. 3. Upper GI bleed ? Patient underwent EGD on 11/09/2024 was found to have grade 3 erosive esophagitis with bleeding treated with heater probe. Was also found to have acute jejunitis. Patient has since been managed with PPI 4. Ascending colitis ? Patient underwent ERCP on 11/11/[address] Lange. The entire main bile duct was dilated, with a stone causing an obstruction. Choledocholithiasis was found. Complete removal was accomplished by biliary sphincterotomy and balloon extraction. A biliary sphincterotomy was performed. One temporary stent was placed into the common bile duct. 5. Anemia ? Secondary to chronic disorder monitoring H&H and transfuse if patient becomes symptomatic or hemoglobin falls below 7. Hemoglobin as of 11/21/2024 was 7.0 and order was given for patient to be transfused 1 unit PRBC 6. Diabetic ketoacidosis ? Present on admission has since resolved. Patient remains on long-acting insulin in addition to Accu-Cheks ACHS with sliding scale coverage 7. Acute kidney injury - Creatinine on admission was 3.25 patient kidney function did worsen and peaked at 7.62. A temporary hemodialysis catheter was placed and patient subsequently is undergoing hemodialysis. Nephrology on board BMP ordered in a.m.. Decision for tunneled catheter and subsequent outpatient dialysis deferred to nephrology 8. Essential hypertension ? Patient is on lisinopril discontinued given his GLYNN. Patient blood pressure control not optimal systolic blood pressure is 167 this a.m. added hydralazine 9. Dyslipidemia ?Patient is on statin therapy, continued at home dose 10. Hypothyroidism ? Patient is on levothyroxine home dose continued 11. DVT prophylaxis ? Bilateral SCDs only Charges/Coding Visit Charges Inpatient E&M: 39959 Subs Hosp L3
[2024-11-21 07:58] LABS: Anion Gap 19 (5-15); BUN 30 mg/dL (4-19); BUN/Creat Ratio 5.1 RATIO (10-20); Calcium,Total 8.2 mg/dL (7.6-11.0); Carbon Dioxide 14.1 mmol/L (21.0-32.0); Chloride 101 mmol/L (98-108); Creatinine, Serum 5.82 mg/dL (0.70-1.20); EST Glomerular Filtration Rate 10 (>60); Estimated Creatinine Clearance 13.52 ml/min (50-250); Glucose 154 mg/dL (70-99); Potassium 5.3 mmol/L (3.3-5.1); Sodium Level 134 mmol/L (133-145)
[2024-11-21 09:33] LABS: Absolute Lymphocyte Count 1.53 X10^3/uL (0.83-4.51); Absolute Neutrophil Count 10.7 X10^3/uL (2.0-7.7); Basophil# 0.05 X10^3/uL; Basophil% 0.4 % (0-1); Eosinophil# 0.13 X10^3/uL; Lymphocyte # 1.53 X10^3/ul (0.83-4.51); Lymphocyte % 11.5 % (19-41); Mean Corp Hgb Conc 33.3 g/dL (32-36); Mean Corpuscular Hgb 31.7 pg (27.0-32.0); Mean Platelet Vol. 9.1 fl (6.2-12.0); Monocyte# 0.82 X10^3/uL; Monocyte% 6.1 % (0-10); NRBC Flagged by Analyzer 0 % (0-5); Neutrophil # 10.66 X10^3/uL (2.7-7.7); Neutrophil % 79.8 % (47-70); Platelet Count 460 K/mm3 (150-450); RBC Distribution Width CV 14.2 % (11.6-14.6); RBC Distribution Width SD 46.3 fl (35.1-43.9); Red Blood Count 2.21 M/mm3 (4.6-6.2); White Blood Count 13.4 K/mm3 (4.4-11.0)
[2024-11-21] MEDS: Heparin 10,000 UNITS/10 ML Vial IV (11:14)
[2024-11-21] MEDS: PureFlow B 2K Dialysis Soln 1 BAG 6 BAG PF (11:15)
[2024-11-21] MEDS: 0.9% Normal Saline 1,000 ML IV.SOLN. 1000 ML OPERA.SITE (11:15)
[2024-11-21 12:16] LABS: Bedside Glucose 186 mg/dL (74-106)
[2024-11-21] MEDS: Pantoprazole Sodium 40 MG in 0.9% Normal Saline (100mL MB+) 100 ML 330 MG IV (13:48)
[2024-11-21] MEDS: Insulin Glargine-YFGN 100 UNIT/ML Pen 40 UNIT SC ×2 (13:52→22:35)
[2024-11-21] MEDS: Insulin Lispro 100 UNIT/ML INSULN.PEN SC ×3 (13:53→22:35)
--- NOTE | 2024-11-21 14:33 | PN.RENAL_ITS ---
Subjective Subjective no new events Objective Data Objective Data Vital Signs: Vital Signs Temp Pulse Resp BP Pulse Ox O2 Del Method O2 Flow Rate 98.0 F 95 18 164/87 H 93 Room Air 2 11/21/24 13:45 11/21/24 13:45 11/21/24 13:45 11/21/24 13:45 11/21/24 13:45 11/21/24 13:45 11/18/24 16:00 FiO2 30 11/17/24 08:00 Oxygen Flow Rate (L/min) 2 Oxygen Delivery Method Room Air Weight: 85.5 kg Body Mass Index (BMI) 25.5 Intake & Output: Intake and Output for Last 24 Hours 11/19/24 11/20/24 11/21/24 23:59 23:59 23:59 Intake Total 114 / 114 1634.75 / 1634.75 350 / 350 Output Total 700 / 700 3920 / 3920 Balance -586 / -586 1634.75 / 1634.75 -3570 / -3570 Lab / Micro Data 11/21/24 09:15 11/21/24 06:07 Labs: Laboratory Results - last 24 hr 11/20/24 16:25: POC Glucose 119 H 11/20/24 20:24: POC Glucose 134 H 11/21/24 05:51: POC Glucose 153 H 11/21/24 06:07: WBC Cancelled, Corrected WBC Cancelled, RBC Cancelled, Hgb Cancelled, Hct Cancelled, MCV Cancelled, MCH Cancelled, MCHC Cancelled, RDW Std Deviation Cancelled, RDW Coeff of Eliseo Cancelled, Plt Count Cancelled, MPV Cancelled, Immature Gran % (Auto) Cancelled, Neut % (Auto) Cancelled, Lymph % (Auto) Cancelled, [place] % (Auto) Cancelled, Eos % (Auto) Cancelled, Baso % (Auto) Cancelled, Absolute Neuts (auto) Cancelled, Absolute Lymphs (auto) Cancelled, Total Counted Cancelled, Neutrophils % (Manual) Cancelled, Band Neutrophils % Cancelled, Lymphocytes % (Manual) Cancelled, Monocytes % (Manual) Cancelled, Eosinophils % (Manual) Cancelled, Basophils % (Manual) Cancelled, Metamyelocytes % Cancelled, Myelocytes % Cancelled, Promyelocytes % Cancelled, Blast Cells % Cancelled, Plasma Cell % (Manual) Cancelled, Other Cells % Cancelled, Nucleated RBC % Cancelled, Nucleated RBCs/100 WBC Cancelled, Differential Comment Cancelled, Diff Path Review Cancelled, Hypersegmented Neuts Cancelled, Atypical Lymphocytes Cancelled, Reactive Lymphocytes Cancelled, Smudge Cells Cancelled, Toxic Granulation Cancelled, Toxic Vacuolation Cancelled, Dohle Bodies Cancelled, Nakul Rods Cancelled, Platelet Estimate Cancelled, Plt Morphology Comment Cancelled, RBC Morphology Cancelled 11/21/24 06:07: RBC Morphology Cancelled, Polychromasia Cancelled, Hypochromasia Cancelled, Basophilic Stippling Cancelled, Anisocytosis Cancelled, Microcytosis Cancelled, Macrocytosis Cancelled, Spherocytes Cancelled, Sickle Cells Cancelled, Target Cells Cancelled, Tear Drop Cells Cancelled, Ovalocytes Cancelled, Stomatocytes Cancelled, [place] Bodies Cancelled, [place] Cells Cancelled, Bite Cells Cancelled, Crenated Cell Cancelled, Acanthocytes (Spur) Cancelled, Rouleaux Cancelled, Schistocytes Cancelled, Sodium 134, Potassium 5.3 H, Chloride 101, Carbon Dioxide 14.1 L, Anion Gap 19 H, BUN 30 H, Creatinine 5.82 H, Estim Creat Clear Calc 13.52 L, Est GFR (MDRD) Non-Af 10 L, B UN/Creatinine Ratio 5.1 L, Glucose 154 H, Calcium 8.2 11/21/24 09:15: WBC 13.4 H, RBC 2.21 L, Hgb 7.0 L, Hct 21.0 L, MCV 95.0 H, MCH 31.7, MCHC 33.3, RDW Std Deviation 46.3 H, RDW Coeff of Eliseo 14.2, Plt Count 460 H, MPV 9.1, Immature Gran % (Auto) 1.200 H, Neut % (Auto) 79.8 H, Lymph % (Auto) 11.5 L, [place] % (Auto) 6.1, Eos % (Auto) 1.0, Baso % (Auto) 0.4, Absolute Neuts (auto) 10.7 H, Absolute Lymphs (auto) 1.53, Nucleated RBC % 0 11/21/24 11:32: POC Glucose 186 H 11/21/24 11:58: Blood Type O NEGATIVE, Antibody Screen NEGATIVE, Crossmatch See Detail Micro: Microbiology 11/07/24 23:25 Blood Culture (Wb) - Anticubital Left Blood Culture - Final No growth in 5 days. 11/07/24 23:00 Blood Culture (Wb) - Other Blood Culture - Final No growth in 5 days. 11/07/24 20:08 Sputum, Tracheal Aspirate Gram Stain - Final 11/07/24 20:08 Sputum, Tracheal Aspirate Respiratory Culture - Final Escherichia coli Streptococcus pneumoniae Streptococcus agalactiae (B) Physical Exam Narrative Alert and oriented no obvious distress s1s2 no murmurs Diminished breath sounds abdomen soft _+ edema Assessment & Plan Assessment/Plan (1) GLYNN (acute kidney injury): PLAN: Assessment/Plan: The patient is a 69-year-old male with past history of type 2 diabetes mellitus. Patient presented to the hospital on 11/07/2024 with altered mental status and coffee-ground emesis. Patient was diagnosed with DKA and acute hypoxic respiratory failure requiring mechanical ventilation. Hospital course has been complicated by circulatory shock which is attributed to gram-negative pneumonia and possible cholangitis. Patient has also developed GLYNN during this admission. Nephrology is following for acute kidney injury. - Acute kidney injury with normal baseline creatinine April 2024. GLYNN likely secondary to ATN in setting of circulatory shock. Serum creatinine was 3.25 mg/dL on presentation on 11/07/2024. Serum creatinine increased to 7.25 mg/dL on 11/11/2024. Patient began iHD on 11/11 Was on CRRT, last 24 hours of an isolated UF. HD today since Cr is higher he says he is making urine likely ATn should recover ok to make dc plans dw Dr agustin surgery to be consulted to place a tunneled HD line Called and left a message to floor CM about starting paperwork for outpatient HD unit placement diagnosis is GLYNN no plans for kidney biopsy right now. will consider if no recovery after a month or so
--- NOTE | 2024-11-21 16:30 | CASEMGMT ---
VIKY RUFF updated by web content director that patient will need setup with outpatient HD. VIKY RUFF in to discuss outpatient HD. Patient states he prefers to go to [facility] in [place]. Patient denies further needs at discharge. VIKY RUFF submitted referral throught [facility]. CM will continue to follow this patient and plan for a safe discharge.
[2024-11-21 16:42] LABS: Bedside Glucose 290 mg/dL (74-106)
[2024-11-21] MEDS: Pantoprazole Sodium 40 MG Tablet PO (22:36)
[2024-11-22] VITALS (7 sets, daily range): BP systolic 124–166; BP diastolic 60–97; PULSE 65–82; RESP 16–18; TEMP 36.6–36.9; O2SAT 96–98; BMI 25.6
[2024-11-22 00:08] LABS: Bedside Glucose 310 mg/dL (74-106)
[2024-11-22] MEDS: Ondansetron 4 MG/2 ML Vial IV (04:39)
[2024-11-22] MEDS: 0.9% Saline Lock 10 ML Syringe IV ×3 (04:39→22:40)
[2024-11-22] MEDS: Acetaminophen 650 MG/20 ML UDC PO (06:13)
[2024-11-22] MEDS: Levothyroxine 125 MCG Tablet PO (06:13)
[2024-11-22 06:44] LABS: Absolute Neutrophil Count 7.9 X10^3/uL (2.0-7.7); Basophil# 0.11 X10^3/uL; Eosinophil# 0.17 X10^3/uL; Eosinophils% 1.6 % (0-5); Hematocrit 26.2 % (40-54); Hemoglobin 8.7 g/dL (13.0-16.5); Lymphocyte % 12.3 % (19-41); Mean Corp Hgb Conc 33.2 g/dL (32-36); Mean Corpuscular Hgb 30.5 pg (27.0-32.0); Mean Corpuscular Volume 91.9 fL (80-94); Mean Platelet Vol. 9.2 fl (6.2-12.0); Monocyte# 1.02 X10^3/uL; Monocyte% 9.6 % (0-10); NRBC Flagged by Analyzer 0 % (0-5); Neutrophil # 7.89 X10^3/uL (2.7-7.7); Neutrophil % 74.6 % (47-70); Platelet Count 421 K/mm3 (150-450); RBC Distribution Width CV 14.7 % (11.6-14.6); RBC Distribution Width SD 46.8 fl (35.1-43.9); Red Blood Count 2.85 M/mm3 (4.6-6.2); White Blood Count 10.6 K/mm3 (4.4-11.0)
[2024-11-22 07:05] LABS: Magnesium 1.9 mg/dL (1.5-2.2); Phosphorus 4.9 mg/dL (2.7-4.5)
[2024-11-22 07:08] LABS: AST(SGOT) 41 U/L (<=37); Alanine Aminotransfer ALT/SGPT 30 U/L (<=46); Albumin, Serum 3.1 g/dL (3.4-4.8); Alkaline Phosphatase 100 U/L (40-129); Anion Gap 11 (5-15); BUN 27 mg/dL (4-19); BUN/Creat Ratio 5.9 RATIO (10-20); Bilirubin, Direct 0.17 mg/dL (0.00-0.30); Calcium,Total 8.2 mg/dL (7.6-11.0); Carbon Dioxide 23.1 mmol/L (21.0-32.0); Chloride 102 mmol/L (98-108); Creatinine, Serum 4.65 mg/dL (0.70-1.20); EST Glomerular Filtration Rate 13 (>60); Estimated Creatinine Clearance 16.92 ml/min (50-250); Globulin 2.8 g/dL (2.2-4.2); Glucose 63 mg/dL (70-99); Potassium 4.7 mmol/L (3.3-5.1); Protein, Total 5.8 g/dL (5.9-8.4); Sodium Level 136 mmol/L (133-145); Total Bilirubin 0.29 mg/dL (0.00-1.30)
[2024-11-22 07:14] LABS: Bedside Glucose 132 mg/dL (74-106)
[2024-11-22 07:14] LABS: Bedside Glucose 55 mg/dL (74-106)
--- NOTE | 2024-11-22 07:43 | PCM.PN.HOSP ---
Reason for Visit Reason for Visit: Diagnoses Sepsis, unspecified organism (11/07/24) Elevated white blood cell count, unspecified (11/07/24) Type 2 diabetes mellitus with ketoacidosis with coma (11/07/24) Hyperkalemia (11/07/24) Metabolic encephalopathy (11/07/24) Hypotension, unspecified (11/07/24) Gastrointestinal hemorrhage, unspecified (11/07/24) Acute kidney failure, unspecified (11/07/24) Severe sepsis with septic shock (11/07/24) Subjective Subjective Patient seen complains of feeling tired. Was transfused with 1 unit PRBC the day prior. Consult has been placed to general surgery for placement of tunneled dialysis catheter Objective Data Objective Data Vital Signs: Vital Signs Temp Pulse Resp BP Pulse Ox O2 Del Method O2 Flow Rate 98 F 65 16 124/67 H 96 Room Air 2 11/22/24 04:00 11/22/24 04:00 11/22/24 04:00 11/22/24 04:00 11/22/24 04:00 11/22/24 04:30 11/18/24 16:00 FiO2 30 11/17/24 08:00 Oxygen Flow Rate (L/min) 2 Oxygen Delivery Method Room Air Weight: 85.7 kg Body Mass Index (BMI) 25.6 Intake & Output: Intake and Output for Last 24 Hours 11/20/24 11/21/24 11/22/24 23:59 23:59 23:59 Intake Total 1634.75 / 1634.75 990 / 990 Output Total 3920 / 3920 Balance 1634.75 / 1634.75 -2930 / -2930 Lab / Micro Data 11/22/24 06:01 11/22/24 06:01 Labs: Laboratory Results - last 24 hr 11/21/24 06:07: Sodium 134, Potassium 5.3 H, Chloride 101, Carbon Dioxide 14.1 L, Anion Gap 19 H, BUN 30 H, Creatinine 5.82 H, Estim Creat Clear Calc 13.52 L, Est GFR (MDRD) Non-Af 10 L, BUN/Creatinine Ratio 5.1 L, Glucose 154 H, Calcium 8.2 11/21/24 09:15: WBC 13.4 H, RBC 2.21 L, Hgb 7.0 L, Hct 21.0 L, MCV 95.0 H, MCH 31.7, MCHC 33.3, RDW Std Deviation 46.3 H, RDW Coeff of Eliseo 14.2, Plt Count 460 H, MPV 9.1, Immature Gran % (Auto) 1.200 H, Neut % (Auto) 79.8 H, Lymph % (Auto) 11.5 L, [place] % (Auto) 6.1, Eos % (Auto) 1.0, Baso % (Auto) 0.4, Absolute Neuts (auto) 10.7 H, Absolute Lymphs (auto) 1.53, Nucleated RBC % 0 11/21/24 11:32: POC Glucose 186 H 11/21/24 11:58: Blood Type O NEGATIVE, Antibody Screen NEGATIVE, Crossmatch See Detail 11/21/24 16:15: POC Glucose 290 H 11/21/24 22:34: POC Glucose 310 H 11/22/24 06:01: WBC 10.6, RBC 2.85 L, Hgb 8.7 L, Hct 26.2 L, MCV 91.9, MCH 30.5, MCHC 33.2, RDW Std Deviation 46.8 H, RDW Coeff of Eliseo 14.7 H, Plt Count 421, MPV 9.2, Immature Gran % (Auto) 0.900, Neut % (Auto) 74.6 H, Lymph % (Auto) 12.3 L, [place] % (Auto) 9.6, Eos % (Auto) 1.6, Baso % (Auto) 1.0, Absolute Neuts (auto) 7.9 H, Absolute Lymphs (auto) 1.30, Nucleated RBC % 0, Sodium 136, Potassium 4.7, Chloride 102, Carbon Dioxide 23.1, Anion Gap 11, BUN 27 H, Creatinine 4.65 H, Estim Creat Clear Calc 16.92 L, Est GFR (MDRD) Non-Af 13 L, BUN/Creatinine Ratio 5.9 L, Glucose 63 L, Calcium 8.2, Phosphorus 4.9 H, Magnesium 1.9, Total Bilirubin 0.29, Direct Bilirubin 0.17, AST 41 H, ALT 30, Alkaline Phosphatase 100, Total Protein 5.8 L, Albumin 3.1 L, Globulin 2.8 11/22/24 06:11: POC Glucose 55 L 11/22/24 06:56: POC Glucose 132 H Micro: Microbiology 11/07/24 23:25 Blood Culture (Wb) - Anticubital Left Blood Culture - Final No growth in 5 days. 11/07/24 23:00 Blood Culture (Wb) - Other Blood Culture - Final No growth in 5 days. 11/07/24 20:08 Sputum, Tracheal Aspirate Gram Stain - Final 11/07/24 20:08 Sputum, Tracheal Aspirate Respiratory Culture - Final Escherichia coli Streptococcus pneumoniae Streptococcus agalactiae (B) Physical Exam Narrative GENERAL: cooperative HEENT: Atraumatic; normocephalic EYES; Anicteric, Normal Conjunctiva NECK; supple, normal thyroid, RESPIRATORY: Diminished to auscultation CARDIOVASCULAR: Regular S1 S2, GI: soft, normoactive bowel sounds, : No Renal angle tenderness; EXTREMITIES: No edema, no clubbing, MUSCULOSKELETAL: no muscle wasting NEURO: Awake; no lateralizing signs. SKIN: No Rash PSYCH; Flat affect Assessment & Plan Assessment/Plan (1) Sepsis: QUALIFIERS: Sepsis acute organ dysfunction status: with acute organ dysfunction Sepsis type: sepsis due to unspecified organism Severe sepsis acute organ dysfunction type: encephalopathy Severe sepsis shock status: with septic shock Qualified Code(s): A41.9 - Sepsis, unspecified organism; R65.21 - Severe sepsis with septic shock; G93.41 - Metabolic encephalopathy (2) GLYNN (acute kidney injury): (3) Acute metabolic encephalopathy: PLAN: Plan Patient is a 69-year-old gentleman who was admitted with coffee-ground emesis as well as altered mental status. Patient was intubated in the ED to protect his airway. He was also found to be in DKA admitted to the intensive care unit. Patient has since been weaned off hospital stay however complicated by septic shock secondary to ascending colitis. 1. Acute hypoxic respiratory failure ? Present on admission patient was intubated manage in the ICU has subsequently been weaned off 2. Septic shock ? Secondary to ascending colitis patient did require pressors which has since been weaned off manage with broad-spectrum antibiotic therapy. 3. Upper GI bleed ? Patient underwent EGD on 11/09/2024 was found to have grade 3 erosive esophagitis with bleeding treated with heater probe. Was also found to have acute jejunitis. Patient has since been managed with PPI 4. Ascending colitis ? Patient underwent ERCP on 11/11/[address] Lange. The entire main bile duct was dilated, with a stone causing an obstruction. Choledocholithiasis was found. Complete removal was accomplished by biliary sphincterotomy and balloon extraction. A biliary sphincterotomy was performed. One temporary stent was placed into the common bile duct. 5. Anemia ? Secondary to chronic disorder monitoring H&H and transfuse if patient becomes symptomatic or hemoglobin falls below 7. Hemoglobin as of 11/21/2024 was 7.0 and order was given for patient to be transfused 1 unit PRBC ? 11/22/2024; hemoglobin up to 8.7 6. Diabetic ketoacidosis ? Present on admission has since resolved. Patient remains on long-acting insulin in addition to Accu-Cheks ACHS with sliding scale coverage 7. Acute kidney injury - Creatinine on admission was 3.25 patient kidney function did worsen and peaked at 7.62. A temporary hemodialysis catheter was placed and patient subsequently is undergoing hemodialysis. Nephrology on board BMP ordered in a.m.. Decision for tunneled catheter and subsequent outpatient dialysis deferred to nephrology ? 11/22/2024; Case was discussed with Dr. Grimes with nephrology recommended to consult general surgery for placement of tunneled dialysis catheter. Consult subsequently placed. 8. Essential hypertension ? Patient is on lisinopril discontinued given his GLYNN. Patient blood pressure control not optimal systolic blood pressure is 167 this a.m. added hydralazine 9. Dyslipidemia ?Patient is on statin therapy, continued at home dose 10. Hypothyroidism ? Patient is on levothyroxine home dose continued 11. DVT prophylaxis ? Bilateral SCDs only Charges/Coding Visit Charges Inpatient E&M: 45013 Subs Hosp L2
[2024-11-22] MEDS: Insulin Glargine-YFGN 100 UNIT/ML Pen 40 UNIT SC (09:35)
[2024-11-22] MEDS: Atorvastatin Calcium 80 MG Tablet PO (09:37)
[2024-11-22] MEDS: Pantoprazole Sodium 40 MG Tablet PO ×2 (09:37→22:40)
--- NOTE | 2024-11-22 09:39 | CON.PCM.SX_ITS ---
Assessment & Plan Assessment/Plan (1) GLYNN (acute kidney injury): PLAN: I have been consulted in conjunction with Dr. Basurto. He will independently evaluate this patient. Patient is a 69 y/o M who presented in multifactorial septic shock and DKA requiring intubation. Patient required dialysis. He is now extubated and continues to require dialysis treatment. Dr. Basurto will plan to perform a right possible left chest tunneled dialysis catheter placement. Procedure details, risks and benefits have been explained. Patient and his daughter have had the opportunity to ask and have questions answered. Patient verbally understands and agrees with the plan. Dialysis will remove the temporary right IJ catheter prior to the procedure, which is planned for 10:00 AM tomorrow. Thank you for allowing us to participate in this patient's care. HPI Consult Data Date of Consult: 11/22/24 HPI Narrative Reason for Consultation: Tunneled dialysis catheter placement HPI Narrative: MASHA ROE, is a 69 M who presented on 11/07 in multifactorial shock and DKA requiring intubation. Patient had a temporary right groin dialysis catheter placed on 11/11, which malfunctioned. A right neck IJ temporary catheter was placed on 11/15. Patient is continuing to require dialysis during his hospitalization and post-hospitalization. Our service was consulted to place a tunneled dialysis catheter. Patient denies any current shortness of breath, chest pain. He denies any previous history of myocardial infarction, stroke or blood clots. Patient denies any complications or side effects from anesthesia. Patient's last dialysis treatment was yesterday. [facility] Medical History Diabetes Medical History unable to obtain Home Medications ?Medication ?Instructions ?Recorded ?Last Taken ?Type buprenorphine 8 mg-naloxone 2 mg 1.5 film sublingual D AILY opoid 11/09/24 Unknown History sublingual film dependence insulin glargine 100 unit/mL (3 18 unit subcut QHS chaim betes 11/09/24 Unknown History mL) subcutaneous pen (Lantus Solostar U-100 Insulin) insulin lispro 100 unit/mL 14 unit subcut TIDCM diabet es 11/09/24 Unknown History subcutaneous pen levothyroxine 125 mcg tablet 125 mcg PO DAILY thyroid 11/09/24 Unknown History lisinopril 5 mg tablet 2.5 mg PO DAILY blood pressu re 11/09/24 Unknown History rosuvastatin 40 mg tablet 40 mg PO DAILY cholesterol 0 11/09/24 Unknown History Allergy/AdvReac Type Severity Reaction Status Date / Time No Known Allergies Allergy Verified 11/09/24 16:47 Family History unable to obtain Surgical History unable to obtain Social History Smoking Status: Unknown if ever smoked ROS Constitutional Constitutional: Reports systems reviewed and no addt'l complaints, except as documented Eyes Eyes: Reports systems reviewed and no addt'l complaints, except as documented ENT HEENT: Reports systems reviewed and no addt'l complaints, except as documented Cardiovascular Cardiovascular: Reports systems reviewed and no addt'l complaints, except as documented Respiratory/Chest Respiratory/Chest: Reports systems reviewed and no addt'l complaints, except as documented Gastrointestinal Gastrointestinal: Reports systems reviewed and no addt'l complaints, except as documented Genitourinary Genitourinary: Reports systems reviewed and no addt'l complaints, except as documented Musculoskeletal Musculoskeletal: Reports systems reviewed and no addt'l complaints, except as documented Integumentary Integumentary: Reports systems reviewed and no addt'l complaints, except as documented Neurologic Neurologic: Reports systems reviewed and no addt'l complaints, except as documented Psychiatric Psychiatric: Reports systems reviewed and no addt'l complaints, except as documented Endocrine Endocrinology: Reports systems reviewed and no addt'l complaints, except as documented Hematologic/Lymphatic Hematologic/Lymphatic: Reports systems reviewed and no addt'l complaints, except as documented Allergic/Immunologic Allergic/Immunologic: Reports systems reviewed and no addt'l complaints, except as documented Physical Exam Const alert, oriented x3 and no apparent distress HEENT normocephalic and head/scalp atraumatic Eyes PERRL Neck full ROM Resp normal respiratory effort and clear to auscultation bilaterally Cardio regular rate and regular rhythm GI normal to inspection, nondistended, normoactive bowel sounds no CVA tenderness Back/Spine no CVA tenderness Extremity normal to inspection Skin no rashes or lesions noted Neuro no focal motor deficits and no sensory deficits noted Psych mental status grossly normal, thought process normal, cooperative, affect normal and speech normal Lab / Micro Data 11/22/24 06:01 11/22/24 06:01 Labs: Laboratory Results - last 24 hr 11/21/24 11:32: POC Glucose 186 H 11/21/24 11:58: Blood Type O NEGATIVE, Antibody Screen NEGATIVE, Crossmatch See Detail 11/21/24 16:15: POC Glucose 290 H 11/21/24 22:34: POC Glucose 310 H 11/22/24 06:01: WBC 10.6, RBC 2.85 L, Hgb 8.7 L, Hct 26.2 L, MCV 91.9, MCH 30.5, MCHC 33.2, RDW Std Deviation 46.8 H, RDW Coeff of Eliseo 14.7 H, Plt Count 421, MPV 9.2, Immature Gran % (Auto) 0.900, Neut % (Auto) 74.6 H, Lymph % (Auto) 12.3 L, [place] % (Auto) 9.6, Eos % (Auto) 1.6, Baso % (Auto) 1.0, Absolute Neuts (auto) 7.9 H, Absolute Lymphs (auto) 1.30, Nucleated RBC % 0, Sodium 136, Potassium 4.7, Chloride 102, Carbon Dioxide 23.1, Anion Gap 11, BUN 27 H, Creatinine 4.65 H, Estim Creat Clear Calc 16.92 L, Est GFR (MDRD) Non-Af 13 L, BUN/Creatinine Ratio 5.9 L, Glucose 63 L, Calcium 8.2, Phosphorus 4.9 H, Magnesium 1.9, Total Bilirubin 0.29, Direct Bilirubin 0.17, AST 41 H, ALT 30, Alkaline Phosphatase 100, Total Protein 5.8 L, Albumin 3.1 L, Globulin 2.8 11/22/24 06:11: POC Glucose 55 L 11/22/24 06:56: POC Glucose 132 H Charges/Coding Visit Charges Inpatient E&M: 31841 Init Hosp L2
[2024-11-22] MEDS: Insulin Lispro 100 UNIT/ML INSULN.PEN SC (11:25)
[2024-11-22 11:56] LABS: Bedside Glucose 171 mg/dL (74-106)
--- NOTE | 2024-11-22 12:02 | NURSING ---
Dialysis Coordinator received message from general surgery ok to remove temp dialysis catheter. Surgery will place tunneled catheter tomorrow. Procedure explained to pt. Temp catheter removed without complication using sterile technique. Exit site dressed with sterile gauze & secured with opsite. Catheter visualized to be intact. pt tolerated procedure well.
[2024-11-22 16:55] LABS: Bedside Glucose 112 mg/dL (74-106)
[2024-11-22] MEDS: hydrALAZINE 20 MG/ML Vial 10 MG IV (18:26)
--- NOTE | 2024-11-22 22:15 | PN.RENAL_ITS ---
Subjective Subjective no new complaints temp catheter removed Objective Data Objective Data Vital Signs: Vital Signs Temp Pulse Resp BP Pulse Ox O2 Del Method O2 Flow Rate 98.4 F 75 18 165/92 H 96 Room Air 2 11/22/24 16:20 11/22/24 18:26 11/22/24 16:20 11/22/24 18:26 11/22/24 16:20 11/22/24 16:20 11/18/24 16:00 FiO2 30 11/17/24 08:00 Oxygen Flow Rate (L/min) 2 Oxygen Delivery Method Room Air Weight: 85.7 kg Body Mass Index (BMI) 25.6 Intake & Output: Intake and Output for Last 24 Hours 11/20/24 11/21/24 11/22/24 23:59 23:59 23:59 Intake Total 1634.75 / 1634.75 990 / 990 720 / 720 Output Total 3920 / 3920 Balance 1634.75 / 1634.75 -2930 / -2930 720 / 720 Lab / Micro Data 11/22/24 06:01 11/22/24 06:01 Labs: Laboratory Results - last 24 hr 11/21/24 22:34: POC Glucose 310 H 11/22/24 06:01: WBC 10.6, RBC 2.85 L, Hgb 8.7 L, Hct 26.2 L, MCV 91.9, MCH 30.5, MCHC 33.2, RDW Std Deviation 46.8 H, RDW Coeff of Eliseo 14.7 H, Plt Count 421, MPV 9.2, Immature Gran % (Auto) 0.900, Neut % (Auto) 74.6 H, Lymph % (Auto) 12.3 L, [place] % (Auto) 9.6, Eos % (Auto) 1.6, Baso % (Auto) 1.0, Absolute Neuts (auto) 7.9 H, Absolute Lymphs (auto) 1.30, Nucleated RBC % 0, Sodium 136, Potassium 4.7, Chloride 102, Carbon Dioxide 23.1, Anion Gap 11, BUN 27 H, Creatinine 4.65 H, Estim Creat Clear Calc 16.92 L, Est GFR (MDRD) Non-Af 13 L, BUN/Creatinine Ratio 5.9 L, Glucose 63 L, Calcium 8.2, Phosphorus 4.9 H, Magnesium 1.9, Total Bilirubin 0.29, Direct Bilirubin 0.17, AST 41 H, ALT 30, Alkaline Phosphatase 100, Total Protein 5.8 L, Albumin 3.1 L, Globulin 2.8 11/22/24 06:11: POC Glucose 55 L 11/22/24 06:56: POC Glucose 132 H 11/22/24 11:24: POC Glucose 171 H 11/22/24 16:27: POC Glucose 112 H Micro: Microbiology 11/07/24 23:25 Blood Culture (Wb) - Anticubital Left Blood Culture - Final No growth in 5 days. 11/07/24 23:00 Blood Culture (Wb) - Other Blood Culture - Final No growth in 5 days. 11/07/24 20:08 Sputum, Tracheal Aspirate Gram Stain - Final 11/07/24 20:08 Sputum, Tracheal Aspirate Respiratory Culture - Final Escherichia coli Streptococcus pneumoniae Streptococcus agalactiae (B) Physical Exam Narrative Alert and oriented no obvious distress s1s2 no murmurs Diminished breath sounds abdomen soft _+ edema Assessment & Plan Assessment/Plan (1) GLYNN (acute kidney injury): PLAN: Assessment/Plan: The patient is a 69-year-old male with past history of type 2 diabetes mellitus. Patient presented to the hospital on 11/07/2024 with altered mental status and coffee-ground emesis. Patient was diagnosed with DKA and acute hypoxic respiratory failure requiring mechanical ventilation. Hospital course has been complicated by circulatory shock which is attributed to gram-negative pneumonia and possible cholangitis. Patient has also developed GLYNN during this admission. Nephrology is following for acute kidney injury. - Acute kidney injury with normal baseline creatinine April 2024. GLYNN likely secondary to ATN in setting of circulatory shock. Serum creatinine was 3.25 mg/dL on presentation on 11/07/2024. Serum creatinine increased to 7.25 mg/dL on 11/11/2024. Patient began iHD on 11/11 Was on CRRT, last 24 hours of an isolated UF. HD today since Cr is higher he says he is making urine likely ATn should recover TDC tomorrow HD unit placement in progress HD tentatively tomorrow
[2024-11-22 23:05] LABS: Bedside Glucose 153 mg/dL (74-106)
[2024-11-23] VITALS (12 sets, daily range): BP systolic 135–173; BP diastolic 78–99; PULSE 68–85; RESP 14–20; TEMP 36.1–36.9; O2SAT 95–100; BMI 25.7
[2024-11-23] MEDS: Levothyroxine 125 MCG Tablet PO (06:28)
[2024-11-23] MEDS: Dextrose 10%-Water 250 ML 999 ML IV (06:38)
[2024-11-23 06:49] LABS: Absolute Lymphocyte Count 1.58 X10^3/uL (0.83-4.51); Absolute Neutrophil Count 7.4 X10^3/uL (2.0-7.7); Basophil# 0.11 X10^3/uL; Basophil% 1.1 % (0-1); Eosinophil# 0.17 X10^3/uL; Eosinophils% 1.6 % (0-5); Hematocrit 25.7 % (40-54); Hemoglobin 8.7 g/dL (13.0-16.5); Lymphocyte # 1.58 X10^3/ul (0.83-4.51); Lymphocyte % 15.3 % (19-41); Mean Corp Hgb Conc 33.9 g/dL (32-36); Mean Corpuscular Hgb 30.9 pg (27.0-32.0); Mean Corpuscular Volume 91.1 fL (80-94); Monocyte# 1.05 X10^3/uL; Monocyte% 10.1 % (0-10); NRBC Flagged by Analyzer 0 % (0-5); Neutrophil # 7.35 X10^3/uL (2.7-7.7); Platelet Count 432 K/mm3 (150-450); RBC Distribution Width CV 14.8 % (11.6-14.6); RBC Distribution Width SD 46.7 fl (35.1-43.9); Red Blood Count 2.82 M/mm3 (4.6-6.2); White Blood Count 10.4 K/mm3 (4.4-11.0)
[2024-11-23 07:00] LABS: International Normalized Ratio 0.9; Prothrombin Time (Protime)PT. 12.5 SECONDS (11.7-14.9)
[2024-11-23 07:01] LABS: Partial Thromboplast Time 33.4 Seconds (24.1-36.2)
[2024-11-23 07:17] LABS: Bedside Glucose 56 mg/dL (74-106)
[2024-11-23 07:17] LABS: Bedside Glucose 98 mg/dL (74-106)
--- NOTE | 2024-11-23 07:34 | PN.HOSP_ITS ---
Reason for Visit Reason for Visit: Diagnoses Sepsis, unspecified organism (11/07/24) Elevated white blood cell count, unspecified (11/07/24) Type 2 diabetes mellitus with ketoacidosis with coma (11/07/24) Hyperkalemia (11/07/24) Metabolic encephalopathy (11/07/24) Hypotension, unspecified (11/07/24) Gastrointestinal hemorrhage, unspecified (11/07/24) Acute kidney failure, unspecified (11/07/24) Severe sepsis with septic shock (11/07/24) Subjective Subjective Patient is scheduled to undergo tunneled dialysis catheter placement Objective Data Objective Data Vital Signs: Vital Signs Temp Pulse Resp BP Pulse Ox O2 Del Method O2 Flow Rate 98.1 F 78 14 147/78 H 95 Room Air 2 11/23/24 04:10 11/23/24 04:10 11/23/24 04:10 11/23/24 04:10 11/23/24 04:10 11/23/24 04:28 11/18/24 16:00 FiO2 30 11/17/24 08:00 Oxygen Flow Rate (L/min) 2 Oxygen Delivery Method Room Air Weight: 86 kg Body Mass Index (BMI) 25.7 Intake & Output: Intake and Output for Last 24 Hours 11/21/24 11/22/24 11/23/24 23:59 23:59 23:59 Intake Total 990 / 990 1020 / 1020 125 / 125 Output Total 3920 / 3920 Balance -2930 / -2930 1020 / 1020 125 / 125 Lab / Micro Data 11/23/24 06:26 11/23/24 06:26 Labs: Laboratory Results - last 24 hr 11/22/24 11:24: POC Glucose 171 H 11/22/24 16:27: POC Glucose 112 H 11/22/24 22:29: POC Glucose 153 H 11/23/24 06:26: WBC 10.4, RBC 2.82 L, Hgb 8.7 L, Hct 25.7 L, MCV 91.1, MCH 30.9, MCHC 33.9, RDW Std Deviation 46.7 H, RDW Coeff of Eliseo 14.8 H, Plt Count 432, MPV 9.0, Immature Gran % (Auto) 0.900, Neut % (Auto) 71.0 H, Lymph % (Auto) 15.3 L, [place] % (Auto) 10.1 H, Eos % (Auto) 1.6, Baso % (Auto) 1.1 H, Absolute Neuts (auto) 7.4, Absolute Lymphs (auto) 1.58, Nucleated RBC % 0, PT 12.5, INR 0.9, APTT 33.4 11/23/24 06:27: POC Glucose 56 L 11/23/24 07:00: POC Glucose 98 Micro: Microbiology 11/07/24 23:25 Blood Culture (Wb) - Anticubital Left Blood Culture - Final No growth in 5 days. 11/07/24 23:00 Blood Culture (Wb) - Other Blood Culture - Final No growth in 5 days. 11/07/24 20:08 Sputum, Tracheal Aspirate Gram Stain - Final 11/07/24 20:08 Sputum, Tracheal Aspirate Respiratory Culture - Final Escherichia coli Streptococcus pneumoniae Streptococcus agalactiae (B) Physical Exam Narrative GENERAL: cooperative HEENT: Atraumatic; normocephalic EYES; Anicteric, Normal Conjunctiva NECK; supple, normal thyroid, RESPIRATORY: Diminished to auscultation CARDIOVASCULAR: Regular S1 S2, GI: soft, normoactive bowel sounds, : No Renal angle tenderness; EXTREMITIES: No edema, no clubbing, MUSCULOSKELETAL: no muscle wasting NEURO: Awake; no lateralizing signs. SKIN: No Rash PSYCH; Flat affect Assessment & Plan Assessment/Plan (1) Sepsis: QUALIFIERS: Sepsis acute organ dysfunction status: with acute organ dysfunction Sepsis type: sepsis due to unspecified organism Severe sepsis acute organ dysfunction type: encephalopathy Severe sepsis shock status: with septic shock Qualified Code(s): A41.9 - Sepsis, unspecified organism; R65.21 - Severe sepsis with septic shock; G93.41 - Metabolic encephalopathy (2) GLYNN (acute kidney injury): (3) Acute metabolic encephalopathy: PLAN: Plan Patient is a 69-year-old gentleman who was admitted with coffee-ground emesis as well as altered mental status. Patient was intubated in the ED to protect his airway. He was also found to be in DKA admitted to the intensive care unit. Patient has since been weaned off hospital stay however complicated by septic shock secondary to ascending colitis. 1. Acute hypoxic respiratory failure ? Present on admission patient was intubated manage in the ICU has subsequently been weaned off 2. Septic shock ? Secondary to ascending colitis patient did require pressors which has since been weaned off manage with broad-spectrum antibiotic therapy. 3. Upper GI bleed ? Patient underwent EGD on 11/09/2024 was found to have grade 3 erosive esophagitis with bleeding treated with heater probe. Was also found to have acute jejunitis. Patient has since been managed with PPI 4. Ascending colitis ? Patient underwent ERCP on 11/11/[address] Lange. The entire main bile duct was dilated, with a stone causing an obstruction. Choledocholithiasis was found. Complete removal was accomplished by biliary sphincterotomy and balloon extraction. A biliary sphincterotomy was performed. One temporary stent was placed into the common bile duct. 5. Anemia ? Secondary to chronic disorder monitoring H&H and transfuse if patient becomes symptomatic or hemoglobin falls below 7. Hemoglobin as of 11/21/2024 was 7.0 and order was given for patient to be transfused 1 unit PRBC ? 11/22/2024; hemoglobin up to 8.7 6. Diabetic ketoacidosis ? Present on admission has since resolved. Patient remains on long-acting insulin in addition to Accu-Cheks ACHS with sliding scale coverage 7. Acute kidney injury - Creatinine on admission was 3.25 patient kidney function did worsen and peaked at 7.62. A temporary hemodialysis catheter was placed and patient subsequently is undergoing hemodialysis. Nephrology on board BMP ordered in a.m.. Decision for tunneled catheter and subsequent outpatient dialysis deferred to nephrology ? 11/22/2024; Case was discussed with Dr. Grimes with nephrology recommended to consult general surgery for placement of tunneled dialysis catheter. Consult subsequently placed. ? 11/23/2024;Patient is scheduled to undergo tunneled dialysis catheter placement 8. Essential hypertension ? Patient is on lisinopril discontinued given his GLYNN. Patient blood pressure control not optimal systolic blood pressure is 167 this a.m. added hydralazine 9. Dyslipidemia ?Patient is on statin therapy, continued at home dose 10. Hypothyroidism ? Patient is on levothyroxine home dose continued 11. DVT prophylaxis ? Bilateral SCDs only Charges/Coding Visit Charges Inpatient E&M: 13186 Subs Hosp L2
--- NOTE | 2024-11-23 07:47 | PCM.PN.SRG ---
Subjective Subjective Patient is doing well and his temporary catheter was removed yesterday Objective Data Objective Data Vital Signs: Vital Signs Temp Pulse Resp BP Pulse Ox O2 Del Method O2 Flow Rate 98.1 F 78 14 147/78 H 95 Room Air 2 11/23/24 04:10 11/23/24 04:10 11/23/24 04:10 11/23/24 04:10 11/23/24 04:10 11/23/24 04:28 11/18/24 16:00 FiO2 30 11/17/24 08:00 Oxygen Flow Rate (L/min) 2 Oxygen Delivery Method Room Air Weight: 189 lb 9.561 oz Body Mass Index (BMI) 25.7 Intake & Output: Intake and Output for Last 24 Hours 11/21/24 11/22/24 11/23/24 23:59 23:59 23:59 Intake Total 990 / 990 1020 / 1020 125 / 125 Output Total 3920 / 3920 Balance -2930 / -2930 1020 / 1020 125 / 125 Lab / Micro Data 11/23/24 06:26 11/22/24 06:01 Labs: Laboratory Results - last 24 hr 11/22/24 11:24: POC Glucose 171 H 11/22/24 16:27: POC Glucose 112 H 11/22/24 22:29: POC Glucose 153 H 11/23/24 06:26: WBC 10.4, RBC 2.82 L, Hgb 8.7 L, Hct 25.7 L, MCV 91.1, MCH 30.9, MCHC 33.9, RDW Std Deviation 46.7 H, RDW Coeff of Eliseo 14.8 H, Plt Count 432, MPV 9.0, Immature Gran % (Auto) 0.900, Neut % (Auto) 71.0 H, Lymph % (Auto) 15.3 L, [place] % (Auto) 10.1 H, Eos % (Auto) 1.6, Baso % (Auto) 1.1 H, Absolute Neuts (auto) 7.4, Absolute Lymphs (auto) 1.58, Nucleated RBC % 0, PT 12.5, INR 0.9, APTT 33.4 11/23/24 06:27: POC Glucose 56 L 11/23/24 07:00: POC Glucose 98 Micro: Microbiology 11/07/24 23:25 Blood Culture (Wb) - Anticubital Left Blood Culture - Final No growth in 5 days. 11/07/24 23:00 Blood Culture (Wb) - Other Blood Culture - Final No growth in 5 days. 11/07/24 20:08 Sputum, Tracheal Aspirate Gram Stain - Final 11/07/24 20:08 Sputum, Tracheal Aspirate Respiratory Culture - Final Escherichia coli Streptococcus pneumoniae Streptococcus agalactiae (B) Physical Exam Const oriented x3 and no apparent distress Resp normal respiratory effort GI soft to palpation and non-tender Assessment & Plan Assessment/Plan (1) GLYNN (acute kidney injury): PLAN: Patient's temporary catheter was removed yesterday. I plan to place a tunneled right chest catheter today. I discussed this with him in detail. I discussed the risks including but not limited to bleeding, infection, pneumothorax. Patient understands the risks and is willing to proceed. Jad Basurto MD Pager: [facility] [address] [place] [address], [address] [place] [address] Office:
[2024-11-23 07:59] LABS: AST(SGOT) 39 U/L (<=37); Alanine Aminotransfer ALT/SGPT 27 U/L (<=46); Albumin, Serum 2.9 g/dL (3.4-4.8); Alkaline Phosphatase 93 U/L (40-129); Anion Gap 14 (5-15); BUN 38 mg/dL (4-19); BUN/Creat Ratio 6.6 RATIO (10-20); Bilirubin, Direct 0.12 mg/dL (0.00-0.30); Carbon Dioxide 19.5 mmol/L (21.0-32.0); Chloride 103 mmol/L (98-108); Creatinine, Serum 5.67 mg/dL (0.70-1.20); EST Glomerular Filtration Rate 10 (>60); Estimated Creatinine Clearance 13.88 ml/min (50-250); Glucose 60 mg/dL (70-99); Potassium 4.7 mmol/L (3.3-5.1); Protein, Total 5.9 g/dL (5.9-8.4); Sodium Level 137 mmol/L (133-145); Total Bilirubin 0.22 mg/dL (0.00-1.30)
--- NOTE | 2024-11-23 08:53 | PCM.PRE.AN2 ---
ASA Classification* ASA Classification ASA Classification: 3 Assessment & Plan Anesthesia* Anesthesia Assessment Anesthesia Assessment: Discussed sedation and/or anesthesia options, risks, benefits, and alternatives with patient/parents/legal guardian/POA. Questions invited. The patient/parents/legal guardian/POA seems to understand and agrees to proceed with anesthesia plan. Reviewed the physical assessment, medical history, allergy history and patient home medications list prior to surgery/procedure/anesthetic and documented any changes. Performed airway and anesthesia risk assessments. Anesthesia Type Anesthesia Type: MAC Anesthesia Focused Assessment* Temperature: 98.3 F Pulse Rate: 68 Blood Pressure: 135/78 Respiratory Rate: 16 Pulse Ox: 100 Oxygen Flow Rate (L/min): 2 Fraction of Inspired Oxygen (FIO2): 30 Airway Assessment Mouth opens: >3 cm Mallampati Score: II Focused Labs Anesthesia Preop lab: CBC WBC 10.4 K/mm3 (4.4-11.0) 11/23/24 06:11/23/24 RBC 2.82 M/mm3 (4.6-6.2) L 11/23/24 06:11/23/24 Hgb 8.7 g/dL (13.0-16.5) L 11/23/24 06:26 11/23/24 Hct 25.7 % (40-54) L 11/23/24 06:26 11/23/24 Plt Count 432 K/mm3 (150-450) 11/23/24 06:26 11/23/24 CHEMISTRY Potassium 4.7 mmol/L (3.3-5.1) 11/23/24 06:26 11/23/24 Sodium 137 mmol/L (133-145) 11/23/24 06:26 11/23/24 Magnesium 1.9 mg/dL (1.5-2.2) 11/22/24 06:01 11/22/24 Phosphorus 4.9 mg/dL (2.7-4.5) H 11/22/24 06:01 11/22/24 BUN 38 mg/dL (4-19) H 11/23/24 06:26 11/23/24 Creatinine 5.67 mg/dL (0.70-1.20) H 11/23/24 06:26 11/23/24 Glucose 60 mg/dL (70-99) L 11/23/24 06:26 11/23/24 POC Glucose 98 mg/dL (74-106) 11/23/24 07:00 11/23/24 TSH 10.600 uIU/mL (0.300-4.200) H 11/07/24 23:00 11/07/24 COAG PT 12.5 SECONDS (11.7-14.9) 11/23/24 06:26 11/23/24 Pre-Assessment Diagnosis/Proposed Procedure Planned Operative Procedure(s): tunneled dialysis catheter placement Anesthesia History 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 When Was Last Pacemaker Check QUESTION #4 FULL TEXT: You/Your Family Experience fever (hyperthermia) with Anesthesia Last Oral Intake Last Oral intake: Last Oral Intake NPO since 00:00 11/23/24 04:18 Meds taken in AM with sips of Yes 11/23/24 04:18 water? Meds patient instructed to Synthroid 11/23/24 04:18 take am of surgery PONV PONV - junior recruiter: PONV - junior recruiter Female HX of Motion Sickness HX of N/V After Surgery Non-Smoker Duration of Surgery greater than 60 minutes Number of Risk Factors PONV Score Height & Weight Height & Weight: Anesthesia: Height & Weight Height 6 ft 11/23/24 04:18 Weight: 86 kg 11/23/24 04:18 Body Mass Index (BMI) 25.7 11/23/24 04:18 Respiratory Assessment Respiratory Assessment - junior recruiter: Respiratory Tract Infection Hx - junior recruiter Hx Respiratory Tract Infection No 11/23/24 04:17 STOP Sleep Apnea STOP Sleep Apnea - junior recruiter: STOP Sleep Apnea - junior recruiter Hx Hypertension No 11/19/24 08:26 Hx Sleep Apnea No 11/07/24 23:41 CPAP BIPAP Do you snore loudly (louder No 11/07/24 23:41 than talking or can be heard Do you often feel tired/ No 11/07/24 23:41 fatigued/ sleepy during daytime? Has anyone observed you stop No 11/07/24 23:41 breathing during sleep? STOP Results Negative 11/07/24 23:41 QUESTION #5 FULL TEXT : Do you snore loudly (louder than talking or can be heard through closed doors)? 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 Specify any problems Hx of Preganancy in last 3 Months Nurse Filling Out Transfusion & Questions: Date: Time: Patient unable to answer at Yes 11/07/24 23:41 this time (ie. confused, unrespo /Reproduction History /Reproductive History - junior recruiter: /Reproductive Hx- junior recruiter Hx Now Gestational Age (in weeks): EDC: Hx Hx Para Hx Section SAB Active Medications Active Medications: Current Medications Generic Name Dose Route Start Last Admin Trade Name Freq PRN Reason Stop Dose Admin Acetaminophen 650 mg 11/17/24 20:01 11/22/24 06:13 Acetaminophen 650 Mg/20 Ml Udc PO 650 mg Q6H PRN PRN Administration Pain 1-10 or Fever Atorvastatin Calcium 80 mg 11/22/24 10:00 11/22/24 09:37 Atorvastatin Calcium 80 Mg Tablet PO 80 mg DAILY JENNIFER Administration Chlorhexidine Gluconate 1 each 11/10/24 10:00 11/22/24 06:47 Chlorhexidine Gluc 2% Cloth 1 Each [place] TOPICAL Not Given DAILY JENNIFER Glucagon 1 mg 11/23/24 06:45 Glucagon 1 Mg/Ml Syringe IM X1 PRN Hypoglycemia Protocol Glycerin/Hypromellose/Polyethylene 2 drp 11/10/24 21:03 11/11/24 00:51 Glycerin/Hypromellose/Vgt261 15 Ml Bottle EACH EYE 2 drp Q1H PRN Administration DRY EYES Heparin Sodium (Porcine) 0 units 11/14/24 08:48 11/21/24 11:14 Heparin 10,000 Units/10 Ml Vial IV 1,300 units X1 PRN Administration Emergency Dialysis Catheter DC Hydralazine HCl 10 mg 11/22/24 18:07 11/22/24 18:26 Hydralazine 20 Mg/Ml Vial IV 10 mg Q4H PRN PRN Administration SBP greater than 160 Protocol Dextrose 250 mls @ 999 mls/hr 11/07/24 22:52 11/23/24 06:48 Dextrose 10%-Water IV Infused .Q16M PRN Infusion Hypoglycemic Protocol Protocol Sodium Chloride 100 mls @ 15 mls/hr 11/07/24 22:54 11/20/24 11:38 IV 0 mls/hr .Q6H40M PRN Infusion Saline Flush Sodium Chloride 100 mls @ 15 mls/hr 11/07/24 22:54 IV .Q6H40M PRN Additional IVPB Infusion Magnesium Sulfate 4 gm in 100 mls @ 25 mls/hr 11/16/24 11:46 IV X1 PRN Magnesium level < 1.6mg/dl Sodium Phosphate 30 mmol/ 260 mls @ 62.5 mls/hr 11/16/24 11:46 11/16/24 20:22 Sodium Chloride IV Infused X1 PRN Infusion Phosphorus Level <2.5 Potassium Chloride 40 meq/ 270 mls @ 135 mls/hr 11/16/24 11:46 Sodium Chloride IV X1 PRN K+ <3.5 mEq/L Dextrose 250 mls @ 0 mls/hr 11/23/24 06:45 Dextrose 10%-Water IV .Q0M PRN HYPOGLYCEMIA Protocol As Directed Insulin Glargine 40 unit 11/10/24 10:00 11/22/24 22:40 Insulin Glargine-Yfgn 100 Unit/Ml Pen SC Not Given BID JENNIFER Insulin Human Lispro 0 unit 11/18/24 11:00 11/23/24 06:51 Insulin Lispro 100 Unit/Ml Insuln.Pen SC Not Given ACHS JENNIFER Protocol Levothyroxine Sodium 125 mcg 11/18/24 10:00 11/23/24 06:28 Levothyroxine 125 Mcg Tablet PO 125 mcg DAILY@0600 JENNIFER Administration Morphine Sulfate 4 - 6 mg 11/17/24 16:41 11/20/24 09:39 Morphine 4 Mg/Ml Syringe IV 4 mg Q4H PRN PRN Administration Pain Score 6-10 Ondansetron HCl 4 mg 11/17/24 16:42 11/22/24 04:39 Ondansetron 4 Mg/2 Ml Vial IV 4 mg Q4H PRN PRN Administration NAUSEA/VOMITING Pantoprazole Sodium 40 mg 11/21/24 22:00 11/22/24 22:40 Pantoprazole Sodium 40 Mg Tablet PO 40 mg BID JENNIFER Administration Prochlorperazine Edisylate 10 mg 11/17/24 22:05 Prochlorperazine 10 Mg/2 Ml Vial IM Q4H PRN PRN NAUSEA/VOMITING Senna/Docusate Sodium 2 tablet 11/16/24 09:36 Senna/Docusate Sodium 1 Tablet GT BID PRN PRN Constipation Sodium Chloride 10 - 40 ml 11/07/24 22:54 11/22/24 22:40 0.9% Saline Lock 10 Ml Syringe IV 10 ml UD PRN Administration SALINE FLUSH Sodium Chloride 20 ml 11/14/24 08:48 11/17/24 05:43 0.9% Saline Lock 10 Ml Syringe IV 20 ml UD PRN Administration Emergency Dialysis Catheter DC Sodium Chloride 50 - 100 ml 11/14/24 08:48 0.9% Normal Saline 1,000 Ml Iv.Soln. 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 insulin glargine 100 unit/mL (3 18 unit subcut QHS diabetes 11/09/24 Unknown History mL) subcutaneous pen (Lantus Solostar U-100 Insulin) insulin lispro 100 unit/mL 14 unit subcut TIDCM diabetes 11/09/24 Unknown History subcutaneous pen levothyroxine 125 mcg tablet 125 mcg PO DAILY thyroid 11/09/24 Unknown History lisinopril 5 mg tablet 2.5 mg PO DAILY blood pressure 11/09/24 Unknown History rosuvastatin 40 mg tablet 40 mg PO DAILY cholesterol 11/09/24 Unknown History Allergy/AdvReac Type Severity Reaction Status Date / Time No Known Allergies Allergy Verified 11/09/24 16:47 Family History unable to obtain Surgical History unable to obtain Social History Smoking Status: Unknown if ever smoked Review of Systems (Anesthesia) ROS Narrative System reviewed and no additional complaints, except as documented.
[2024-11-23] MEDS: 0.9% Normal Saline (500mL Bag) 500 ML 15 ML IV (09:14)
[2024-11-23] MEDS: Heparin 10,000 UNITS/10 ML Vial 10000 UNITS (09:40)
[2024-11-23] MEDS: Cefazolin 2 GM in 0.9% Normal Saline (100mL Bag) 100 ML IV (10:22)
[2024-11-23] MEDS: Lidocaine 1% /Epi 1:100 (20ml) 20 ML Vial (10:30)
--- NOTE | 2024-11-23 10:41 | OP.PCM_ITS ---
Operative Report (Standard) Operative Information Date of Procedure: 11/23/24 Pre-Operative Diagnosis: Acute kidney injury need for vascular access for dialysis Post-Operative Diagnosis: Same Surgery/Procedure Performed: Ultrasound and fluoroscopy guided right tunneled dialysis catheter placement utilizing right IJ brand communications manager: No Type of Anesthesia: Local MAC RN Documented Start/Stop Times: Operation Date: 11/23/24 10:00 Case Time Into Pre-Op 11/23/24 08:51 Anesthesia Start 11/23/24 10:13 Into Room 11/23/24 10:13 Procedure Start Time: 10:23 Procedure Stop Time: 10:38 Select all DRAINS/GRAFTS/IMPLANTS that apply: Implanted device Implanted device details: 23 cm curved palindrome temporary dialysis catheters Estimated Blood Loss: 10 Specimen collected: No Description of surgery: Patient was brought back to the operating room and MAC anesthesia was induced. The right neck and chest were prepped and draped in the usual sterile fashion. Ultrasound was used to localize the right IJ. The area overlying the IJ was injected with local anesthetic and a large wheal was raised. There was also skin injection of local anesthetic in the chest and the tunnel between the 2 incisions. Next an incision was made in the neck and the right IJ was accessed under ultrasound guidance. A guidewire was placed without resistance under fluoroscopy. The needle was removed and then serial dilators were placed over the wire under fluoroscopy guidance. Next the peel-away sheath was placed over the wire and down into the chest under fluoroscopy guidance. The wire was removed and the Was placed. Next an incision was made on the chest and the catheter was tunneled from the chest incision to the neck incision. It was then placed into the peel-away sheath and the peel-away sheath was removed. The catheter was in good position on fluoroscopy. Each catheter was aspirated and flushed and they both aspirated and flushed easily. They were each instilled with 2 cc of heparinized saline and then clamped and capped. The catheter was then sutured to the skin using 2-0 nylon suture. The neck incision was closed with 3-0 Vicryl suture. Steri-Strips were applied to the neck incision. Dressing was applied with sterile silver dressing over the catheter. Patient was taken to PACU in stable condition and chest x-ray will be obtained. Surgical Findings: None Complications Complications: No
--- NOTE | 2024-11-23 10:45 | RAD_ITS ---
PROCEDURE: CXR FOR LINE PLACEMENT (RADCXRLP), 11/23/2024 REASON FOR EXAM: LINE PLACEMENT TECHNIQUE: A single portable AP view of the chest was obtained. COMPARISON: 11/15/2024 FINDINGS: Heart: Similar borderline mild cardiomegaly. Mediastinum: Trace atherosclerosis in the arch. Lungs/pleura: Improved aeration of the lung bases. No sizeable pleural effusion or visible pneumothorax. Bones: Unremarkable. Lines and support devices: RIGHT IJ CVC with tip projecting over the RIGHT atrium/superior cavoatrial junction. Removal of endotracheal and enteric tubes. Other: None. RAD/CXR for Line Placement IMPRESSION: 1. Manipulation of lines and support devices as above. No visible pneumothorax . 2. Additional description as above. Reading Location: [id number]
--- NOTE | 2024-11-23 10:49 | PCM.POST.ANE ---
Anesthesia: Postop Eval I Current Vital Signs Temperature: 97 F Pulse Rate: 71 Blood Pressure: 164/92 Respiratory Rate: 20 Pulse Ox: 98 Oxygen Delivery Method: Room Air Assessment Airway patent: Yes Spontaneous unlabored respirations: Yes Mental status: Awake nausea: No Vomiting: No Anesthesia Complication: No Fluid Hydration Crystalloid volume administer (ml): 50 Total IV fluid infused: 50 Progress Note Anesthesia document: Postop Eval 1 completed: Yes
--- NOTE | 2024-11-23 11:09 | POSTOPAN2_ITS ---
Anesthesia Postop Eval I Sum Postop Eval Completion status Anesthesia document: Postop Eval 1 completed: Yes Anesthesia Postop Eval I Summary Anesthesia Postop Eval I Summary: Anesthesia Postop Eval I: Assessment Summary Airway patent Yes 11/23/24 10:50 PROFESSOR/NURSE ANESTHETIST.[email or web address] Spontaneous unlabored Yes 11/23/24 10:50 PROFESSOR/NURSE ANESTHETIST.[email or web address] respirations Mental status Awake 11/23/24 10:50 PROFESSOR/NURSE ANESTHETIST.[email or web address] nausea No 11/23/24 10:50 PROFESSOR/NURSE ANESTHETIST.JDEF Vomiting No 11/23/24 10:50 PROFESSOR/NURSE ANESTHETIST.[email or web address] Anesthesia Postop Eval I: Fluid Summary Crystalloid volume administer 50 11/23/24 10:50 PROFESSOR/NURSE ANESTHETIST.JDEF (ml) Colloids volume administered ( ml) Blood Product volume administered (ml) Total IV fluid infused 50 11/23/24 10:50 PROFESSOR/NURSE ANESTHETIST.JDEF Anesthesia Postop Eval I: Summary Notes Anesthesia Complication No 11/23/24 10:50 PROFESSOR/NURSE ANESTHETIST.JDEF Anesthesia Complication Comment: Post-operative progress note pt returned to ICU 11/11/24 16:44 [email or web address] with ETT, AV w/ AMBU bag, VSS Anesthesia: Postop Eval II Evaluation Mental status: Awake Pain Level: 2 nausea: No Vomiting: No
--- NOTE | 2024-11-23 11:09 | PCM.POSTANE2 ---
Anesthesia Postop Eval I Sum Postop Eval Completion status Anesthesia document: Postop Eval 1 completed: Yes Anesthesia Postop Eval I Summary Anesthesia Postop Eval I Summary: Anesthesia Postop Eval I: Assessment Summary Airway patent Yes 11/23/24 10:50 [email or web address] Spontaneous unlabored Yes 11/23/24 10:50 [email or web address] respirations Mental status Awake 11/23/24 10:50 [email or web address] nausea No 11/23/24 10:50 MALE [email or web address] Vomiting No 11/23/24 10:50 [email or web address] Anesthesia Postop Eval I: Fluid Summary Crystalloid volume administer 50 11/23/24 10:50 MALE [email or web address] (ml) Colloids volume administered ( ml) Blood Product volume administered (ml) Total IV fluid infused 50 11/23/24 10:50 MALE [email or web address] Anesthesia Postop Eval I: Summary Notes Anesthesia Complication No 11/23/24 10:50 [email or web address] [email or web address] Anesthesia Complication Comment: Post-operative progress note pt returned to ICU 11/11/24 16:44 [email or web address] with ETT, AV w/ AMBU bag, VSS Anesthesia: Postop Eval II Evaluation Mental status: Awake Pain Level: 2 nausea: No Vomiting: No
--- NOTE | 2024-11-23 11:23 | DS.PCM_ITS ---
Providers Date of Admission: 11/07/24 Date of Discharge: 11/23/24 Primary Care Physician: Dr. Pasha Morales MD Consultations 11/07/24 21:36 Consult: Gastroenterology Routine Consulting Provider: [facility] Reason for Consult: UGI bleed with coffee-ground emesis. EMERGENT Consult: No MD Notified: Yes Date Notified: 11/07/24 Time Notified: 07:47 Method of Notification: Text 11/07/24 22:52 Consult: Rehab Specialist / Pulmonary Medicine Routine Consulting Provider: Intensivists/Pulmonary Med Reason for Consult: DKA, suspected sepsis, UGIB, GLYNN, hyperkalemia and AMS. EMERGENT Consult: No MD Notified: Yes Date Notified: 11/07/24 Time Notified: 21:33 Method of Notification: Text 11/09/24 07:34 Consult: Nephrology Routine Consulting Provider: Dante Grimes Reason for Consult: GLYNN EMERGENT Consult: No MD Notified: Yes Date Notified: 11/09/24 Time Notified: 07:34 Method of Notification: Answering Service 11/22/24 09:11 Consult: General Surgery Routine Consulting Provider: Jad Basurto Reason for Consult: For placement of tunneled dialysis catheter EMERGENT Consult: No MD Notified: Yes Date Notified: 11/22/24 Time Notified: 09:11 Method of Notification: Text Reason For Visit: DKA, SUSPECT SEPSIS, UGIB AND GLYNN WITH METOBOLIC Diagnosis Discharge Diagnosis (1) Sepsis: Status: Acute Code(s): A41.9 - Sepsis, unspecified organism Qualifiers: Sepsis type: sepsis due to unspecified organism Sepsis acute organ dysfunction status: with acute organ dysfunction Severe sepsis acute organ dysfunction type: encephalopathy Severe sepsis shock status: with septic shock Qualified Code(s): A41.9 - Sepsis, unspecified organism; R65.21 - Severe sepsis with septic shock; G93.41 - Metabolic encephalopathy (2) GLYNN (acute kidney injury): Status: Acute Code(s): N17.9 - Acute kidney failure, unspecified (3) Acute metabolic encephalopathy: Status: Acute Code(s): G93.41 - Metabolic encephalopathy Plan Patient is a 69-year-old gentleman who was admitted with coffee-ground emesis as well as altered mental status. Patient was intubated in the ED to protect his airway. He was also found to be in DKA admitted to the intensive care unit. Patient has since been weaned off hospital stay however complicated by septic shock secondary to ascending colitis. 1. Acute hypoxic respiratory failure ? Present on admission patient was intubated manage in the ICU has subsequently been weaned off 2. Septic shock ? Secondary to ascending colitis patient did require pressors which has since been weaned off manage with broad-spectrum antibiotic therapy. 3. Upper GI bleed ? Patient underwent EGD on 11/09/2024 was found to have grade 3 erosive esophagitis with bleeding treated with heater probe. Was also found to have acute jejunitis. Patient has since been managed with PPI 4. Ascending colitis ? Patient underwent ERCP on 11/11/[address] Lange. The entire main bile duct was dilated, with a stone causing an obstruction. Choledocholithiasis was found. Complete removal was accomplished by biliary sphincterotomy and balloon extraction. A biliary sphincterotomy was performed. One temporary stent was placed into the common bile duct. 5. Anemia ? Secondary to chronic disorder monitoring H&H and transfuse if patient becomes symptomatic or hemoglobin falls below 7. Hemoglobin as of 11/21/2024 was 7.0 and order was given for patient to be transfused 1 unit PRBC ? 11/22/2024; hemoglobin up to 8.7 6. Diabetic ketoacidosis ? Present on admission has since resolved. Patient remains on long-acting insulin in addition to Accu-Cheks ACHS with sliding scale coverage 7. Acute kidney injury - Creatinine on admission was 3.25 patient kidney function did worsen and peaked at 7.62. A temporary hemodialysis catheter was placed and patient subsequently is undergoing hemodialysis. Nephrology on board BMP ordered in a.m.. Decision for tunneled catheter and subsequent outpatient dialysis deferred to nephrology ? 11/22/2024; Case was discussed with Dr. Grimes with nephrology recommended to consult general surgery for placement of tunneled dialysis catheter. Consult subsequently placed. ? 11/23/2024; Patient underwent tunneled dialysis catheter placement. Discharge home to initiate dialysis starting 11/24/2024. He schedule will subsequently be Tuesdays and Saturdays 8. Essential hypertension ? Patient is on lisinopril discontinued given his GLYNN. Patient blood pressure control not optimal systolic blood pressure is 167 this a.m. added hydralazine 9. Dyslipidemia ?Patient is on statin therapy, continued at home dose 10. Hypothyroidism ? Patient is on levothyroxine home dose continued 11. DVT prophylaxis ? Bilateral SCDs only Medications at Discharge Home Medications buprenorphine 8 mg-naloxone 2 mg sublingual film 1.5 film sublingual DAILY opoid dependence 11/09/24 insulin glargine 100 unit/mL (3 mL) subcutaneous pen (Lantus Solostar U-100 Insulin) 18 unit subcut QHS diabetes 11/09/24 insulin lispro 100 unit/mL subcutaneous pen 14 unit subcut TIDCM diabetes 11/09/24 levothyroxine 125 mcg tablet 125 mcg PO DAILY thyroid 11/09/24 rosuvastatin 40 mg tablet 40 mg PO DAILY cholesterol 11/09/24 pantoprazole 40 mg tablet,delayed release 40 mg PO BID 30 days #60 tabs 11/23/24 Hospital Course Summary of Care Provided Minutes Spent on Discharge: 35 Physical Exam Narrative GENERAL: cooperative HEENT: Atraumatic; normocephalic EYES; Anicteric, Normal Conjunctiva NECK; supple, normal thyroid, RESPIRATORY: Diminished to auscultation CARDIOVASCULAR: Regular S1 S2, GI: soft, normoactive bowel sounds, : No Renal angle tenderness; EXTREMITIES: No edema, no clubbing, MUSCULOSKELETAL: no muscle wasting NEURO: Awake; no lateralizing signs. SKIN: No Rash PSYCH; Flat affect Weight / BMI Weight Weight: 86 kg Body Mass Index (BMI) 25.7 ABG / Lab / Microbiology Data 11/23/24 06:26 11/23/24 06:26 Laboratory: Laboratory Results - last 24 hr 11/22/24 11:24: POC Glucose 171 H 11/22/24 16:27: POC Glucose 112 H 11/22/24 22:29: POC Glucose 153 H 11/23/24 06:26: WBC 10.4, RBC 2.82 L, Hgb 8.7 L, Hct 25.7 L, MCV 91.1, MCH 30.9, MCHC 33.9, RDW Std Deviation 46.7 H, RDW Coeff of Eliseo 14.8 H, Plt Count 432, MPV 9.0, Immature Gran % (Auto) 0.900, Neut % (Auto) 71.0 H, Lymph % (Auto) 15.3 L, [place] % (Auto) 10.1 H, Eos % (Auto) 1.6, Baso % (Auto) 1.1 H, Absolute Neuts (auto) 7.4, Absolute Lymphs (auto) 1.58, Nucleated RBC % 0, PT 12.5, INR 0.9, APTT 33.4, Sodium 137, Potassium 4.7, Chloride 103, Carbon Dioxide 19.5 L, Anion Gap 14, BUN 38 H, Creatinine 5.67 H, Estim Creat Clear Calc 13.88 L, Est GFR (MDRD) Non-Af 10 L, BUN/Creatinine Ratio 6.6 L, Glucose 60 L, Calcium 8.0, Total Bilirubin 0.22, Direct Bilirubin 0.12, AST 39 H, ALT 27, Alkaline Phosphatase 93, Total Protein 5.9, Albumin 2.9 L, Globulin 3.0 11/23/24 06:27: POC Glucose 56 L 11/23/24 07:00: POC Glucose 98 Microbiology: Microbiology 11/07/24 23:25 Blood Culture (Wb) - Anticubital Left Blood Culture - Final No growth in 5 days. 11/07/24 23:00 Blood Culture (Wb) - Other Blood Culture - Final No growth in 5 days. 11/07/24 20:08 Sputum, Tracheal Aspirate Gram Stain - Final 11/07/24 20:08 Sputum, Tracheal Aspirate Respiratory Culture - Final Escherichia coli Streptococcus pneumoniae Streptococcus agalactiae (B) Radiography Diagnostic Testing: Radiology Impression Chest X-Ray 11/23/24 10:45 IMPRESSION: 1. Manipulation of lines and support devices as above. No visible pneumothorax. 2. Additional description as above. Reading Location: [id number] Instructions Discharge Diet: 1800 Calorie Control Diet Discharge Activity: Return to Normal Activity Call your doctor if you observe: Fever of 101 or Higher, Shortness of breath, Fainting spells and Chest pain DC O2, CPAP, BIPAP Needs Home O2 Discharge instructions: No Meaningful Use Info Meaningful Use Meaningful Use Diagnoses (Choose all that apply): None applicable Ischemic Stroke Statin Dosing Therapy Reference: STATIN DOSE THERAPY REFERENCE: * Patients > 75 years receive moderate or high dose statin therapy. * Patients 75 years or YOUNGER should receive HIGH intensity statin dose unless contraindicated. You will be required to document reason for non-treatment if statin daily dose does not meet guidelines. HIGH DOSE STATIN THERAPY DAILY Atorvastatin > than or = to 40 mg Rosuvastatin > than or = to 20 mg Amlodipine + Atorvastatin > than or = to 2.5/40 mg Ezetimibe + Simvastatin 10/80 mg Simvastatin 80mg Discharge Plan Admission Admit Date/Time: 11/07/24 21:31 Attending Provider: Jean Carlos Aquino Primary Care Provider: Pasha Morales Consulting Providers: Jean Carlos Farrar; Ravi Burris; Dante Grimes; Jone Paez; Jad Basurto Discharge Orders/Prescriptions Prescriptions: New pantoprazole 40 mg Tablet,Delayed Release (Dr/Ec) 40 mg PO BID 30 Days Qty: 60 0RF Continued insulin glargine [Lantus Solostar U-100 Insulin] 100 unit/mL (3 mL) insulin pen 18 unit subcut QHS insulin lispro 100 unit/mL insulin pen 14 unit subcut TIDCM levothyroxine 125 mcg tablet 125 mcg PO DAILY rosuvastatin 40 mg tablet 40 mg PO DAILY buprenorphine-naloxone 8-2 mg film 1.5 film sublingual DAILY Discontinued lisinopril 5 mg tablet 2.5 mg PO DAILY Referrals / Follow Up: Pasha Morales MD [Primary Care Provider] - Within 1 Week Dante Grimes MD [Med Staff - Consulting] - Within 2 Weeks (Outpatient dialysis) Care Physician,No Primary [Non-Staff] - Disposition Disposition (needs filled in before D/C Order can be placed): Home, Self Care Charges/Coding Visit Charges Inpatient E&M: 62158 Disch Hosp >30min
[2024-11-23] MEDS: Pantoprazole Sodium 40 MG Tablet PO (11:55)
[2024-11-23] MEDS: Atorvastatin Calcium 80 MG Tablet PO (11:55)
[2024-11-23 11:59] LABS: Bedside Glucose 79 mg/dL (74-106)
--- NOTE | 2024-11-23 12:16 | PHA.DC.MC.R ---
Pharmacy [facility] has performed discharge medication reconciliation and counseling for this patient. 1. Pantoprazole 40mg PO BID 2. Stop lisinopril The patient's discharge medication list was reviewed for discrepancies and discrepancies were resolved. The patient was counseled on the following discharge medications and changes in medications for homegoing were reviewed. The Reason for Use, instructions for use, and potential side effects were reviewed for all new medications. The patient's questions regarding all of their medications were answered. The patient was able to verbally demonstrate an understanding of their discharge medications. Patient counseled by pharmacy informaticist, Kuldip. Medications at Discharge Home Medications buprenorphine 8 mg-naloxone 2 mg sublingual film 1.5 film sublingual DAILY opoid dependence 11/09/24 insulin glargine 100 unit/mL (3 mL) subcutaneous pen (Lantus Solostar U-100 Insulin) 18 unit subcut QHS diabetes 11/09/24 insulin lispro 100 unit/mL subcutaneous pen 14 unit subcut TIDCM diabetes 11/09/24 levothyroxine 125 mcg tablet 125 mcg PO DAILY thyroid 11/09/24 rosuvastatin 40 mg tablet 40 mg PO DAILY cholesterol 11/09/24 ondansetron 4 mg disintegrating tablet 4 mg PO Q6H PRN nausea and vomiting #30 tabs 11/23/24 pantoprazole 40 mg tablet,delayed release 40 mg PO BID 30 days #60 tabs 11/23/24
--- NOTE | 2024-11-23 14:17 | PN.RENAL_ITS ---
Subjective Subjective no new events Objective Data Objective Data Vital Signs: Vital Signs Temp Pulse Resp BP Pulse Ox O2 Del Method O2 Flow Rate 98.2 F 77 16 157/89 H 99 Room Air 2 11/23/24 11:47 11/23/24 11:47 11/23/24 11:47 11/23/24 11:47 11/23/24 11:47 11/23/24 11:47 11/23/24 08:53 FiO2 30 11/23/24 08:53 Oxygen Flow Rate (L/min) 2 Oxygen Delivery Method Room Air Weight: 86 kg Body Mass Index (BMI) 25.7 Intake & Output: Intake and Output for Last 24 Hours 11/21/24 11/22/24 11/23/24 23:59 23:59 23:59 Intake Total 990 / 990 1020 / 1020 235 / 235 Output Total 3920 / 3920 Balance -2930 / -2930 1020 / 1020 235 / 235 Lab / Micro Data 11/23/24 06:26 11/23/24 06:26 Labs: Laboratory Results - last 24 hr 11/22/24 16:27: POC Glucose 112 H 11/22/24 22:29: POC Glucose 153 H 11/23/24 06:26: WBC 10.4, RBC 2.82 L, Hgb 8.7 L, Hct 25.7 L, MCV 91.1, MCH 30.9, MCHC 33.9, RDW Std Deviation 46.7 H, RDW Coeff of Eliseo 14.8 H, Plt Count 432, MPV 9.0, Immature Gran % (Auto) 0.900, Neut % (Auto) 71.0 H, Lymph % (Auto) 15.3 L, [place] % (Auto) 10.1 H, Eos % (Auto) 1.6, Baso % (Auto) 1.1 H, Absolute Neuts (auto) 7.4, Absolute Lymphs (auto) 1.58, Nucleated RBC % 0, PT 12.5, INR 0.9, APTT 33.4, Sodium 137, Potassium 4.7, Chloride 103, Carbon Dioxide 19.5 L, Anion Gap 14, BUN 38 H, Creatinine 5.67 H, Estim Creat Clear Calc 13.88 L, Est GFR (MDRD) Non-Af 10 L, BUN/Creatinine Ratio 6.6 L, Glucose 60 L, Calcium 8.0, Total Bilirubin 0.22, Direct Bilirubin 0.12, AST 39 H, ALT 27, Alkaline Phosphatase 93, Total Protein 5.9, Albumin 2.9 L, Globulin 3.0 11/23/24 06:27: POC Glucose 56 L 11/23/24 07:00: POC Glucose 98 11/23/24 11:13: POC Glucose 79 Micro: Microbiology 11/07/24 23:25 Blood Culture (Wb) - Anticubital Left Blood Culture - Final No growth in 5 days. 11/07/24 23:00 Blood Culture (Wb) - Other Blood Culture - Final No growth in 5 days. 11/07/24 20:08 Sputum, Tracheal Aspirate Gram Stain - Final 11/07/24 20:08 Sputum, Tracheal Aspirate Respiratory Culture - Final Escherichia coli Streptococcus pneumoniae Streptococcus agalactiae (B) Radiography Diagnostic Testing: Radiology Impression Chest X-Ray 11/23/24 10:45 IMPRESSION: 1. Manipulation of lines and support devices as above. No visible pneumothorax. 2. Additional description as above. Reading Location: [facility] Physical Exam Narrative Alert and oriented no obvious distress s1s2 no murmurs Diminished breath sounds abdomen soft _+ edema Assessment & Plan Assessment/Plan (1) GLYNN (acute kidney injury): PLAN: Assessment/Plan: The patient is a 69-year-old male with past history of type 2 diabetes mellitus. Patient presented to the hospital on 11/07/2024 with altered mental status and coffee-ground emesis. Patient was diagnosed with DKA and acute hypoxic respiratory failure requiring mechanical ventilation. Hospital course has been complicated by circulatory shock which is attributed to gram-negative pneumonia and possible cholangitis. Patient has also developed GLYNN during this admission. Nephrology is following for acute kidney injury. - Acute kidney injury with normal baseline creatinine April 2024. GLYNN likely secondary to ATN in setting of circulatory shock. Serum creatinine was 3.25 mg/dL on presentation on 11/07/2024. Serum creatinine increased to 7.25 mg/dL on 11/11/2024. Patient began iHD on 11/11 Was on CRRT, last 24 hours of an isolated UF. HD today since Cr is higher he says he is making urine likely ATn should recover TDC today has TTS schedule HD tomorrow here or outpatient depending on dc plans
--- NOTE | 2024-11-23 14:49 | CASEMGMT ---
VIKY RUFF received auth and schedule for outpatient HD on TTS 1245 with start of care for 11/24/24. VIKY RUFF called [facility] and notified that patient will be discharging today and will be at HD tomorrow. VIKY RUFF in to updated patient regarding HD schedule, copy provided in discharge paperwork. Patient had no further needs or concerns at discharge. Patient had no further questions. VIKY RUFF updated discharge plan with HD schedule, copy placed in chart.
--- NOTE | 2024-11-24 14:16 | CASEMGMT ---
Received call from Lorrie at [facility] who states pt did not show up today for dialysis. She is requesting pt phone number. Provided pt phone number as well as pt . RN ELZBIETA Brian to call pt for f/u dc tc today, he is aware of the above.
[2024-11-24 22:07] LABS: HEPATITIS B SURFACE AG Negative (Negative); Hep C Antibodies Reactive (Non Reactive); Hepatitis A IgM Antibody Negative (Negative); Hepatitis B Core AB IgM Negative (Negative); Hepatitis C Quant HCV Not Detected IU/mL (.)
== END 2024-11-23 15:11 | disposition home or self-care (01) | DRG 870 ==
LOC: ED 19:46 → ICU 22:08 → PCU 11-18 16:47
PROVIDERS: Anesthesiology; Family Medicine; Internal Medicine; Internal Medicine Critical Care Medicine; Internal Medicine Gastroenterology; Internal Medicine Nephrology; Nurse Practitioner Adult Health; Surgery; Admitting Provider Internal Medicine; Emergency Provider Emergency Medicine; PCP Family Medicine; Visit Provider Internal Medicine
PROC: 0DJ08ZZ Inspection of Upper Intestinal Tract, Via Natural or Artificial Opening Endoscopic (ICD-10-PCS; CPT 43235; principal; 2024-11-08 15:10)
PROC: 0F798DZ Dilation of Common Bile Duct with Intraluminal Device, Via Natural or Artificial Opening Endoscopic (ICD-10-PCS; CPT 43260; principal; 2024-11-11 13:10)
DX: A41.51 Sepsis due to Escherichia coli [E. coli] (principal); E11.11 Type 2 diabetes mellitus with ketoacidosis with coma; N17.0 Acute kidney failure with tubular necrosis; R65.21 Severe sepsis with septic shock; J96.01 Acute respiratory failure with hypoxia; J15.69 Pneumonia due to other Gram-negative bacteria; K22.11 Ulcer of esophagus with bleeding; G93.41 Metabolic encephalopathy; K25.0 Acute gastric ulcer with hemorrhage; J13 Pneumonia due to Streptococcus pneumoniae; Z99.11 Dependence on respirator [ventilator] status; K80.31 Calculus of bile duct with cholangitis, unspecified, with obstruction; J81.1 Chronic pulmonary edema; J98.11 Atelectasis; E11.65 Type 2 diabetes mellitus with hyperglycemia; E03.9 Hypothyroidism, unspecified; I10 Essential (primary) hypertension; D63.8 Anemia in other chronic diseases classified elsewhere; E87.5 Hyperkalemia; Z79.4 Long term (current) use of insulin; E86.1 Hypovolemia; K29.80 Duodenitis without bleeding; K83.8 Other specified diseases of biliary tract; K52.9 Noninfective gastroenteritis and colitis, unspecified; E78.5 Hyperlipidemia, unspecified; K25.9 Gastric ulcer, unspecified as acute or chronic, without hemorrhage or perforation; E07.81 Sick-euthyroid syndrome; Z79.2 Long term (current) use of antibiotics; Z79.890 Hormone replacement therapy; Z79.891 Long term (current) use of opiate analgesic
CPT/HCPCS: 31500; 31720; 36415; 36600; 51702; 71045; 71275; 74174; 74330; 76000; 76770; 80048; 80053; 80069; 80074; 80076; 80307; 81001; 82010; 82077; 82550; 82607; 82746; 82803; 82947; 82962; 83036; 83605; 83735; 84100; 84439; 84443; 84481; 84484; 85014; 85018; 85025; 85027; 85610; 85730; 86644; 86850; 86900; 86901; 87040; 87070; 87077; 87186; 87205; 90937; 90947; 93005; 93306; 94002; 94003; 94660; 94668; 94762; 97110; 97116; 97162; 97165; 97530; 97535; 97802; 97803; 99252; 99285; C1750; C1889; J2020; J2997; P9016; Q9957; Q9967; A4216; C1752; G0257; G0463; J0696; J1940; J2405